=== PATIENT | male | born 1945 | race Caucasian/White ===

== ENCOUNTER 2018-01-15 15:40 | Emergency (ER) | payer MEDICARE ==
[2018-01-15 16:01] LABS: Appearance,Urine Clear (Clear); Bilirubin,Urine Negative (Negative); Blood,Urine Negative (Negative); Color,Urine Light Yellow; Glucose,Urine (UA) Trace (Negative); Ketones,Urine Negative (Negative); Leukocyte Esterase,Urine Negative (Negative); Nitrite,Urine Negative (Negative); PH, Urine 5.5 (5.0-8.0); Protein,Urine Negative (Negative); Specific Gravity,Urine 1.005 (1.001-1.035); Urobilinogen,Urine <2.0 mg/dL (<2.0)
[2018-01-15] MEDS ORDERED: SODIUM CHLORIDE 0.9% 1,000 ML IV STA (18:06)
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
[2018-01-15 18:52] LABS: Basophils % (A) 0 %; Eosinophils # (A) 0.2 k/uL (0-0.7); Eosinophils % (A) 2 %; HCT 46.3 % (39.0-53.0); HGB 15.7 gm/dL (13.0-17.5); Lymphocytes # (A) 1.6 k/uL (1.0-4.8); Lymphocytes % (A) 12 %; Mean Platelet Volume 7.3; Monocytes # (A) 0.6 k/uL (0-1.0); Monocytes % (A) 4 %; Neutrophils # (A) 11.1 k/uL (1.3-7.7); Neutrophils % (A) 81 %; Platelet Count 153 k/uL (150-450); RBC 4.92 m/uL (4.30-5.90); RDW 12.9 % (11.5-15.5); WBC 13.6 k/uL (3.8-10.6)
[2018-01-15 19:00] LABS: ALT 26 U/L (21-72); AST 24 U/L (17-59); Alkaline Phosphatase 78 U/L (38-126); Amylase 37 U/L (30-110); Anion Gap 9 mmol/L; Blood Urea Nitrogen 17 mg/dL (9-20); Calcium 9.4 mg/dL (8.4-10.2); Carbon Dioxide 21 mmol/L (22-30); Chloride 106 mmol/L (98-107); Glucose 123 mg/dL (74-99); Lipase 89 U/L (23-300); Potassium 4.6 mmol/L (3.5-5.1); Sodium 136 mmol/L (137-145); Total Bilirubin 0.6 mg/dL (0.2-1.3); Total Protein 6.5 g/dL (6.3-8.2)
[2018-01-15 19:06] LABS: Prothrombin Time 9.7 sec (9.0-12.0)
[2018-01-15 19:10] LABS: Partial Thromboplastin Time 21.1 sec (22.0-30.0)
[2018-01-15 19:22] VITALS: RESP 18
[2018-01-15] MEDS ORDERED: diphenhydrAMINE 50 MG/ML 1 ML VIAL IVP STA (19:29)
[2018-01-15] MEDS ORDERED: FAMOTIDINE 20 MG/2 ML VIAL IV STA (19:29)
--- NOTE | 2018-01-15 20:14 | CT ---
EXAMINATION TYPE: CT abdomen pelvis w con DATE OF EXAM: 01/15/2018 COMPARISON: 06/19/2015 HISTORY: Abdominal pain CT DLP: mGycm Automated exposure control for dose reduction was used. TECHNIQUE: Helical acquisition of images was performed from the lung bases through the pelvis. CONTRAST: Isovue 100 mL FINDINGS: Lung bases are clear. There is no pleural effusion. There is no pericardial effusion. Liver spleen pancreas appear normal. Bile ducts are not dilated. Gallbladder appears normal. There is no adrenal mass. There is some hyperplasia of both adrenal glands. There is normal contrast opacification of the kidneys. There is no hydronephrosis. Ureters are not di lated. There are some inflammatory changes around the mid sigmoid colon with fat stranding. There are multip le sigmoid diverticula. The appendix appears normal. Small bowel appears normal. The lumbar spine is intact. There is atherosclerotic vascular calcification. Prostate is moderately enlarged. Prostate gl and measures 7.5 cm. There is umbilical hernia that contains fat. IMPRESSION: ENLARGED PROSTATE. NORMAL APPENDIX. THERE IS EVIDENCE OF FOCAL DIVERTICULITIS IN THE MID SIGMOID COLON THAT IS NEW COMPARED TO OLD EXAM. NO DRAINABLE FLUID COLLECTION.
[2018-01-15 20:51] VITALS: BP 174/81; PULSE 90; TEMP 97.8
== END 2018-01-15 20:53 | disposition home or self-care (01) ==
LOC: EC 15:40
DX: K57.92 Diverticulitis of intestine, part unspecified, without perforation or abscess without bleeding (principal); D72.829 Elevated white blood cell count, unspecified; E11.9 Type 2 diabetes mellitus without complications; K21.9 Gastro-esophageal reflux disease without esophagitis; I10 Essential (primary) hypertension; I25.2 Old myocardial infarction; N42.9 Disorder of prostate, unspecified; F17.200 Nicotine dependence, unspecified, uncomplicated; Z87.19 Personal history of other diseases of the digestive system; Z95.5 Presence of coronary angioplasty implant and graft; Z98.52 Vasectomy status; Z95.818 Presence of other cardiac implants and grafts; Z79.82 Long term (current) use of aspirin; Z79.84 Long term (current) use of oral hypoglycemic drugs; Z79.899 Other long term (current) drug therapy; Z88.6 Allergy status to analgesic agent; Z88.2 Allergy status to sulfonamides
CPT/HCPCS: 36415; 80053; 82150; 83690; 85025; 85610; 85730; 81003; 74177; 99284; 96374; 96375; 96361 ×2; J1200; Q9967

== ENCOUNTER 2018-01-21 15:27 | Inpatient (IN) | payer MEDICARE ==
[2018-01-21 16:49] LABS: Appearance,Urine Clear (Clear); Bilirubin,Urine Negative (Negative); Blood,Urine Small (Negative); Color,Urine Yellow; Glucose,Urine (UA) Trace (Negative); Ketones,Urine Negative (Negative); Leukocyte Esterase,Urine Negative (Negative); Mucus,Urine Rare /hpf; Nitrite,Urine Negative (Negative); PH, Urine 5.5 (5.0-8.0); Protein,Urine Negative (Negative); RBC,Urine <1 /hpf (0-5); Specific Gravity,Urine 1.011 (1.001-1.035); Squamous Epithelial Cell,Urine <1 /hpf (0-4); Urobilinogen,Urine <2.0 mg/dL (<2.0)
[2018-01-21 17:17] LABS: ALT 34 U/L (21-72); AST 20 U/L (17-59); Albumin 3.6 g/dL (3.5-5.0); Alkaline Phosphatase 62 U/L (38-126); Amylase <30 U/L (30-110); Anion Gap 10 mmol/L; Blood Urea Nitrogen 15 mg/dL (9-20); Calcium 9.1 mg/dL (8.4-10.2); Carbon Dioxide 21 mmol/L (22-30); Chloride 105 mmol/L (98-107); Glucose 120 mg/dL (74-99); Lipase 31 U/L (23-300); Potassium 4.2 mmol/L (3.5-5.1); Sodium 136 mmol/L (137-145); Total Bilirubin 0.5 mg/dL (0.2-1.3); Total Protein 6.3 g/dL (6.3-8.2)
[2018-01-21 17:26] LABS: Basophils % (A) 0 %; Eosinophils # (A) 0.1 k/uL (0-0.7); Eosinophils % (A) 1 %; HCT 43.4 % (39.0-53.0); HGB 14.1 gm/dL (13.0-17.5); Lymphocytes # (A) 1.4 k/uL (1.0-4.8); Lymphocytes % (A) 10 %; MCH 30.6 pg (25.0-35.0); MCHC 32.5 g/dL (31.0-37.0); MCV 94.3 fL (80.0-100.0); Mean Platelet Volume 6.7; Monocytes # (A) 0.7 k/uL (0-1.0); Monocytes % (A) 5 %; Neutrophils # (A) 12.3 k/uL (1.3-7.7); Neutrophils % (A) 84 %; Platelet Count 189 k/uL (150-450); RBC 4.61 m/uL (4.30-5.90); RDW 12.8 % (11.5-15.5); WBC 14.8 k/uL (3.8-10.6)
--- NOTE | 2018-01-21 17:37 | XR ---
EXAMINATION TYPE: XR KUB DATE OF EXAM: 01/21/2018 COMPARISON: 04/01/2015 HISTORY: Abdominal pain TECHNIQUE: 2 views upright FINDINGS: There is no sign of intestinal obstruction or pneumoperitoneum. Fecal pattern is normal. Th ere is no sign of a mass. Lung bases are clear. There are no pathologic calcifications over the kidne ys. IMPRESSION: Nonacute abdomen. No change.
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
[2018-01-21] MEDS ORDERED: diphenhydrAMINE 50 MG/ML 1 ML VIAL IVP STA (19:20)
[2018-01-21] MEDS ORDERED: FAMOTIDINE 20 MG/2 ML VIAL IV STA (19:20)
[2018-01-21] MEDS ORDERED: methylPREDNISolone SOD SUCCI 125 MG/2 ML VIAL IV STA (19:20)
[2018-01-21] MEDS ORDERED: HYDROmorphone 1 MG/ML 1 ML SYRINGE IVP PRN (19:22)
[2018-01-21] MEDS ORDERED: NALOXONE 0.4 MG/ML 1 ML VIAL IV PRN (19:22)
[2018-01-21] MEDS ORDERED: ONDANSETRON 4 MG/2 ML VIAL IVP PRN (19:22)
[2018-01-21] MEDS ORDERED: LEVOFLOXACIN 750MG-D5W PMX 750 MG in DEXTROSE/WATER 1 150ML.BAG IVPB STA (19:24)
--- NOTE | 2018-01-21 20:43 | CT ---
EXAMINATION TYPE: CT abdomen pelvis w con DATE OF EXAM: 01/21/2018 COMPARISON: 01/15/2018 HISTORY: pain CT DLP: 1490 mGycm Automated exposure control for dose reduction was used. TECHNIQUE: Helical acquisition of images was performed from the lung bases through the pelvis. CONTRAST: Performed without Oral Contrast and with IV Contrast, patient injected with 100 mL of Isovue 300. FINDINGS: Lung bases are clear. There is no pleural effusion. Heart size is normal. Liver spleen pancreas gallbladder appear normal. Bile ducts are not dilated. There is 2 cm low-density left and right adrenal mass consistent with hyperplasia. Kidneys show satisfactory contrast opacification. There is no hydronephrosis. Ureters are not dilated . There is small left renal parapelvic cysts. Abdominal aorta is atheromatous. There is no retroperit be adenopathy. There is inflammatory change around the mid sigmoid colon with extraluminal 3 cm fluid collection on the left lateral wall of the lower sigmoid colon. The prostate is markedly enlarged and measures 7 cm. Urinary bladder distends smoothly. Appendix appe ars normal. There is no ascites. There is no sign of free air. IMPRESSION: THERE IS SIGMOID DIVERTICULOSIS. SIGMOID DIVERTICULITIS WITH 4 CM PERIDIVERTICULAR ABSCESS IN THE DIS FELIPE SIGMOID COLON. ABSCESS IS SIGNIFICANTLY INCREASED IN SIZE COMPARED TO 01/15/2018. ENLARGED PROSTATE. NORMAL APPENDIX.
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
[2018-01-21] MEDS ORDERED: SODIUM CHLORIDE 0.9% 1,000 ML IV ONE (20:50)
[2018-01-21 21:59] VITALS: BMI 37.1
[2018-01-21] MEDS: DOXAZOSIN 4 MG TAB PO SCH (23:06)
[2018-01-21] MEDS: FINASTERIDE 5 MG TAB PO SCH (23:06)
[2018-01-21] MEDS: METOPROLOL TARTRATE 25 MG TAB PO SCH (23:06)
[2018-01-21] MEDS: SODIUM CHLORIDE 0.9% 1,000 ML IV SCH (23:06)
[2018-01-21] MEDS: LISINOPRIL 5 MG TAB PO SCH (23:06)
[2018-01-21] MEDS: FLUTICASONE 50MCG/SPRAY NASAL 16GM EA NOSTRIL SCH (23:09)
[2018-01-21 23:51] LABS: Glucose,Whole Blood 216 mg/dL (75-99)
[2018-01-21] MEDS: metroNIDAZOLE-NS PMX 500 MG in SALINE 1 100ML.BAG IVPB SCH (23:56)
[2018-01-21] MEDS: INSULIN ASPART 100 UNIT/ML 1 ML 10 ML VIAL SQ SCH (23:56)
[2018-01-22 05:55] LABS: Glucose,Whole Blood 198 mg/dL (75-99)
[2018-01-22] MEDS: metroNIDAZOLE-NS PMX 500 MG in SALINE 1 100ML.BAG IVPB SCH ×4 (06:07→23:44)
[2018-01-22] MEDS: INSULIN ASPART 100 UNIT/ML 1 ML 10 ML VIAL SQ SCH ×4 (06:08→23:44)
[2018-01-22] MEDS: SODIUM CHLORIDE 0.9% 1,000 ML IV SCH ×3 (07:57→20:19)
[2018-01-22] MEDS: FLUTICASONE 50MCG/SPRAY NASAL 16GM EA NOSTRIL SCH ×2 (08:17→20:22)
[2018-01-22] MEDS: METOPROLOL TARTRATE 25 MG TAB PO SCH ×2 (08:17→20:22)
[2018-01-22] MEDS: PANTOPRAZOLE 40 MG/10 ML VIAL IV SCH (08:18)
[2018-01-22 09:43] LABS: Basophils % (A) 0 %; Eosinophils % (A) 0 %; HCT 39.4 % (39.0-53.0); HGB 12.7 gm/dL (13.0-17.5); Lymphocytes # (A) 0.7 k/uL (1.0-4.8); Lymphocytes % (A) 6 %; MCH 30.3 pg (25.0-35.0); MCHC 32.4 g/dL (31.0-37.0); MCV 93.7 fL (80.0-100.0); Mean Platelet Volume 6.9; Monocytes # (A) 0.4 k/uL (0-1.0); Monocytes % (A) 3 %; Neutrophils # (A) 11.3 k/uL (1.3-7.7); Neutrophils % (A) 90 %; Platelet Count 193 k/uL (150-450); RDW 12.5 % (11.5-15.5); WBC 12.5 k/uL (3.8-10.6)
[2018-01-22 09:55] LABS: Anion Gap 6 mmol/L; Blood Urea Nitrogen 16 mg/dL (9-20); Calcium 8.7 mg/dL (8.4-10.2); Carbon Dioxide 24 mmol/L (22-30); Chloride 107 mmol/L (98-107); Glucose 161 mg/dL (74-99); Sodium 137 mmol/L (137-145)
[2018-01-22 12:22] LABS: Glucose,Whole Blood 217 mg/dL (75-99)
[2018-01-22] MEDS: ACETAMINOPHEN TAB 500 MG TAB PO SCH ×3 (12:27→23:44)
--- NOTE | 2018-01-22 14:09 | P.PN ---
<Bianca Ramsay Orestes - Last Filed: 01/22/18 14:01> Subjective Progress Note Date: 01/22/18 72-year-old male seen this morning states has been up ambulating in the hallway. Continues to report having left lower quadrant pain. States it has improved slightly from admission Computed tomography scan obtained last evening report reviewed show sigmoid diverticulosis with sigmoid diverticulitis with a 4 cm abscess in the distal sigmoid colon abscess has significantly increased compared to prior. White count this morning 12.5. On admission 14.8 afebrile Objective - Vital Signs Vital signs: Vital Signs Temp 97.9 F 01/22/18 07:20 Pulse 65 01/22/18 07:20 Resp 18 01/22/18 07:20 BP 136/65 01/22/18 07:20 Pulse Ox 96 01/22/18 07:20 Intake & Output 01/21/18 01/22/18 01/22/18 18:59 06:59 18:59 Intake Total 1250 915 Balance 1250 915 Weight 104.326 kg 104.326 kg Intake: Intake, IV Titration 1150 Amount Levofloxacin 750Mg-D5w 150 Pmx 750 mg In Dextrose/ Water 1 150ml.bag @ 100 mls/hr IVPB ONCE [facility] Rx#: [id number] Levofloxacin 750Mg-D5w 100 Pmx 750 mg In Dextrose/ Water 1 150ml.bag @ 100 mls/hr IVPB Q24H [facility] Rx#: [id number] Sodium Chloride 0.9% 1, 800 000 ml @ 125 mls/hr IV . Q8H [facility] Rx#:[id number] metroNIDAZOLE-NS PMX 500 100 mg In Saline 1 100ml.bag @ 100 mls/hr IVPB Q6HR [facility] Rx#:[id number] Oral 100 915 Other: Voiding Method Toilet # Voids 3 - Exam Physical exam 72-year-old sitting up in bed reports no nausea vomiting reports there is a slight improvement in the left lower quadrant pain Lungs adequate air movement bilaterally Heart S1-S2 audible regular Abdomen soft nondistended with tenderness left lower quadrant active bowel sounds no nausea no vomiting reportedly had a small soft stool this morning no blood noted Extremities no edema - Labs CBC & Chem 7: 01/22/18 09:24 01/22/18 09:24 Labs: Abnormal Lab Results - Last 24 Hours (Table) 01/21/18 01/21/18 01/21/18 Range/Units 16:15 16:48 16:48 WBC 14.8 H (3.8-10.6) k/uL RBC (4.30-5.90) m/uL Hgb (13.0-17.5) gm/dL Neutrophils # 12.3 H (1.3-7.7) k/uL Lymphocytes # (1.0-4.8) k/uL Sodium 136 L (137-145) mmol/L Carbon Dioxide 21 L (22-30) mmol/L Glucose 120 H (74-99) mg/dL POC Glucose (mg/dL) (75-99) mg/dL Amylase <30 L (30-110) U/L Urine Glucose (UA) Trace H (Negative) Urine Blood Small H (Negative) Urine Mucus Rare H (None) /hpf 01/21/18 01/22/18 01/22/18 Range/Units 23:49 05:54 09:24 WBC 12.5 H (3.8-10.6) k/uL RBC 4.20 L (4.30-5.90) m/uL Hgb 12.7 L (13.0-17.5) gm/dL Neutrophils # 11.3 H (1.3-7.7) k/uL Lymphocytes # 0.7 L (1.0-4.8) k/uL Sodium (137-145) mmol/L Carbon Dioxide (22-30) mmol/L Glucose (74-99) mg/dL POC Glucose (mg/dL) 216 H 198 H (75-99) mg/dL Amylase (30-110) U/L Urine Glucose (UA) (Negative) Urine Blood (Negative) Urine Mucus (None) /hpf 01/22/18 01/22/18 Range/Units 09:24 12:19 WBC (3.8-10.6) k/uL RBC (4.30-5.90) m/uL Hgb (13.0-17.5) gm/dL Neutrophils # (1.3-7.7) k/uL Lymphocytes # (1.0-4.8) k/uL Sodium (137-145) mmol/L Carbon Dioxide (22-30) mmol/L Glucose 161 H (74-99) mg/dL POC Glucose (mg/dL) 217 H (75-99) mg/dL Amylase (30-110) U/L Urine Glucose (UA) (Negative) Urine Blood (Negative) Urine Mucus (None) /hpf Assessment and Plan Assessment: Impression Present on admission persistent left lower quadrant pain suspect due to perforated diverticulitis complicated failed outpatient management for diverticulitis History of a recent perforated diverticulitis one week prior diagnosed CAT scan abdomen and pelvis with contrast report reviewed sigmoid diverticulosis with sigmoid diverticulitis with a 4 cm abscess in the distal sigmoid colon increased from prior exam Present on admission leukocytosis likely due to diverticulitis Plan Continue IV antibiotic as ordered Levaquin and Flagyl Pain control Increase activity IV fluid as ordered Nothing by mouth except ice chips popsicles Follow up on blood cultures DVT and GI prophylaxis The above impression and plan of care have been discussed and directed by signing physician. Bianca Ramsay nurse practitioner acting as scribe for signing physician. <Bev Lara - Last Filed: 01/22/18 19:44> Objective - Vital Signs Vital signs: Vital Signs Temp 98 F 01/22/18 15:00 Pulse 61 01/22/18 15:00 Resp 18 01/22/18 15:00 BP 145/70 01/22/18 15:00 Pulse Ox 95 01/22/18 15:00 Intake & Output 01/22/18 01/22/18 01/23/18 06:59 18:59 06:59 Intake Total 1250 1155 Balance 1250 1155 Weight 104.326 kg Intake: Intake, IV Titration 1150 Amount Levofloxacin 750Mg-D5w 150 Pmx 750 mg In Dextrose/ Water 1 150ml.bag @ 100 mls/hr IVPB ONCE [facility] Rx#: [id number] Levofloxacin 750Mg-D5w 100 Pmx 750 mg In Dextrose/ Water 1 150ml.bag @ 100 mls/hr IVPB Q24H [facility] Rx#: [id number] Sodium Chloride 0.9% 1, 800 000 ml @ 125 mls/hr IV . Q8H [facility] Rx#:[id number] metroNIDAZOLE-NS PMX 500 100 mg In Saline 1 100ml.bag @ 100 mls/hr IVPB Q6HR [facility] Rx#:[id number] Oral 100 1155 Other: Voiding Method Toilet # Voids 3 3 - Labs CBC & Chem 7: 01/22/18 09:24 01/22/18 09:24 Labs: Abnormal Lab Results - Last 24 Hours (Table) 01/21/18 01/22/18 01/22/18 Range/Units 23:49 05:54 09:24 WBC 12.5 H (3.8-10.6) k/uL RBC 4.20 L (4.30-5.90) m/uL Hgb 12.7 L (13.0-17.5) gm/dL Neutrophils # 11.3 H (1.3-7.7) k/uL Lymphocytes # 0.7 L (1.0-4.8) k/uL Glucose (74-99) mg/dL POC Glucose (mg/dL) 216 H 198 H (75-99) mg/dL 01/22/18 01/22/18 01/22/18 Range/Units 09:24 12:19 16:53 WBC (3.8-10.6) k/uL RBC (4.30-5.90) m/uL Hgb (13.0-17.5) gm/dL Neutrophils # (1.3-7.7) k/uL Lymphocytes # (1.0-4.8) k/uL Glucose 161 H (74-99) mg/dL POC Glucose (mg/dL) 217 H 130 H (75-99) mg/dL Microbiology - Last 24 Hours (Table) 01/21/18 16:48 Blood Culture - Preliminary Blood No Growth after 24 hours Assessment and Plan (1) Perforation of sigmoid colon due to diverticulitis Current Visit: Yes Status: Acute Code(s): K57.20 - DVTRCLI OF LG INT W PERFORATION AND ABSCESS W/O BLEEDING SNOMED Code(s): 0567456414864673 (2) Diabetes type 2, controlled Current Visit: Yes Status: Acute Code(s): E11.9 - TYPE 2 DIABETES MELLITUS WITHOUT COMPLICATIONS SNOMED Code(s): 02145794 (3) History of myocardial infarction Current Visit: Yes Status: Acute Code(s): I25.2 - OLD MYOCARDIAL INFARCTION SNOMED Code(s): 113661010 (4) Hypertensive heart disease Current Visit: Yes Status: Acute Code(s): I11.9 - HYPERTENSIVE HEART DISEASE WITHOUT HEART FAILURE SNOMED Code(s): 80929459 (5) Prostate hypertrophy Current Visit: Yes Status: Acute Code(s): N40.0 - BENIGN PROSTATIC HYPERPLASIA WITHOUT LOWER URINRY TRACT SYMP SNOMED Code(s): 167900533 (6) Gastroesophageal reflux disease Current Visit: Yes Status: Acute Code(s): K21.9 - GASTRO-ESOPHAGEAL REFLUX DISEASE WITHOUT ESOPHAGITIS SNOMED Code(s): 768873655 (7) Failure of outpatient treatment Current Visit: Yes Status: Acute Code(s): Z78.9 - OTHER SPECIFIED HEALTH STATUS SNOMED Code(s): 470890379
[2018-01-22] MEDS ORDERED: IPRATROPIUM-ALBUTEROL 3 ML NEB INHALATION PRN (15:50)
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
[2018-01-22] MEDS: IPRATROPIUM-ALBUTEROL 3 ML NEB INHALATION SCH ×2 (16:07→21:20)
[2018-01-22 16:55] LABS: Glucose,Whole Blood 130 mg/dL (75-99)
--- NOTE | 2018-01-22 19:46 | P.PN ---
Progress Note - Text Progress Note Date: 01/22/18 Patient seen and reevaluated this evening. Abdominal pain from yesterday moderately improved. He is tolerating ice chips and popsicles. He is now passing flatus. He still awaiting a very large bowel movement. Upon further discussion of his care, patient wishes to continue care only with Gen. surgery service and infectious disease. Per patient request, management per general surgery and infectious disease. Medicine team care discontinued.
[2018-01-22] MEDS: LEVOFLOXACIN 750MG-D5W PMX 750 MG in DEXTROSE/WATER 1 150ML.BAG IVPB SCH (20:20)
[2018-01-22] MEDS: FINASTERIDE 5 MG TAB PO SCH (20:22)
[2018-01-22] MEDS: DOXAZOSIN 4 MG TAB PO SCH (20:22)
[2018-01-22] MEDS: LISINOPRIL 5 MG TAB PO SCH (20:22)
[2018-01-22 23:34] LABS: Glucose,Whole Blood 118 mg/dL (75-99)
[2018-01-23 05:34] LABS: Glucose,Whole Blood 113 mg/dL (75-99)
[2018-01-23] MEDS: INSULIN ASPART 100 UNIT/ML 1 ML 10 ML VIAL SQ SCH ×3 (05:36→18:28)
[2018-01-23] MEDS: metroNIDAZOLE-NS PMX 500 MG in SALINE 1 100ML.BAG IVPB SCH ×3 (05:36→17:50)
[2018-01-23] MEDS: ACETAMINOPHEN TAB 500 MG TAB PO SCH ×4 (05:36→23:36)
[2018-01-23] MEDS: SODIUM CHLORIDE 0.9% 1,000 ML IV SCH ×3 (05:36→22:15)
[2018-01-23 07:35] LABS: Basophils % (A) 0 %; Eosinophils % (A) 0 %; HCT 38.5 % (39.0-53.0); HGB 13.3 gm/dL (13.0-17.5); Lymphocytes # (A) 1.2 k/uL (1.0-4.8); Lymphocytes % (A) 9 %; MCH 31.9 pg (25.0-35.0); MCHC 34.5 g/dL (31.0-37.0); MCV 92.6 fL (80.0-100.0); Mean Platelet Volume 7.5; Monocytes # (A) 0.8 k/uL (0-1.0); Monocytes % (A) 6 %; Neutrophils # (A) 10.3 k/uL (1.3-7.7); Neutrophils % (A) 83 %; Platelet Count 182 k/uL (150-450); RBC 4.16 m/uL (4.30-5.90); RDW 12.6 % (11.5-15.5); WBC 12.4 k/uL (3.8-10.6)
[2018-01-23] MEDS: IPRATROPIUM-ALBUTEROL 3 ML NEB INHALATION SCH ×4 (07:57→18:44)
[2018-01-23] MEDS: FLUTICASONE 50MCG/SPRAY NASAL 16GM EA NOSTRIL SCH ×2 (09:05→22:14)
[2018-01-23] MEDS: PANTOPRAZOLE 40 MG/10 ML VIAL IV SCH (09:05)
[2018-01-23] MEDS: METOPROLOL TARTRATE 25 MG TAB PO SCH ×2 (09:05→22:14)
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
--- NOTE | 2018-01-23 12:05 | P.PN ---
<Melony Ramsayne M - Last Filed: 01/23/18 12:00> Subjective Progress Note Date: 01/23/18 72-year-old male seen this morning. Up ambulating in the cobian. Patient stated he had one small bowel movement this morning no blood noted in the stool IV antibiotic Flagyl and Levaquin as ordered with infectious disease following currently blood culture show no growth to date reports no nausea no vomiting tolerating ice chips and popsicles abdomen soft not distended states less tenderness Patient is being followed and treated for sigmoid diverticulosis with sigmoid diverticulitis with a 4 cm abscess in the distal sigmoid colon. Objective - Vital Signs Vital signs: Vital Signs Temp 97.8 F 01/23/18 07:05 Pulse 68 01/23/18 07:05 Resp 18 01/23/18 07:05 BP 129/64 01/23/18 07:05 Pulse Ox 96 01/23/18 07:05 Intake & Output 01/22/18 01/23/18 01/23/18 18:59 06:59 18:59 Intake Total 1155 2250 250 Balance 1155 2250 250 Intake: Intake, IV Titration 2250 Amount Levofloxacin 750Mg-D5w 750 Pmx 750 mg In Dextrose/ Water 1 150ml.bag @ 100 mls/hr IVPB Q24H [facility] Rx#: [id number] Sodium Chloride 0.9% 1, 1500 000 ml @ 125 mls/hr IV . [facility]8H [facility] Rx#:[id number] Oral 1155 250 Other: Voiding Method Toilet # Voids 3 3 - Exam Physical exam 72-year-old sitting up in bed reports has been up ambulating in the cobian states there is a improvement in the left lower quadrant abdominal pain states feels hunger sensation Lungs adequate air movement bilaterally no shortness of breath Heart S1-S2 audible regular denying chest pain Abdomen soft nondistended with tenderness left lower quadrant active bowel sounds no nausea no vomiting reportedly had a small bowel movement this morning Extremities no edema - Labs CBC & Chem 7: 01/23/18 07:07 01/22/18 09:24 Labs: Abnormal Lab Results - Last 24 Hours (Table) 01/22/18 01/22/18 01/22/18 Range/Units 12:19 16:53 23:33 WBC (3.8-10.6) k/uL RBC (4.30-5.90) m/uL Hct (39.0-53.0) % Neutrophils # (1.3-7.7) k/uL POC Glucose (mg/dL) 217 H 130 H 118 H (75-99) mg/dL 01/23/18 01/23/18 Range/Units 05:31 07:07 WBC 12.4 H (3.8-10.6) k/uL RBC 4.16 L (4.30-5.90) m/uL Hct 38.5 L (39.0-53.0) % Neutrophils # 10.3 H (1.3-7.7) k/uL POC Glucose (mg/dL) 113 H (75-99) mg/dL Microbiology - Last 24 Hours (Table) 01/21/18 16:48 Blood Culture - Preliminary Blood No Growth after 24 hours Assessment and Plan Assessment: Impression Present on admission persistent left lower quadrant pain suspect due to perforated diverticulitis complicated failed outpatient management for diverticulitis History of a recent perforated diverticulitis one week prior diagnosed CAT scan abdomen and pelvis with contrast report reviewed sigmoid diverticulosis with sigmoid diverticulitis with a 4 cm abscess in the distal sigmoid colon increased from prior exam Present on admission leukocytosis likely due to diverticulitis Plan Await further recommendations infectious disease Continue IV antibiotic as ordered Levaquin and Flagyl Pain control Increase activity IV fluid as ordered Nothing by mouth except ice chips popsicles Follow up on blood cultures DVT and GI prophylaxis The above impression and plan of care have been discussed and directed by signing physician. Bianca Ramsay nurse practitioner acting as scribe for signing physician. <Bev Lara N - Last Filed: 01/23/18 17:05> Objective - Vital Signs Vital signs: Vital Signs Temp 98.7 F 01/23/18 14:28 Pulse 62 01/23/18 14:28 Resp 15 01/23/18 14:28 BP 142/64 01/23/18 14:28 Pulse Ox 96 01/23/18 14:28 Intake & Output 01/22/18 01/23/18 01/23/18 18:59 06:59 18:59 Intake Total 1155 2250 490 Balance 1155 2250 490 Intake: Intake, IV Titration 2250 Amount Levofloxacin 750Mg-D5w 750 Pmx 750 mg In Dextrose/ Water 1 150ml.bag @ 100 mls/hr IVPB Q24H [facility] Rx#: [id number] Sodium Chloride 0.9% 1, 1500 000 ml @ 125 mls/hr IV . Q8H [facility] Rx#:[id number] Oral 1155 490 Other: Voiding Method Toilet # Voids 3 3 3 # Bowel Movements 5 - Labs CBC & Chem 7: 01/23/18 07:07 01/22/18 09:24 Labs: Abnormal Lab Results - Last 24 Hours (Table) 01/22/18 01/23/18 01/23/18 Range/Units 23:33 05:31 07:07 WBC 12.4 H (3.8-10.6) k/uL RBC 4.16 L (4.30-5.90) m/uL Hct 38.5 L (39.0-53.0) % Neutrophils # 10.3 H (1.3-7.7) k/uL POC Glucose (mg/dL) 118 H 113 H (75-99) mg/dL 01/23/18 Range/Units 12:39 WBC (3.8-10.6) k/uL RBC (4.30-5.90) m/uL Hct (39.0-53.0) % Neutrophils # (1.3-7.7) k/uL POC Glucose (mg/dL) 157 H (75-99) mg/dL Microbiology - Last 24 Hours (Table) 01/21/18 16:48 Blood Culture - Preliminary Blood No Growth after 24 hours Assessment and Plan (1) Perforation of sigmoid colon due to diverticulitis Current Visit: Yes Status: Acute Code(s): K57.20 - DVTRCLI OF LG INT W PERFORATION AND ABSCESS W/O BLEEDING SNOMED Code(s): 1426208407723119 (2) Diabetes type 2, controlled Current Visit: Yes Status: Acute Code(s): E11.9 - TYPE 2 DIABETES MELLITUS WITHOUT COMPLICATIONS SNOMED Code(s): 81067367 (3) History of myocardial infarction Current Visit: Yes Status: Acute Code(s): I25.2 - OLD MYOCARDIAL INFARCTION SNOMED Code(s): 689595766 (4) Hypertensive heart disease Current Visit: Yes Status: Acute Code(s): I11.9 - HYPERTENSIVE HEART DISEASE WITHOUT HEART FAILURE SNOMED Code(s): 42455944 (5) Prostate hypertrophy Current Visit: Yes Status: Acute Code(s): N40.0 - BENIGN PROSTATIC HYPERPLASIA WITHOUT LOWER URINRY TRACT SYMP SNOMED Code(s): 523226388 (6) Gastroesophageal reflux disease Current Visit: Yes Status: Acute Code(s): K21.9 - GASTRO-ESOPHAGEAL REFLUX DISEASE WITHOUT ESOPHAGITIS SNOMED Code(s): 863766240 (7) Failure of outpatient treatment Current Visit: Yes Status: Acute Code(s): Z78.9 - OTHER SPECIFIED HEALTH STATUS SNOMED Code(s): 945410944
[2018-01-23 12:41] LABS: Glucose,Whole Blood 157 mg/dL (75-99)
--- NOTE | 2018-01-23 18:00 | P.PN ---
Progress Note - Text Progress Note Date: 01/23/18 He is passing flatus and having bowel movements. Pain has improved. His main concern includes inflamed hemorrhoids. He's pending infectious disease management of his antibiotics as he had failed outpatient management of his diverticulitis. Separately, given the recurrent symptoms of diverticulitis including acute event, surgical intervention is being described attention was outpatient management. Patient is yet to see his advanced practice registered nurse. He is due for colonoscopy. We will obtain cardiology consultation in the interim. I discussed the patient he may need oral versus IV antibiotics. Hospitalization continued for the weekend. Patient is aware that Dr. Donis is covering over the weekend.
[2018-01-23 18:30] LABS: Glucose,Whole Blood 94 mg/dL (75-99)
[2018-01-23] MEDS: LISINOPRIL 5 MG TAB PO SCH (22:13)
[2018-01-23] MEDS: FINASTERIDE 5 MG TAB PO SCH (22:14)
[2018-01-23] MEDS: LEVOFLOXACIN 750MG-D5W PMX 750 MG in DEXTROSE/WATER 1 150ML.BAG IVPB SCH (22:14)
[2018-01-23] MEDS: DOXAZOSIN 4 MG TAB PO SCH (22:14)
--- NOTE | 2018-01-23 22:17 | P.CON ---
Consult Note - . Consult date: 01/23/18 Assessment/Plan:: This is a 72-year-old male patient who gives history that he has had problems with episodes of diarrhea since he was around 15 years of age. He has episodes of diarrhea and usually left lower quadrant pain but sometimes the pain is all over his abdomen. He has history of a colonoscopy [address] Doyle Blount that found 1 polyp and diverticula. He states he then was sent to the Dr. Ellington and determined that his diarrhea was related to metformin which was stopped and he was placed on Januvia which seemed to make things better. He has recently been treated for sinus infection within the last month and was initially on amoxicillin followed by a yeast medicine then followed by Augmentin Flonase and prednisone. He states that he also took probiotics while he was on Augmentin. After he finished the prednisone he thought his stomach trouble became worse. He states that instead of diarrhea he was having more problems with constipation but having pain as well. He states he usually has about 4 bowel movements per day and sometimes up to 7 and 9 per day. He sometimes has bright red blood secondary to hemorrhoids. He came into the emergency center last and had a CAT scan of abdomen and pelvis that showed diverticulitis in the mid sigmoid colon that is new, enlarged prostate, normal appendix. He was afebrile at that time with a white count 13.6. He was discharged home on Levaquin and Flagyl and followed up with his primary care physician. He was instructed by his primary care to take only half a tablet of the Flagyl 3 times daily which she has done and continue the Levaquin. He then returned to the emergency center on January 21 due to abdominal pain and constipation. He was afebrile, white count 14.8. A repeat CAT scan of the abdomen and pelvis showed sigmoid diverticulosis. Sigmoid diverticulitis with 4 cm peridiverticular abscess in the distal sigmoid colon. Abscess is significantly increased in size compared to January 15. Patient was started on Levaquin and Flagyl IV and admitted under the care of Dr. Ramos. Patient is currently on chopped diet which she is tolerating. He denies having any nausea or vomiting. He states he has had some chills and sweats. He has had a good appetite and feels that he is "starving." He denies any problems with urination either pain burning or retention. He does state he has a cyst on the scrotum that is enlarged since he was started on IV antibiotics. Please see the consult note is dictated by nurse practitioner Mrs. Jennifer Mcclure. 72-year-old male who has a very complex history of what appears to be an irritable bowel syndrome throughout his life relates that he has had great difficulties with his stool habits. He has learned to cook and eat such that his colon does not bother him significantly. This is evidenced by his significant obesity. The patient recently has had a change of his bowel habit that he actually became a bit constipated. This is extremely unusual for him. Yet she started to take some [id number] products to loosen his stools that he is not happy doing the past. He became quite uncomfortable and his even obtained a enema. The patient refused to use the enema because he was concerned and called his physician. With his increasing abdominal pain and concern she was brought to hospital. Computed tomography scan did reveal evidence of the significant sigmoid diverticulosis as well as diverticulitis with a 4 cm abscess at the distal sigmoid colon. The patient has been treated with antibiotic therapy with only minimal improvement at this time. His appetite is improved but he does not feel well. He does have a known history of a hydrocele that he believes is worsened since coming to Hospital and receiving IV fluids. The patient's history reveals evidence of an Escherichia coli that was intermediate susceptible to Unasyn and constantly for antibiotic therapy to improve coverage of the diverticular abscess will be transitioned to Zosyn pending further data. There is a potential the patient will be treated with outpatient intravenous antibiotic therapy likely in the home setting. We' ll continue ongoing supportive care. Nutrition as per surgery. It appears there are plans for surgical intervention a few months down the road when he has further improved. Unclear if there is plans for percutaneous drainage of the abscess. The patient's questions are answered to the best ability. Leukocytosis is due to the diverticular abscess and diverticulitis and is showing a slight trend to improvement and will be monitored. I agree with evaluation, assessment and plan as dictated by nurse practitioner Mrs. Jennifer Mcclure.
[2018-01-23] MEDS: PIPERACILLIN-TAZOBACTAM 3.375 GM in DEXTROSE/WATER 1 50ML.BAG IVPB SCH (23:35)
[2018-01-24] MEDS: INSULIN ASPART 100 UNIT/ML 1 ML 10 ML VIAL SQ SCH ×4 (01:00→17:35)
[2018-01-24 01:09] LABS: Glucose,Whole Blood 92 mg/dL (75-99)
[2018-01-24] MEDS: SODIUM CHLORIDE 0.9% 1,000 ML IV SCH ×2 (04:15→10:27)
[2018-01-24 05:55] LABS: Glucose,Whole Blood 97 mg/dL (75-99)
[2018-01-24] MEDS: ACETAMINOPHEN TAB 500 MG TAB PO SCH ×3 (06:09→17:37)
[2018-01-24 07:25] LABS: Basophils % (A) 0 %; Eosinophils # (A) 0.1 k/uL (0-0.7); Eosinophils % (A) 1 %; HGB 12.8 gm/dL (13.0-17.5); Lymphocytes # (A) 1.2 k/uL (1.0-4.8); Lymphocytes % (A) 23 %; MCHC 32.9 g/dL (31.0-37.0); MCV 94.2 fL (80.0-100.0); Mean Platelet Volume 6.7; Monocytes # (A) 0.3 k/uL (0-1.0); Monocytes % (A) 6 %; Neutrophils # (A) 3.7 k/uL (1.3-7.7); Neutrophils % (A) 68 %; Platelet Count 195 k/uL (150-450); RBC 4.14 m/uL (4.30-5.90); RDW 12.7 % (11.5-15.5); WBC 5.4 k/uL (3.8-10.6)
[2018-01-24 07:31] LABS: INR 1.2 (<1.2); Prothrombin Time 11.5 sec (9.0-12.0)
[2018-01-24] MEDS: IPRATROPIUM-ALBUTEROL 3 ML NEB INHALATION SCH ×4 (08:02→20:23)
[2018-01-24] MEDS: PANTOPRAZOLE 40 MG/10 ML VIAL IV SCH (08:08)
[2018-01-24] MEDS: PIPERACILLIN-TAZOBACTAM 3.375 GM in DEXTROSE/WATER 1 50ML.BAG IVPB SCH ×3 (08:08→23:31)
[2018-01-24] MEDS: FLUTICASONE 50MCG/SPRAY NASAL 16GM EA NOSTRIL SCH ×2 (08:08→21:20)
[2018-01-24] MEDS: METOPROLOL TARTRATE 25 MG TAB PO SCH ×2 (08:08→21:20)
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
[2018-01-24] MEDS ORDERED: HYDROCORTISONE 1% CREAM 30 GM TUBE TOPICAL PRN (10:26)
--- NOTE | 2018-01-24 10:28 | P.PN ---
Subjective Progress Note Date: 01/24/18 Principal diagnosis: Diverticular abscess Patient feels better today. Minimal pain. White blood cell count normal. Was having some diarrhea. Asking for more to eat. Is complaining of some hemorrhoidal pain. Objective - Vital Signs Vital signs: Vital Signs Temp 97.7 F 01/24/18 07:25 Pulse 59 L 01/24/18 07:25 Resp 18 01/24/18 07:25 BP 142/70 01/24/18 07:25 Pulse Ox 96 01/24/18 07:25 Intake & Output 01/23/18 01/24/18 01/24/18 18:59 06:59 18:59 Intake Total 490 2430 Balance 490 2430 Intake: Intake, IV Titration 930 Amount Levofloxacin 750Mg-D5w 150 Pmx 750 mg In Dextrose/ Water 1 150ml.bag @ 100 mls/hr IVPB Q24H [facility] Rx#: [id number] Piperacillin-Tazobactam 3 100 .375 gm In Dextrose/Water 1 50ml.bag @ 12.5 mls/hr IVPB Q8HR [facility] Rx#: [id number] Sodium Chloride 0.9% 1, 680 000 ml @ 125 mls/hr IV . Q8H [facility] Rx#:[id number] Oral 490 1500 Other: Voiding Method Toilet # Voids 3 2 # Bowel Movements 5 - Exam Abdomen: Soft, nondistended, mild left lower quadrant tenderness - Labs CBC & Chem 7: 01/24/18 06:55 01/22/18 09:24 Labs: Abnormal Lab Results - Last 24 Hours (Table) 01/23/18 01/24/18 01/24/18 Range/Units 12:39 06:51 06:55 RBC 4.14 L (4.30-5.90) m/uL Hgb 12.8 L (13.0-17.5) gm/dL INR 1.2 H (<1.2) POC Glucose (mg/dL) 157 H (75-99) mg/dL Microbiology - Last 24 Hours (Table) 01/21/18 16:48 Blood Culture - Preliminary Blood No Growth after 48 hours Assessment and Plan (1) Perforation of sigmoid colon due to diverticulitis Narrative/Plan: Continue IV antibiotics. Advance diet to full liquids. We'll provide hydrocortisone cream for his hemorrhoidal symptoms. Current Visit: Yes Status: Acute Code(s): K57.20 - DVTRCLI OF LG INT W PERFORATION AND ABSCESS W/O BLEEDING SNOMED Code(s): 9115133277730553
[2018-01-24 11:35] LABS: Glucose,Whole Blood 115 mg/dL (75-99)
[2018-01-24 17:18] LABS: Glucose,Whole Blood 102 mg/dL (75-99)
[2018-01-24] MEDS: DOXAZOSIN 4 MG TAB PO SCH (21:20)
[2018-01-24] MEDS: FINASTERIDE 5 MG TAB PO SCH (21:20)
[2018-01-24] MEDS: LISINOPRIL 5 MG TAB PO SCH (21:20)
[2018-01-24 23:44] LABS: Glucose,Whole Blood 112 mg/dL (75-99)
[2018-01-25] MEDS: SODIUM CHLORIDE 0.9% 1,000 ML IV SCH ×4 (02:44→20:13)
[2018-01-25] MEDS: ACETAMINOPHEN TAB 500 MG TAB PO SCH ×4 (02:46→17:10)
[2018-01-25] MEDS: INSULIN ASPART 100 UNIT/ML 1 ML 10 ML VIAL SQ SCH ×4 (02:47→18:36)
[2018-01-25 05:13] LABS: Glucose,Whole Blood 106 mg/dL (75-99)
[2018-01-25 07:19] LABS: Basophils % (A) 1 %; Eosinophils # (A) 0.1 k/uL (0-0.7); Eosinophils % (A) 2 %; HCT 38.3 % (39.0-53.0); HGB 13.1 gm/dL (13.0-17.5); Lymphocytes # (A) 1.4 k/uL (1.0-4.8); Lymphocytes % (A) 25 %; MCH 31.8 pg (25.0-35.0); MCHC 34.1 g/dL (31.0-37.0); MCV 93.1 fL (80.0-100.0); Mean Platelet Volume 8.7; Monocytes # (A) 0.4 k/uL (0-1.0); Monocytes % (A) 6 %; Neutrophils # (A) 3.6 k/uL (1.3-7.7); Neutrophils % (A) 64 %; Platelet Count 188 k/uL (150-450); RBC 4.12 m/uL (4.30-5.90); RDW 12.6 % (11.5-15.5); WBC 5.6 k/uL (3.8-10.6)
--- NOTE | 2018-01-25 07:52 | P.PN ---
<Melony Ramsayne M - Last Filed: 01/25/18 07:41> Subjective Progress Note Date: 01/25/18 73-year-old male seen this morning sitting up in bed "bothered by rectal pain from hemorrhoids" stated did have a small bowel movemen.this morning Passing gas. No nausea no vomiting. anxious to have diet advanced. States mild abdominal pain has significantly improved. White count 5.6. It's noted that the patient has been followed by Dr. Saldivar infectious disease. Also cardiology consultation noted indicated no cardiac workup at this time cardiac status stable Objective - Vital Signs Vital signs: Vital Signs Temp 98.7 F 01/24/18 20:00 Pulse 62 01/24/18 20:00 Resp 18 01/24/18 20:00 BP 161/78 01/24/18 20:00 Pulse Ox 96 01/24/18 20:00 Intake & Output 01/24/18 01/25/18 01/25/18 18:59 06:59 18:59 Intake Total 540 1725 Balance 540 1725 Intake: Intake, IV Titration 1725 Amount Piperacillin-Tazobactam 3 100 .375 gm In Dextrose/Water 1 50ml.bag @ 12.5 mls/hr IVPB Q8HR [facility] Rx#: [id number] Sodium Chloride 0.9% 1, 1625 000 ml @ 125 mls/hr IV . Q8H [facility] Rx#:[id number] Oral 540 Other: Voiding Method Toilet # Voids 3 - Exam Physical exam 72-year-old sitting up in bed reports of hemorrhoid pain Lungs adequate air movement bilaterally no shortness of breath on room air Heart S1-S2 audible regular denying chest pain no murmur Abdomen soft nondistended states abdominal pain significantly improved active bowel sounds no nausea no vomiting reportedly had a small bowel movement this morning Rectum external hemorrhoid noted skin excoriation noted Extremities no edema - Labs CBC & Chem 7: 01/25/18 05:58 01/22/18 09:24 Labs: Abnormal Lab Results - Last 24 Hours (Table) 01/24/18 01/24/18 01/24/18 Range/Units 11:34 17:17 23:22 RBC (4.30-5.90) m/uL Hct (39.0-53.0) % POC Glucose (mg/dL) 115 H 102 H 112 H (75-99) mg/dL 01/25/18 01/25/18 Range/Units 05:09 05:58 RBC 4.12 L (4.30-5.90) m/uL Hct 38.3 L (39.0-53.0) % POC Glucose (mg/dL) 106 H (75-99) mg/dL Microbiology - Last 24 Hours (Table) 01/21/18 16:48 Blood Culture - Preliminary Blood No Growth after 72 hours Assessment and Plan Assessment: Impression Present on admission persistent left lower quadrant pain suspect due to perforated diverticulitis complicated failed outpatient management for diverticulitis History of a recent perforated diverticulitis one week prior diagnosed CAT scan abdomen and pelvis with contrast report reviewed sigmoid diverticulosis with sigmoid diverticulitis with a 4 cm abscess in the distal sigmoid colon increased from prior exam Present on admission leukocytosis likely due to diverticulitis Known coronary artery disease Hypertensive heart disease Type 2 diabetes controlled Plan Await further recommendations infectious disease Continue IV antibiotic as ordered IV Zosyn Pain control Increase activity IV fluid as ordered DVT and GI prophylaxis Advance diet as tolerated Anticipate discharge in the next 24 hours Defer to infectious disease possible PICC line needed Surgery for diverticulitis tentatively planned April Progress note dictated for Dr. Donis rounding on behalf of Dr. Lara The above impression and plan of care have been discussed and directed by signing physician. Bianca Ramsay nurse practitioner acting as scribe for signing physician. <Juan Donis - Last Filed: 01/25/18 10:30> Objective - Vital Signs Vital signs: Vital Signs Temp 98.4 F 01/25/18 07:30 Pulse 60 01/25/18 07:30 Resp 18 01/25/18 07:30 BP 170/76 01/25/18 07:30 Pulse Ox 96 01/25/18 07:30 Intake & Output 01/24/18 01/25/18 01/25/18 18:59 06:59 18:59 Intake Total 540 1725 Balance 540 1725 Intake: Intake, IV Titration 1725 Amount Piperacillin-Tazobactam 3 100 .375 gm In Dextrose/Water 1 50ml.bag @ 12.5 mls/hr IVPB Q8HR [facility] Rx#: [id number] Sodium Chloride 0.9% 1, 1625 000 ml @ 125 mls/hr IV . Q8H [facility] Rx#:[id number] Oral 540 Other: Voiding Method Toilet # Voids 3 - Labs CBC & Chem 7: 01/25/18 05:58 01/22/18 09:24 Labs: Abnormal Lab Results - Last 24 Hours (Table) 01/24/18 01/24/18 01/24/18 Range/Units 11:34 17:17 23:22 RBC (4.30-5.90) m/uL Hct (39.0-53.0) % POC Glucose (mg/dL) 115 H 102 H 112 H (75-99) mg/dL 01/25/18 01/25/18 Range/Units 05:09 05:58 RBC 4.12 L (4.30-5.90) m/uL Hct 38.3 L (39.0-53.0) % POC Glucose (mg/dL) 106 H (75-99) mg/dL Microbiology - Last 24 Hours (Table) 01/21/18 16:48 Blood Culture - Preliminary Blood No Growth after 72 hours Assessment and Plan Assessment: As above. Patient still having diarrhea. Abdominal pain seems improved. He is afebrile. The patient has poor IV access and may require PICC line placement. Continue diet. (1) Perforation of sigmoid colon due to diverticulitis Current Visit: Yes Status: Acute Code(s): K57.20 - DVTRCLI OF LG INT W PERFORATION AND ABSCESS W/O BLEEDING SNOMED Code(s): 9552174042017312
[2018-01-25] MEDS: IPRATROPIUM-ALBUTEROL 3 ML NEB INHALATION SCH ×4 (08:08→20:14)
[2018-01-25] MEDS: METOPROLOL TARTRATE 25 MG TAB PO SCH ×2 (09:07→21:20)
[2018-01-25] MEDS: PIPERACILLIN-TAZOBACTAM 3.375 GM in DEXTROSE/WATER 1 50ML.BAG IVPB SCH ×3 (10:21→23:38)
[2018-01-25] MEDS: PANTOPRAZOLE 40 MG/10 ML VIAL IV SCH (11:01)
[2018-01-25] MEDS: FLUTICASONE 50MCG/SPRAY NASAL 16GM EA NOSTRIL SCH ×2 (11:01→20:11)
[2018-01-25 12:27] LABS: Glucose,Whole Blood 122 mg/dL (75-99)
[2018-01-25] MEDS: WITCH HAZEL 1 EACH MED..PAD TOPICAL SCH ×4 (17:11→23:37)
[2018-01-25 17:32] LABS: Glucose,Whole Blood 186 mg/dL (75-99)
[2018-01-25] MEDS: FINASTERIDE 5 MG TAB PO SCH (20:11)
[2018-01-25] MEDS: LISINOPRIL 5 MG TAB PO SCH (20:11)
[2018-01-25] MEDS: DOXAZOSIN 4 MG TAB PO SCH (21:19)
[2018-01-25 23:59] LABS: Glucose,Whole Blood 123 mg/dL (75-99)
[2018-01-26] MEDS: ACETAMINOPHEN TAB 500 MG TAB PO SCH ×5 (01:27→23:58)
[2018-01-26] MEDS: INSULIN ASPART 100 UNIT/ML 1 ML 10 ML VIAL SQ SCH ×5 (01:27→23:58)
[2018-01-26] MEDS: SODIUM CHLORIDE 0.9% 1,000 ML IV SCH ×3 (05:23→19:33)
[2018-01-26 05:48] LABS: Glucose,Whole Blood 109 mg/dL (75-99)
[2018-01-26] MEDS: WITCH HAZEL 1 EACH MED..PAD TOPICAL SCH ×5 (05:48→23:58)
[2018-01-26 06:59] LABS: Basophils % (A) 1 %; Eosinophils # (A) 0.2 k/uL (0-0.7); Eosinophils % (A) 3 %; HCT 41.4 % (39.0-53.0); HGB 13.4 gm/dL (13.0-17.5); Lymphocytes # (A) 1.6 k/uL (1.0-4.8); Lymphocytes % (A) 23 %; MCH 30.7 pg (25.0-35.0); MCHC 32.4 g/dL (31.0-37.0); MCV 94.6 fL (80.0-100.0); Mean Platelet Volume 6.6; Monocytes # (A) 0.3 k/uL (0-1.0); Monocytes % (A) 5 %; Neutrophils # (A) 4.6 k/uL (1.3-7.7); Neutrophils % (A) 68 %; Platelet Count 210 k/uL (150-450); RBC 4.37 m/uL (4.30-5.90); RDW 12.7 % (11.5-15.5); WBC 6.8 k/uL (3.8-10.6)
[2018-01-26] MEDS: IPRATROPIUM-ALBUTEROL 3 ML NEB INHALATION SCH ×4 (07:25→20:04)
[2018-01-26] MEDS: METOPROLOL TARTRATE 25 MG TAB PO SCH ×2 (09:31→20:51)
[2018-01-26] MEDS: PIPERACILLIN-TAZOBACTAM 3.375 GM in DEXTROSE/WATER 1 50ML.BAG IVPB SCH (09:49)
[2018-01-26] MEDS: PANTOPRAZOLE 40 MG/10 ML VIAL IV SCH (09:49)
--- NOTE | 2018-01-26 11:14 | P.PN ---
Subjective Progress Note Date: 01/26/18 He reports abdominal pain is now resolved. His been afebrile. White blood cell count has been normal last 2 days. He is eager to eat more. He is awaiting final recommendations antibiotic management per infectious disease. He has also been seen by cardiology states the patient could follow-up as outpatient. Objective - Vital Signs Vital signs: Vital Signs Temp 98.1 F 01/26/18 07:00 Pulse 52 L 01/26/18 07:00 Resp 16 01/26/18 07:00 BP 172/73 01/26/18 07:00 Pulse Ox 94 L 01/26/18 07:00 Intake & Output 01/25/18 01/26/18 01/26/18 18:59 06:59 18:59 Intake Total 825 1600 Balance 825 1600 Intake: Intake, IV Titration 50 1600 Amount Piperacillin-Tazobactam 3 50 100 .375 gm In Dextrose/Water 1 50ml.bag @ 12.5 mls/hr IVPB Q8HR [facility] Rx#: [id number] Sodium Chloride 0.9% 1, 1500 000 ml @ 125 mls/hr IV . Q8H [facility] Rx#:[id number] Oral 775 Other: Voiding Method Toilet # Voids 3 - Exam ABDOMEN: Soft, nontender, nondistended GENERAL: Well developed and in no acute distress. Pleasant. HEENT: No sclera icterus. Extraocular movements grossly intact. Moist buccal mucosa. Head is atraumatic, normocephalic. Hears conversational speech. No nasal drainage. NECK: Supple without lymphadenopathy. No JV distention. CHEST: Non-labored respirations and equal bilateral excursions. CARDIOVASCULAR: Regular rate and rhythm. Palpable 2+ radial pulses. MUSCULOSKELETAL: No clubbing, cyanosis or edema. NEUROLOGIC: No focal or lateralizing signs. PSYCH: Appropriate affect. Alert and oriented to person, place and time. SKIN: Good skin turgor. Well perfused. - Labs CBC & Chem 7: 01/26/18 06:43 01/22/18 09:24 Labs: Abnormal Lab Results - Last 24 Hours (Table) 01/25/18 01/25/18 01/25/18 Range/Units 12:24 17:30 23:36 POC Glucose (mg/dL) 122 H 186 H 123 H (75-99) mg/dL 01/26/18 Range/Units 05:46 POC Glucose (mg/dL) 109 H (75-99) mg/dL Microbiology - Last 24 Hours (Table) 01/21/18 16:48 Blood Culture - Preliminary Blood No Growth after 96 hours Assessment and Plan (1) Perforation of sigmoid colon due to diverticulitis Current Visit: Yes Status: Acute Code(s): K57.20 - DVTRCLI OF LG INT W PERFORATION AND ABSCESS W/O BLEEDING SNOMED Code(s): 6546978988972071 (2) Diabetes type 2, controlled Current Visit: Yes Status: Acute Code(s): E11.9 - TYPE 2 DIABETES MELLITUS WITHOUT COMPLICATIONS SNOMED Code(s): 98811446 (3) History of myocardial infarction Current Visit: Yes Status: Acute Code(s): I25.2 - OLD MYOCARDIAL INFARCTION SNOMED Code(s): 195622575 (4) Hypertensive heart disease Current Visit: Yes Status: Acute Code(s): I11.9 - HYPERTENSIVE HEART DISEASE WITHOUT HEART FAILURE SNOMED Code(s): 18214049 (5) Prostate hypertrophy Current Visit: Yes Status: Acute Code(s): N40.0 - BENIGN PROSTATIC HYPERPLASIA WITHOUT LOWER URINRY TRACT SYMP SNOMED Code(s): 269176543 (6) Gastroesophageal reflux disease Current Visit: Yes Status: Acute Code(s): K21.9 - GASTRO-ESOPHAGEAL REFLUX DISEASE WITHOUT ESOPHAGITIS SNOMED Code(s): 740011982 (7) Failure of outpatient treatment Current Visit: Yes Status: Acute Code(s): Z78.9 - OTHER SPECIFIED HEALTH STATUS SNOMED Code(s): 870231954 Plan: PLAN: 1. Discharge home pending antibiotic management as the patient responded well to Zosyn. 2. He is a difficult IV stick. Should he require IV antibiotics then recommend PICC line. 3. Full liquid diet described to the patient in the interim.
[2018-01-26] MEDS: FLUTICASONE 50MCG/SPRAY NASAL 16GM EA NOSTRIL SCH ×2 (11:24→20:49)
[2018-01-26 11:44] LABS: Glucose,Whole Blood 136 mg/dL (75-99)
[2018-01-26] MEDS ORDERED: LIDOCAINE 2% (PF) 20 MG/ML 2 ML AMP SQ ONE (13:48)
--- NOTE | 2018-01-26 14:32 | IR ---
EXAMINATION TYPE: IR cvc insert >=5 years DATE OF EXAM: 01/26/2018 COMPARISON: NONE CLINICAL HISTORY: Infection Needs long-term intravenous access for antibiotics. PROCEDURE: After informed consent, the skin overlying the left basilic vein was localized with ultrasound and no mandeep to be compressible and patent. An ultrasound image was obtained and submitted on the patient's c de la rosa. The overlying skin was prepped and draped and Lidocaine was used for local anesthesia. A skin bob was made with a scalpel. Access was gained to the vein under ultrasound guidance with a 21 gau ge needle and a 0.018 inch wire was advanced. Access site was dilated with Peel-Away sheath and cath eter tailored to the appropriate length and advanced such that the distal tip is at the cavoatrial ju nction. Spot image was obtained verifying placement. Catheter was fixed to the skin and a sterile d ressing was placed following hemostasis. Catheter was aspirated and flushed with saline. Patient wa s discharged in stable condition without complication. Maximal barrier technique is utilized. Ultras ound image is documented on the chart. Ultrasound used with sterile technique. Fluoro time and fluoroscopic images submitted to document procedure: 0.1 minutes fluoroscopy time, 13 intraoperative C-arm images IMPRESSION: STATUS POST ULTRASOUND AND FLUOROSCOPIC GUIDED PICC LINE PLACEMENT, READY FOR USE. THIS PROCEDURE WAS PERFORMED BY THE UNDERSIGNED.
[2018-01-26] MEDS: ERTAPENEM 1 GM in SODIUM CHLORIDE 0.9% 50 ML IVPB SCH (15:54)
[2018-01-26 16:46] LABS: Glucose,Whole Blood 136 mg/dL (75-99)
--- NOTE | 2018-01-26 18:20 | P.DS ---
Providers Date of admission: 01/21/18 19:22 Expected date of discharge: 01/28/18 Attending physician: Bev Lara Consults: 01/22/18 19:48 Consult Physician Routine Consulting Provider: Benny Saldivar Consult Reason/Comments: Failed outpatient management diverticulitis Do you want consulting provider notified?: Yes, Notify in am 01/23/18 18:00 Consult Physician Routine Consulting Provider: Alan Blank Consult Reason/Comments: Cardiac risk assessment for surgery Do you want consulting provider notified?: Yes Primary care physician: Katey Harris - Discharge Diagnosis(es) (1) Perforation of sigmoid colon due to diverticulitis Current Visit: Yes Status: Acute (2) Diabetes type 2, controlled Current Visit: Yes Status: Acute (3) History of myocardial infarction Current Visit: Yes Status: Acute (4) Hypertensive heart disease Current Visit: Yes Status: Acute (5) Prostate hypertrophy Current Visit: Yes Status: Acute (6) Gastroesophageal reflux disease Current Visit: Yes Status: Acute (7) Failure of outpatient treatment Current Visit: Yes Status: Acute (8) Hemorrhoids, external, with complication Current Visit: Yes Status: Acute (9) Gallstones Current Visit: Yes Status: Acute (10) Coronary artery disease Current Visit: Yes Status: Acute Hospital Course: The patient is a 73-year-old gentleman who had failed outpatient therapy for perforated diverticulitis. Despite 1 week of antibiotics he presented to the emergency room with worsening abdominal pain. CT of the abdomen and pelvis confirmed worsening diverticulitis with a small abscess pocket less than 5 cm in size. He initially been placed on Levaquin and Flagyl. Due to his failed outpatient management, infectious disease consultation was obtained. He was switched over to Zosyn. His white blood cell count was normal. No reports of fevers or chills. His abdominal pain resolved. He was tolerating diet. He initially was being evaluated for IV antibiotics however given the cost, alternatives including repeat computed tomography scan was performed demonstrating resolution of abscess. Upon careful discussion with infectious disease, patient was cleared to continue on levofloxacin and Flagyl as outpatient. Incidentally, patient had complained primarily of right upper quadrant abdominal pain where ultrasound of the gallbladder was consistent with multiple gallstones. HIDA scan was unremarkable. Patient understands he will follow up with radiologist for preoperative cardiac risk assessment. Patient will follow-up as outpatient to undergo colonoscopy. Future colectomy and cholecystectomy described. Pertinent Studies: CT of the abdomen and pelvis demonstrated localized perforated diverticulitis with repeat demonstrating resolution of abscess Ultrasound of gallbladder consistent with gallstones without acute cholecystitis Patient Condition at Discharge: Stable Plan - Discharge Summary Discharge Rx Participant: No New Discharge Prescriptions: New Hydrocortisone Cream [Hydrocortisone 1% Cream] 1 applic TOPICAL BID PRN #1 tube PRN Reason: Hemorrhoid HYDROcodone/APAP 5-325MG [[place] 5-325] 1 tab PO Q6HR PRN 3 Days #12 tab PRN Reason: Pain Levofloxacin [Levaquin] 500 mg PO DAILY #14 tab metroNIDAZOLE [Flagyl] 500 mg PO TID #42 tab Continue Metoprolol Tartrate [Lopressor] 25 mg PO BID Loratadine [Claritin] 10 mg PO HS Aspirin 81 mg PO SUTUTHSA Lansoprazole [Prevacid] 15 mg PO AC-BRKFST Doxazosin Mesylate [Cardura] 4 mg PO HS Lisinopril [Zestril] 5 mg PO HS sitaGLIPtin [Januvia] 100 mg PO DAILY Praluent(Unknown) 1 dose SQ Q14D Discontinued Levofloxacin [Levaquin] 750 mg PO DAILY 3 Days #7 tab metroNIDAZOLE [Flagyl] 500 mg PO Q8HR #30 tab No Action Finasteride [Proscar] 5 mg PO HS Cholecalciferol [Vitamin D3] 5,000 unit PO HS Fluticasone Nasal [place] [Flonase Nasal [place]] 2 spr EA NOSTRIL BID Discharge Medication List Aspirin 81 mg PO SUTUTHSA 01/11/15 [History] Doxazosin Mesylate [Cardura] 4 mg PO HS 01/11/15 [History] Finasteride [Proscar] 5 mg PO HS 01/11/15 [History] Lansoprazole [Prevacid] 15 mg PO AC-BRKFST 01/11/15 [History] Loratadine [Claritin] 10 mg PO HS 01/11/15 [History] Metoprolol Tartrate [Lopressor] 25 mg PO BID 01/11/15 [History] Cholecalciferol [Vitamin D3] 5,000 unit PO HS 04/02/15 [History] Lisinopril [Zestril] 5 mg PO HS 07/13/15 [History] Praluent(Unknown) 1 dose SQ Q14D 01/15/18 [History] sitaGLIPtin [Januvia] 100 mg PO DAILY 01/15/18 [History] Fluticasone Nasal [place] [Flonase Nasal [place]] 2 spr EA NOSTRIL BID 01/21/18 [ History] HYDROcodone/APAP 5-325MG [[place] 5-325] 1 tab PO Q6HR PRN 3 Days #12 tab [Rx] Hydrocortisone Cream [Hydrocortisone 1% Cream] 1 applic TOPICAL BID PRN #1 tube 01/26/18 [Rx] Levofloxacin [Levaquin] 500 mg PO DAILY #14 tab 01/28/18 [Rx] metroNIDAZOLE [Flagyl] 500 mg PO TID #42 tab 01/28/18 [Rx] Follow up Appointment(s)/Referral(s): Katey Harris MD [Primary Care Provider] - 1-2 days Bev Lara MD [STAFF PHYSICIAN] - 02/17/18 Alan Blank MD [STAFF PHYSICIAN] - 1 Week Patient Instructions/Handouts: Diverticulitis (GEN), Diverticulitis Diet (GEN) Activity/Diet/Wound Care/Special Instructions: Full liquid diet and advised. Discharge Disposition: HOME WITH HOME HEALTH SERVICES
--- NOTE | 2018-01-26 20:40 | P.PN ---
Subjective Progress Note Date: 01/26/18 This is a 72-year-old male patient who gives history that he has had problems with episodes of diarrhea since he was around 15 years of age. He has episodes of diarrhea and usually left lower quadrant pain but sometimes the pain is all over his abdomen. He has history of a colonoscopy [address] Doyle Blount that found 1 polyp and diverticula. He states he then was sent to the Dr. Ellington and determined that his diarrhea was related to metformin which was stopped and he was placed on Januvia which seemed to make things better. He has recently been treated for sinus infection within the last month and was initially on amoxicillin followed by a yeast medicine then followed by Augmentin Flonase and prednisone. He states that he also took probiotics while he was on Augmentin. After he finished the prednisone he thought his stomach trouble became worse. He states that instead of diarrhea he was having more problems with constipation but having pain as well. He states he usually has about 4 bowel movements per day and sometimes up to 7 and 9 per day. He sometimes has bright red blood secondary to hemorrhoids. He came into the emergency center last and had a CAT scan of abdomen and pelvis that showed diverticulitis in the mid sigmoid colon that is new, enlarged prostate, normal appendix. He was afebrile at that time with a white count 13.6. He was discharged home on Levaquin and Flagyl and followed up with his primary care physician. He was instructed by his primary care to take only half a tablet of the Flagyl 3 times daily which she has done and continue the Levaquin. He then returned to the emergency center on January 21 due to abdominal pain and constipation. He was afebrile, white count 14.8. A repeat CAT scan of the abdomen and pelvis showed sigmoid diverticulosis. Sigmoid diverticulitis with 4 cm peridiverticular abscess in the distal sigmoid colon. Abscess is significantly increased in size compared to January 15. Patient was started on Levaquin and Flagyl IV and admitted under the care of Dr. Lara. Patient is currently on chopped diet which he is tolerating. He denies having any nausea or vomiting. He states he has had some chills and sweats. He has had a good appetite and feels that he is "starving." He denies any problems with urination either pain burning or retention. He does state he has a cyst on the scrotum that is enlarged since he was started on IV antibiotics. 01/26/2018 patient feels considerably better. Is able to tolerate his clear liquid diet without significant nausea or emesis. His pain is well controlled. His swelling to the right scrotum is improved. Denies difficulties with antibiotic therapy. Objective - Vital Signs Vital signs: Vital Signs Temp 98.3 F 01/26/18 15:00 Pulse 52 L 01/26/18 07:00 Resp 12 01/26/18 15:00 BP 173/72 01/26/18 15:00 Pulse Ox 94 L 01/26/18 15:00 Intake & Output 01/26/18 01/26/18 01/27/18 06:59 18:59 06:59 Intake Total 1600 585 Balance 1600 585 Intake: Intake, IV Titration 1600 Amount Piperacillin-Tazobactam 3 100 .375 gm In Dextrose/Water 1 50ml.bag @ 12.5 mls/hr IVPB Q8HR DOMINGUEZ Rx#: [id number] Sodium Chloride 0.9% 1, 1500 000 ml @ 125 mls/hr IV . Q8H DOMINGUEZ Rx#:[id number] Oral 585 Other: Voiding Method Toilet # Voids 1 - Exam Gen: This is a 72-year-old male. He is found in bed and appears to be comfortable and in no acute distress. He is complaining of left-sided abdominal pain. He states he has been ambulating before my arrival HEENT: Head is atraumatic, normocephalic. Pupils equal, round. Sclerae is anicteric. Oral mucous membranes are moist. No lesions are noted. Denture in place. NECK: Supple. No JVD. No lymphadenopathy. No thyromegaly. LUNGS: Clear to auscultation. No wheezes or rhonchi. No intercostal retractions. HEART: Regular rate and rhythm. No murmur. ABDOMEN: Soft. Bowel sounds are present. No masses. Left lower quadrant tenderness. EXTREMITIES: No pedal edema. No calf tenderness. Dorsalis pedis +1 bilaterally.PICC line now in place in the left arm without difficulty NEUROLOGICAL: Patient is awake, alert and oriented x3 - Labs CBC & Chem 7: 01/26/18 06:43 01/22/18 09:24 Labs: Abnormal Lab Results - Last 24 Hours (Table) 01/25/18 01/26/18 01/26/18 Range/Units 23:36 05:46 11:43 POC Glucose (mg/dL) 123 H 109 H 136 H (75-99) mg/dL 01/26/18 Range/Units 16:44 POC Glucose (mg/dL) 136 H (75-99) mg/dL Microbiology - Last 24 Hours (Table) 01/21/18 16:48 Blood Culture - Preliminary Blood No Growth after 120 hours Laboratory Results WBC 6.8 k/uL (3.8-10.6) 01/26/18 06:43 RBC 4.37 m/uL (4.30-5.90) 01/26/18 06:43 Hgb 13.4 gm/dL (13.0-17.5) 01/26/18 06:43 Hct 41.4 % (39.0-53.0) 01/26/18 06:43 MCV 94.6 fL (80.0-100.0) 01/26/18 06:43 MCH 30.7 pg (25.0-35.0) 01/26/18 06:43 MCHC 32.4 g/dL (31.0-37.0) 01/26/18 06:43 RDW 12.7 % (11.5-15.5) 01/26/18 06:43 Plt Count 210 k/uL (150-450) 01/26/18 06:43 Neutrophils % 68 % 01/26/18 06:43 Lymphocytes % 23 % 01/26/18 06:43 Monocytes % 5 % 01/26/18 06:43 Eosinophils % 3 % 01/26/18 06:43 Basophils % 1 % 01/26/18 06:43 Neutrophils # 4.6 k/uL (1.3-7.7) 01/26/18 06:43 Lymphocytes # 1.6 k/uL (1.0-4.8) 01/26/18 06:43 Monocytes # 0.3 k/uL (0-1.0) 01/26/18 06:43 Eosinophils # 0.2 k/uL (0-0.7) 01/26/18 06:43 Basophils # 0.0 k/uL (0-0.2) 01/26/18 06:43 PT 11.5 sec (9.0-12.0) 01/24/18 06:51 INR 1.2 (<1.2) H 01/24/18 06:51 Sodium 137 mmol/L (137-145) 01/22/18 09:24 Potassium 4.0 mmol/L (3.5-5.1) 01/22/18 09:24 Chloride 107 mmol/L (98-107) 01/22/18 09:24 Carbon Dioxide 24 mmol/L (22-30) 01/22/18 09:24 Anion Gap 6 mmol/L 01/22/18 09:24 BUN 16 mg/dL (9-20) 01/22/18 09:24 Creatinine 0.88 mg/dL (0.66-1.25) 01/22/18 09:24 Est GFR (CKD-EPI)AfAm >90 (>60 ml/min/1.73 sqM) 01/22/18 09:24 Est GFR (CKD-EPI)NonAf 85 (>60 ml/min/1.73 sqM) 01/22/18 09:24 Glucose 161 mg/dL (74-99) H 01/22/18 09:24 POC Glucose (mg/dL) 136 mg/dL (75-99) H 01/26/18 16:44 POC Glu Azure Developer ID Anuradha Gilman 01/26/18 16:44 Plasma Lactic Acid Main 1.4 mmol/L (0.7-2.0) 01/21/18 16:48 Calcium 8.7 mg/dL (8.4-10.2) 01/22/18 09:24 Total Bilirubin 0.5 mg/dL (0.2-1.3) 01/21/18 16:48 AST 20 U/L (17-59) 01/21/18 16:48 ALT 34 U/L (21-72) 01/21/18 16:48 Alkaline Phosphatase 62 U/L (38-126) 01/21/18 16:48 Total Protein 6.3 g/dL (6.3-8.2) 01/21/18 16:48 Albumin 3.6 g/dL (3.5-5.0) 01/21/18 16:48 Amylase <30 U/L (30-110) L 01/21/18 16:48 Lipase 31 U/L (23-300) 01/21/18 16:48 Urine Color Yellow 01/21/18 16:15 Urine Appearance Clear (Clear) 01/21/18 16:15 Urine pH 5.5 (5.0-8.0) 01/21/18 16:15 Ur Specific [place] 1.011 (1.001-1.035) 01/21/18 16:15 Urine Protein Negative (Negative) 01/21/18 16:15 Urine Glucose (UA) Trace (Negative) H 01/21/18 16:15 Urine Ketones Negative (Negative) 01/21/18 16:15 Urine Blood Small (Negative) H 01/21/18 16:15 Urine Nitrite Negative (Negative) 01/21/18 16:15 Urine Bilirubin Negative (Negative) 01/21/18 16:15 Urine Urobilinogen <2.0 mg/dL (<2.0) 01/21/18 16:15 Ur Leukocyte Esterase Negative (Negative) 01/21/18 16:15 Urine RBC <1 /hpf (0-5) 01/21/18 16:15 Ur Squamous Epith Cells <1 /hpf (0-4) 01/21/18 16:15 Urine Mucus Rare /hpf (None) H 01/21/18 16:15 Microbiology 01/21/18 16:48 Blood Blood Culture - Preliminary No Growth after 120 hours Assessment and Plan (1) Diverticulitis Current Visit: Yes Status: Acute Code(s): K57.92 - DVTRCLI OF INTEST, PART UNSP, W/O PERF OR ABSCESS W/O BLEED SNOMED Code(s): 356328370 (2) Diverticular disease of intestine with perforation and abscess Narrative/Plan: 72-year-old male who has a very complex history of what appears to be an irritable bowel syndrome throughout his life relates that he has had great difficulties with his stool habits. He has learned to cook and eat such that his colon does not bother him significantly. This is evidenced by his significant obesity. The patient recently has had a change of his bowel habit that he actually became a bit constipated. This is extremely unusual for him. Yet she started to take some [id number] products to loosen his stools that he is not happy doing the past. He became quite uncomfortable and his even obtained a enema. The patient refused to use the enema because he was concerned and called his physician. With his increasing abdominal pain and concern she was brought to hospital. Computed tomography scan did reveal evidence of the significant sigmoid diverticulosis as well as diverticulitis with a 4 cm abscess at the distal sigmoid colon. The patient has been treated with antibiotic therapy with only minimal improvement at this time. His appetite is improved but he does not feel well. He does have a known history of a hydrocele that he believes is worsened since coming to Hospital and receiving IV fluids. The patient's history reveals evidence of an Escherichia coli that was intermediate susceptible to Unasyn and constantly for antibiotic therapy to improve coverage of the diverticular abscess will be transitioned to Zosyn pending further data. There is a potential the patient will be treated with outpatient intravenous antibiotic therapy likely in the home setting. We' ll continue ongoing supportive care. Nutrition as per surgery. It appears there are plans for surgical intervention a few months down the road when he has further improved. Unclear if there is plans for percutaneous drainage of the abscess. The patient's questions are answered to the best ability. Leukocytosis is due to the diverticular abscess and diverticulitis and is showing a slight trend to improvement and will be monitored. 01/26/2018 patient is now having further improvement. Equinus placed for his outpatient intravenous antibiotic therapy with Invanz will be given on a daily basis in the outpatient setting. The patient is anxious first discharged to home which hopefully can be happening tomorrow. leukocytosis has resolved, he has no fever. Patient's is present and she is updated current situation. Patient is pleased with his progress. Current Visit: Yes Status: Acute Code(s): K57.80 - DVTRCLI OF INTEST, PART UNSP, W PERF AND ABSCESS W/O BLEED SNOMED Code(s): 2908305402624
[2018-01-26] MEDS: FINASTERIDE 5 MG TAB PO SCH (20:51)
[2018-01-26] MEDS: DOXAZOSIN 4 MG TAB PO SCH (20:51)
[2018-01-26] MEDS: LISINOPRIL 5 MG TAB PO SCH (20:51)
[2018-01-27 00:08] LABS: Glucose,Whole Blood 116 mg/dL (75-99)
[2018-01-27] MEDS: SODIUM CHLORIDE 0.9% 1,000 ML IV SCH ×3 (03:15→20:49)
[2018-01-27 06:07] LABS: Glucose,Whole Blood 115 mg/dL (75-99)
[2018-01-27] MEDS: WITCH HAZEL 1 EACH MED..PAD TOPICAL SCH ×4 (06:13→21:14)
[2018-01-27] MEDS: INSULIN ASPART 100 UNIT/ML 1 ML 10 ML VIAL SQ SCH ×3 (06:13→18:18)
[2018-01-27] MEDS: ACETAMINOPHEN TAB 500 MG TAB PO SCH ×3 (06:14→17:41)
[2018-01-27] MEDS: PANTOPRAZOLE 40 MG/10 ML VIAL IV SCH (08:29)
[2018-01-27] MEDS: FLUTICASONE 50MCG/SPRAY NASAL 16GM EA NOSTRIL SCH ×2 (08:29→21:13)
[2018-01-27] MEDS: METOPROLOL TARTRATE 25 MG TAB PO SCH ×2 (08:29→21:14)
[2018-01-27] MEDS: ERTAPENEM 1 GM in SODIUM CHLORIDE 0.9% 50 ML IVPB SCH (08:30)
[2018-01-27] MEDS: IPRATROPIUM-ALBUTEROL 3 ML NEB INHALATION SCH ×4 (08:55→20:11)
--- NOTE | 2018-01-27 10:22 | P.PN ---
<DevendraMelonyBianca M - Last Filed: 01/27/18 10:12> Subjective Progress Note Date: 01/27/18 73year-old male seen up ambulatory on the unit. sr. media manager did speak with the patient about the discharge plan patient currently has no IV antibiotic coverage infectious disease is recommending interventional radiology obtain wound cultures. We'll discuss with infectious disease Objective - Vital Signs Vital signs: Vital Signs Temp 97.5 F L 01/27/18 07:30 Pulse 81 01/27/18 07:30 Resp 18 01/27/18 07:30 BP 112/61 01/27/18 07:30 Pulse Ox 94 L 01/27/18 07:30 Intake & Output 01/26/18 01/27/18 01/27/18 18:59 06:59 18:59 Intake Total 585 1200 400 Balance 585 1200 400 Weight 104.326 kg Intake: Oral 585 1200 400 Other: Voiding Method Toilet # Voids 1 2 # Bowel Movements 2 - Exam Exam Abdomen soft nondistended bowel tones present tolerating diet states had a small loose stools this morning no nausea no vomiting - Labs CBC & Chem 7: 01/26/18 06:43 01/22/18 09:24 Labs: Abnormal Lab Results - Last 24 Hours (Table) 01/26/18 01/26/18 01/26/18 Range/Units 11:43 16:44 23:54 POC Glucose (mg/dL) 136 H 136 H 116 H (75-99) mg/dL 01/27/18 Range/Units 06:02 POC Glucose (mg/dL) 115 H (75-99) mg/dL Microbiology - Last 24 Hours (Table) 01/21/18 16:48 Blood Culture - Preliminary Blood No Growth after 120 hours Assessment and Plan Assessment: Impression Present on admission persistent left lower quadrant pain suspect due to perforated diverticulitis complicated failed outpatient management for diverticulitis History of a recent perforated diverticulitis one week prior diagnosed CAT scan abdomen and pelvis with contrast report reviewed sigmoid diverticulosis with sigmoid diverticulitis with a 4 cm abscess in the distal sigmoid colon increased from prior exam Present on admission leukocytosis likely due to diverticulitis Known coronary artery disease Hypertensive heart disease Type 2 diabetes controlled Plan Had interventional radiology obtained cultures defer to infectious disease to follow-up on recommendations antibiotics Await further recommendations infectious disease Continue IV antibiotic as ordered IV Invanz Pain control Increase activity IV fluid as ordered DVT and GI prophylaxis Advance diet as tolerated the diet as ordered Surgery for diverticulitis tentatively planned April Discharge on hold Progress note dictated for Dr. Lara The above impression and plan of care have been discussed and directed by signing physician. Bianca Ramsay nurse practitioner acting as scribe for signing physician. <Bev Lara N - Last Filed: 01/27/18 20:47> Objective - Vital Signs Vital signs: Vital Signs Temp 97.5 F L 01/27/18 07:30 Pulse 61 01/27/18 15:00 Resp 16 01/27/18 15:00 BP 153/75 01/27/18 15:00 Pulse Ox 95 01/27/18 15:00 Intake & Output 01/27/18 01/27/18 01/28/18 06:59 18:59 06:59 Intake Total 1200 940 Balance 1200 940 Weight 104.326 kg Intake: Oral 1200 940 Other: Voiding Method Toilet # Voids 2 # Bowel Movements 2 - Labs CBC & Chem 7: 01/26/18 06:43 01/22/18 09:24 Labs: Abnormal Lab Results - Last 24 Hours (Table) 01/26/18 01/27/18 01/27/18 Range/Units 23:54 06:02 11:56 POC Glucose (mg/dL) 116 H 115 H 124 H (75-99) mg/dL 01/27/18 Range/Units 17:52 POC Glucose (mg/dL) 105 H (75-99) mg/dL Microbiology - Last 24 Hours (Table) 01/21/18 16:48 Blood Culture - Final Blood No Growth after 144 hours Assessment and Plan (1) Perforation of sigmoid colon due to diverticulitis Current Visit: Yes Status: Acute Code(s): K57.20 - DVTRCLI OF LG INT W PERFORATION AND ABSCESS W/O BLEEDING SNOMED Code(s): 0332615510959696 (2) Diabetes type 2, controlled Current Visit: Yes Status: Acute Code(s): E11.9 - TYPE 2 DIABETES MELLITUS WITHOUT COMPLICATIONS SNOMED Code(s): 99757226 (3) History of myocardial infarction Current Visit: Yes Status: Acute Code(s): I25.2 - OLD MYOCARDIAL INFARCTION SNOMED Code(s): 656717206 (4) Hypertensive heart disease Current Visit: Yes Status: Acute Code(s): I11.9 - HYPERTENSIVE HEART DISEASE WITHOUT HEART FAILURE SNOMED Code(s): 79405428 (5) Prostate hypertrophy Current Visit: Yes Status: Acute Code(s): N40.0 - BENIGN PROSTATIC HYPERPLASIA WITHOUT LOWER URINRY TRACT SYMP SNOMED Code(s): 124686101 (6) Gastroesophageal reflux disease Current Visit: Yes Status: Acute Code(s): K21.9 - GASTRO-ESOPHAGEAL REFLUX DISEASE WITHOUT ESOPHAGITIS SNOMED Code(s): 281325434 (7) Failure of outpatient treatment Current Visit: Yes Status: Acute Code(s): Z78.9 - OTHER SPECIFIED HEALTH STATUS SNOMED Code(s): 607604168 (8) Hemorrhoids, external, with complication Current Visit: Yes Status: Acute Code(s): K64.4 - RESIDUAL HEMORRHOIDAL SKIN TAGS SNOMED Code(s): 28646014
[2018-01-27 12:23] LABS: Glucose,Whole Blood 124 mg/dL (75-99)
[2018-01-27] MEDS ORDERED: diphenhydrAMINE 50 MG/ML 1 ML VIAL IVP PRN (13:34)
[2018-01-27] MEDS: FAMOTIDINE 20 MG/2 ML VIAL IV SCH (13:41)
[2018-01-27] MEDS: IOPAMIDOL-300 CONTRAST 30 ML VIAL (ORAL USE) PO PRN ×2 (14:00→15:02)
--- NOTE | 2018-01-27 16:28 | CT ---
EXAMINATION TYPE: CT abdomen pelvis w con DATE OF EXAM: 01/27/2018 COMPARISON: CT abdomen pelvis from 6 days ago HISTORY: Abdominal abscess progress study CT DLP: 2945 mGycm, Automated Exposure Control for Dose Reduction was Utilized. CONTRAST: CT scan of the abdomen and pelvis is performed with oral and with IV Contrast, patient injected with 100 ml mL of Isovue 300. FINDINGS: LUNG BASES: Coronary artery calcification and/or stent RCA distribution is redemonstrated. LIVER/GB: No significant abnormality is appreciated. PANCREAS: No significant abnormality is seen. SPLEEN: 1.5 cm splenule posterior aspect splenic hilum coronal image 80 is redemonstrated. ADRENALS: Diffuse nodular thickening to both adrenal glands is unchanged KIDNEYS: Central vascular calcification right kidney is present. There is symmetric cortical medullar y uptake and excretion without hydronephrosis bilaterally. There is simple appearing 1 cm cyst centra lly lower pole level left kidney axial image 35 series 7. BOWEL: Oral contrast reaches level of cecum. There is no suspicious small or large bowel dilatation. Evaluation distal bowel is suboptimal due to lack of enteric contrast. There is moderate to severe wa ll thickening in the mid sigmoid colon with scattered colonic diverticula. There is mild residual fat stranding. There is marked interval improvement in adjacent fluid collection with small residual air pocket noted axial image 61 measuring 1.6 x 1.1 cm. PROSTATE/SEMINAL VESICLES: Markedly enlarged prostate gland consistent with BPH is redemonstrated. LYMPH NODES: No greater than 1cm abdominal or pelvic lymph nodes are appreciated. OSSEOUS STRUCTURES: Moderate joint space loss in both hips is present. 6 lumbar-type vertebra are red emonstrated. OTHER: No significant additional abnormality is seen. IMPRESSION: Marked interval improvement in the peridiverticular fluid collection or abscess as well a s degree of surrounding inflammation.
[2018-01-27 17:53] LABS: Glucose,Whole Blood 105 mg/dL (75-99)
--- NOTE | 2018-01-27 20:48 | P.PN ---
Progress Note - Text Progress Note Date: 01/27/18 Patient seen and evaluated. Repeat CT scan confirms resolution of abscess. He report separate issue of fatty food intolerance, right upper quadrant pain and irritable bowel. Recommend US of gallbladder and HIDA scan as overlying cholecystitis or symptomatic gallstones.
[2018-01-27] MEDS: FINASTERIDE 5 MG TAB PO SCH (21:13)
[2018-01-27] MEDS: LISINOPRIL 5 MG TAB PO SCH (21:13)
[2018-01-27] MEDS: DOXAZOSIN 4 MG TAB PO SCH (21:13)
[2018-01-27 22:58] LABS: Glucose,Whole Blood 161 mg/dL (75-99)
--- NOTE | 2018-01-28 01:02 | P.PN ---
Subjective Progress Note Date: 01/27/18 This is a 72-year-old male patient who gives history that he has had problems with episodes of diarrhea since he was around 15 years of age. He has episodes of diarrhea and usually left lower quadrant pain but sometimes the pain is all over his abdomen. He has history of a colonoscopy [address] Doyle Blount that found 1 polyp and diverticula. He states he then was sent to the Dr. Ellington and determined that his diarrhea was related to metformin which was stopped and he was placed on Januvia which seemed to make things better. He has recently been treated for sinus infection within the last month and was initially on amoxicillin followed by a yeast medicine then followed by Augmentin Flonase and prednisone. He states that he also took probiotics while he was on Augmentin. After he finished the prednisone he thought his stomach trouble became worse. He states that instead of diarrhea he was having more problems with constipation but having pain as well. He states he usually has about 4 bowel movements per day and sometimes up to 7 and 9 per day. He sometimes has bright red blood secondary to hemorrhoids. He came into the emergency center last and had a CAT scan of abdomen and pelvis that showed diverticulitis in the mid sigmoid colon that is new, enlarged prostate, normal appendix. He was afebrile at that time with a white count 13.6. He was discharged home on Levaquin and Flagyl and followed up with his primary care physician. He was instructed by his primary care to take only half a tablet of the Flagyl 3 times daily which she has done and continue the Levaquin. He then returned to the emergency center on January 21 due to abdominal pain and constipation. He was afebrile, white count 14.8. A repeat CAT scan of the abdomen and pelvis showed sigmoid diverticulosis. Sigmoid diverticulitis with 4 cm peridiverticular abscess in the distal sigmoid colon. Abscess is significantly increased in size compared to January 15. Patient was started on Levaquin and Flagyl IV and admitted under the care of Dr. Lara. Patient is currently on chopped diet which he is tolerating. He denies having any nausea or vomiting. He states he has had some chills and sweats. He has had a good appetite and feels that he is "starving." He denies any problems with urination either pain burning or retention. He does state he has a cyst on the scrotum that is enlarged since he was started on IV antibiotics. 01/26/2018 patient feels considerably better. Is able to tolerate his clear liquid diet without significant nausea or emesis. His pain is well controlled. His swelling to the right scrotum is improved. Denies difficulties with antibiotic therapy. 01/27/2018 patient is feeling better. Tolerating some advanced the diet. There is grade difficulties arranging his antibiotic therapy. We have asked for interventional radiology to evaluate the abscess and determine if it may be drained percutaneously. Objective - Vital Signs Vital signs: Vital Signs Temp 97.5 F L 01/27/18 07:30 Pulse 61 01/27/18 15:00 Resp 16 01/27/18 15:00 BP 153/75 01/27/18 15:00 Pulse Ox 95 01/27/18 15:00 Intake & Output 01/27/18 01/27/18 01/28/18 06:59 18:59 06:59 Intake Total 1200 940 Balance 1200 940 Weight 104.326 kg Intake: Oral 1200 940 Other: Voiding Method Toilet # Voids 2 # Bowel Movements 2 - Exam Gen: This is a 72-year-old male. He is found in bed and appears to be comfortable and in no acute distress. He is complaining of left-sided abdominal pain. He states he has been ambulating before my arrival HEENT: Head is atraumatic, normocephalic. Pupils equal, round. Sclerae is anicteric. Oral mucous membranes are moist. No lesions are noted. Denture in place. NECK: Supple. No JVD. No lymphadenopathy. No thyromegaly. LUNGS: Clear to auscultation. No wheezes or rhonchi. No intercostal retractions. HEART: Regular rate and rhythm. No murmur. ABDOMEN: Soft. Bowel sounds are present. No masses. Left lower quadrant tenderness. EXTREMITIES: No pedal edema. No calf tenderness. Dorsalis pedis +1 bilaterally.PICC line now in place in the left arm without difficulty NEUROLOGICAL: Patient is awake, alert and oriented x3 - Labs CBC & Chem 7: 01/26/18 06:43 01/22/18 09:24 Labs: Abnormal Lab Results - Last 24 Hours (Table) 01/27/18 01/27/1801/27/18 Range/Units 06:02 11:56 17:52 POC Glucose (mg/dL) 115 H 124 H 105 H (75-99) mg/dL 01/27/18 Range/Units 22:56 POC Glucose (mg/dL) 161 H (75-99) mg/dL Microbiology - Last 24 Hours (Table) 01/21/18 16:48 Blood Culture - Final Blood No Growth after 144 hours Laboratory Results WBC 6.8 k/uL (3.8-10.6) 01/26/18 06:43 RBC 4.37 m/uL (4.30-5.90) 01/26/18 06:43 Hgb 13.4 gm/dL (13.0-17.5) 01/26/18 06:43 Hct 41.4 % (39.0-53.0) 01/26/18 06:43 MCV 94.6 fL (80.0-100.0) 01/26/18 06:43 MCH 30.7 pg (25.0-35.0) 01/26/18 06:43 MCHC 32.4 g/dL (31.0-37.0) 01/26/18 06:43 RDW 12.7 % (11.5-15.5) 01/26/18 06:43 Plt Count 210 k/uL (150-450) 01/26/18 06:43 Neutrophils % 68 % 01/26/18 06:43 Lymphocytes % 23 % 01/26/18 06:43 Monocytes % 5 % 01/26/18 06:43 Eosinophils % 3 % 01/26/18 06:43 Basophils % 1 % 01/26/18 06:43 Neutrophils # 4.6 k/uL (1.3-7.7) 01/26/18 06:43 Lymphocytes # 1.6 k/uL (1.0-4.8) 01/26/18 06:43 Monocytes # 0.3 k/uL (0-1.0) 01/26/18 06:43 Eosinophils # 0.2 k/uL (0-0.7) 01/26/18 06:43 Basophils # 0.0 k/uL (0-0.2) 01/26/18 06:43 PT 11.5 sec (9.0-12.0) 01/24/18 06:51 INR 1.2 (<1.2) H 01/24/18 06:51 Sodium 137 mmol/L (137-145) 01/22/18 09:24 Potassium 4.0 mmol/L (3.5-5.1) 01/22/18 09:24 Chloride 107 mmol/L (98-107) 01/22/18 09:24 Carbon Dioxide 24 mmol/L (22-30) 01/22/18 09:24 Anion Gap 6 mmol/L 01/22/18 09:24 BUN 16 mg/dL (9-20) 01/22/18 09:24 Creatinine 0.88 mg/dL (0.66-1.25) 01/22/18 09:24 Est GFR (CKD-EPI)AfAm >90 (>60 ml/min/1.73 sqM) 01/22/18 09:24 Est GFR (CKD-EPI)NonAf 85 (>60 ml/min/1.73 sqM) 01/22/18 09:24 Glucose 161 mg/dL (74-99) H 01/22/18 09:24 POC Glucose (mg/dL) 161 mg/dL (75-99) H 01/27/18 22:56 POC Glu Exhaust Equipment Operator BRADY Anabelle Georges 01/27/18 22:56 Plasma Lactic Acid Main 1.4 mmol/L (0.7-2.0) 01/21/18 16:48 Calcium 8.7 mg/dL (8.4-10.2) 01/22/18 09:24 Total Bilirubin 0.5 mg/dL (0.2-1.3) 01/21/18 16:48 AST 20 U/L (17-59) 01/21/18 16:48 ALT 34 U/L (21-72) 01/21/18 16:48 Alkaline Phosphatase 62 U/L (38-126) 01/21/18 16:48 Total Protein 6.3 g/dL (6.3-8.2) 01/21/18 16:48 Albumin 3.6 g/dL (3.5-5.0) 01/21/18 16:48 Amylase <30 U/L (30-110) L 01/21/18 16:48 Lipase 31 U/L (23-300) 01/21/18 16:48 Urine Color Yellow 01/21/18 16:15 Urine Appearance Clear (Clear) 01/21/18 16:15 Urine pH 5.5 (5.0-8.0) 01/21/18 16:15 Ur Specific [place] 1.011 (1.001-1.035) 01/21/18 16:15 Urine Protein Negative (Negative) 01/21/18 16:15 Urine Glucose (UA) Trace (Negative) H 01/21/18 16:15 Urine Ketones Negative (Negative) 01/21/18 16:15 Urine Blood Small (Negative) H 01/21/18 16:15 Urine Nitrite Negative (Negative) 01/21/18 16:15 Urine Bilirubin Negative (Negative) 01/21/18 16:15 Urine Urobilinogen <2.0 mg/dL (<2.0) 01/21/18 16:15 Ur Leukocyte Esterase Negative (Negative) 01/21/18 16:15 Urine RBC <1 /hpf (0-5) 01/21/18 16:15 Ur Squamous Epith Cells <1 /hpf (0-4) 01/21/18 16:15 Urine Mucus Rare /hpf (None) H 01/21/18 16:15 Microbiology 01/21/18 16:48 Blood Blood Culture - Final No Growth after 144 hours Assessment and Plan (1) Diverticulitis Current Visit: Yes Status: Acute Code(s): K57.92 - DVTRCLI OF INTEST, PART UNSP, W/O PERF OR ABSCESS W/O BLEED SNOMED Code(s): 432108780 (2) Diverticular disease of intestine with perforation and abscess Narrative/Plan: 72-year-old male who has a very complex history of what appears to be an irritable bowel syndrome throughout his life relates that he has had great difficulties with his stool habits. He has learned to cook and eat such that his colon does not bother him significantly. This is evidenced by his significant obesity. The patient recently has had a change of his bowel habit that he actually became a bit constipated. This is extremely unusual for him. Yet she started to take some [id number] products to loosen his stools that he is not happy doing the past. He became quite uncomfortable and his even obtained a enema. The patient refused to use the enema because he was concerned and called his physician. With his increasing abdominal pain and concern she was brought to hospital. Computed tomography scan did reveal evidence of the significant sigmoid diverticulosis as well as diverticulitis with a 4 cm abscess at the distal sigmoid colon. The patient has been treated with antibiotic therapy with only minimal improvement at this time. His appetite is improved but he does not feel well. He does have a known history of a hydrocele that he believes is worsened since coming to Hospital and receiving IV fluids. The patient's history reveals evidence of an Escherichia coli that was intermediate susceptible to Unasyn and constantly for antibiotic therapy to improve coverage of the diverticular abscess will be transitioned to Zosyn pending further data. There is a potential the patient will be treated with outpatient intravenous antibiotic therapy likely in the home setting. We' ll continue ongoing supportive care. Nutrition as per surgery. It appears there are plans for surgical intervention a few months down the road when he has further improved. Unclear if there is plans for percutaneous drainage of the abscess. The patient's questions are answered to the best ability. Leukocytosis is due to the diverticular abscess and diverticulitis and is showing a slight trend to improvement and will be monitored. 01/26/2018 patient is now having further improvement. Equinus placed for his outpatient intravenous antibiotic therapy with Invanz will be given on a daily basis in the outpatient setting. The patient is anxious first discharged to home which hopefully can be happening tomorrow. leukocytosis has resolved, he has no fever. Patient's is present and she is updated current situation. Patient is pleased with his progress. 01/27/2018 patient is having improvement however there is no great difficulties setting up his outpatient intravenous antibiotic therapy. We have asked for interventional radiology to assess the 4 cm diverticular abscess and determine if it may be percutaneously drained if needed. Goal will be to drain the abscess and attempt oral antimicrobial therapy. Current Visit: Yes Status: Acute Code(s): K57.80 - DVTRCLI OF INTEST, PART UNSP, W PERF AND ABSCESS W/O BLEED SNOMED Code(s): 4235745208578
[2018-01-28] MEDS: ACETAMINOPHEN TAB 500 MG TAB PO SCH ×3 (03:37→11:40)
[2018-01-28] MEDS: WITCH HAZEL 1 EACH MED..PAD TOPICAL SCH ×3 (03:37→11:41)
[2018-01-28] MEDS: SODIUM CHLORIDE 0.9% 1,000 ML IV SCH ×2 (03:37→10:14)
[2018-01-28 07:17] LABS: Glucose,Whole Blood 134 mg/dL (75-99)
[2018-01-28] MEDS ORDERED: INSULIN ASPART 100 UNIT/ML 1 ML 10 ML VIAL SQ SCH (07:30)
[2018-01-28 07:52] VITALS: BP 167/73; PULSE 61; RESP 18; TEMP 98
[2018-01-28] MEDS: ERTAPENEM 1 GM in SODIUM CHLORIDE 0.9% 50 ML IVPB SCH (08:26)
[2018-01-28] MEDS: METOPROLOL TARTRATE 25 MG TAB PO SCH (08:26)
[2018-01-28] MEDS: PANTOPRAZOLE 40 MG/10 ML VIAL IV SCH (08:26)
[2018-01-28] MEDS: FAMOTIDINE 20 MG/2 ML VIAL IV SCH (08:26)
[2018-01-28] MEDS: FLUTICASONE 50MCG/SPRAY NASAL 16GM EA NOSTRIL SCH (08:33)
[2018-01-28] MEDS: IPRATROPIUM-ALBUTEROL 3 ML NEB INHALATION SCH ×2 (08:40→12:51)
--- NOTE | 2018-01-28 09:10 | US ---
EXAMINATION TYPE: US gallbladder DATE OF EXAM: 01/28/2018 COMPARISON: NONE CLINICAL HISTORY: Right upper quadrant pain. EXAM MEASUREMENTS: Liver Length: 17.3 cm Gallbladder Wall: 0.1 cm CBD: 0.6 cm Right Kidney: 10.8 x 5.4 x 6.0 cm Pancreas: wnl Liver: wnl Gallbladder: multiple fundal stones seen Evidence for sonographic Douglas's sign: no CBD: wnl Right Kidney: wnl IMPRESSION: 1. Multiple gallstones without evidence for wall thickening or pericholecystic fluid at this time. No CBD dilatation.
--- NOTE | 2018-01-28 10:55 | NM ---
EXAMINATION TYPE: NM hepatobiliary wo EF DATE OF EXAM: 01/28/2018 COMPARISON: NONE HISTORY: Pain TECHNIQUE: After the intravenous administration of 5.03 mCi Tc 99m Mebrofenin hepatobiliary scintigra phy is performed. Immediate images post injection. FINDINGS: There is homogeneous distribution radiotracer throughout the liver. The gallbladder is visualized at 48 minutes. Small bowel activity is noted at 20 minutes. IMPRESSION: No evidence for acute cholecystitis.
[2018-01-28 16:46] LABS: Glucose,Whole Blood 129 mg/dL (75-99)
[2018-01-29] MEDS ORDERED: PANTOPRAZOLE 40 MG TABLET PO SCH (07:30)
[2018-01-29] MEDS ORDERED: FAMOTIDINE 20 MG TAB PO SCH (09:00)
== END 2018-01-28 15:33 | disposition home health service (06) | DRG 392 ==
LOC: EC 15:27 → 3SUR 19:22
PROVIDERS: ADMIT Surgery Plastic and Reconstructive Surgery; ATTEND Surgery Plastic and Reconstructive Surgery
PROC: 02HV33Z Insertion of Infusion Device into Superior Vena Cava, Percutaneous Approach (ICD-10-PCS; principal; 2018-01-26 16:40)
DX: K57.20 Diverticulitis of large intestine with perforation and abscess without bleeding (principal); E11.9 Type 2 diabetes mellitus without complications; E66.9 Obesity, unspecified; Z68.37 Body mass index [BMI] 37.0-37.9, adult; E86.0 Dehydration; F17.200 Nicotine dependence, unspecified, uncomplicated; F32.9 Major depressive disorder, single episode, unspecified; I11.9 Hypertensive heart disease without heart failure; I25.10 Atherosclerotic heart disease of native coronary artery without angina pectoris; I25.2 Old myocardial infarction; K21.9 Gastro-esophageal reflux disease without esophagitis; K58.1 Irritable bowel syndrome with constipation; K64.4 Residual hemorrhoidal skin tags; K80.20 Calculus of gallbladder without cholecystitis without obstruction; N40.0 Benign prostatic hyperplasia without lower urinary tract symptoms; Z79.82 Long term (current) use of aspirin; Z79.84 Long term (current) use of oral hypoglycemic drugs; Z80.0 Family history of malignant neoplasm of digestive organs; Z82.49 Family history of ischemic heart disease and other diseases of the circulatory system; Z80.1 Family history of malignant neoplasm of trachea, bronchus and lung; Z88.6 Allergy status to analgesic agent; Z88.2 Allergy status to sulfonamides; Z71.6 Tobacco abuse counseling; F17.210 Nicotine dependence, cigarettes, uncomplicated; Z86.010 Personal history of colon polyps; L72.9 Follicular cyst of the skin and subcutaneous tissue, unspecified; Z87.440 Personal history of urinary (tract) infections; Z95.5 Presence of coronary angioplasty implant and graft; Z79.2 Long term (current) use of antibiotics
CPT/HCPCS: 36415; 36569; 74018; 74177; 76705; 76937; 77001; 78226; 80048; 80053; 81001; 82150; 83605; 83690; 85025; 85610; 87040; 93005; 96365; 96375; 99285

== ENCOUNTER 2018-03-20 07:39 | Day surgery (SDC) | payer MEDICARE ==
[2018-03-18 11:01] VITALS: BMI 33.5
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
[~2018-03-20 07:39] MED LIST: LACTATED RINGERS 1,000 ML IV SCH; LIDOCAINE 1% 20 ML VIAL (10MG/ML) FOR IV START INTRADERMA PRN
[2018-03-20 08:14] VITALS: RESP 16; TEMP 97.6
[2018-03-20 08:17] LABS: Glucose,Whole Blood 142 mg/dL (75-99)
[2018-03-20] MEDS ORDERED: LIDOCAINE 1% INJ 10MG/ML (20 ML MDV) ONE (08:47)
[2018-03-20] MEDS ORDERED: PROPOFOL 10 MG/ML 20 ML VIAL IV ONE (08:47)
--- NOTE | 2018-03-20 09:13 | P.PCN ---
Date of Procedure: 03/20/18 Description of Procedure: PREOPERATIVE DIAGNOSIS: Previously perforated sigmoid diverticulitis POSTOPERATIVE DIAGNOSIS: Previously perforated sigmoid diverticulitis External hemorrhoids, grade 3 OPERATION: Colonoscopy to the ileocecal valve and appendiceal orifice. SURGEON: Bev Lara MD. ANESTHESIA: MAC. INDICATIONS: The patient is a 73-year-old female who presents for secondary to perforated diverticulitis 6-8 weeks ago. Benefits and risks were described and informed consent was obtained. DESCRIPTION OF PROCEDURE: The patient had undergone Gatorade, MiraLAX and Dulcolax prep. He had been brought into the operating room and laid in the left lateral decubitus position. The prostate was smooth and without any malady. After adequate intravenous sedation, the rectum was examined with 2% lidocaine jelly. External hemorrhoids were encountered. The rectal tone was within normal limits. No lesions were palpated in the rectal vault. An Olympus colonoscope was advanced until the ileocecal valve and appendiceal orifice were clearly viewed. The prep was excellent with clear visualization of the mucosal folds. The scope was removed with visualization of each mucosal fold. Scattered diverticulosis with focal sigmoid diverticulitis was identified. No colonic polyps were found. Retroflexion of the scope demonstrated grade 1 internal hemorrhoids without active bleeding or inflammation. The colon was desufflated. The patient had tolerated the procedure well. Withdrawal time was over 6 minutes. FINDINGS: Internal hemorrhoids, grade 1 External prolapsed hemorrhoids, grade 3 No arteriovenous malformations. Active sigmoid diverticulitis No adenomatous polyps. No focal colitis. RECOMMENDATIONS: Lower endoscopy in 3 years, 2020 Plan - Discharge Summary New Discharge Prescriptions: No Action Metoprolol Tartrate [Lopressor] 25 mg PO BID Loratadine [Claritin] 10 mg PO HS Finasteride [Proscar] 5 mg PO HS Aspirin 81 mg PO SUTUTHSA Lansoprazole [Prevacid] 15 mg PO AC-BRKFST Doxazosin Mesylate [Cardura] 4 mg PO HS Cholecalciferol [Vitamin D3] 5,000 unit PO HS Lisinopril [Zestril] 5 mg PO HS sitaGLIPtin [Januvia] 100 mg PO DAILY Praluent(Unknown) 1 dose SQ Q14D Fluticasone Nasal Media [Flonase Nasal Media] 2 spr EA NOSTRIL BID Discharge Medication List Aspirin 81 mg PO SUTUTHSA 01/11/15 [History] Doxazosin Mesylate [Cardura] 4 mg PO HS 01/11/15 [History] Finasteride [Proscar] 5 mg PO HS 01/11/15 [History] Lansoprazole [Prevacid] 15 mg PO AC-BRKFST 01/11/15 [History] Loratadine [Claritin] 10 mg PO HS 01/11/15 [History] Metoprolol Tartrate [Lopressor] 25 mg PO BID 01/11/15 [History] Cholecalciferol [Vitamin D3] 5,000 unit PO HS 04/02/15 [History] Lisinopril [Zestril] 5 mg PO HS 07/13/15 [History] Praluent(Unknown) 1 dose SQ Q14D 01/15/18 [History] sitaGLIPtin [Januvia] 100 mg PO DAILY 01/15/18 [History] Fluticasone Nasal Media [Flonase Nasal Media] 2 spr EA NOSTRIL BID 01/21/18 [ History]
[2018-03-20 09:26] VITALS: BP 113/71; PULSE 70
== END 2018-03-20 09:50 | disposition home or self-care (01) ==
LOC: ORWHC2ENDO 07:39
PROVIDERS: ATTEND Surgery Plastic and Reconstructive Surgery
DX: K57.32 Diverticulitis of large intestine without perforation or abscess without bleeding (principal); K57.30 Diverticulosis of large intestine without perforation or abscess without bleeding; K64.4 Residual hemorrhoidal skin tags; K64.0 First degree hemorrhoids; E11.9 Type 2 diabetes mellitus without complications; K21.9 Gastro-esophageal reflux disease without esophagitis; E78.5 Hyperlipidemia, unspecified; I10 Essential (primary) hypertension; I25.2 Old myocardial infarction; K58.9 Irritable bowel syndrome, unspecified; Z95.5 Presence of coronary angioplasty implant and graft; F17.200 Nicotine dependence, unspecified, uncomplicated; Z79.82 Long term (current) use of aspirin; Z79.51 Long term (current) use of inhaled steroids; Z79.899 Other long term (current) drug therapy; Z88.6 Allergy status to analgesic agent; Z88.1 Allergy status to other antibiotic agents; Z88.2 Allergy status to sulfonamides; Z88.8 Allergy status to other drugs, medicaments and biological substances
CPT/HCPCS: 45378; J2001; J2704

== ENCOUNTER → 2018-05-19 | Outpatient (CLI) | payer MEDICARE ==
[2018-05-19 09:36] LABS: Blood Urea Nitrogen 18 mg/dL (9-20)
--- NOTE | 2018-05-19 15:44 | CT ---
EXAMINATION TYPE: CT abdomen pelvis w con DATE OF EXAM: 05/19/2018 COMPARISON: 01/27/2018 INDICATION: Diverticulitis DLP: 1438.60 mGycm, Automated exposure control for dose reduction was used. CONTRAST: 100 ml mL of Isovue 300. Study performed without Oral Contrast TECHNIQUE: Axial images were obtained from above the diaphragm to the pubic rami in the axial plane a t 5 mm thick sections. Reconstructed images are reviewed on the computer in the coronal plane. FINDINGS: Limited CT sections are obtained the lung bases. The lung bases are clear. CT ABDOMEN: Liver: Normal Spleen: Splenule is adjacent to the medial spleen. Spleen has a normal density. Pancreas: There is some mild fatty infiltration. Adrenal glands: There is thickening of the bilateral adrenal gland measuring 1.1 cm on the left and 1 .7 cm on the right. Gallbladder: Normal Kidneys: No masses are evident. No hydronephrosis is present. No cysts are present. Delayed images were obtained through the kidneys. A few small cortical renal cyst may be present on the left kidney . Aorta: Vascular calcification is within the aorta. Inferior vena cava: Normal. CT PELVIS: There is a periumbilical hernia containing mesenteric fat measuring 1.8 cm an opening size . Loops of bowel within the abdomen and pelvis are normal. Studies performed without oral contrast limiting the evaluation. Multiple diverticuli are within the sigmoid colon. Suspicious inflammatory c hanges are not identified to suggest acute diverticulitis. Appendix: Normal as visualized. Urinary bladder: Normal. Genitourinary structures: Prostate is markedly prominent. Osseous structures: No suspicious lytic or sclerotic lesions. Sacroiliac joint degenerative changes a nd facet hypertrophy is noted. IMPRESSIONS: 1. Diverticulosis without suspicious changes for acute diverticulitis. No suspicious recurrent diver ticulitis is identified. 2. Bilateral prominence of the adrenal gland which is stable from 01/27/2018. 3. Periumbilical hernia, stable.
== END | disposition home or self-care (01) ==
LOC: RADCTMAIN 08:38
PROVIDERS: ATTEND Surgery Plastic and Reconstructive Surgery
DX: K57.30 Diverticulosis of large intestine without perforation or abscess without bleeding (principal); K42.9 Umbilical hernia without obstruction or gangrene; Z88.6 Allergy status to analgesic agent; Z88.1 Allergy status to other antibiotic agents; Z88.2 Allergy status to sulfonamides
CPT/HCPCS: 82565; 84520; 74177; 36415; Q9967

== ENCOUNTER → 2018-05-26 | Outpatient (CLI) | payer MEDICARE ==
[2018-05-26 11:25] LABS: HCT 45.5 % (39.0-53.0); HGB 14.4 gm/dL (13.0-17.5); MCH 30.3 pg (25.0-35.0); MCHC 31.7 g/dL (31.0-37.0); MCV 95.6 fL (80.0-100.0); Mean Platelet Volume 6.9; Platelet Count 182 k/uL (150-450); RBC 4.76 m/uL (4.30-5.90); RDW 13.5 % (11.5-15.5); WBC 6.3 k/uL (3.8-10.6)
[2018-05-26 11:28] LABS: Albumin 3.6 g/dL (3.5-5.0); Calcium 9.2 mg/dL (8.4-10.2); Potassium 4.5 mmol/L (3.5-5.1); Total Bilirubin 0.5 mg/dL (0.2-1.3); Total Protein 6.1 g/dL (6.3-8.2)
== END ==
LOC: LABPAT 10:27
PROVIDERS: ATTEND Surgery Plastic and Reconstructive Surgery
DX: Z01.812 Encounter for preprocedural laboratory examination (principal)
CPT/HCPCS: 36415; 80053; 85027

== ENCOUNTER → 2018-06-30 | Outpatient (CLI) | payer MEDICARE ==
[2018-06-30 13:06] LABS: HCT 45.9 % (39.0-53.0); HGB 15.3 gm/dL (13.0-17.5); MCH 31.7 pg (25.0-35.0); MCHC 33.4 g/dL (31.0-37.0); MCV 95.1 fL (80.0-100.0); Mean Platelet Volume 6.7; Platelet Count 170 k/uL (150-450); RBC 4.83 m/uL (4.30-5.90); RDW 13.5 % (11.5-15.5); WBC 6.8 k/uL (3.8-10.6)
[2018-06-30 20:05] LABS: Albumin 4.3 g/dL (3.80-4.90); Albumin/Globulin Ratio 2.26 (1.20-2.10); Anion Gap 10.6 mmol/L (4.00-12.00); Calcium 9.3 mg/dL (8.7-10.3); Carbon Dioxide 24.4 mmol/L (21.6-31.8); Globulin 1.9 g/dL (1.6-3.3); Potassium 4.7 mmol/L (3.5-5.5); Total Bilirubin 0.5 mg/dL (0.3-1.2); Total Protein 6.2 g/dL (6.2-8.2)
== END | disposition home or self-care (01) ==
LOC: LABWHC1 11:34
PROVIDERS: ATTEND Surgery Plastic and Reconstructive Surgery
DX: K57.80 Diverticulitis of intestine, part unspecified, with perforation and abscess without bleeding (principal)
CPT/HCPCS: 36415; 80053; 85027

== ENCOUNTER 2018-07-03 11:05 | Inpatient (IN) | payer MEDICARE ==
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
[~2018-07-03 11:05] MED LIST changes: +ENOXAPARIN 40 MG/0.4 ML SYRINGE SQ STA; +HYDROmorphone 0.5 MG/0.5 ML SYRINGE IVP PRN; -LACTATED RINGERS 1,000 ML IV SCH; -LIDOCAINE 1% 20 ML VIAL (10MG/ML) FOR IV START INTRADERMA PRN; +MIDAZOLAM 2 MG/2 ML VIAL IV PRN; +ceFAZolin IN SWFI 2 GM/20 ML SYRINGE IVP ONE; +metroNIDAZOLE-NS PMX 500 MG in SALINE 1 100ML.BAG IVPB STA
[2018-07-03 13:12] LABS: Glucose,Whole Blood 125 mg/dL (75-99)
[2018-07-03] MEDS: LACTATED RINGERS 1,000 ML IV SCH ×2 (13:14→13:17)
[2018-07-03] MEDS ORDERED: LIDOCAINE 1% 20 ML VIAL (10MG/ML) FOR IV START INTRADERMA ONE ×2 (13:14→13:17)
[2018-07-03] MEDS: DEXAMETHASONE SOD PHOSPHATE 10 MG/ML 1 ML VIAL IV ONE ×2 (13:34→23:58)
[2018-07-03] MEDS: ONDANSETRON 4 MG/2 ML VIAL IVP ONE ×2 (13:34→23:58)
[2018-07-03] MEDS ORDERED: MIDAZOLAM 2 MG/2 ML VIAL IVP ONE (14:25)
[2018-07-03] MEDS ORDERED: fentaNYL (PF) 50 MCG/ML 2 ML AMP IVP ONE (14:25)
[2018-07-03] MEDS ORDERED: NALOXONE 0.4 MG/ML 1 ML VIAL IV PRN (15:04)
[2018-07-03] MEDS: HEPARIN SODIUM,PORCINE 5,000 UNIT/ML 1 ML VIAL SQ ONE ×2 (15:11→23:58)
[2018-07-03] MEDS ORDERED: ALVIMOPAN 12 MG CAPSULE PO ONE (15:18)
[2018-07-03] MEDS ORDERED: INDOCYANINE GREEN 25 MG VIAL IV STA (15:20)
[2018-07-03] MEDS ORDERED: LIDOCAINE 1% INJ 10MG/ML (20 ML MDV) ONE (15:50)
[2018-07-03] MEDS ORDERED: MIDAZOLAM 2 MG/2 ML VIAL ONE (15:50)
[2018-07-03] MEDS ORDERED: NEOSTIGMINE 1 MG/ML 10 ML VIAL ONE (15:50)
[2018-07-03] MEDS ORDERED: fentaNYL (PF) 50 MCG/ML 2 ML AMP ONE (15:50)
[2018-07-03] MEDS ORDERED: SUCCINYLCHOLINE CHLORIDE 100 MG/5 ML SYR IV ONE (15:50)
[2018-07-03] MEDS ORDERED: PROPOFOL 10 MG/ML 20 ML VIAL IV ONE (15:50)
[2018-07-03] MEDS ORDERED: GLYCOPYRROLATE 0.2 MG/ML 2 ML VIAL ONE (15:50)
[2018-07-03] MEDS ORDERED: VECURONIUM 10 MG VIAL IV ONE (15:50)
[2018-07-03] MEDS ORDERED: BUPIVACAIN-EPI 0.25%-1:200,000 30 ML VIAL SQ ONE (16:31)
[2018-07-03] MEDS ORDERED: LACTATED RINGERS 1,000 ML IV ONE ×3 (17:33→22:55)
[2018-07-03 19:33] LABS: Glucose,Whole Blood 156 mg/dL (75-99)
--- NOTE | 2018-07-03 22:09 | P.OP ---
Date of Procedure: 07/03/18 Description of Procedure: Date of Procedure: 07/03/2018 SURGEON: NELLIE SOTELO MD PREOPERATIVE DIAGNOSES: 1. Sigmoid diverticulitis with previous perforation 2. Left lower quadrant abdominal pain 3. Right upper quadrant abdominal pain 4. Chronic cholecytitis with biliary dyskinesia 5. Diabetes type 2, non-insulin dependent 6. Gastroesophageal reflux disease 7. Enlarged prostate with benign prostatic hypertrophy 8. Hyperlipidemia 9. Myocardial infarction with ischemic cardiomyopathy 10. Irritable bowel syndrome 11. Past history of pyelonephritis 12. Family history of diverticulosis 13. Depressive disorder 14. Tobacco abuse 15. Hypertensive heart disease POSTOPERATIVE DIAGNOSES: 1. Sigmoid diverticulitis with previous perforation 2. Left lower quadrant abdominal pain 3. Right upper quadrant abdominal pain 4. Chronic cholecytitis with biliary dyskinesia 5. Diabetes type 2, non-insulin dependent 6. Gastroesophageal reflux disease 7. Enlarged prostate with benign prostatic hypertrophy 8. Hyperlipidemia 9. Myocardial infarction with ischemic cardiomyopathy 10. Irritable bowel syndrome 11. Past history of pyelonephritis 12. Family history of diverticulosis 13. Depressive disorder 14. Tobacco abuse 15. Hypertensive heart disease 16. Chronic constipation with retained stool, poor colon prep 17. Hepatomegaly 18. Right inguinal hernia, direct without obstruction OPERATION: 1. Robotic-assisted daVinci Xi laparoscopic cholecystectomy with FIREFLY 2. Robotic-assisted daVinci Xi laparoscopic low anterior resection with sigmoid colectomy 3. Placement of round #19 LAMONT drain at left lower quadrant. Anesthesia: GETA, local, spinal Estimated Blood Loss (ml): 50 Pathology: other (Gallbladder and sigmoid colon) Condition: stable Disposition: floor Complications: None. Operative Findings: 1. 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 Proximal and distal resection consistent with retained stool hence contaminated case 3. ILS 25 mm circular anastomosis 4. Hepatomegaly 5. Direct right inguinal hernia fat-containing, large 7. Donuts intact 8. LAMONT drain via right lateral quadrant port positioned in pelvis and at anastomosis 9. Intraoperative findings described to the patient's family including increased risk of leaks due to very poor prep. Should failure of anastomosis occur then laparotomy with colostomy creation described INDICATIONS: The patient is a 73-year-old male who presents with history of sigmoid diverticulitis including cholecystitis. He has chronic left lower quadrant and right upper quadrant abdominal pain as a result. He completed a colonoscopy. Surgical options were described including robotic assisted technique. Benefits and risks, including infection, possibility for additional surgery, including possible colostomy was discussed at length. Informed consent was obtained. DESCRIPTION: Earlier the patient had placement of epidural. The patient was transferred to the operating room and placed supine. The patient was then intubated. A Lee catheter placed. The abdomen was then prepped and draped in standard sterile fashion. After a timeout protocol was performed, the patient had been prepped and draped in standard sterile fashion. The patient was injected with indocyanine green. A 5 mm 0 degrees laparoscopic trocar entry was performed along the left upper quadrant. The abdomen insufflated to 15 mmHg pressure which was tolerated well. Diagnostic laparoscopy demonstrated no injury to bowel viscera or mesentery. The liver was large consistent with hepatomegaly. Next, 12 mm and 8 mm robotic ports were placed along the right upper abdomen. The camera 8-mm port was maintained along the epigastrium. Another 12 mm port was placed along the left upper abdominal wall after exchanging the 5 mm port. Please note that the ports were placed at least 10 to 15 cm away from the target anatomy of the gallbladder and sigmoid colon. The robot was docked along the left lateral abdomen. The patient was repositioned in reverse Trendelenburg position. Using a grasper for arm 3, a grasper for arm 4, including hook cautery for arm 1 , the robotic system was docked and primed as described. Instruments were interchanged by the campaign assistant including hook cautery, Bovie cautery and clip appliers. I had sat at the console. The gallbladder fundus was retracted over the dome of the liver. Initial attention was brought to the infundibulum which was gently retracted in the inferior lateral approach. Using a grasper, the cystic duct including the cystic artery was carefully skeletonized. FIREFLY was used to identify the cystic artery and cystic structures. Large PLASTIC clips were used throughout the entire case. Using a clip service desk technician 2 clips were placed proximally, and 1 clip was placed distally along the cystic duct and then cauterized with the cautery. Again care was taken to avoid any injury to the biliary tree as the common bile duct was clearly visualized during this portion of dissection. Next, the cystic artery was similarly clipped and cauterized. Electro-Bovie cautery was used to remove the gallbladder from the hepatic fossa. Hemostasis was checked and found to be adequate. The robot was undocked and positioned for the pelvis. The patient was then placed in Trendelenburg position, 16. The robot was re- docked. Using a grasper for arm 1, a grasper for arm 3, including vessel sealer for arm 4, the robotic system was docked and primed as described. Adhesions were confirmed of the sigmoid colon to the abdominal wall. Next, attention was brought to identify the rectum. A stay suture using 3-0 silk was placed along the rectum. The area of sigmoid diverticulitis was identified. The sigmoid mesentery was mobilized using a vessel sealer whereby the distal sigmoid colon was marked and tagged. As a low anterior resection was proposed, a circular anastomosis was prepared using 25 mm ILS. Next, a colotomy was made along the mid sigmoid colon and a 25 mm anvil was inserted however small solid stool was found in the colon. The anvil was delivered above the fullness of the proximal rectum. The proximal rectum was resected using green loads. The mesentery of the sigmoid colon was mobilized towards the descending colon using a vessel sealer and along the white line of Toldt. Next, the descending colon was divided using robotic stapler 45 mm green load. The proximal resection reached to the pelvise without tension or torsion. The rest of the sigmoid colon mesentery was mobilized using vessel sealer. A separate colotomy was prepared along the proximal colon for placement of a circular stapler. I re-scrubbed into the case for the colon anastomsis. Via the left upper quadrant 12-mm trocar incision, the circular stapler was introduced. I went back to the console. The proximal and distal colon were brought together with a circular anastomosis for over 1 minute. The donuts were intact. The proximal colotomy was oversewn with 3-0 silk and closed with 45-mm green robotic staple loads. The staple lines were hemostatic and intact. The robot was undocked. I re-scrubbed into the case. A #19 clau Mcgill drain was placed via the right upper quadrant trocar into the pelvis and anterior to the colon anastomosis. Via the 12 mm port of the left upper lateral trocar, the colon and gallbladder was removed after widening the incision. All sponges were removed from the abdominal cavity. A 2-0 nylon stitch was placed for the drain. Next all instruments were evacuated from the abdominal cavity. The 8-mm trocar sites were reapproximated using 4-0 Monocryl in an interrupted subcuticular fashion. The trocar sites were irrigated using warm normal saline and hydrogen peroxide solution of the colon extraction site. Local anesthetic was infiltrated to all wounds for postop analgesia. An Optifoam surgical dressing was placed over the colon extraction site and LAMONT drain site. A LAMONT bulb was connected. Liquid glue was applied to the rest of the skin incisions. The patient had tolerated the procedure well. Intraoperative photos were reviewed with the patient's family including findings of stool proximal and distal to the anastomosis. Intraoperative findings were described to the patient's family including increased risk of leaks due to very poor prep. Should failure of anastomosis occur then laparotomy with colostomy creation were described Console time 201 minutes
[2018-07-03] MEDS ORDERED: D5-0.45% NACL WITH KCL 20MEQ/L 1,000 ML IV SCH (22:15)
[2018-07-03] MEDS ORDERED: SODIUM CHLORIDE 0.9% 1,000 ML with POTASSIUM CHLORIDE 20 MEQ IV SCH ×2 (22:15)
[2018-07-03 22:34] LABS: Glucose,Whole Blood 135 mg/dL (75-99)
[2018-07-04 00:08] LABS: Glucose,Whole Blood 153 mg/dL (75-99)
[2018-07-04] MEDS: HEPARIN SODIUM,PORCINE 5,000 UNIT/ML 1 ML VIAL SQ SCH ×6 (00:46→23:13)
[2018-07-04] MEDS: INSULIN ASPART 100 UNIT/ML 1 ML 10 ML VIAL SQ SCH ×5 (00:46→22:43)
[2018-07-04] MEDS: ceFAZolin IN SWFI 2 GM/20 ML SYRINGE IVP SCH ×3 (00:46→22:41)
[2018-07-04] MEDS: metroNIDAZOLE-NS PMX 500 MG in SALINE 1 100ML.BAG IVPB SCH ×3 (00:47→22:42)
[2018-07-04] MEDS: 0.9% NACL WITH KCL 20 MEQ/L 1,000 ML IV SCH ×3 (01:28→22:43)
[2018-07-04 06:27] LABS: Glucose,Whole Blood 118 mg/dL (75-99)
[2018-07-04] MEDS: FAMOTIDINE 20 MG/2 ML VIAL IV SCH ×2 (08:48→23:02)
[2018-07-04] MEDS: ASPIRIN 81 MG PO SCH (08:48)
[2018-07-04] MEDS: METOPROLOL TARTRATE 25 MG TAB PO SCH ×2 (08:48→23:01)
[2018-07-04] MEDS: ALVIMOPAN 12 MG CAPSULE PO SCH ×3 (08:48→23:02)
[2018-07-04] MEDS: METOCLOPRAMIDE 5 MG/ML 2 ML VIAL IVP PRN ×2 (08:56→23:03)
[2018-07-04 08:58] LABS: Basophils % (A) 0 %; Eosinophils # (A) 0.1 k/uL (0-0.7); Eosinophils % (A) 1 %; HCT 47.4 % (39.0-53.0); HGB 15.1 gm/dL (13.0-17.5); Lymphocytes # (A) 0.9 k/uL (1.0-4.8); Lymphocytes % (A) 7 %; MCHC 31.8 g/dL (31.0-37.0); MCV 97.5 fL (80.0-100.0); Mean Platelet Volume 7.8; Monocytes # (A) 0.6 k/uL (0-1.0); Monocytes % (A) 5 %; Neutrophils # (A) 11.1 k/uL (1.3-7.7); Neutrophils % (A) 87 %; Platelet Count 181 k/uL (150-450); RBC 4.86 m/uL (4.30-5.90); RDW 13.6 % (11.5-15.5); WBC 12.8 k/uL (3.8-10.6)
[2018-07-04] MEDS: ROPIVACAINE 250 MG, HYDROMORPHONE (PF) 5 MG in SODIUM CHLORIDE 0.9% 200 ML EPIDURAL PRN (10:04)
--- NOTE | 2018-07-04 11:53 | P.PN ---
Progress Note - Text Progress Note Date: 07/04/18 Patient resting comfortably his bed. He has minimal quite pain. On exam his vital signs are stable. His abdomen soft. Incision sites are clean dry intact. White count was 12, he will was 15. Status post robotic-assisted colectomy. Patient will remain on clear liquid diet.
--- NOTE | 2018-07-04 11:54 | P.PN ---
Progress Note - Text Progress Note Date: 07/04/18 73-year-old male status post robotic-assisted laparoscopic sigmoidectomy postop day #1, epidural catheter day #2. Patient doing well VAS 0 out of 10 in severity at rest a 1-2 out of 10 in severity with movement. No motor sensory deficits. Lee catheters been removed. Epidural rates currently set at 10 ML' s an hour tolerating well, vital signs stable. Continue current treatment plan.
[2018-07-04 12:28] LABS: Glucose,Whole Blood 123 mg/dL (75-99)
[2018-07-04] MEDS ORDERED: ceFAZolin IN SWFI 2 GM/20 ML SYRINGE IVP ONE (14:18)
[2018-07-04] MEDS ORDERED: 0.9% NACL WITH KCL 20 MEQ/L 1,000 ML BAG IV ONE (14:18)
[2018-07-04] MEDS ORDERED: ONDANSETRON 4 MG/2 ML VIAL ONE (14:18)
[2018-07-04] MEDS ORDERED: metroNIDAZOLE-NS PMX 500 MG/100 ML BAG ONE (14:18)
[2018-07-04 18:47] LABS: Glucose,Whole Blood 109 mg/dL (75-99)
[2018-07-04] MEDS: LISINOPRIL 10 MG TAB PO SCH (23:01)
[2018-07-04] MEDS: DOXAZOSIN 4 MG TAB PO SCH (23:01)
[2018-07-04] MEDS: FINASTERIDE 5 MG TAB PO SCH (23:01)
[2018-07-05] MEDS: ceFAZolin IN SWFI 2 GM/20 ML SYRINGE IVP SCH ×4 (00:22→23:44)
[2018-07-05] MEDS: metroNIDAZOLE-NS PMX 500 MG in SALINE 1 100ML.BAG IVPB SCH ×4 (00:23→20:13)
[2018-07-05] MEDS: 0.9% NACL WITH KCL 20 MEQ/L 1,000 ML IV SCH ×2 (00:23→23:44)
[2018-07-05 01:46] LABS: Glucose,Whole Blood 117 mg/dL (75-99)
[2018-07-05] MEDS: INSULIN ASPART 100 UNIT/ML 1 ML 10 ML VIAL SQ SCH ×5 (06:44→23:49)
[2018-07-05] MEDS: LACTATED RINGERS 1,000 ML IV SCH (06:45)
[2018-07-05] MEDS: HEPARIN SODIUM,PORCINE 5,000 UNIT/ML 1 ML VIAL SQ SCH ×3 (07:40→23:49)
[2018-07-05] MEDS: ONDANSETRON 4 MG/2 ML VIAL IVP PRN ×2 (07:43→13:37)
[2018-07-05] MEDS: FAMOTIDINE 20 MG/2 ML VIAL IV SCH ×3 (07:44→20:13)
[2018-07-05] MEDS: METOPROLOL TARTRATE 25 MG TAB PO SCH ×2 (07:45→20:10)
[2018-07-05] MEDS: ASPIRIN 81 MG PO SCH (07:45)
[2018-07-05 08:28] LABS: Basophils % (A) 0 %; Eosinophils % (A) 0 %; HCT 44.4 % (39.0-53.0); HGB 14.1 gm/dL (13.0-17.5); Lymphocytes # (A) 0.9 k/uL (1.0-4.8); Lymphocytes % (A) 8 %; MCH 31.3 pg (25.0-35.0); MCHC 31.8 g/dL (31.0-37.0); MCV 98.6 fL (80.0-100.0); Mean Platelet Volume 7.4; Monocytes # (A) 0.6 k/uL (0-1.0); Monocytes % (A) 6 %; Neutrophils # (A) 9.8 k/uL (1.3-7.7); Neutrophils % (A) 86 %; Platelet Count 145 k/uL (150-450); RDW 13.7 % (11.5-15.5); WBC 11.4 k/uL (3.8-10.6)
[2018-07-05] MEDS: ROPIVACAINE 250 MG, HYDROMORPHONE (PF) 5 MG in SODIUM CHLORIDE 0.9% 200 ML EPIDURAL PRN (08:32)
[2018-07-05 11:54] LABS: Glucose,Whole Blood 94 mg/dL (75-99)
[2018-07-05 11:55] LABS: ALT 41 U/L (21-72); AST 45 U/L (17-59); Albumin 3.4 g/dL (3.5-5.0); Alkaline Phosphatase 54 U/L (38-126); Anion Gap 6 mmol/L; Blood Urea Nitrogen 17 mg/dL (9-20); Calcium 8.9 mg/dL (8.4-10.2); Carbon Dioxide 26 mmol/L (22-30); Chloride 107 mmol/L (98-107); Glucose 123 mg/dL (74-99); Magnesium 1.9 mg/dL (1.6-2.3); Phosphorus 3.4 mg/dL (2.5-4.5); Potassium 4.6 mmol/L (3.5-5.1); Sodium 139 mmol/L (137-145); Total Bilirubin 0.5 mg/dL (0.2-1.3); Total Protein 5.9 g/dL (6.3-8.2)
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
--- NOTE | 2018-07-05 14:29 | P.PN ---
Subjective Progress Note Date: 07/05/18 Chris Borja is a 73-year-old male with chronic and recurrent history of sigmoid diverticulitis, with previous history of perforated diverticulitis, and history of cholecystitis, was admitted to [facility] by Dr. Lara and underwent a robotic low anterior resection and robotic cholecystectomy, patient was admitted to the medical floor, consultation was requested for management while hospitalized. On 07/05/2018 patient was seen and examined on the medical floor he is alert and oriented 3 in no apparent distress there is no fever or chills no headache or dizziness no chest pain no shortness of breath no cough no nausea or vomiting no abdominal pain and no urinary symptoms Objective - Vital Signs Vital signs: Vital Signs Temp 98.7 F 07/05/18 07:44 Pulse 82 07/05/18 08:00 Resp 16 07/05/18 08:00 BP 146/70 07/05/18 07:44 Pulse Ox 93 L 07/05/18 07:44 Intake & Output 07/04/18 07/05/18 07/05/18 18:59 06:59 18:59 Intake Total 224.667 Output Total 400 Balance -175.333 Intake: Intake, IV Titration 224.667 Amount Ropivacaine 250 mg 224.667 Hydromorphone (Pf) 5 mg In Sodium Chloride 0.9% 200 ml @ Per Protocol EPIDURAL .Q0M PRN Rx#: [id number] Output: Urine 400 Other: Voiding Method Indwelling Catheter Indwelling Catheter Indwelling Catheter - Exam In general patient is alert and oriented 3 in no apparent distress HEENT head normocephalic and atraumatic Neck is supple no JVD no goiter no lymphadenopathy Chest exam is clear to auscultation no crackles no wheezing Cardiac exam reveals regular heart sounds S1 and S2 no gallops no murmurs Abdomen is soft, with mild diffuse tenderness no organomegaly with normal bowel sounds Extremity exam reveals no edema no cyanosis or clubbing Neurological examination reveals no gross deficit - Labs CBC & Chem 7: 07/05/18 07:29 07/04/18 13:00 Labs: Abnormal Lab Results - Last 24 Hours (Table) 07/04/18 07/04/18 07/04/18 Range/Units 12:16 13:00 17:27 WBC (3.8-10.6) k/uL Plt Count (150-450) k/uL Neutrophils # (1.3-7.7) k/uL Lymphocytes # (1.0-4.8) k/uL Glucose 123 H (74-99) mg/dL POC Glucose (mg/dL) 123 H 109 H (75-99) mg/dL Total Protein 5.9 L (6.3-8.2) g/dL Albumin 3.4 L (3.5-5.0) g/dL 07/05/18 07/05/18 Range/Units 01:34 07:29 WBC 11.4 H (3.8-10.6) k/uL Plt Count 145 L (150-450) k/uL Neutrophils # 9.8 H (1.3-7.7) k/uL Lymphocytes # 0.9 L (1.0-4.8) k/uL Glucose (74-99) mg/dL POC Glucose (mg/dL) 117 H (75-99) mg/dL Total Protein (6.3-8.2) g/dL Albumin (3.5-5.0) g/dL Assessment and Plan Plan: #1 diverticulitis was history of perforated diverticulitis patient was admitted to [facility] and underwent low anterior resection, he also had a robotic cholecystectomy due to history of cholecystitis #2 underlying history of hypertension well-controlled on current medications #3 underlying history of benign prostatic hypertrophy #4 underlying history of diabetes mellitus currently maintained on insulin sliding scale. #5 previous history of coronary artery disease with previous history of myocardial infarction Medication and labs were reviewed continue current care will follow in a.m.
--- NOTE | 2018-07-05 15:07 | P.PN ---
Progress Note - Text Progress Note Date: 07/05/18 The patient's complaints of left-sided abdominal pain. He denies any nausea or vomiting. He's had no significant flatus. On exam his vital signs are stable. His abdomen is soft. There is some left- sided tenderness. There is no rebound or guarding. Status post laparoscopic robotic-assisted sigmoid colectomy. Patient will be observed. If his pain persists perform a computed tomography scan the abdomen to evaluate for anastomotic leak/abscess.
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
[2018-07-05 15:45] LABS: ALT 37 U/L (21-72); AST 39 U/L (17-59); Albumin 3.1 g/dL (3.5-5.0); Alkaline Phosphatase 46 U/L (38-126); Anion Gap 2 mmol/L; Blood Urea Nitrogen 15 mg/dL (9-20); Calcium 8.6 mg/dL (8.4-10.2); Carbon Dioxide 28 mmol/L (22-30); Chloride 105 mmol/L (98-107); Glucose 116 mg/dL (74-99); Magnesium 1.8 mg/dL (1.6-2.3); Phosphorus 2.1 mg/dL (2.5-4.5); Potassium 4.8 mmol/L (3.5-5.1); Sodium 135 mmol/L (137-145); Total Bilirubin 0.6 mg/dL (0.2-1.3); Total Protein 5.3 g/dL (6.3-8.2)
[2018-07-05] MEDS ORDERED: NALBUPHINE 10 MG/ML (1 ML AMP) IV PRN (17:11)
[2018-07-05 17:49] LABS: Glucose,Whole Blood 103 mg/dL (75-99)
[2018-07-05] MEDS: FINASTERIDE 5 MG TAB PO SCH (20:10)
[2018-07-05] MEDS: ALVIMOPAN 12 MG CAPSULE PO SCH (20:10)
[2018-07-05] MEDS: DOXAZOSIN 4 MG TAB PO SCH (20:10)
[2018-07-05] MEDS: LISINOPRIL 10 MG TAB PO SCH (20:11)
--- NOTE | 2018-07-05 21:22 | P.PN ---
Progress Note - Text Progress Note Date: 07/05/18 73-year-old male status post robotic-assisted lapse Sigmoidectomy postop day #2 epidural catheter day #3. Rates a running at 10 ML's an hour. Incision looks clean dry and intact. Patient has complaints of left-sided pain. Otherwise no pain at rest. Continue epidural settings.
[2018-07-05 23:55] LABS: Glucose,Whole Blood 100 mg/dL (75-99)
[2018-07-06] MEDS: metroNIDAZOLE-NS PMX 500 MG in SALINE 1 100ML.BAG IVPB SCH ×4 (01:50→18:09)
[2018-07-06] MEDS: ROPIVACAINE 250 MG, HYDROMORPHONE (PF) 5 MG in SODIUM CHLORIDE 0.9% 200 ML EPIDURAL PRN (04:26)
[2018-07-06] MEDS: LACTATED RINGERS 1,000 ML IV SCH (05:17)
[2018-07-06] MEDS: INSULIN ASPART 100 UNIT/ML 1 ML 10 ML VIAL SQ SCH ×3 (05:53→19:00)
[2018-07-06 05:55] LABS: Glucose,Whole Blood 96 mg/dL (75-99)
[2018-07-06 07:13] LABS: Basophils % (A) 0 %; Eosinophils # (A) 0.1 k/uL (0-0.7); Eosinophils % (A) 1 %; HGB 13.9 gm/dL (13.0-17.5); Lymphocytes # (A) 0.9 k/uL (1.0-4.8); Lymphocytes % (A) 8 %; MCH 31.9 pg (25.0-35.0); MCHC 33.2 g/dL (31.0-37.0); MCV 96.2 fL (80.0-100.0); Mean Platelet Volume 7.2; Monocytes # (A) 0.4 k/uL (0-1.0); Monocytes % (A) 4 %; Neutrophils # (A) 9.1 k/uL (1.3-7.7); Neutrophils % (A) 85 %; Platelet Count 134 k/uL (150-450); RBC 4.36 m/uL (4.30-5.90); RDW 13.4 % (11.5-15.5); WBC 10.7 k/uL (3.8-10.6)
[2018-07-06 07:38] LABS: ALT 32 U/L (21-72); AST 36 U/L (17-59); Alkaline Phosphatase 53 U/L (38-126); Anion Gap 4 mmol/L; Blood Urea Nitrogen 13 mg/dL (9-20); Calcium 8.6 mg/dL (8.4-10.2); Carbon Dioxide 26 mmol/L (22-30); Chloride 105 mmol/L (98-107); Glucose 98 mg/dL (74-99); Potassium 4.4 mmol/L (3.5-5.1); Sodium 135 mmol/L (137-145); Total Bilirubin 0.7 mg/dL (0.2-1.3); Total Protein 5.4 g/dL (6.3-8.2)
--- NOTE | 2018-07-06 07:52 | P.PN ---
Progress Note - Text Progress Note Date: 07/06/18 73-year-old male status post robotic-assisted laparoscopic sigmoidectomy postop day #3. Epidural catheter came out last night accidentally. This morning, patient is complaining of abdominal pain at rest on the left more so than on the right. Patient does have some tenderness to palpation bilaterally. To his description, pain is slightly more intense than before, however it could be the effects of all the long-acting local anesthetic wearing off causing the increased intensity.
--- NOTE | 2018-07-06 08:47 | P.PN ---
Subjective Progress Note Date: 07/06/18 CHIEF COMPLAINT: Diverticulitis HISTORY OF PRESENT ILLNESS: The patient is a 73-year-old gentleman status post robotic-assisted low anterior resection, postop day 3. I was notified by anesthesiologist regarding discontinued epidural and abdominal pain. He has baseline history of diffuse abdominal pain prior to surgery. He also is status post cholecystectomy. He reports abdominal gas bloat. No reports of fevers or chills. He had refused Lovenox injections. Additionally he refuses to ambulate. No reports of nausea. He has been tolerating ice chips. LAMONT has been serosanguineous. Epidural was discontinued last night hence reports mild to moderate abdominal pain diffuse. PHYSICAL EXAM: VITAL SIGNS: Reviewed GENERAL: Well-developed in no acute distress. HEENT: No sclera icterus. Extraocular movements grossly intact. Moist buccal mucosa. Head is atraumatic, normocephalic. Hears conversational speech. No nasal drainage. NECK: Supple without lymphadenopathy. CHEST: Non-labored respirations and equal bilateral excursions. CARDIOVASCULAR: Palpable 2+ radial pulses. Regular rate and regular rhythm ABDOMEN: Soft. Distended. Diffusely tender. No peritonitis. LAMONT completely serosanguineous. Incisions clean dry and intact without cellulitis. No cellulitis along the abdomen. LAMONT drain care including strip the drain performed by me. MUSCULOSKELETAL: No clubbing, cyanosis or edema. NEUROLOGIC: No focal or lateralizing signs. Cranial nerves II through XII grossly intact. PSYCH: Appropriate affect. Alert and oriented to person, place and time. SKIN: Well perfused. Good skin turgor. LABS: Reviewed ASSESSMENT: 1. History of perforated diverticulitis 2. Chronic abdominal pain 3. Medical noncompliance to postoperative care 4. History of tobacco abuse 5. History of cholecystectomy 6. Status post sigmoid colectomy 7. Moderate to severe obstructive uropathy secondary to benign prostatic hypertrophy preexistent to surgery PLAN: 1. Continue Lee catheter for history of obstructive uropathy pre-existent to surgery 2. Will obtain a CT of the abdomen and pelvis for abdominal ileus versus anastomotic leak 3. Patient was described risks prior to surgery including with family about risks of anastomotic failure and placement of ostomy 4. I had a prolonged discussion with him regarding his medical noncompliance. Nurse reports that he refuses to walk and take his Lovenox injections. 5. He was asked to accept Lovenox injections as he is increased risk for pulmonary embolisms and DVTs. 6. Strict tobacco cessation was also advised. Will also obtain urine cotinine tests. 7. Continue antibiotics. 8. Patient overall in guarded condition with multiple comorbidities including medical noncompliance to preop and postoperative care Objective - Vital Signs Vital signs: Vital Signs Temp 98.3 F 07/06/18 07:00 Pulse 87 07/06/18 07:00 Resp 18 07/06/18 07:00 BP 151/77 07/06/18 07:00 Pulse Ox 97 07/06/18 07:00 Intake & Output 07/05/18 07/06/18 07/06/18 18:59 06:59 18:59 Intake Total 5725.731 5996 Output Total 400 500 Balance 624.667 749 Intake: Intake, IV Titration 1922.227 7273 Amount 0.9% NaCl with KCl 20 Meq 700 1050 /l 1,000 ml @ 100 mls/hr IV .Q10H [facility] Rx#: [id number] Ropivacaine 250 mg 224.667 199 Hydromorphone (Pf) 5 mg In Sodium Chloride 0.9% 200 ml @ Per Protocol EPIDURAL .Q0M PRN Rx#: [id number] metroNIDAZOLE-NS PMX 500 100 mg In Saline 1 100ml.bag @ 100 mls/hr IVPB Q6H [facility] Rx#:[id number] Output: Urine 400 500 Other: Voiding Method Indwelling Catheter Indwelling Catheter - Labs CBC & Chem 7: 07/06/18 06:23 07/06/18 06:23 Labs: Abnormal Lab Results - Last 24 Hours (Table) 07/04/18 07/05/18 07/05/18 Range/Units 13:00 07:29 15:16 WBC 11.4 H (3.8-10.6) k/uL Plt Count 145 L (150-450) k/uL Neutrophils # 9.8 H (1.3-7.7) k/uL Lymphocytes # 0.9 L (1.0-4.8) k/uL Sodium 135 L (137-145) mmol/L Glucose 123 H 116 H (74-99) mg/dL POC Glucose (mg/dL) (75-99) mg/dL Phosphorus 2.1 L (2.5-4.5) mg/dL Total Protein 5.9 L 5.3 L (6.3-8.2) g/dL Albumin 3.4 L 3.1 L (3.5-5.0) g/dL 07/05/18 07/05/18 07/06/18 Range/Units 17:38 23:41 06:23 WBC 10.7 H (3.8-10.6) k/uL Plt Count 134 L (150-450) k/uL Neutrophils # 9.1 H (1.3-7.7) k/uL Lymphocytes # 0.9 L (1.0-4.8) k/uL Sodium (137-145) mmol/L Glucose (74-99) mg/dL POC Glucose (mg/dL) 103 H 100 H (75-99) mg/dL Phosphorus (2.5-4.5) mg/dL Total Protein (6.3-8.2) g/dL Albumin (3.5-5.0) g/dL 07/06/18 Range/Units 06:23 WBC (3.8-10.6) k/uL Plt Count (150-450) k/uL Neutrophils # (1.3-7.7) k/uL Lymphocytes # (1.0-4.8) k/uL Sodium 135 L (137-145) mmol/L Glucose (74-99) mg/dL POC Glucose (mg/dL) (75-99) mg/dL Phosphorus (2.5-4.5) mg/dL Total Protein 5.4 L (6.3-8.2) g/dL Albumin 3.0 L (3.5-5.0) g/dL Assessment and Plan (1) Medically noncompliant Current Visit: Yes Status: Acute Code(s): Z91.19 - PATIENT'S NONCOMPLIANCE W OTH MEDICAL TREATMENT AND REGIMEN SNOMED Code(s): 066376492 (2) Enlarged prostate with lower urinary tract symptoms (LUTS) Current Visit: Yes Status: Acute Code(s): N40.1 - BENIGN PROSTATIC HYPERPLASIA WITH LOWER URINARY TRACT SYMP SNOMED Code(s): 175614314 (3) Coronary artery disease Current Visit: No Status: Acute Code(s): I25.10 - ATHSCL HEART DISEASE OF [place] CORONARY ARTERY W/O ANG PCTRS SNOMED Code(s): 10759605 (4) Diabetes mellitus Current Visit: No Status: Acute Code(s): E11.9 - TYPE 2 DIABETES MELLITUS WITHOUT COMPLICATIONS SNOMED Code(s): 86537610 (5) Diverticulitis Current Visit: No Status: Acute Code(s): K57.92 - DVTRCLI OF INTEST, PART UNSP, W/O PERF OR ABSCESS W/O BLEED SNOMED Code(s): 580812199 (6) Gastroesophageal reflux disease Current Visit: No Status: Acute Code(s): K21.9 - GASTRO-ESOPHAGEAL REFLUX DISEASE WITHOUT ESOPHAGITIS SNOMED Code(s): 716598822 (7) History of myocardial infarction Current Visit: No Status: Acute Code(s): I25.2 - OLD MYOCARDIAL INFARCTION SNOMED Code(s): 576303504 (8) Hypertensive heart disease Current Visit: No Status: Acute Code(s): I11.9 - HYPERTENSIVE HEART DISEASE WITHOUT HEART FAILURE SNOMED Code(s): 16555959 (9) Perforation of sigmoid colon due to diverticulitis Current Visit: No Status: Acute Code(s): K57.20 - DVTRCLI OF LG INT W PERFORATION AND ABSCESS W/O BLEEDING SNOMED Code(s): 9954406572375491 (10) Prostate hypertrophy Current Visit: No Status: Acute Code(s): N40.0 - BENIGN PROSTATIC HYPERPLASIA WITHOUT LOWER URINRY TRACT SYMP SNOMED Code(s): 641415308
[2018-07-06] MEDS ORDERED: IOPAMIDOL-300 CONTRAST 30 ML VIAL (ORAL USE) PO PRN (08:59)
[2018-07-06] MEDS: ASPIRIN 81 MG PO SCH (09:07)
[2018-07-06] MEDS: METOPROLOL TARTRATE 25 MG TAB PO SCH ×2 (09:07→20:09)
[2018-07-06] MEDS: HEPARIN SODIUM,PORCINE 5,000 UNIT/ML 1 ML VIAL SQ SCH ×2 (09:07→16:52)
[2018-07-06] MEDS: FAMOTIDINE 20 MG/2 ML VIAL IV SCH (09:07)
[2018-07-06] MEDS: ALVIMOPAN 12 MG CAPSULE PO SCH ×2 (09:07→20:09)
[2018-07-06] MEDS: ceFAZolin IN SWFI 2 GM/20 ML SYRINGE IVP SCH ×2 (09:16→16:52)
--- NOTE | 2018-07-06 10:50 | P.PN ---
Subjective Progress Note Date: 07/06/18 Chris Borja is a 73-year-old male with chronic and recurrent history of sigmoid diverticulitis, with previous history of perforated diverticulitis, and history of cholecystitis, was admitted to [facility] by Dr. Lara and underwent a robotic low anterior resection and robotic cholecystectomy, patient was admitted to the medical floor, consultation was requested for management while hospitalized. On 07/05/2018 patient was seen and examined on the medical floor he is alert and oriented 3 in no apparent distress there is no fever or chills no headache or dizziness no chest pain no shortness of breath no cough no nausea or vomiting no abdominal pain and no urinary symptoms 07/06/2018 patient complaining of abdominal pain. Still not passing gas or having bowel movement. He is complaining of some nausea. No vomiting. Apparently he has been refusing the subcu heparin injections. Patient evaluated by surgical service this morning apparently epidural accidentally came out last night. And he's had increasing abdominal pain and some abdominal distention. They've ordered a computed tomography scan of the abdomen with contrast to further evaluate ileus versus leak. She's also ordered a CTA of the chest. At this time patient not is not complaining of any chest pain or shortness of breath. Objective - Vital Signs Vital signs: Vital Signs Temp 98.3 F 07/06/18 07:00 Pulse 87 07/06/18 07:00 Resp 18 07/06/18 07:00 BP 151/77 07/06/18 07:00 Pulse Ox 97 07/06/18 07:00 Intake & Output 07/05/18 07/06/18 07/06/18 18:59 06:59 18:59 Intake Total 3905.680 4200 Output Total 400 500 Balance 624.667 749 Intake: Intake, IV Titration 0806.649 2015 Amount 0.9% NaCl with KCl 20 Meq 700 1050 /l 1,000 ml @ 100 mls/hr IV .Q10H [facility] Rx#: [id number] Ropivacaine 250 mg 224.667 199 Hydromorphone (Pf) 5 mg In Sodium Chloride 0.9% 200 ml @ Per Protocol EPIDURAL .Q0M PRN Rx#: [id number] metroNIDAZOLE-NS PMX 500 100 mg In Saline 1 100ml.bag @ 100 mls/hr IVPB Q6H [facility] Rx#:[id number] Output: Urine 400 500 Other: Voiding Method Indwelling Catheter Indwelling Catheter Indwelling Catheter - Exam Head normocephalic Neck supple Lungs clear to auscultation bilaterally no wheezing or crackles Heart regular rate and rhythm S1-S2, no rub or gallop Abdomen is distended positive bowel sounds Extremities no edema Neuro alert and orientated to 3 - Labs CBC & Chem 7: 07/06/18 06:23 07/06/18 06:23 Labs: Abnormal Lab Results - Last 24 Hours (Table) 07/04/18 07/05/18 07/05/18 Range/Units 13:00 15:16 17:38 WBC (3.8-10.6) k/uL Plt Count (150-450) k/uL Neutrophils # (1.3-7.7) k/uL Lymphocytes # (1.0-4.8) k/uL Sodium 135 L (137-145) mmol/L Glucose 123 H 116 H (74-99) mg/dL POC Glucose (mg/dL) 103 H (75-99) mg/dL Phosphorus 2.1 L (2.5-4.5) mg/dL Total Protein 5.9 L 5.3 L (6.3-8.2) g/dL Albumin 3.4 L 3.1 L (3.5-5.0) g/dL 07/05/18 07/06/18 07/06/18 Range/Units 23:41 06:23 06:23 WBC 10.7 H (3.8-10.6) k/uL Plt Count 134 L (150-450) k/uL Neutrophils # 9.1 H (1.3-7.7) k/uL Lymphocytes # 0.9 L (1.0-4.8) k/uL Sodium 135 L (137-145) mmol/L Glucose (74-99) mg/dL POC Glucose (mg/dL) 100 H (75-99) mg/dL Phosphorus (2.5-4.5) mg/dL Total Protein 5.4 L (6.3-8.2) g/dL Albumin 3.0 L (3.5-5.0) g/dL Assessment and Plan Assessment: #1 diverticulitis was history of perforated diverticulitis patient was admitted to [facility] and underwent low anterior resection, he also had a robotic cholecystectomy due to history of cholecystitis. Patient has had increasing abdominal pain and distention. Surgical service has ordered a computed tomography scan of the abdomen with contrast to rule out ileus versus leak. White count has trended down from 11.4-10.7. Epidural came out through the night #2 underlying history of hypertension well-controlled on current medications #3 underlying history of benign prostatic hypertrophy #4 underlying history of diabetes mellitus 2. Patient refusing sliding scale coverage. Blood sugars have been stable. We'll continue to monitor #5 previous history of coronary artery disease with previous history of myocardial infarction #6 dyspnea and patient have been reviewed refusing the subcu heparin injections. Surgical service has ordered a CTA of the chest DVT prophylaxis subcu heparin and GI prophylaxis Pepcid I performed an examination of the patient and discussed their management with the physician Barbed Wire Machine Operator. I have reviewed the Physician Barbed Wire Machine Operator's notes and agree with the documented findings and plan of care
[2018-07-06] MEDS ORDERED: Phosphorus Replacement Protoco 1 EACH MISC MISCELLANE PRN (11:39)
[2018-07-06 11:45] LABS: Glucose,Whole Blood 111 mg/dL (75-99)
--- NOTE | 2018-07-06 12:50 | CT ---
EXAMINATION TYPE: CT angio chest DATE OF EXAM: 07/06/2018 COMPARISON: None HISTORY: 73-year-old male Dyspnea and abdominal pain TECHNIQUE: Contiguous axial scanning of the chest performed with IV Contrast, patient injected with 1 00 ml mL of Isovue 370. Coronal/sagittal MIP reconstructions performed. CT DLP: 1620.6 mGycm Automated exposure control for dose reduction was used. FINDINGS: Heart normal size without pericardial effusion. Coronary vessel calcifications are present. Aorta normal caliber with mild atelectatic arch calcifications and conventional arch vessels branchin g anatomy. Mild bilateral gynecomastia. No thoracic lymphadenopathy by CT size criteria. Mild diffuse anasarca-type change. Mild emphysematous change in the visualized upper lungs and mild bronchial wall thickening. Trace rig ht pleural effusion with adjacent atelectasis. Strandy atelectasis in the right base. No consolidatio n. Mild respiratory motion artifacts. Satisfactory opacification of the pulmonary artery system. Right m ain pulmonary artery measures 2.8 cm. No flattening of the interventricular septum or reflux of contr ast into the hepatic veins. No evidence for pulmonary embolus. Abdomen reported separately. Bones: Endplate spondylosis mid to lower thoracic spine. Degenerative changes at the shoulders and st ernoclavicular joints. No osseous destructive process. IMPRESSION: 1. COPD WITH MILD EMPHYSEMA. POSSIBLE PULMONARY ARTERIAL HYPERTENSION. 2. NO EVIDENCE FOR PULMONARY EMBOLUS. 3. CAD. THERE IS MILD DIFFUSE ANASARCA, TRACE RIGHT EFFUSION, AND MILD INTERSTITIAL THICKENING. CORRE LATE TO EXCLUDE MILD PULMONARY VASCULAR CONGESTION/FLUID OVERLOAD STATE. 4. ABDOMEN REPORTED SEPARATELY.
[2018-07-06] MEDS ORDERED: FUROSEMIDE 10 MG/ML 2 ML VIAL IV ONE (13:03)
--- NOTE | 2018-07-06 13:11 | CT ---
EXAMINATION TYPE: CT abdomen pelvis w con DATE OF EXAM: 07/06/2018 COMPARISON: NONE HISTORY: 73-year-old male Dyspnea and Abdominal pain TECHNIQUE: Contiguous axial scanning of the abdomen and pelvis following administration of 100 ml Iso rm 370 IV contrast. Delayed images through the kidneys and coronal/sagittal reconstructions perform ed. Patient had a sip of oral contrast and subsequently refused to drink any more. CT DLP: 1620.6 mGycm Automated exposure control for dose reduction was used. FINDINGS: New bilateral flank edema and anasarca-type change. Trace right effusion. Adjacent atelectasis. Chest reported separately. Tiny hiatal hernia. Liver upper limits of normal in size at 17.6 cm. Small amount of focal fat along the anterior falcifo rm ligament. Portal venous system is patent. No biliary ductal dilatation. Low-density diffuse thickening of the adrenal glands is unchanged probably relating to adrenal hyperp lasia. Symmetric uptake and excretion of contrast from both kidneys. Tiny subcentimeter hypodensity lower po le left kidney is unchanged, likely cyst. Small posterior splenule. Pancreas shows no gross abnormali ty. A surgical drain is in place and terminates in the anterior pelvis. Small scattered foci of free air present and additional small foci of air within the subcutaneous adipose tissues anteriorly. Interval mid to distal sigmoid resection with end to side anastomosis. The sigmoid colon and just adj acent to the anastomosis shows mild circumferential thickening. There is fat stranding an strandy jeannie ma around this region. Normal appendix. Some small bowel loops in the upper abdomen are borderline to mildly dilated measuring up to 3.0 cm. While no discrete transition point is identified, there is an apparent stretched and narrowed small b owel loop as it courses anteriorly and around the blind end of the anastomosis:, Refer to coronal jaison ges 47 through 51 and axial images 57 through 66. Small to moderate-sized fatty umbilical hernia. Moderate atherosclerotic changes infrarenal abdominal aorta and iliac arteries. Bladder partially distended. Nondependent intraluminal air is present. Tripp catheter is in place. Pr ostate gland is markedly enlarged at 7.3 cm. No abnormal fluid collection in the pelvis or pelvic lym phadenopathy seen. Bones: Facet arthropathy lower lumbar spine. No osseous destructive process. Grade 1 anterolisthesis L4-L5. IMPRESSION: 1. INTERVAL RESECTION WITH END TO SIDE ANASTOMOSIS ALONG THE MID TO DISTAL SIGMOID COLON. A SURGICAL DRAIN IS IN PLACE AND THERE ARE INFLAMMATORY CHANGES CENTERED AT THE ANASTOMOSIS WITH FAT STRANDING A ND WALL THICKENING. CORRELATE TO TIME SINCE SURGERY ESPECIALLY SMALL SCATTERED FOCI OF FREE AIR ARE PRESENT. FURTHER CLINICAL CORRELATION WILL BE NEEDED. IF SURGERY IS VERY RECENT, NORMAL POSTOPER ATIVE INFLAMMATION WOULD BE SUGGESTED. 2. THE PATIENT COULD ONLY TOLERATE A SINGLE SWALLOW OF ORAL CONTRAST. A COUPLE SMALL BOWEL LOOPS IN T HE UPPER ABDOMEN ARE BORDERLINE DISTENDED AT 3.0 CM. THIS MAY RELATE TO ILEUS. 3. HOWEVER, NOTE A LOOP OF STRETCHED AND NARROWED SMALL BOWEL COURSING ADJACENT TO THE SIGMOID ANASTO MOSIS, REFER TO CORONAL IMAGES 46 THROUGH 51 FOR SOME HEALTH TECHNICIAN IMAGES. THIS LOOP COULD BE NARRO WED FROM ADJACENT INFLAMMATION. FOLLOW-UP IF CONCERN FOR IMPENDING SMALL BOWEL OBSTRUCTION. 4. MILD DIFFUSE ANASARCA-TYPE CHANGE SUGGESTS FLUID OVERLOAD STATE. 5. MARKED PROSTATOMEGALY (7.3 CM). AIR WITHIN THE BLADDER LUMEN LIKELY FROM TRIPP CATHETER PLACEMENT.
[2018-07-06] MEDS: HYDROmorphone 1 MG/ML 1 ML SYRINGE IVP PRN ×2 (13:37→20:09)
[2018-07-06] MEDS: 0.9% NACL WITH KCL 20 MEQ/L 1,000 ML IV SCH (13:37)
[2018-07-06] MEDS: PANTOPRAZOLE 40 MG/10 ML VIAL IVP SCH (14:02)
[2018-07-06 18:58] LABS: Glucose,Whole Blood 109 mg/dL (75-99)
[2018-07-06] MEDS: FINASTERIDE 5 MG TAB PO SCH (20:09)
[2018-07-06] MEDS: DOXAZOSIN 4 MG TAB PO SCH (20:09)
[2018-07-06] MEDS: LISINOPRIL 10 MG TAB PO SCH (20:09)
[2018-07-06 23:47] LABS: Glucose,Whole Blood 87 mg/dL (75-99)
[2018-07-07] MEDS: INSULIN ASPART 100 UNIT/ML 1 ML 10 ML VIAL SQ SCH ×4 (00:16→17:44)
[2018-07-07] MEDS: ceFAZolin IN SWFI 2 GM/20 ML SYRINGE IVP SCH ×3 (00:18→16:40)
[2018-07-07] MEDS: HEPARIN SODIUM,PORCINE 5,000 UNIT/ML 1 ML VIAL SQ SCH ×3 (00:18→16:40)
[2018-07-07] MEDS: 0.9% NACL WITH KCL 20 MEQ/L 1,000 ML IV SCH ×2 (03:16→21:53)
[2018-07-07] MEDS: metroNIDAZOLE-NS PMX 500 MG in SALINE 1 100ML.BAG IVPB SCH ×3 (03:17→13:25)
[2018-07-07] MEDS: ONDANSETRON 4 MG/2 ML VIAL IVP PRN (04:13)
[2018-07-07] MEDS: LACTATED RINGERS 1,000 ML IV SCH (05:47)
[2018-07-07 05:53] LABS: Glucose,Whole Blood 103 mg/dL (75-99)
[2018-07-07] MEDS: PANTOPRAZOLE 40 MG/10 ML VIAL IVP SCH (07:18)
[2018-07-07] MEDS: ALVIMOPAN 12 MG CAPSULE PO SCH ×2 (07:18→21:51)
[2018-07-07] MEDS: METOPROLOL TARTRATE 25 MG TAB PO SCH ×2 (07:18→21:50)
[2018-07-07 07:27] LABS: Basophils % (A) 0 %; Eosinophils # (A) 0.1 k/uL (0-0.7); Eosinophils % (A) 1 %; HGB 13.4 gm/dL (13.0-17.5); Lymphocytes # (A) 0.8 k/uL (1.0-4.8); Lymphocytes % (A) 9 %; MCH 30.5 pg (25.0-35.0); MCV 95.6 fL (80.0-100.0); Mean Platelet Volume 6.8; Monocytes # (A) 0.4 k/uL (0-1.0); Monocytes % (A) 5 %; Neutrophils % (A) 83 %; Platelet Count 164 k/uL (150-450); RBC 4.39 m/uL (4.30-5.90); RDW 13.4 % (11.5-15.5); WBC 8.4 k/uL (3.8-10.6)
[2018-07-07] MEDS: HYDROmorphone 1 MG/ML 1 ML SYRINGE IVP PRN ×2 (07:28→16:40)
[2018-07-07 08:01] LABS: ALT 31 U/L (21-72); AST 27 U/L (17-59); Albumin 2.9 g/dL (3.5-5.0); Alkaline Phosphatase 50 U/L (38-126); Anion Gap 7 mmol/L; Blood Urea Nitrogen 12 mg/dL (9-20); Calcium 8.4 mg/dL (8.4-10.2); Carbon Dioxide 25 mmol/L (22-30); Chloride 106 mmol/L (98-107); Glucose 101 mg/dL (74-99); Potassium 4.1 mmol/L (3.5-5.1); Sodium 138 mmol/L (137-145); Total Bilirubin 0.7 mg/dL (0.2-1.3); Total Protein 5.2 g/dL (6.3-8.2)
--- NOTE | 2018-07-07 09:10 | P.PN ---
Subjective Progress Note Date: 07/07/18 CHIEF COMPLAINT: Diverticulitis HISTORY OF PRESENT ILLNESS: The patient is a 73-year-old gentleman status post robotic-assisted low anterior resection, postop day 4. He started passing moderate flatus yesterday. He has been ambulating. He's finally agreeing with the care of receiving his insulin shots including his heparin. Reports reflu gastroesophageal x disease today. He is eager to have his Lee catheter out and start liquids. His abdominal distention has resolved. Abdominal pain has also improved. PHYSICAL EXAM: VITAL SIGNS: Reviewed GENERAL: Well-developed in no acute distress. HEENT: No sclera icterus. Extraocular movements grossly intact. Moist buccal mucosa. Head is atraumatic, normocephalic. Hears conversational speech. No nasal drainage. NECK: Supple without lymphadenopathy. CHEST: Non-labored respirations and equal bilateral excursions. CARDIOVASCULAR: Palpable 2+ radial pulses. Regular rate and regular rhythm ABDOMEN: Soft. Non-distended. LAMONT serous and stripped. Incisions clean dry and intact without cellulitis. Decreased abdominal tenderness MUSCULOSKELETAL: No clubbing, cyanosis. 1+ edema NEUROLOGIC: No focal or lateralizing signs. Cranial nerves II through XII grossly intact. PSYCH: Appropriate affect. Alert and oriented to person, place and time. SKIN: Well perfused. Good skin turgor. LABS: Reviewed STUDIES: Reviewed ASSESSMENT: 1. History of perforated diverticulitis 2. Chronic abdominal pain 3. Medical noncompliance to postoperative care 4. History of tobacco abuse 5. History of cholecystectomy 6. Status post sigmoid colectomy 7. Moderate to severe obstructive uropathy secondary to benign prostatic hypertrophy preexistent to surgery 8. Gastroesophageal reflux disease PLAN: 1. We'll discontinue Lee. 2. Also we'll start clears. 3. Discharge from hospital pending bowel movement and tolerating diet. 4. Anticipated hospitalization at least another 2-3 days. Goal for discharge /Friday Objective - Vital Signs Vital signs: Vital Signs Temp 97.9 F 07/07/18 02:20 Pulse 95 07/07/18 02:20 Resp 16 07/07/18 02:20 BP 160/72 07/07/18 02:20 Pulse Ox 96 07/06/18 14:31 Intake & Output 07/06/18 07/07/18 07/07/18 18:59 06:59 18:59 Intake Total 200 675 Output Total 2680 830 Balance -2480 -155 Intake: Intake, IV Titration 200 675 Amount 0.9% NaCl with KCl 20 Meq 675 /l 1,000 ml @ 75 mls/hr IV .[id number] DOMINGUEZ Rx#: [id number] metroNIDAZOLE-NS PMX 500 200 mg In Saline 1 100ml.bag @ 100 mls/hr IVPB Q6H DOMINGUEZ Rx#:[id number] Output: Drainage 80 30 Right Abdomen 80 30 Urine 2600 800 Other: Voiding Method Indwelling Catheter Indwelling Catheter - Labs CBC & Chem 7: 07/07/18 06:06 07/07/18 06:06 Labs: Abnormal Lab Results - Last 24 Hours (Table) 07/06/18 07/06/18 07/07/18 Range/Units 11:34 18:47 05:41 Lymphocytes # (1.0-4.8) k/uL Glucose (74-99) mg/dL POC Glucose (mg/dL) 111 H 109 H 103 H (75-99) mg/dL Total Protein (6.3-8.2) g/dL Albumin (3.5-5.0) g/dL 07/07/18 07/07/18 Range/Units 06:06 06:06 Lymphocytes # 0.8 L (1.0-4.8) k/uL Glucose 101 H (74-99) mg/dL POC Glucose (mg/dL) (75-99) mg/dL Total Protein 5.2 L (6.3-8.2) g/dL Albumin 2.9 L (3.5-5.0) g/dL - Imaging and Cardiology CT scan - abdomen: report reviewed, image reviewed CT scan - chest: report reviewed, image reviewed CT scan - pelvis: report reviewed, image reviewed (I personally discussed the imaging and results with the radiologist Dr. Steiner. No evidence of moderate free air. Findings consistent with postsurgical changes. ) Assessment and Plan (1) Medically noncompliant Current Visit: Yes Status: Acute Code(s): Z91.19 - PATIENT'S NONCOMPLIANCE W OTH MEDICAL TREATMENT AND REGIMEN SNOMED Code(s): 181206887 (2) Enlarged prostate with lower urinary tract symptoms (LUTS) Current Visit: Yes Status: Acute Code(s): N40.1 - BENIGN PROSTATIC HYPERPLASIA WITH LOWER URINARY TRACT SYMP SNOMED Code(s): 331835060 (3) Coronary artery disease Current Visit: No Status: Acute Code(s): I25.10 - ATHSCL HEART DISEASE OF [place] CORONARY ARTERY W/O ANG PCTRS SNOMED Code(s): 39486985 (4) Diabetes mellitus Current Visit: No Status: Acute Code(s): E11.9 - TYPE 2 DIABETES MELLITUS WITHOUT COMPLICATIONS SNOMED Code(s): 27578669 (5) Diverticulitis Current Visit: No Status: Acute Code(s): K57.92 - DVTRCLI OF INTEST, PART UNSP, W/O PERF OR ABSCESS W/O BLEED SNOMED Code(s): 575297856 (6) Gastroesophageal reflux disease Current Visit: No Status: Acute Code(s): K21.9 - GASTRO-ESOPHAGEAL REFLUX DISEASE WITHOUT ESOPHAGITIS SNOMED Code(s): 948482873 (7) History of myocardial infarction Current Visit: No Status: Acute Code(s): I25.2 - OLD MYOCARDIAL INFARCTION SNOMED Code(s): 627396455 (8) Hypertensive heart disease Current Visit: No Status: Acute Code(s): I11.9 - HYPERTENSIVE HEART DISEASE WITHOUT HEART FAILURE SNOMED Code(s): 84969292 (9) Perforation of sigmoid colon due to diverticulitis Current Visit: No Status: Acute Code(s): K57.20 - DVTRCLI OF LG INT W PERFORATION AND ABSCESS W/O BLEEDING SNOMED Code(s): 4272321128504297 (10) Prostate hypertrophy Current Visit: No Status: Acute Code(s): N40.0 - BENIGN PROSTATIC HYPERPLASIA WITHOUT LOWER URINRY TRACT SYMP SNOMED Code(s): 734519816
[2018-07-07 12:10] LABS: Glucose,Whole Blood 97 mg/dL (75-99)
[2018-07-07] MEDS ORDERED: LISINOPRIL 5 MG TAB PO STA (13:07)
--- NOTE | 2018-07-07 13:11 | P.PN ---
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 Lara and underwent a robotic low anterior resection and robotic cholecystectomy, patient was admitted to the medical floor, consultation was requested for management while hospitalized. On 07/05/2018 patient was seen and examined on the medical floor he is alert and oriented 3 in no apparent distress there is no fever or chills no headache or dizziness no chest pain no shortness of breath no cough no nausea or vomiting no abdominal pain and no urinary symptoms 07/06/2018 patient complaining of abdominal pain. Still not passing gas or having bowel movement. He is complaining of some nausea. No vomiting. Apparently he has been refusing the subcu heparin injections. Patient evaluated by surgical service this morning apparently epidural accidentally came out last night. And he's had increasing abdominal pain and some abdominal distention. They've ordered a computed tomography scan of the abdomen with contrast to further evaluate ileus versus leak. She's also ordered a CTA of the chest. At this time patient not is not complaining of any chest pain or shortness of breath. 07/07/2018 patient reports having bowel movement. Denies any nausea or vomiting. Surgical service advancing diet to clears. CTA of the chest was negative for PE or were concerns of some vascular congestion patient did receive a dose of IV Lasix yesterday. Patient is wheezing and mild cough today. Denies shortness of breath. DuoNeb updrafts have been ordered. Patient is now taking the subcu heparin. Blood pressures are elevated last blood pressure reading 172/85 patient denies any chest pain. Denies any nausea vomiting. Lee catheter scheduled to be removed today. Objective - Vital Signs Vital signs: Vital Signs Temp 97.8 F 07/07/18 07:19 Pulse 95 07/07/18 08:00 Resp 16 07/07/18 08:00 BP 172/85 07/07/18 11:54 Pulse Ox 97 07/07/18 07:19 Intake & Output 07/06/18 07/07/18 07/07/18 18:59 06:59 18:59 Intake Total 200 675 Output Total 2680 830 1000 Balance -2480 -155 -1000 Intake: Intake, IV Titration 200 675 Amount 0.9% NaCl with KCl 20 Meq 675 /l 1,000 ml @ 75 mls/hr IV .[id number] DOMINGUEZ Rx#: [id number] metroNIDAZOLE-NS PMX 500 200 mg In Saline 1 100ml.bag @ 100 mls/hr IVPB Q6H DOMINGUEZ Rx#:[id number] Output: Drainage 80 30 Right Abdomen 80 30 Urine 2600 800 1000 Other: Voiding Method Indwelling Catheter Indwelling Catheter - Exam Head normocephalic Neck supple Lungs expiratory wheezing noted bilaterally Heart regular rate and rhythm S1-S2, no rub or gallop Abdomen is distended positive bowel sounds Extremities no edema Neuro alert and orientated to 3 - Labs CBC & Chem 7: 07/07/18 06:06 07/07/18 06:06 Labs: Abnormal Lab Results - Last 24 Hours (Table) 07/06/18 07/07/18 07/07/18 Range/Units 18:47 05:41 06:06 Lymphocytes # 0.8 L (1.0-4.8) k/uL Glucose (74-99) mg/dL POC Glucose (mg/dL) 109 H 103 H (75-99) mg/dL Total Protein (6.3-8.2) g/dL Albumin (3.5-5.0) g/dL 07/07/18 Range/Units 06:06 Lymphocytes # (1.0-4.8) k/uL Glucose 101 H (74-99) mg/dL POC Glucose (mg/dL) (75-99) mg/dL Total Protein 5.2 L (6.3-8.2) g/dL Albumin 2.9 L (3.5-5.0) g/dL Assessment and Plan Assessment: #1 diverticulitis was history of perforated diverticulitis patient was admitted to [facility] and underwent low anterior resection, he also had a robotic cholecystectomy due to history of cholecystitis. Patient has had increasing abdominal pain and distention. Surgical service has ordered a computed tomography scan of the abdomen with contrast to rule out ileus versus leak. White count has trended down from 11.4-10.7. Epidural came out through the night #2 essential hypertension with elevated blood pressures. We'll give 1 dose of lisinopril 5 mg 1 now #3 underlying history of benign prostatic hypertrophy #4 underlying history of diabetes mellitus 2. Patient refusing sliding scale coverage. Blood sugars have been stable. We'll continue to monitor #5 previous history of coronary artery disease with previous history of myocardial infarction #6 wheezing with cough: Possible COPD exacerbation: Patient is a smoker. We'll add DuoNeb updrafts 4 times a day and monitor. DVT prophylaxis subcu heparin and GI prophylaxis Pepcid I performed an examination of the patient and discussed their management with the physician Water Conservation Specialist. I have reviewed the Physician Water Conservation Specialist's notes and agree with the documented findings and plan of care
[2018-07-07] MEDS ORDERED: FUROSEMIDE 10 MG/ML 2 ML VIAL IV ONE (13:40)
[2018-07-07] MEDS: PANTOPRAZOLE 40 MG TABLET PO SCH (16:46)
[2018-07-07] MEDS: IPRATROPIUM-ALBUTEROL 3 ML NEB INHALATION SCH ×2 (17:04→20:45)
[2018-07-07 17:17] LABS: Glucose,Whole Blood 108 mg/dL (75-99)
[2018-07-07] MEDS: FINASTERIDE 5 MG TAB PO SCH (21:50)
[2018-07-07] MEDS: LISINOPRIL 10 MG TAB PO SCH (21:51)
[2018-07-07] MEDS: DOXAZOSIN 4 MG TAB PO SCH (21:51)
[2018-07-08] MEDS: metroNIDAZOLE-NS PMX 500 MG in SALINE 1 100ML.BAG IVPB SCH ×5 (00:25→21:26)
[2018-07-08] MEDS: ceFAZolin IN SWFI 2 GM/20 ML SYRINGE IVP SCH ×4 (00:25→23:31)
[2018-07-08] MEDS: HEPARIN SODIUM,PORCINE 5,000 UNIT/ML 1 ML VIAL SQ SCH ×4 (00:25→23:31)
[2018-07-08] MEDS: INSULIN ASPART 100 UNIT/ML 1 ML 10 ML VIAL SQ SCH ×4 (00:29→18:12)
[2018-07-08 00:40] LABS: Glucose,Whole Blood 118 mg/dL (75-99)
[2018-07-08] MEDS: 0.9% NACL WITH KCL 20 MEQ/L 1,000 ML IV SCH ×2 (03:41→11:47)
[2018-07-08] MEDS: LACTATED RINGERS 1,000 ML IV SCH (04:43)
[2018-07-08 05:45] LABS: Glucose,Whole Blood 96 mg/dL (75-99)
[2018-07-08 06:45] LABS: Basophils % (A) 0 %; Eosinophils # (A) 0.2 k/uL (0-0.7); Eosinophils % (A) 3 %; HCT 38.5 % (39.0-53.0); HGB 12.5 gm/dL (13.0-17.5); Lymphocytes # (A) 0.8 k/uL (1.0-4.8); Lymphocytes % (A) 14 %; MCHC 32.3 g/dL (31.0-37.0); MCV 95.8 fL (80.0-100.0); Mean Platelet Volume 6.7; Monocytes # (A) 0.3 k/uL (0-1.0); Monocytes % (A) 6 %; Neutrophils # (A) 4.4 k/uL (1.3-7.7); Neutrophils % (A) 75 %; Platelet Count 177 k/uL (150-450); RBC 4.02 m/uL (4.30-5.90); RDW 13.5 % (11.5-15.5); WBC 5.9 k/uL (3.8-10.6)
[2018-07-08] MEDS: ALVIMOPAN 12 MG CAPSULE PO SCH ×2 (09:29→21:13)
[2018-07-08] MEDS: ASPIRIN 81 MG PO SCH (09:29)
[2018-07-08] MEDS: PANTOPRAZOLE 40 MG TABLET PO SCH ×2 (09:30→16:32)
[2018-07-08] MEDS: HYDROcodone/APAP 5-325MG 1 EACH TAB PO PRN (09:30)
[2018-07-08] MEDS: METOPROLOL TARTRATE 25 MG TAB PO SCH ×2 (09:30→21:14)
[2018-07-08 09:33] LABS: ALT 33 U/L (21-72); AST 21 U/L (17-59); Albumin 2.6 g/dL (3.5-5.0); Alkaline Phosphatase 42 U/L (38-126); Anion Gap 3 mmol/L; Blood Urea Nitrogen 14 mg/dL (9-20); Calcium 8.4 mg/dL (8.4-10.2); Carbon Dioxide 30 mmol/L (22-30); Chloride 106 mmol/L (98-107); Glucose 109 mg/dL (74-99); Potassium 3.7 mmol/L (3.5-5.1); Sodium 139 mmol/L (137-145); Total Bilirubin 0.5 mg/dL (0.2-1.3); Total Protein 4.8 g/dL (6.3-8.2)
[2018-07-08] MEDS: IPRATROPIUM-ALBUTEROL 3 ML NEB INHALATION SCH ×4 (10:01→20:36)
[2018-07-08 11:46] LABS: Glucose,Whole Blood 152 mg/dL (75-99)
[2018-07-08] MEDS: HYDROmorphone 1 MG/ML 1 ML SYRINGE IVP PRN ×2 (11:47→18:13)
--- NOTE | 2018-07-08 13:50 | P.PN ---
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 Lara and underwent a robotic low anterior resection and robotic cholecystectomy, patient was admitted to the medical floor, consultation was requested for management while hospitalized. On 07/05/2018 patient was seen and examined on the medical floor he is alert and oriented 3 in no apparent distress there is no fever or chills no headache or dizziness no chest pain no shortness of breath no cough no nausea or vomiting no abdominal pain and no urinary symptoms 07/06/2018 patient complaining of abdominal pain. Still not passing gas or having bowel movement. He is complaining of some nausea. No vomiting. Apparently he has been refusing the subcu heparin injections. Patient evaluated by surgical service this morning apparently epidural accidentally came out last night. And he's had increasing abdominal pain and some abdominal distention. They've ordered a computed tomography scan of the abdomen with contrast to further evaluate ileus versus leak. She's also ordered a CTA of the chest. At this time patient not is not complaining of any chest pain or shortness of breath. 07/07/2018 patient reports having bowel movement. Denies any nausea or vomiting. Surgical service advancing diet to clears. CTA of the chest was negative for PE or were concerns of some vascular congestion patient did receive a dose of IV Lasix yesterday. Patient is wheezing and mild cough today. Denies shortness of breath. DuoNeb updrafts have been ordered. Patient is now taking the subcu heparin. Blood pressures are elevated last blood pressure reading 172/85 patient denies any chest pain. Denies any nausea vomiting. Lee catheter scheduled to be removed today. On 07/08/2018 patient is currently sitting up in chair. Patient does report having a bowel movement. Patient is still congested with cough. Will order chest x-ray. Patient's blood pressure also remains elevated. Lisinopril has been increased. At this time patient denies chest pain or shortness of breath. Patient denies nausea vomiting or diarrhea. Patient denies any urinary burning or frequency Objective - Vital Signs Vital signs: Vital Signs Temp 98.4 F 07/08/18 07:00 Pulse 60 07/08/18 09:30 Resp 16 07/08/18 09:30 BP 171/69 07/08/18 07:00 Pulse Ox 95 07/08/18 07:00 Intake & Output 07/07/18 07/08/18 07/08/18 18:59 06:59 18:59 Intake Total 220 Output Total 1010 20 Balance -1010 200 Weight 95.708 kg Intake: Intake, IV Titration 220 Amount 0.9% NaCl with KCl 20 Meq 220 /l 1,000 ml @ 20 mls/hr IV .Q24H DOMINGUEZ Rx#: [id number] Output: Drainage 10 20 Right Abdomen 10 20 Urine 1000 Other: Voiding Method Toilet Toilet # Voids 2 # Bowel Movements 2 - Exam #1 diverticulitis was history of perforated diverticulitis patient was admitted to [facility] and underwent low anterior resection, he also had a robotic cholecystectomy due to history of cholecystitis. Patient has had increasing abdominal pain and distention. Surgical service has ordered a computed tomography scan of the abdomen with contrast to rule out ileus versus leak. White count has trended down from 11.4-10.7. Epidural came out through the night #2 essential hypertension with elevated blood pressures. We'll give 1 dose of lisinopril 5 mg 1 now. Blood pressures remain elevated. Lisinopril will be increased to 20 mg at night #3 underlying history of benign prostatic hypertrophy #4 underlying history of diabetes mellitus 2. Patient refusing sliding scale coverage. Blood sugars have been stable. We'll continue to monitor #5 previous history of coronary artery disease with previous history of myocardial infarction #6 wheezing with cough: Possible COPD exacerbation: Patient is a smoker. We'll add DuoNeb updrafts 4 times a day and monitor. Chest x-ray has been ordered DVT prophylaxis heparin. GI prophylaxis Pepcid I performed an examination of the patient and discussed their management with the Nurse Practitioner. I have reviewed the Nurse Practitioner's notes and agree with the documented findings and plan of care - Labs CBC & Chem 7: 07/08/18 06:18 07/08/18 06:18 Labs: Abnormal Lab Results - Last 24 Hours (Table) 07/07/18 07/08/18 07/08/18 Range/Units 17:05 00:29 06:18 RBC 4.02 L (4.30-5.90) m/uL Hgb 12.5 L (13.0-17.5) gm/dL Hct 38.5 L (39.0-53.0) % Lymphocytes # 0.8 L (1.0-4.8) k/uL Glucose (74-99) mg/dL POC Glucose (mg/dL) 108 H 118 H (75-99) mg/dL Total Protein (6.3-8.2) g/dL Albumin (3.5-5.0) g/dL 07/08/18 07/08/18 Range/Units 06:18 11:34 RBC (4.30-5.90) m/uL Hgb (13.0-17.5) gm/dL Hct (39.0-53.0) % Lymphocytes # (1.0-4.8) k/uL Glucose 109 H (74-99) mg/dL POC Glucose (mg/dL) 152 H (75-99) mg/dL Total Protein 4.8 L (6.3-8.2) g/dL Albumin 2.6 L (3.5-5.0) g/dL
[2018-07-08] MEDS ORDERED: HYDROmorphone 0.5 MG/0.5 ML SYRINGE IVP STA (14:09)
[2018-07-08] MEDS ORDERED: FUROSEMIDE 10 MG/ML 2 ML VIAL IV ONE (15:12)
[2018-07-08] MEDS: LISINOPRIL 20 MG TAB PO SCH (15:19)
--- NOTE | 2018-07-08 15:27 | P.PN ---
Addendum entered and electronically signed by Kym Wiley NP-C 07/08/18 15: 45: Bladder scan revealed over 500cc. Discussed with patient at the bedside. He states in the past he has experienced abdominal pain due to his urinary retention and after a martinez was inserted, his pain improved significantly. Will re-insert indwelling catheter. Will reassess abdominal pain post martinez insertion. Patient is currently on Cardura 4mg at HS. He is unable to tolerate higher dose due to dizziness per urology. Original Note: Subjective Progress Note Date: 07/08/18 CHIEF COMPLAINT: Diverticulitis HISTORY OF PRESENT ILLNESS: The patient is a 73-year-old gentleman status post robotic-assisted low anterior resection, postop day 5. Patient was evaluated at the bedside. He complains of left lower quadrant pain. He states he did not receive pain medication last night. Spoke with nursing who states he was offered pain medication on more than one occasion last night and he refused to take anything. Patient did receive Dilaudid and [place] today with minimal improvement. Patient states he had 2 bowel movements this morning and continues to pass flatus. Tolerating clear liquid diet. Martinez was discontinued yesterday. Patient reports he is voiding without difficulty. WBC 5.9. PHYSICAL EXAM: VITAL SIGNS: Reviewed GENERAL: Well-developed in no acute distress, does appear uncomfortable. HEENT: No sclera icterus. Extraocular movements grossly intact. Moist buccal mucosa. Head is atraumatic, normocephalic. Hears conversational speech. No nasal drainage. NECK: Supple without lymphadenopathy. CHEST: Non-labored respirations and equal bilateral excursions. CARDIOVASCULAR: Palpable 2+ radial pulses. Regular rate and regular rhythm ABDOMEN: Soft. Non-distended. LAMONT serous. Incisions clean dry and intact without cellulitis. Pain upon palpation of left lower quadrant. MUSCULOSKELETAL: No clubbing, cyanosis. NEUROLOGIC: No focal or lateralizing signs. Cranial nerves II through XII grossly intact. PSYCH: Appropriate affect. Alert and oriented to person, place and time. SKIN: Well perfused. Good skin turgor. LABS: Reviewed STUDIES: Reviewed ASSESSMENT: 1. History of perforated diverticulitis 2. Chronic abdominal pain with acute left lower quadrant pain 3. Medical noncompliance to postoperative care 4. History of tobacco abuse 5. History of cholecystectomy 6. Status post sigmoid colectomy 7. Moderate to severe obstructive uropathy secondary to benign prostatic hypertrophy preexistent to surgery 8. Gastroesophageal reflux disease 9. Uncontrolled hypertension 10. Medical noncompliance PLAN: 1. Bladder scan patient to rule out urinary retention 2. Pain control. Continue Dilaudid and [place]. 3. Continue clear liquids at this time. May advance if abdominal pain resolves. 4. Case discussed with medicine regarding hypertension. BP management per medicine. 5. Further recommendations to follow after patient is evaluated by Dr. Lara Nurse practitioner note has been reviewed by physician. Signing provider agrees with the documented findings, assessment, and plan of care. Objective - Vital Signs Vital signs: Vital Signs Temp 98.4 F 07/08/18 07:00 Pulse 60 07/08/18 09:30 Resp 16 07/08/18 09:30 BP 171/69 07/08/18 07:00 Pulse Ox 95 07/08/18 07:00 Intake & Output 07/07/18 07/08/18 07/08/18 18:59 06:59 18:59 Intake Total 220 100 Output Total 1010 20 420 Balance -1010 200 -320 Weight 95.708 kg Intake: Intake, IV Titration 220 100 Amount 0.9% NaCl with KCl 20 Meq 220 /l 1,000 ml @ 20 mls/hr IV .Q24H DOMINGUEZ Rx#: [id number] metroNIDAZOLE-NS PMX 500 100 mg In Saline 1 100ml.bag @ 100 mls/hr IVPB Q6H DOMINGUEZ Rx#:[id number] Output: Drainage 10 20 20 Right Abdomen 10 20 20 Urine 1000 400 Other: Voiding Method Toilet Toilet # Voids 2 # Bowel Movements 2 - Labs CBC & Chem 7: 07/08/18 06:18 07/08/18 06:18 Labs: Abnormal Lab Results - Last 24 Hours (Table) 07/07/18 07/08/18 07/08/18 Range/Units 17:05 00:29 06:18 RBC 4.02 L (4.30-5.90) m/uL Hgb 12.5 L (13.0-17.5) gm/dL Hct 38.5 L (39.0-53.0) % Lymphocytes # 0.8 L (1.0-4.8) k/uL Glucose (74-99) mg/dL POC Glucose (mg/dL) 108 H 118 H (75-99) mg/dL Total Protein (6.3-8.2) g/dL Albumin (3.5-5.0) g/dL 07/08/18 07/08/18 Range/Units 06:18 11:34 RBC (4.30-5.90) m/uL Hgb (13.0-17.5) gm/dL Hct (39.0-53.0) % Lymphocytes # (1.0-4.8) k/uL Glucose 109 H (74-99) mg/dL POC Glucose (mg/dL) 152 H (75-99) mg/dL Total Protein 4.8 L (6.3-8.2) g/dL Albumin 2.6 L (3.5-5.0) g/dL Assessment and Plan (1) Enlarged prostate with lower urinary tract symptoms (LUTS) Current Visit: Yes Status: Acute Code(s): N40.1 - BENIGN PROSTATIC HYPERPLASIA WITH LOWER URINARY TRACT SYMP SNOMED Code(s): 110166865 (2) Medically noncompliant Current Visit: Yes Status: Acute Code(s): Z91.19 - PATIENT'S NONCOMPLIANCE W OTH MEDICAL TREATMENT AND REGIMEN SNOMED Code(s): 821553477 (3) Abdominal pain Current Visit: No Status: Acute Code(s): R10.9 - UNSPECIFIED ABDOMINAL PAIN SNOMED Code(s): 69243327 (4) Coronary artery disease Current Visit: No Status: Acute Code(s): I25.10 - ATHSCL HEART DISEASE OF [place] CORONARY ARTERY W/O ANG PCTRS SNOMED Code(s): 59347210 (5) Diverticulitis Current Visit: No Status: Acute Code(s): K57.92 - DVTRCLI OF INTEST, PART UNSP, W/O PERF OR ABSCESS W/O BLEED SNOMED Code(s): 092687524 (6) Hypertensive heart disease Current Visit: No Status: Acute Code(s): I11.9 - HYPERTENSIVE HEART DISEASE WITHOUT HEART FAILURE SNOMED Code(s): 92330164 (7) Perforation of sigmoid colon due to diverticulitis Current Visit: No Status: Acute Code(s): K57.20 - DVTRCLI OF LG INT W PERFORATION AND ABSCESS W/O BLEEDING SNOMED Code(s): 6598855673101443 (8) Prostate hypertrophy Current Visit: No Status: Acute Code(s): N40.0 - BENIGN PROSTATIC HYPERPLASIA WITHOUT LOWER URINRY TRACT SYMP SNOMED Code(s): 452105793
--- NOTE | 2018-07-08 16:14 | XR ---
EXAMINATION TYPE: XR chest 2V DATE OF EXAM: 07/08/2018 COMPARISON: 07/13/2015 INDICATION: Increased cough and shortness of breath TECHNIQUE: Frontal and lateral views of the chest are obtained. FINDINGS: The heart size is normal. The pulmonary vasculature is slightly prominent. There is mild increased lung markings diffusely at the lung bases. Correlate for early volume overloa d. Suspicious peripheral consolidation is not identified.. IMPRESSION: 1. Clinical consideration for some mild early volume overload is recommended
[2018-07-08 16:53] LABS: Appearance,Urine Clear (Clear); Bilirubin,Urine Negative (Negative); Blood,Urine Small (Negative); Color,Urine Colorless; Glucose,Urine (UA) Negative (Negative); Ketones,Urine Negative (Negative); Leukocyte Esterase,Urine Negative (Negative); Mucus,Urine Rare /hpf; Nitrite,Urine Negative (Negative); PH, Urine 6.5 (5.0-8.0); Protein,Urine Negative (Negative); RBC,Urine 8 /hpf (0-5); Specific Gravity,Urine 1.005 (1.001-1.035); Urobilinogen,Urine <2.0 mg/dL (<2.0); WBC,Urine <1 /hpf (0-5)
[2018-07-08 17:31] LABS: Glucose,Whole Blood 137 mg/dL (75-99)
[2018-07-08] MEDS: ONDANSETRON 4 MG/2 ML VIAL IVP PRN (18:40)
--- NOTE | 2018-07-08 20:14 | P.PN ---
Progress Note - Text Progress Note Date: 07/08/18 Patient seen and evaluated. Patient was doing fairly well yesterday including tolerating liquids and passing moderate flatus and having moderate bowel movements. His pain was well-controlled. He has history of obstructive uropathy where urology consultation was obtained. Recommendations including postvoid residual and bladder scan were requested and ordered as of yesterday morning. His Lee catheter was discontinued sometime yesterday afternoon however not documented appropriately. No post void residual or bladder scan was performed yesterday after his Lee was discontinued. Overnight, patient reported having more rumbling in his belly. As of this morning he described having moderate to excrutiating lower abdominal shooting pain above the pubis and radiating to the bilateral flanks. By later on this afternoon, bladder scan confirmed moderate amount of urine in Lee catheter that put out almost 2 L from Lasix given by medical team yesterday. Now patient reports moderate abdominal pain along the bilateral flanks. He reports his blood sugars are elevated. White blood cell count has been normal. LAMONT has been serous. Per discussion with nursing, patient has been refusing any insulin for blood sugars. He has been noncompliant initially with receiving Lovenox injections and refuses to take insulin for elevated blood sugars. Now, patient still reports pain along the bilateral flanks left greater than right despite Lee cath being placed. Patient at high risk for rupture of his anastomosis after prolonged pressure from oversized 2 L size bladder compressing along fresh colon anastomosis. Patient is aware that rupture of his anastomosis may have ocurred and will need CT of the abdomen and pelvis. Possible laparotomy with ostomy was also described.
[2018-07-08 20:21] LABS: Glucose,Whole Blood 139 mg/dL (75-99)
[2018-07-08] MEDS ORDERED: IOPAMIDOL-300 CONTRAST 30 ML VIAL (ORAL USE) PO PRN (20:23)
[2018-07-08] MEDS ORDERED: HYDROmorphone 2 MG/ML 1 ML SYRINGE IM PRN (21:10)
[2018-07-08] MEDS: FINASTERIDE 5 MG TAB PO SCH (21:13)
[2018-07-08] MEDS: DOXAZOSIN 4 MG TAB PO SCH (21:14)
[2018-07-08 21:18] LABS: Basophils % (A) 0 %; Eosinophils # (A) 0.1 k/uL (0-0.7); Eosinophils % (A) 1 %; HCT 43.4 % (39.0-53.0); Lymphocytes # (A) 0.7 k/uL (1.0-4.8); Lymphocytes % (A) 8 %; MCHC 32.1 g/dL (31.0-37.0); MCV 96.3 fL (80.0-100.0); Mean Platelet Volume 6.5; Monocytes # (A) 0.4 k/uL (0-1.0); Monocytes % (A) 5 %; Neutrophils # (A) 7.3 k/uL (1.3-7.7); Neutrophils % (A) 85 %; Platelet Count 192 k/uL (150-450); RBC 4.51 m/uL (4.30-5.90); RDW 13.6 % (11.5-15.5); WBC 8.6 k/uL (3.8-10.6)
[2018-07-08 21:23] LABS: Anion Gap 5 mmol/L; Blood Urea Nitrogen 13 mg/dL (9-20); Calcium 8.7 mg/dL (8.4-10.2); Carbon Dioxide 30 mmol/L (22-30); Chloride 102 mmol/L (98-107); Glucose 149 mg/dL (74-99); Potassium 4.2 mmol/L (3.5-5.1); Sodium 137 mmol/L (137-145)
[2018-07-08] MEDS: KETOROLAC 30 MG/ML 1 ML VIAL IVP SCH (22:06)
[2018-07-09] MEDS: INSULIN ASPART 100 UNIT/ML 1 ML 10 ML VIAL SQ SCH ×4 (01:13→17:40)
[2018-07-09] MEDS: metroNIDAZOLE-NS PMX 500 MG in SALINE 1 100ML.BAG IVPB SCH ×4 (01:59→20:35)
[2018-07-09] MEDS: KETOROLAC 30 MG/ML 1 ML VIAL IVP SCH ×4 (03:32→23:01)
[2018-07-09 06:12] LABS: Glucose,Whole Blood 125 mg/dL (75-99)
[2018-07-09 08:04] LABS: Basophils % (A) 0 %; Eosinophils # (A) 0.1 k/uL (0-0.7); Eosinophils % (A) 1 %; HCT 42.3 % (39.0-53.0); HGB 13.6 gm/dL (13.0-17.5); Lymphocytes % (A) 11 %; MCH 30.8 pg (25.0-35.0); MCHC 32.1 g/dL (31.0-37.0); MCV 95.9 fL (80.0-100.0); Mean Platelet Volume 7.3; Monocytes # (A) 0.5 k/uL (0-1.0); Monocytes % (A) 5 %; Neutrophils # (A) 7.8 k/uL (1.3-7.7); Neutrophils % (A) 83 %; Platelet Count 178 k/uL (150-450); RBC 4.41 m/uL (4.30-5.90); RDW 13.4 % (11.5-15.5); WBC 9.5 k/uL (3.8-10.6)
[2018-07-09 08:14] LABS: ALT 26 U/L (21-72); AST 38 U/L (17-59); Albumin 3.1 g/dL (3.5-5.0); Alkaline Phosphatase 50 U/L (38-126); Anion Gap 5 mmol/L; Blood Urea Nitrogen 15 mg/dL (9-20); Calcium 8.8 mg/dL (8.4-10.2); Carbon Dioxide 30 mmol/L (22-30); Chloride 103 mmol/L (98-107); Glucose 122 mg/dL (74-99); Potassium 3.9 mmol/L (3.5-5.1); Sodium 138 mmol/L (137-145); Total Bilirubin 0.6 mg/dL (0.2-1.3); Total Protein 5.4 g/dL (6.3-8.2)
[2018-07-09] MEDS: IPRATROPIUM-ALBUTEROL 3 ML NEB INHALATION SCH ×4 (08:42→20:20)
--- NOTE | 2018-07-09 10:03 | CT ---
EXAMINATION TYPE: CT abdomen pelvis w con DATE OF EXAM: 07/09/2018 COMPARISON: 07/06/2018 HISTORY: 73-year-old male with abdominal pain TECHNIQUE: Contiguous axial scanning of the abdomen and pelvis following administration of 100 ml Iso rm 300 IV contrast. Delayed images through the kidneys and coronal/sagittal reconstructions perform ed. CT DLP: 1128.4 mGycm Automated exposure control for dose reduction was used. FINDINGS: Lung bases are clear. Surgical drain remains in place. Similar diffuse thickening of the adrenal glands and some focal fat along the anterior falciform liga ment. Portal venous system is patent. Mild diffuse anasarca type changes. Similar moderate sized fatty umbilical hernia with some trapped f luid remains. No progressive small bowel dilatation. There is improved appearance to the small bowel loop which pre viously coursed adjacent to the patient's site and distal sigmoid anastomosis However, there is extensive extraluminal gas extending up in the left side of the abdomen would seems to be limited to the retroperitoneum. This extends up to the zeus of the diaphragm, around the pancr eas, and around the left perirenal fat. A well-defined source is not identified but there are small f oci of air seen adjacent to some stable material at the end anastomosis, refer to axial image 65, 62, 61, and 57. Some persistent wall thickening at the end to side anastomosis could be continued postsurgical inflam mation. Adjacent edematous change in the pericolonic fat, axial image 60 is unchanged as is some surr ounding fat stranding. No free intraperitoneal air or significant ascites fluid seen. Tripp catheter remains in place. Intraluminal bladder air likely relates to instrumentation. There is moderate circumferential bladder wall thickening. Correlation to be made to exclude cystitis. Prostate gland remains markedly enlarged at 7.2 cm. Bones: Facet arthropathy lower lumbar spine. Grade 1 anterolisthesis L4-L5 redemonstrated. IMPRESSION: 1. END-TO-SIDE DISTAL SIGMOID ANASTOMOSIS WITH PERSISTENT INFLAMMATION AND THICKENING. 2. THERE IS EVIDENCE OF A SIGNIFICANT LEAK WITH PROMINENT EXTRAPERITONEAL GAS TRACKING UP THE LEFT SI DE OF THE ABDOMINAL RETROPERITONEAL SPACE UP TO THE ZEUS OF THE DIAPHRAGM, SURROUNDING PORTIONS OF TH E PANCREAS, AND SURROUNDING THE LEFT PERIRENAL FAT. 3. THE EXACT SITE OF LEAK IS DIFFICULT TO DETERMINE BUT THERE ARE SMALL FOCI OF EXTRALUMINAL AIR CHUCK G THE STAPLE LINE OF THE END-SIDE OF THE ANASTOMOSIS, AXIAL IMAGES 65, 62, 61, AND 57 FOR EXAMPLE. 3. IMPROVEMENT IN THE PREVIOUSLY SEEN LOOP OF SMALL BOWEL COURSING ADJACENT TO THE SIGMOID ANASTOMOSI S. NO EVIDENCE FOR SMALL BOWEL OBSTRUCTION. 4. INTRALUMINAL BLADDER AIR LIKELY DUE TO TRIPP CATHETER. THERE IS MODERATE BLADDER WALL THICKENING. CORRELATE TO EXCLUDE CYSTITIS.
--- NOTE | 2018-07-09 10:18 | P.PN ---
Progress Note - Text Progress Note Date: 07/09/18 CT scan personally reviewed. Findings consistent with leak at anastomosis. Will proceed with lapartomy with colostomy creation.
[2018-07-09] MEDS: HEPARIN SODIUM,PORCINE 5,000 UNIT/ML 1 ML VIAL SQ SCH ×2 (10:21→15:42)
[2018-07-09] MEDS: ceFAZolin IN SWFI 2 GM/20 ML SYRINGE IVP SCH ×2 (10:21→15:40)
[2018-07-09] MEDS: METOPROLOL TARTRATE 25 MG TAB PO SCH ×2 (10:23→20:27)
[2018-07-09] MEDS: PANTOPRAZOLE 40 MG TABLET PO SCH ×2 (10:33→17:44)
[2018-07-09] MEDS: ALVIMOPAN 12 MG CAPSULE PO SCH ×2 (10:33→20:27)
--- NOTE | 2018-07-09 11:05 | P.PN ---
Subjective Progress Note Date: 07/09/18 Chris Borja is a 73-year-old male with chronic and recurrent history of sigmoid diverticulitis, with previous history of perforated diverticulitis, and history of cholecystitis, was admitted to [facility] by Dr. Lara and underwent a robotic low anterior resection and robotic cholecystectomy, patient was admitted to the medical floor, consultation was requested for management while hospitalized. On 07/05/2018 patient was seen and examined on the medical floor he is alert and oriented 3 in no apparent distress there is no fever or chills no headache or dizziness no chest pain no shortness of breath no cough no nausea or vomiting no abdominal pain and no urinary symptoms 07/06/2018 patient complaining of abdominal pain. Still not passing gas or having bowel movement. He is complaining of some nausea. No vomiting. Apparently he has been refusing the subcu heparin injections. Patient evaluated by surgical service this morning apparently epidural accidentally came out last night. And he's had increasing abdominal pain and some abdominal distention. They've ordered a computed tomography scan of the abdomen with contrast to further evaluate ileus versus leak. She's also ordered a CTA of the chest. At this time patient not is not complaining of any chest pain or shortness of breath. 07/07/2018 patient reports having bowel movement. Denies any nausea or vomiting. Surgical service advancing diet to clears. CTA of the chest was negative for PE or were concerns of some vascular congestion patient did receive a dose of IV Lasix yesterday. Patient is wheezing and mild cough today. Denies shortness of breath. DuoNeb updrafts have been ordered. Patient is now taking the subcu heparin. Blood pressures are elevated last blood pressure reading 172/85 patient denies any chest pain. Denies any nausea vomiting. Lee catheter scheduled to be removed today. On 07/08/2018 patient is currently sitting up in chair. Patient does report having a bowel movement. Patient is still congested with cough. Will order chest x-ray. Patient's blood pressure also remains elevated. Lisinopril has been increased. At this time patient denies chest pain or shortness of breath. Patient denies nausea vomiting or diarrhea. Patient denies any urinary burning or frequency 07/09/2018 patient having asked episodes of urinary retention. Unfortunately bladder scanning had not been completed by nursing staff after Lee catheter was initially removed. Patient did have evidence of urinary retention Lee catheter had to be reinserted yesterday. Patient continued to have abdominal pain. Surgical service has ordered a repeat computed tomography scan abdomen and pelvis it is showing evidence of a leak and he is scheduled for surgery this afternoon. Yesterday he was having elevated blood pressures lisinopril was increased and patient did receive another dose of Lasix. Chest x-ray had shown consider possible mild early volume overload. At this time patient's lungs are clear he denies any shortness of breath. He and his cough has improved. Last blood pressure 148/82. Denies any chest pain or shortness breath. Denies any nausea or vomiting. Urine is a dark in color with possible blood. Likely due to Lee catheter trauma. Objective - Vital Signs Vital signs: Vital Signs Temp 98.1 F 07/09/18 07:40 Pulse 88 07/09/18 07:40 Resp 12 07/09/18 07:40 BP 148/82 07/09/18 07:40 Pulse Ox 95 07/09/18 07:40 Intake & Output 07/08/18 07/09/18 07/09/18 18:59 06:59 18:59 Intake Total 100 100 Output Total 440 850 Balance -340 -750 Weight 95.708 kg Intake: Intake, IV Titration 100 100 Amount metroNIDAZOLE-NS PMX 500 100 100 mg In Saline 1 100ml.bag @ 100 mls/hr IVPB Q6H [facility] Rx#:[id number] Output: Drainage 40 Right Abdomen 40 Urine 400 850 Other: Voiding Method Toilet Indwelling Catheter Indwelling Catheter Indwelling Catheter # Bowel Movements 1 - Exam Head normocephalic Neck supple Lungs clear slightly diminished at bases Heart regular rate and rhythm S1-S2, no rub or gallop Abdomen is distended positive bowel sounds Extremities +1 edema bilateral lower extremities Neuro alert and orientated to 3 - Labs CBC & Chem 7: 07/09/18 07:17 07/09/18 07:17 Labs: Abnormal Lab Results - Last 24 Hours (Table) 07/08/18 07/08/18 07/08/18 Range/Units 11:34 16:35 17:20 Neutrophils # (1.3-7.7) k/uL Lymphocytes # (1.0-4.8) k/uL Glucose (74-99) mg/dL POC Glucose (mg/dL) 152 H 137 H (75-99) mg/dL Total Protein (6.3-8.2) g/dL Albumin (3.5-5.0) g/dL Urine Blood Small H (Negative) Urine RBC 8 H (0-5) /hpf Urine Mucus Rare H (None) /hpf 07/08/18 07/08/18 07/08/18 Range/Units 20:09 20:43 20:43 Neutrophils # (1.3-7.7) k/uL Lymphocytes # 0.7 L (1.0-4.8) k/uL Glucose 149 H (74-99) mg/dL POC Glucose (mg/dL) 139 H (75-99) mg/dL Total Protein (6.3-8.2) g/dL Albumin (3.5-5.0) g/dL Urine Blood (Negative) Urine RBC (0-5) /hpf Urine Mucus (None) /hpf 07/09/18 07/09/18 07/09/18 Range/Units 06:01 07:17 07:17 Neutrophils # 7.8 H (1.3-7.7) k/uL Lymphocytes # (1.0-4.8) k/uL Glucose 122 H (74-99) mg/dL POC Glucose (mg/dL) 125 H (75-99) mg/dL Total Protein 5.4 L (6.3-8.2) g/dL Albumin 3.1 L (3.5-5.0) g/dL Urine Blood (Negative) Urine RBC (0-5) /hpf Urine Mucus (None) /hpf Assessment and Plan Assessment: #1 diverticulitis was history of perforated diverticulitis patient was admitted to [facility] and underwent low anterior resection, he also had a robotic cholecystectomy due to history of cholecystitis. Patient had repeat computed tomography scan abdomen and pelvis today with evidence of leak patient is scheduled for surgery this afternoon #2 essential hypertension with elevated blood pressures. Blood pressures are showing improvement. Lisinopril had been increased to 20 mg daily #3 underlying history of benign prostatic hypertrophy #4 underlying history of diabetes mellitus 2. Patient refusing sliding scale coverage. Blood sugars have been stable. We'll continue to monitor #5 previous history of coronary artery disease with previous history of myocardial infarction #6 wheezing with cough: Possible COPD exacerbation: Patient is a smoker. We'll add DuoNeb updrafts 4 times a day and monitor. Showing improvement. #7 urinary retention: His Lee catheter in place. Continue Proscar and Cardura #8 episodes of fluid overload patient has received IV Lasix. Continue to monitor DVT prophylaxis subcu heparin and GI prophylaxis Pepcid I performed an examination of the patient and discussed their management with the physician [employer]. I have reviewed the Physician [employer] Ceiling Hanger's notes and agree with the documented findings and plan of care
[2018-07-09 12:22] LABS: Glucose,Whole Blood 121 mg/dL (75-99)
--- NOTE | 2018-07-09 13:01 | P.PN ---
Subjective Progress Note Date: 07/09/18 CHIEF COMPLAINT: Diverticulitis HISTORY OF PRESENT ILLNESS: The patient is a 73-year-old gentleman status post robotic-assisted low anterior resection, postop day 7. Yesterday, he reports severe lower abdominal pain. He had an overlapping finding of severe urinary retention with over 1.8-2 L drained from the bladder. CT of the abdomen and pelvis performed this morning does confirm free air in the abdomen. Patient and son at bedside. Patient reports "I feel great.". Abdominal pain completely resolved. He is passing moderate flatus. He also reports normal bowel movements. Imaging studies review the patient and family. Patient is eager to eat and dissatisfied with Jell-O and colored foods secondary to baseline irritable bowel syndrome. PHYSICAL EXAM: VITAL SIGNS: Reviewed GENERAL: Well-developed in no acute distress. HEENT: No sclera icterus. Extraocular movements grossly intact. Moist buccal mucosa. Head is atraumatic, normocephalic. Hears conversational speech. No nasal drainage. NECK: Supple without lymphadenopathy. CHEST: Non-labored respirations and equal bilateral excursions. CARDIOVASCULAR: Palpable 2+ radial pulses. Regular rate and regular rhythm ABDOMEN: Soft. Nondistended. No peritonitis. LAMONT completely serous. No cellulitis along the abdominal wall. MUSCULOSKELETAL: No clubbing, cyanosis. NEUROLOGIC: No focal or lateralizing signs. Cranial nerves II through XII grossly intact. PSYCH: Appropriate affect. Alert and oriented to person, place and time. SKIN: Well perfused. Good skin turgor. LABS: Reviewed STUDIES: Reviewed ASSESSMENT: 1. History of perforated diverticulitis 2. Chronic abdominal pain 3. Medical noncompliance to postoperative care 4. History of tobacco abuse 5. History of cholecystectomy 6. Status post sigmoid colectomy 7. Moderate to severe obstructive uropathy secondary to benign prostatic hypertrophy preexistent to surgery 8. Gastroesophageal reflux disease 9. Abnormal CT of the abdomen and pelvis PLAN: 1. I described to the patient and family of surgical intervention with colostomy and laparotomy. Per patient request, "I feel really good." " I will like to hold off on surgery ." 2. Incidentally, white blood cell count is normal and blood sugars have improved. 3. Patient is aware that surgical intervention may still be eminent pending clinical course 4. His son at bedside also reports that his father is walking around without any problems and having moderate bowel movements and passing flatus. Son also wished to hold off on surgery. 5. Overall patient is in guarded condition. He has moderate improvement of his abdominal pain. Objective - Vital Signs Vital signs: Vital Signs Temp 98.1 F 07/09/18 07:40 Pulse 88 07/09/18 07:40 Resp 12 07/09/18 07:40 BP 148/82 07/09/18 07:40 Pulse Ox 95 07/09/18 07:40 Intake & Output 07/08/18 07/09/18 07/09/18 18:59 06:59 18:59 Intake Total 100 100 Output Total 440 850 Balance -340 -750 Weight 95.708 kg Intake: Intake, IV Titration 100 100 Amount metroNIDAZOLE-NS PMX 500 100 100 mg In Saline 1 100ml.bag @ 100 mls/hr IVPB Q6H [facility] Rx#:[id number] Output: Drainage 40 Right Abdomen 40 Urine 400 850 Other: Voiding Method Toilet Indwelling Catheter Indwelling Catheter Indwelling Catheter # Bowel Movements 1 - Labs CBC & Chem 7: 07/09/18 07:17 07/09/18 07:17 Labs: Abnormal Lab Results - Last 24 Hours (Table) 07/08/18 07/08/18 07/08/18 Range/Units 16:35 17:20 20:09 Neutrophils # (1.3-7.7) k/uL Lymphocytes # (1.0-4.8) k/uL Glucose (74-99) mg/dL POC Glucose (mg/dL) 137 H 139 H (75-99) mg/dL Total Protein (6.3-8.2) g/dL Albumin (3.5-5.0) g/dL Urine Blood Small H (Negative) Urine RBC 8 H (0-5) /hpf Urine Mucus Rare H (None) /hpf 07/08/18 07/08/18 07/09/18 Range/Units 20:43 20:43 06:01 Neutrophils # (1.3-7.7) k/uL Lymphocytes # 0.7 L (1.0-4.8) k/uL Glucose 149 H (74-99) mg/dL POC Glucose (mg/dL) 125 H (75-99) mg/dL Total Protein (6.3-8.2) g/dL Albumin (3.5-5.0) g/dL Urine Blood (Negative) Urine RBC (0-5) /hpf Urine Mucus (None) /hpf 07/09/18 07/09/18 07/09/18 Range/Units 07:17 07:17 12:11 Neutrophils # 7.8 H (1.3-7.7) k/uL Lymphocytes # (1.0-4.8) k/uL Glucose 122 H (74-99) mg/dL POC Glucose (mg/dL) 121 H (75-99) mg/dL Total Protein 5.4 L (6.3-8.2) g/dL Albumin 3.1 L (3.5-5.0) g/dL Urine Blood (Negative) Urine RBC (0-5) /hpf Urine Mucus (None) /hpf - Imaging and Cardiology CT scan - abdomen: pending, report reviewed CT scan - pelvis: pending, report reviewed (Imaging study personally reviewed) Assessment and Plan (1) Medically noncompliant Current Visit: Yes Status: Acute Code(s): Z91.19 - PATIENT'S NONCOMPLIANCE W OTH MEDICAL TREATMENT AND REGIMEN SNOMED Code(s): 154329215 (2) Enlarged prostate with lower urinary tract symptoms (LUTS) Current Visit: Yes Status: Acute Code(s): N40.1 - BENIGN PROSTATIC HYPERPLASIA WITH LOWER URINARY TRACT SYMP SNOMED Code(s): 057097483 (3) Coronary artery disease Current Visit: No Status: Acute Code(s): I25.10 - ATHSCL HEART DISEASE OF [place] CORONARY ARTERY W/O ANG PCTRS SNOMED Code(s): 35951299 (4) Diabetes mellitus Current Visit: No Status: Acute Code(s): E11.9 - TYPE 2 DIABETES MELLITUS WITHOUT COMPLICATIONS SNOMED Code(s): 49474194 (5) Diverticulitis Current Visit: No Status: Acute Code(s): K57.92 - DVTRCLI OF INTEST, PART UNSP, W/O PERF OR ABSCESS W/O BLEED SNOMED Code(s): 060972071 (6) Gastroesophageal reflux disease Current Visit: No Status: Acute Code(s): K21.9 - GASTRO-ESOPHAGEAL REFLUX DISEASE WITHOUT ESOPHAGITIS SNOMED Code(s): 852732207 (7) History of myocardial infarction Current Visit: No Status: Acute Code(s): I25.2 - OLD MYOCARDIAL INFARCTION SNOMED Code(s): 311922934 (8) Hypertensive heart disease Current Visit: No Status: Acute Code(s): I11.9 - HYPERTENSIVE HEART DISEASE WITHOUT HEART FAILURE SNOMED Code(s): 95576780 (9) Perforation of sigmoid colon due to diverticulitis Current Visit: No Status: Acute Code(s): K57.20 - DVTRCLI OF LG INT W PERFORATION AND ABSCESS W/O BLEEDING SNOMED Code(s): 2394595771340898 (10) Prostate hypertrophy Current Visit: No Status: Acute Code(s): N40.0 - BENIGN PROSTATIC HYPERPLASIA WITHOUT LOWER URINRY TRACT SYMP SNOMED Code(s): 359314696 (11) Abnormal abdominal CT scan Current Visit: Yes Status: Acute Code(s): R93.5 - ABN FINDINGS ON DX IMAGING OF ABD REGIONS, INC RETROPERITON SNOMED Code(s): 15774284333142073
[2018-07-09 17:30] LABS: Glucose,Whole Blood 115 mg/dL (75-99)
[2018-07-09] MEDS: DOXAZOSIN 4 MG TAB PO SCH (20:27)
[2018-07-09] MEDS: LISINOPRIL 20 MG TAB PO SCH (20:27)
[2018-07-09] MEDS: HYDROcodone/APAP 5-325MG 1 EACH TAB PO PRN (20:27)
[2018-07-09] MEDS: FINASTERIDE 5 MG TAB PO SCH (20:39)
[2018-07-10] MEDS: INSULIN ASPART 100 UNIT/ML 1 ML 10 ML VIAL SQ SCH ×4 (00:45→20:44)
[2018-07-10] MEDS: HEPARIN SODIUM,PORCINE 5,000 UNIT/ML 1 ML VIAL SQ SCH ×3 (00:48→20:58)
[2018-07-10] MEDS: ceFAZolin IN SWFI 2 GM/20 ML SYRINGE IVP SCH ×3 (00:48→14:51)
[2018-07-10] MEDS: HYDROcodone/APAP 5-325MG 1 EACH TAB PO PRN ×2 (00:49→09:43)
[2018-07-10 00:57] LABS: Glucose,Whole Blood 110 mg/dL (75-99)
[2018-07-10] MEDS: metroNIDAZOLE-NS PMX 500 MG in SALINE 1 100ML.BAG IVPB SCH ×4 (02:44→20:48)
[2018-07-10] MEDS: 0.9% NACL WITH KCL 20 MEQ/L 1,000 ML IV SCH ×7 (03:13→20:52)
[2018-07-10] MEDS: KETOROLAC 30 MG/ML 1 ML VIAL IVP SCH ×4 (05:25→21:57)
[2018-07-10 06:13] LABS: Glucose,Whole Blood 88 mg/dL (75-99)
--- NOTE | 2018-07-10 07:20 | P.PN ---
Progress Note - Text Progress Note Date: 07/09/18 Patient reports no further abdominal pain. Denies any pain along the left side. Patient has history of right inguinal hernia. Still passing flatus moderate. Still having moderate bowel movements at least 4 times. I did discuss with him that clinically he is doing well despite CT findings. He is still guarded condition pending clinical response to conservative management. Potential laparotomy still not excluded.
[2018-07-10] MEDS: IPRATROPIUM-ALBUTEROL 3 ML NEB INHALATION SCH ×4 (07:21→20:27)
[2018-07-10 09:04] LABS: Basophils % (A) 0 %; Eosinophils # (A) 0.2 k/uL (0-0.7); Eosinophils % (A) 2 %; HCT 40.5 % (39.0-53.0); HGB 12.8 gm/dL (13.0-17.5); Lymphocytes # (A) 1.1 k/uL (1.0-4.8); Lymphocytes % (A) 12 %; MCH 30.4 pg (25.0-35.0); MCHC 31.7 g/dL (31.0-37.0); MCV 95.9 fL (80.0-100.0); Mean Platelet Volume 7.6; Monocytes # (A) 0.4 k/uL (0-1.0); Monocytes % (A) 5 %; Neutrophils # (A) 7.3 k/uL (1.3-7.7); Neutrophils % (A) 80 %; Platelet Count 185 k/uL (150-450); RBC 4.23 m/uL (4.30-5.90); RDW 13.5 % (11.5-15.5); WBC 9.2 k/uL (3.8-10.6)
[2018-07-10] MEDS ORDERED: SODIUM CHLORIDE 0.9% 500 ML 500 ML IV ONE ×2 (09:14→11:53)
[2018-07-10 09:25] LABS: ALT 38 U/L (21-72); AST 55 U/L (17-59); Albumin 2.9 g/dL (3.5-5.0); Alkaline Phosphatase 39 U/L (38-126); Anion Gap 5 mmol/L; Blood Urea Nitrogen 20 mg/dL (9-20); Calcium 8.5 mg/dL (8.4-10.2); Carbon Dioxide 28 mmol/L (22-30); Chloride 105 mmol/L (98-107); Glucose 105 mg/dL (74-99); Potassium 3.9 mmol/L (3.5-5.1); Sodium 138 mmol/L (137-145); Total Bilirubin 0.6 mg/dL (0.2-1.3); Total Protein 5.3 g/dL (6.3-8.2)
[2018-07-10] MEDS: PANTOPRAZOLE 40 MG TABLET PO SCH ×2 (09:43→20:58)
[2018-07-10] MEDS: ASPIRIN 81 MG PO SCH (09:43)
[2018-07-10] MEDS: ALVIMOPAN 12 MG CAPSULE PO SCH ×2 (09:43→20:56)
[2018-07-10] MEDS: METOPROLOL TARTRATE 25 MG TAB PO SCH ×2 (09:44→20:56)
--- NOTE | 2018-07-10 10:18 | P.PN ---
Subjective Progress Note Date: 07/10/18 Hx of bph Has post op retention Up ambulating Will pull cath out for a voiding trial Objective - Vital Signs Vital signs: Vital Signs Temp 98.8 F 07/10/18 07:42 Pulse 62 07/10/18 07:42 Resp 16 07/10/18 07:42 BP 152/75 07/10/18 07:42 Pulse Ox 95 07/10/18 07:42 Intake & Output 07/09/18 07/10/18 07/10/18 18:59 06:59 18:59 Intake Total 825 600 Output Total 570 250 Balance 255 350 Weight 95.708 kg Intake: Intake, IV Titration 825 600 Amount 0.9% NaCl with KCl 20 Meq 625 600 /l 1,000 ml @ 75 mls/hr IV .[id number] [facility] Rx#: [id number] metroNIDAZOLE-NS PMX 500 200 mg In Saline 1 100ml.bag @ 100 mls/hr IVPB Q6H [facility] Rx#:[id number] Oral 0 Output: Drainage 20 25 Right Abdomen 20 25 Urine 550 225 Other: Voiding Method Indwelling Catheter Indwelling Catheter # Bowel Movements 2 - Labs CBC & Chem 7: 07/10/18 08:06 07/10/18 08:06 Labs: Abnormal Lab Results - Last 24 Hours (Table) 07/09/18 07/09/18 07/10/18 Range/Units 12:11 17:15 00:45 RBC (4.30-5.90) m/uL Hgb (13.0-17.5) gm/dL Glucose (74-99) mg/dL POC Glucose (mg/dL) 121 H 115 H 110 H (75-99) mg/dL Total Protein (6.3-8.2) g/dL Albumin (3.5-5.0) g/dL 07/10/18 07/10/18 Range/Units 08:06 08:06 RBC 4.23 L (4.30-5.90) m/uL Hgb 12.8 L (13.0-17.5) gm/dL Glucose 105 H (74-99) mg/dL POC Glucose (mg/dL) (75-99) mg/dL Total Protein 5.3 L (6.3-8.2) g/dL Albumin 2.9 L (3.5-5.0) g/dL
--- NOTE | 2018-07-10 11:23 | P.PN ---
Subjective Progress Note Date: 07/10/18 CHIEF COMPLAINT: Diverticulitis HISTORY OF PRESENT ILLNESS: The patient is a 73-year-old gentleman status post robotic-assisted low anterior resection, postop day 8. He initially was doing fairly well postoperatively and then developed acute onset abdominal pain following severe urinary retention. As a result, CT of the abdomen and pelvis was performed confirming pneumoperitoneum. Yesterday, patient reported feeling very well. He denied any abdominal pain. He was passing gas moderate including having normal bowel movements. As a result, patient declined surgery. This morning, he has not had any pain medication in 9 hours and reported that he was feeling fair. He denies any moderate abdominal distention. He tolerated his breakfast this morning. PHYSICAL EXAM: VITAL SIGNS: Reviewed GENERAL: Well-developed in no acute distress. HEENT: No sclera icterus. Extraocular movements grossly intact. Moist buccal mucosa. Head is atraumatic, normocephalic. Hears conversational speech. No nasal drainage. NECK: Supple without lymphadenopathy. CHEST: Non-labored respirations and equal bilateral excursions. CARDIOVASCULAR: Palpable 2+ radial pulses. Regular rate and regular rhythm ABDOMEN: Soft. Increased abdominal distention. No peritonitis. LAMONT completely serous. No cellulitis along the abdominal wall. MUSCULOSKELETAL: No clubbing, cyanosis. NEUROLOGIC: No focal or lateralizing signs. Cranial nerves II through XII grossly intact. PSYCH: Appropriate affect. Alert and oriented to person, place and time. SKIN: Well perfused. Good skin turgor. : Urine is dark LABS: Reviewed STUDIES: Reviewed ASSESSMENT: 1. History of perforated diverticulitis 2. Chronic abdominal pain 3. Medical noncompliance to postoperative care 4. History of tobacco abuse 5. History of cholecystectomy 6. Status post sigmoid colectomy 7. Moderate to severe obstructive uropathy secondary to benign prostatic hypertrophy preexistent to surgery 8. Gastroesophageal reflux disease 9. Abnormal CT of the abdomen and pelvis PLAN: 1. He still reports feeling well however his condition is still guarded with his abnormal computed tomography scan. 2. Surgical intervention with laparotomy and colostomy described for any clinical decline 3. He has very dark urine and recommend IV fluid hydration 4. Urology to reassess secondary to persistent obstructive uropathy Objective - Vital Signs Vital signs: Vital Signs Temp 98.8 F 07/10/18 07:42 Pulse 62 07/10/18 07:42 Resp 16 07/10/18 07:42 BP 152/75 07/10/18 07:42 Pulse Ox 95 07/10/18 07:42 Intake & Output 07/09/18 07/10/18 07/10/18 18:59 06:59 18:59 Intake Total 825 600 Output Total 570 250 Balance 255 350 Weight 95.708 kg Intake: Intake, IV Titration 825 600 Amount 0.9% NaCl with KCl 20 Meq 625 600 /l 1,000 ml @ 75 mls/hr IV .[id number] [facility] Rx#: [id number] metroNIDAZOLE-NS PMX 500 200 mg In Saline 1 100ml.bag @ 100 mls/hr IVPB Q6H [facility] Rx#:[id number] Oral 0 Output: Drainage 20 25 Right Abdomen 20 25 Urine 550 225 Other: Voiding Method Indwelling Catheter Indwelling Catheter # Bowel Movements 2 - Labs CBC & Chem 7: 07/10/18 08:06 07/10/18 08:06 Labs: Abnormal Lab Results - Last 24 Hours (Table) 07/09/18 07/09/18 07/10/18 Range/Units 12:11 17:15 00:45 RBC (4.30-5.90) m/uL Hgb (13.0-17.5) gm/dL Glucose (74-99) mg/dL POC Glucose (mg/dL) 121 H 115 H 110 H (75-99) mg/dL Total Protein (6.3-8.2) g/dL Albumin (3.5-5.0) g/dL 07/10/18 07/10/18 Range/Units 08:06 08:06 RBC 4.23 L (4.30-5.90) m/uL Hgb 12.8 L (13.0-17.5) gm/dL Glucose 105 H (74-99) mg/dL POC Glucose (mg/dL) (75-99) mg/dL Total Protein 5.3 L (6.3-8.2) g/dL Albumin 2.9 L (3.5-5.0) g/dL Assessment and Plan (1) Medically noncompliant Current Visit: Yes Status: Acute Code(s): Z91.19 - PATIENT'S NONCOMPLIANCE W OTH MEDICAL TREATMENT AND REGIMEN SNOMED Code(s): 684535149 (2) Enlarged prostate with lower urinary tract symptoms (LUTS) Current Visit: Yes Status: Acute Code(s): N40.1 - BENIGN PROSTATIC HYPERPLASIA WITH LOWER URINARY TRACT SYMP SNOMED Code(s): 987892788 (3) Coronary artery disease Current Visit: No Status: Acute Code(s): I25.10 - ATHSCL HEART DISEASE OF [place] CORONARY ARTERY W/O ANG PCTRS SNOMED Code(s): 00684543 (4) Diabetes mellitus Current Visit: No Status: Acute Code(s): E11.9 - TYPE 2 DIABETES MELLITUS WITHOUT COMPLICATIONS SNOMED Code(s): 35190577 (5) Diverticulitis Current Visit: No Status: Acute Code(s): K57.92 - DVTRCLI OF INTEST, PART UNSP, W/O PERF OR ABSCESS W/O BLEED SNOMED Code(s): 196493298 (6) Gastroesophageal reflux disease Current Visit: No Status: Acute Code(s): K21.9 - GASTRO-ESOPHAGEAL REFLUX DISEASE WITHOUT ESOPHAGITIS SNOMED Code(s): 345132590 (7) History of myocardial infarction Current Visit: No Status: Acute Code(s): I25.2 - OLD MYOCARDIAL INFARCTION SNOMED Code(s): 348425539 (8) Hypertensive heart disease Current Visit: No Status: Acute Code(s): I11.9 - HYPERTENSIVE HEART DISEASE WITHOUT HEART FAILURE SNOMED Code(s): 58117514 (9) Perforation of sigmoid colon due to diverticulitis Current Visit: No Status: Acute Code(s): K57.20 - DVTRCLI OF LG INT W PERFORATION AND ABSCESS W/O BLEEDING SNOMED Code(s): 7638561939123826 (10) Prostate hypertrophy Current Visit: No Status: Acute Code(s): N40.0 - BENIGN PROSTATIC HYPERPLASIA WITHOUT LOWER URINRY TRACT SYMP SNOMED Code(s): 075113277 (11) Abnormal abdominal CT scan Current Visit: Yes Status: Acute Code(s): R93.5 - ABN FINDINGS ON DX IMAGING OF ABD REGIONS, INC RETROPERITON SNOMED Code(s): 33107685311595086
--- NOTE | 2018-07-10 11:26 | P.PN ---
Subjective Progress Note Date: 07/10/18 was called bck by the nurse THe patient had a voiding trial yesterday and wasnt on flomax I will start the flomax IF he is still in the hospital in the next few days he will have another voiding trial IF not then he can go home with the catheter and fu with Dr Armenta as an op. He should go home on the flomax Objective - Vital Signs Vital signs: Vital Signs Temp 98.8 F 07/10/18 07:42 Pulse 62 07/10/18 07:42 Resp 16 07/10/18 07:42 BP 152/75 07/10/18 07:42 Pulse Ox 95 07/10/18 07:42 Intake & Output 07/09/18 07/10/18 07/10/18 18:59 06:59 18:59 Intake Total 825 600 Output Total 570 250 Balance 255 350 Weight 95.708 kg Intake: Intake, IV Titration 825 600 Amount 0.9% NaCl with KCl 20 Meq 625 600 /l 1,000 ml @ 75 mls/hr IV .[id number] [facility] Rx#: [id number] metroNIDAZOLE-NS PMX 500 200 mg In Saline 1 100ml.bag @ 100 mls/hr IVPB Q6H [facility] Rx#:[id number] Oral 0 Output: Drainage 20 25 Right Abdomen 20 25 Urine 550 225 Other: Voiding Method Indwelling Catheter Indwelling Catheter # Bowel Movements 2 - Labs CBC & Chem 7: 07/10/18 08:06 07/10/18 08:06 Labs: Abnormal Lab Results - Last 24 Hours (Table) 07/09/18 07/09/18 07/10/18 Range/Units 12:11 17:15 00:45 RBC (4.30-5.90) m/uL Hgb (13.0-17.5) gm/dL Glucose (74-99) mg/dL POC Glucose (mg/dL) 121 H 115 H 110 H (75-99) mg/dL Total Protein (6.3-8.2) g/dL Albumin (3.5-5.0) g/dL 07/10/18 07/10/18 Range/Units 08:06 08:06 RBC 4.23 L (4.30-5.90) m/uL Hgb 12.8 L (13.0-17.5) gm/dL Glucose 105 H (74-99) mg/dL POC Glucose (mg/dL) (75-99) mg/dL Total Protein 5.3 L (6.3-8.2) g/dL Albumin 2.9 L (3.5-5.0) g/dL
[2018-07-10] MEDS: ONDANSETRON 4 MG/2 ML VIAL IVP PRN (12:21)
[2018-07-10] MEDS: HYDROmorphone 1 MG/ML 1 ML SYRINGE IVP PRN (12:21)
[2018-07-10 12:28] LABS: Glucose,Whole Blood 106 mg/dL (75-99)
--- NOTE | 2018-07-10 12:33 | P.PN ---
Subjective Progress Note Date: 07/10/18 Chris Borja is a 73-year-old male with chronic and recurrent history of sigmoid diverticulitis, with previous history of perforated diverticulitis, and history of cholecystitis, was admitted to [facility] by Dr. Lara and underwent a robotic low anterior resection and robotic cholecystectomy, patient was admitted to the medical floor, consultation was requested for management while hospitalized. On 07/05/2018 patient was seen and examined on the medical floor he is alert and oriented 3 in no apparent distress there is no fever or chills no headache or dizziness no chest pain no shortness of breath no cough no nausea or vomiting no abdominal pain and no urinary symptoms 07/06/2018 patient complaining of abdominal pain. Still not passing gas or having bowel movement. He is complaining of some nausea. No vomiting. Apparently he has been refusing the subcu heparin injections. Patient evaluated by surgical service this morning apparently epidural accidentally came out last night. And he's had increasing abdominal pain and some abdominal distention. They've ordered a computed tomography scan of the abdomen with contrast to further evaluate ileus versus leak. She's also ordered a CTA of the chest. At this time patient not is not complaining of any chest pain or shortness of breath. 07/07/2018 patient reports having bowel movement. Denies any nausea or vomiting. Surgical service advancing diet to clears. CTA of the chest was negative for PE or were concerns of some vascular congestion patient did receive a dose of IV Lasix yesterday. Patient is wheezing and mild cough today. Denies shortness of breath. DuoNeb updrafts have been ordered. Patient is now taking the subcu heparin. Blood pressures are elevated last blood pressure reading 172/85 patient denies any chest pain. Denies any nausea vomiting. Lee catheter scheduled to be removed today. On 07/08/2018 patient is currently sitting up in chair. Patient does report having a bowel movement. Patient is still congested with cough. Will order chest x-ray. Patient's blood pressure also remains elevated. Lisinopril has been increased. At this time patient denies chest pain or shortness of breath. Patient denies nausea vomiting or diarrhea. Patient denies any urinary burning or frequency 07/09/2018 patient having asked episodes of urinary retention. Unfortunately bladder scanning had not been completed by nursing staff after Lee catheter was initially removed. Patient did have evidence of urinary retention Lee catheter had to be reinserted yesterday. Patient continued to have abdominal pain. Surgical service has ordered a repeat computed tomography scan abdomen and pelvis it is showing evidence of a leak and he is scheduled for surgery this afternoon. Yesterday he was having elevated blood pressures lisinopril was increased and patient did receive another dose of Lasix. Chest x-ray had shown consider possible mild early volume overload. At this time patient's lungs are clear he denies any shortness of breath. He and his cough has improved. Last blood pressure 148/82. Denies any chest pain or shortness breath. Denies any nausea or vomiting. Urine is a dark in color with possible blood. Likely due to Lee catheter trauma. 07/10/2018 patient is sitting on edge of bed leaning over and holding stomach, reporting lower abdominal pain. He is passing gas and having bowel movements. He does have Lee catheter still in place the urine is dark and red. He was seen by urology they have added Flomax. Patient also received fluid bolus. And he is currently on normal saline with potassium at 75 mL an hour. Patient denies any chest pain or shortness of breath. Patient feels that it may be his bladder causing his symptoms. Nursing staff is checking with bladder scan. Surgical service has been notified about the abdominal pain. They're following closely. Patient medically to surgery yesterday because he was not having any abdominal pain and was stooling. He was given a regular diet this morning. Objective - Vital Signs Vital signs: Vital Signs Temp 98.8 F 07/10/18 07:42 Pulse 62 07/10/18 07:42 Resp 16 07/10/18 08:00 BP 152/75 07/10/18 07:42 Pulse Ox 95 07/10/18 07:42 Intake & Output 07/09/18 07/10/18 07/10/18 18:59 06:59 18:59 Intake Total 825 600 Output Total 570 250 Balance 255 350 Weight 95.708 kg Intake: Intake, IV Titration 825 600 Amount 0.9% NaCl with KCl 20 Meq 625 600 /l 1,000 ml @ 75 mls/hr IV .[id number] [facility] Rx#: [id number] metroNIDAZOLE-NS PMX 500 200 mg In Saline 1 100ml.bag @ 100 mls/hr IVPB Q6H [facility] Rx#:[id number] Oral 0 Output: Drainage 20 25 Right Abdomen 20 25 Urine 550 225 Other: Voiding Method Indwelling Catheter Indwelling Catheter Indwelling Catheter # Bowel Movements 2 - Exam Head normocephalic Neck supple Lungs clear to auscultation bilaterally Heart regular rate and rhythm S1-S2, no rub or gallop Abdomen is distended lower abdominal tenderness Extremities no edema Neuro alert and orientated to 3 - Labs CBC & Chem 7: 07/10/18 08:06 07/10/18 08:06 Labs: Abnormal Lab Results - Last 24 Hours (Table) 07/09/18 07/10/18 07/10/18 Range/Units 17:15 00:45 08:06 RBC 4.23 L (4.30-5.90) m/uL Hgb 12.8 L (13.0-17.5) gm/dL Glucose (74-99) mg/dL POC Glucose (mg/dL) 115 H 110 H (75-99) mg/dL Total Protein (6.3-8.2) g/dL Albumin (3.5-5.0) g/dL 07/10/18 Range/Units 08:06 RBC (4.30-5.90) m/uL Hgb (13.0-17.5) gm/dL Glucose 105 H (74-99) mg/dL POC Glucose (mg/dL) (75-99) mg/dL Total Protein 5.3 L (6.3-8.2) g/dL Albumin 2.9 L (3.5-5.0) g/dL Assessment and Plan Assessment: #1 diverticulitis was history of perforated diverticulitis patient was admitted to [facility] and underwent low anterior resection, he also had a robotic cholecystectomy due to history of cholecystitis. Patient had repeat computed tomography scan abdomen and pelvis with evidence of leak. Surgery is following closely. And awaiting their further recommendations about any surgical intervention. Patient is now reporting abdominal pain #2 essential hypertension with elevated blood pressures. Blood pressures are showing improvement. Lisinopril had been increased to 20 mg daily #3 underlying history of benign prostatic hypertrophy #4 underlying history of diabetes mellitus 2. Patient refusing sliding scale coverage. Patient did have a blood sugar 88 this morning. Repeat blood sugar 106. We'll continue to monitor #5 previous history of coronary artery disease with previous history of myocardial infarction #6 wheezing with cough: Possible COPD exacerbation: Patient is a smoker. We'll add DuoNeb updrafts 4 times a day and monitor. Showing improvement. #7 urinary retention: Secondary to BPH and post op retention. Patient seen by urology. They have added Flomax. Continue Proscar and Cardura. Urology recommending voiding trial with the next couple a days. If not continue Flomax and follow-up outpatient for further evaluation #8 episodes of fluid overload patient has received IV Lasix. Resolved DVT prophylaxis subcu heparin and GI prophylaxis Pepcid I performed an examination of the patient and discussed their management with the physician Home Help Aide. I have reviewed the Physician Home Help Aide's notes and agree with the documented findings and plan of care
--- NOTE | 2018-07-10 13:17 | P.PN ---
Progress Note - Text Progress Note Date: 07/10/18 Patient reassessed. Now he complains of moderate abdominal pain. Patient was already advised and educated that any change in clinical status would warrant laparotomy with ostomy creation. His son is at bedside. Patient is now agreeable to proceed with surgery as previously described.
[2018-07-10] MEDS ORDERED: LACTATED RINGERS 1,000 ML IV ONE ×3 (13:50→15:37)
[2018-07-10] MEDS ORDERED: fentaNYL (PF) 50 MCG/ML 2 ML AMP IV ONE ×2 (13:50→13:56)
[2018-07-10 13:59] LABS: Glucose,Whole Blood 98 mg/dL (75-99)
[2018-07-10] MEDS ORDERED: SUCCINYLCHOLINE CHLORIDE 100 MG/5 ML SYR IV ONE (14:02)
[2018-07-10] MEDS ORDERED: KETAMINE 10 MG/ML 20 ML VIAL ONE (14:02)
[2018-07-10] MEDS ORDERED: VECURONIUM 10 MG VIAL IV ONE (14:02)
[2018-07-10] MEDS ORDERED: GLYCOPYRROLATE 0.2 MG/ML 2 ML VIAL ONE (14:02)
[2018-07-10] MEDS ORDERED: MIDAZOLAM 2 MG/2 ML VIAL ONE (14:02)
[2018-07-10] MEDS ORDERED: ePHEDrine SULFATE/0.9% NACL/PF 50 MG/5 ML SYRINGE IV ONE (14:02)
[2018-07-10] MEDS ORDERED: fentaNYL (PF) 50 MCG/ML 2 ML AMP ONE (14:02)
[2018-07-10] MEDS ORDERED: NEOSTIGMINE 1 MG/ML 10 ML VIAL ONE (14:02)
[2018-07-10] MEDS ORDERED: HYDROmorphone (PF) 1 MG/ML ONE (14:02)
[2018-07-10] MEDS ORDERED: DEXAMETHASONE SOD PHOS (MDV) 100 MG/10 ML VIAL ONE (14:02)
[2018-07-10] MEDS ORDERED: PROPOFOL 10 MG/ML 20 ML VIAL IV ONE (14:02)
[2018-07-10] MEDS ORDERED: LIDOCAINE 1% INJ 10MG/ML (20 ML MDV) ONE (14:02)
[2018-07-10] MEDS ORDERED: metroNIDAZOLE-NS PMX 500 MG/100 ML BAG ONE (14:02)
[2018-07-10] MEDS ORDERED: SODIUM CHLORIDE 0.9% 50 ML with ceFAZolin 2,000 MG IV ONE ×2 (14:26)
[2018-07-10] MEDS ORDERED: HYDROmorphone 0.5 MG/0.5 ML SYRINGE IVP PRN (18:22)
--- NOTE | 2018-07-10 18:35 | P.OP ---
Date of Procedure: 07/10/18 Description of Procedure: SURGEON: NELLIE SOTELO MD PREOPERATIVE DIAGNOSES: 1. Peritonitis with pneumoperitoneum 2. Left lower quadrant abdominal pain 3. Obstructive uropathy 4. Sigmoid diverticulitis with previous perforation 5. Diabetes type 2, non-insulin dependent 6. Gastroesophageal reflux disease 7. Enlarged prostate with benign prostatic hypertrophy 8. Hyperlipidemia 9. Myocardial infarction with ischemic cardiomyopathy 10. Irritable bowel syndrome 11. Past history of pyelonephritis 12. Family history of diverticulosis 13. Depressive disorder 14. Tobacco abuse 15. History of medical non-compliance POSTOPERATIVE DIAGNOSES: 1. Peritonitis with pneumoperitoneum 2. Left lower quadrant abdominal pain 3. Obstructive uropathy 4. Sigmoid diverticulitis with previous perforation 5. Diabetes type 2, non-insulin dependent 6. Gastroesophageal reflux disease 7. Enlarged prostate with benign prostatic hypertrophy 8. Hyperlipidemia 9. Myocardial infarction with ischemic cardiomyopathy 10. Irritable bowel syndrome 11. Past history of pyelonephritis 12. Family history of diverticulosis 13. Depressive disorder 14. Tobacco abuse 15. 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 Exploratory laparotomy with partial colectomy/sigmoid colon 2. Descending colostomy. 3. Devitalized rectal stump. 4. Mariya's procedure for perforated anastomosis 5. Peritoneal lavage over 6 liters normal saline 6. Pre-existing intraabdominal #19 Farhat drain along the right lower pelvis 7. Placement of PREVENA extended wound VAC system 8. Mobilization of splenic flexure Anesthesia: GETA Estimated Blood Loss (ml): 100 Pathology: other (Descending colon involving perforated section) Condition: stable Disposition: floor Operative Findings: 1. Perforation of proximal colotomy site 2. Moderate ascites 3. Blind passage identified per Anesthesia upon placement of nasogastric tube along nasopharynx 4. Mobilization of splenic flexure for a descending colostomy 5. Moderate edema involving proximal rectum with stay suture 2-0 Prolene placed 6. Minimal contamination and stool found consistent with early perforation as per computed tomography scan INDICATIONS: The patient is a 73-year-old male who presents with history of sigmoid diverticulitis. He underwent a robotic low anterior resection 1 week ago. He developed acute onset abdominal pain with diagnostic studies showing pneumoperitoneum. Patient initially declined surgery as he reported feeling well until his symptoms grew worse. Surgical intervention was described. All questions were answered and risks were reviewed with the patient. Informed consent was obtained. DESCRIPTION: Patient was brought to the operating room. He had a martinez catheter placed prior. He was on scheduled antibiotics. The patient was placed in supine position whereby general induction was performed. Abdomen had been prepped and draped in the standard sterile fashion. Prior to incision a time out protocol was performed. Ioban draping was also placed to minimize any contamination to the skin. Next, using #10 blade, the abdomen was entered along the midline whereby an incision was made just above the umbilicus down to the pubis. Abdominal ascites was found with peritoneal cultures obtained and ascites was suctioned. Next, abdominal retracting system retractor was placed. The descending colon and sigmoid colon was mobilized along the medial and lateral attachments with care to avoid any injury to the ureters along the usual anatomical landmarks. The anastomosis was investigated with blowout of his closed colotomy proximal to his EEA anastomosis. The sigmoid colon was mobilized along the mesentery where a window was made along the mesentery and the colon was divided such that the descending colon was prepared for maturation of a colostomy. Next, the rest of the colon was mobilized down to the rectum. Proximally mobilization of the splenic flexure was performed from both medial and lateral directions without injury to the spleen. Adequate length of the descending colostomy was created and proposed exit via his prior 12-mm trocar site along the left lateral abdominal wall. Proximal and distal to the anastomsis was divided using Covidien End[employer] SUZY black lacey. At the rectum, moderate edema confirmed. Prolene 2-0 was tagged of the distal rectal stump. . The specimen was passed off. Hemostasis was checked with electro Bovie cautery including Ligasure. The abdomen was copiously irrigated with 6 L of normal saline solution. A pre-existing round #19 drain remained in the pelvis. Next, attention was brought to the delivering and creating of the descending colostomy. A point along the abdominal wall and rectus muscle was selected for the colostomy. Albert was used to elevate the skin and a #10 blade was taken across in tangential manner to create the skin defect of approximately quarter-size. The fat of the skin was mobilized using a small rich. The rectus muscle was identified and scored with a cruciate scoring of electro- Bovie cautery. Next, using a muscle-splitting technique with a hemostat, the peritoneum was entered. The peritoneum was widened such that 2 fingerbreadths could easily pass for delivering and evaginating the descending portion of the colon through the skin. The abdominal cavity was copiously irrigated as described until completely clear. The drain was already placed along the pelvis from his index operation. The midline incision was closed using double-stranded 0 PDS. Next, the subcutaneous tissue was copiously irrigated with normal saline and hydrogen peroxide. About the umbilicus interrupted 3-0 Vicryl dermal sutures were placed as to avoid any lacey around the umbilicus. For the rest of the incision, stainless steel skin lacey were applied. The midline incision was covered using PREVENA wound VAC and attention was brought to maturation of the colostomy. The staple edge was divided and removed. Next quadrant sutures at 12 o'clock, 3 o'clock, 6 o'clock, and 9 o'clock position was made using serosa, mucosal and dermal bites using 2-0 Vicryl. Running 3-0 Vicryl was placed in between all quadrants sutures to completely mature the ostomy. Hemostasis was checked. A Coloplast was then placed. At the end of the procedure, needle, sponge, and instrument count had been verified correct by sound engineering technician. The patient's family was updated on level of care.
[2018-07-10 18:54] LABS: Iron Saturation 8.33 (15.00-50.00)
[2018-07-10] MEDS ORDERED: NALOXONE 0.4 MG/ML 1 ML VIAL IV PRN (18:55)
[2018-07-10] MEDS: ROPIVACAINE 250 MG, HYDROMORPHONE (PF) 5 MG in SODIUM CHLORIDE 0.9% 200 ML EPIDURAL PRN (19:27)
[2018-07-10] MEDS: TAMSULOSIN 0.4 MG CAP.ER.24H PO SCH (20:44)
[2018-07-10] MEDS: LISINOPRIL 20 MG TAB PO SCH (20:55)
[2018-07-10] MEDS: DOXAZOSIN 4 MG TAB PO SCH (20:55)
[2018-07-10] MEDS: FINASTERIDE 5 MG TAB PO SCH (20:55)
[2018-07-10] MEDS: ONDANSETRON 4 MG/2 ML VIAL IVP SCH (23:57)
[2018-07-11] MEDS: ceFAZolin IN SWFI 2 GM/20 ML SYRINGE IVP SCH ×3 (00:02→15:28)
[2018-07-11] MEDS: 0.9% NACL WITH KCL 20 MEQ/L 1,000 ML IV SCH ×5 (00:11→22:14)
[2018-07-11 00:55] LABS: Glucose,Whole Blood 169 mg/dL (75-99)
[2018-07-11] MEDS: INSULIN ASPART 100 UNIT/ML 1 ML 10 ML VIAL SQ SCH ×4 (01:31→17:20)
[2018-07-11] MEDS: metroNIDAZOLE-NS PMX 500 MG in SALINE 1 100ML.BAG IVPB SCH ×4 (01:38→18:14)
[2018-07-11] MEDS: KETOROLAC 30 MG/ML 1 ML VIAL IVP SCH ×2 (04:22→09:50)
[2018-07-11 05:43] LABS: Glucose,Whole Blood 135 mg/dL (75-99)
[2018-07-11] MEDS: PANTOPRAZOLE 40 MG/10 ML VIAL IV SCH (08:26)
[2018-07-11] MEDS: ONDANSETRON 4 MG/2 ML VIAL IVP SCH ×2 (08:26→15:28)
[2018-07-11] MEDS: ENOXAPARIN 30 MG/0.3 ML SYRINGE SQ SCH (08:33)
[2018-07-11] MEDS: METOPROLOL TARTRATE 25 MG TAB PO SCH ×2 (08:36→21:52)
[2018-07-11] MEDS: IPRATROPIUM-ALBUTEROL 3 ML NEB INHALATION SCH ×4 (08:55→19:04)
[2018-07-11 09:59] LABS: Basophils % (A) 0 %; Eosinophils % (A) 0 %; HCT 43.6 % (39.0-53.0); HGB 13.6 gm/dL (13.0-17.5); Lymphocytes # (A) 0.5 k/uL (1.0-4.8); Lymphocytes % (A) 5 %; MCH 30.1 pg (25.0-35.0); MCHC 31.1 g/dL (31.0-37.0); MCV 96.7 fL (80.0-100.0); Mean Platelet Volume 8.2; Monocytes # (A) 0.4 k/uL (0-1.0); Monocytes % (A) 4 %; Neutrophils # (A) 8.9 k/uL (1.3-7.7); Neutrophils % (A) 90 %; Platelet Count 184 k/uL (150-450); RBC 4.51 m/uL (4.30-5.90); RDW 13.6 % (11.5-15.5); WBC 9.9 k/uL (3.8-10.6)
[2018-07-11 10:18] LABS: ALT 30 U/L (21-72); AST 24 U/L (17-59); Albumin 2.4 g/dL (3.5-5.0); Alkaline Phosphatase 39 U/L (38-126); Anion Gap 7 mmol/L; Blood Urea Nitrogen 25 mg/dL (9-20); Carbon Dioxide 23 mmol/L (22-30); Chloride 109 mmol/L (98-107); Glucose 135 mg/dL (74-99); Magnesium 1.7 mg/dL (1.6-2.3); Phosphorus 3.8 mg/dL (2.5-4.5); Potassium 4.4 mmol/L (3.5-5.1); Sodium 139 mmol/L (137-145); Total Bilirubin 0.4 mg/dL (0.2-1.3); Total Protein 4.5 g/dL (6.3-8.2)
[2018-07-11 11:12] LABS: Glucose,Whole Blood 127 mg/dL (75-99)
--- NOTE | 2018-07-11 13:02 | P.PN ---
Subjective Progress Note Date: 07/11/18 CHIEF COMPLAINT: Diverticulitis HISTORY OF PRESENT ILLNESS: The patient is a 73-year-old gentleman status post robotic-assisted low anterior resection, postop day 8 from his index operation and POD 1, Mariya's procedure for blow out of his colonic anastomosis. Clinically doing better. His son is at bedside. He is walking around. No signs of sepsis. No fevers or chills. No dyspnea. No chest pain. He has occasionally pressure along the right lower quadrant. PHYSICAL EXAM: VITAL SIGNS: Reviewed GENERAL: Well-developed in no acute distress. HEENT: No sclera icterus. Extraocular movements grossly intact. Moist buccal mucosa. Head is atraumatic, normocephalic. Hears conversational speech. No nasal drainage. NGT bilious and functioning. NECK: Supple without lymphadenopathy. CHEST: Non-labored respirations and equal bilateral excursions. CARDIOVASCULAR: Palpable 2+ radial pulses. Regular rate and regular rhythm ABDOMEN: Soft. Non-distended. Midline incision intact with PREVENA. LAMONT is serous. MUSCULOSKELETAL: No clubbing, cyanosis. NEUROLOGIC: No focal or lateralizing signs. Cranial nerves II through XII grossly intact. Epidural present. PSYCH: Appropriate affect. Alert and oriented to person, place and time. SKIN: Well perfused. Good skin turgor. : Urine is dark LABS: Reviewed STUDIES: Reviewed ASSESSMENT: 1. History of perforated diverticulitis 2. Chronic abdominal pain 3. Medical noncompliance to postoperative care 4. History of tobacco abuse 5. History of cholecystectomy 6. Status post sigmoid colectomy 7. Moderate to severe obstructive uropathy secondary to benign prostatic hypertrophy preexistent to surgery 8. Gastroesophageal reflux disease 9. Abnormal CT of the abdomen and pelvis 10. History of tobacco abuse. 11. New descending colostomy status PLAN: 1. Plan to continue ice chips and popsicles. 2. Await ostomy function. 3. Hospitalization expected for another 6 days pending ostomy function and education and adjustment of diet. 4. Smoking cessation advised. Objective - Vital Signs Vital signs: Vital Signs Temp 98.5 F 07/11/18 07:10 Pulse 99 07/11/18 07:10 Resp 12 07/11/18 07:10 BP 140/74 07/11/18 07:10 Pulse Ox 94 L 07/11/18 07:10 Intake & Output 07/10/18 07/11/18 07/11/18 18:59 06:59 18:59 Intake Total 2750 1630.117 900 Output Total 450 375 Balance 2300 1255.117 900 Intake: IV 2750 Intake, IV Titration 1630.117 900 Amount 0.9% NaCl with KCl 20 Meq 1600 800 /l 1,000 ml @ 100 mls/hr IV .Q10H [facility] Rx#: [id number] Ropivacaine 250 mg 30.117 Hydromorphone (Pf) 5 mg In Sodium Chloride 0.9% 200 ml @ Per Protocol EPIDURAL .Q0M PRN Rx#: [id number] metroNIDAZOLE-NS PMX 500 100 mg In Saline 1 100ml.bag @ 100 mls/hr IVPB Q6H [facility] Rx#:[id number] Output: Gastric Drainage 325 Drainage 50 Right Abdomen 50 Urine 350 Estimated Blood Loss 100 Other: Voiding Method Indwelling Catheter Indwelling Catheter Indwelling Catheter # Voids 50 - Labs CBC & Chem 7: 07/11/18 08:57 07/11/18 08:57 Labs: Abnormal Lab Results - Last 24 Hours (Table) 07/10/18 07/11/18 07/11/18 Range/Units 08:06 00:44 05:31 Neutrophils # (1.3-7.7) k/uL Lymphocytes # (1.0-4.8) k/uL Chloride (98-107) mmol/L BUN (9-20) mg/dL Glucose (74-99) mg/dL POC Glucose (mg/dL) 169 H 135 H (75-99) mg/dL Calcium (8.4-10.2) mg/dL Iron 16 L (65-175) ug/dL TIBC 192 L (228-460) ug/dL Iron Saturation 8.33 L (15.00-50.00) Total Protein (6.3-8.2) g/dL Albumin (3.5-5.0) g/dL 07/11/18 07/11/18 07/11/18 Range/Units 08:57 08:57 10:56 Neutrophils # 8.9 H (1.3-7.7) k/uL Lymphocytes # 0.5 L (1.0-4.8) k/uL Chloride 109 H (98-107) mmol/L BUN 25 H (9-20) mg/dL Glucose 135 H (74-99) mg/dL POC Glucose (mg/dL) 127 H (75-99) mg/dL Calcium 8.0 L (8.4-10.2) mg/dL Iron (65-175) ug/dL TIBC (228-460) ug/dL Iron Saturation (15.00-50.00) Total Protein 4.5 L (6.3-8.2) g/dL Albumin 2.4 L (3.5-5.0) g/dL Microbiology - Last 24 Hours (Table) 07/10/18 15:03 Gram Stain - Preliminary Other - Other Wound Culture - Preliminary 07/10/18 15:03 Anaerobic Culture - Preliminary Other - Other - Imaging and Cardiology CT scan - abdomen: report reviewed, image reviewed CT scan - pelvis: report reviewed, image reviewed (prior free air noted) Assessment and Plan (1) Medically noncompliant Current Visit: Yes Status: Acute Code(s): Z91.19 - PATIENT'S NONCOMPLIANCE W OTH MEDICAL TREATMENT AND REGIMEN SNOMED Code(s): 055902597 (2) Enlarged prostate with lower urinary tract symptoms (LUTS) Current Visit: Yes Status: Acute Code(s): N40.1 - BENIGN PROSTATIC HYPERPLASIA WITH LOWER URINARY TRACT SYMP SNOMED Code(s): 850110618 (3) Coronary artery disease Current Visit: No Status: Acute Code(s): I25.10 - ATHSCL HEART DISEASE OF [place] CORONARY ARTERY W/O ANG PCTRS SNOMED Code(s): 17525206 (4) Diabetes mellitus Current Visit: No Status: Acute Code(s): E11.9 - TYPE 2 DIABETES MELLITUS WITHOUT COMPLICATIONS SNOMED Code(s): 08904384 (5) Diverticulitis Current Visit: No Status: Acute Code(s): K57.92 - DVTRCLI OF INTEST, PART UNSP, W/O PERF OR ABSCESS W/O BLEED SNOMED Code(s): 794066072 (6) Gastroesophageal reflux disease Current Visit: No Status: Acute Code(s): K21.9 - GASTRO-ESOPHAGEAL REFLUX DISEASE WITHOUT ESOPHAGITIS SNOMED Code(s): 008449174 (7) History of myocardial infarction Current Visit: No Status: Acute Code(s): I25.2 - OLD MYOCARDIAL INFARCTION SNOMED Code(s): 132753963 (8) Hypertensive heart disease Current Visit: No Status: Acute Code(s): I11.9 - HYPERTENSIVE HEART DISEASE WITHOUT HEART FAILURE SNOMED Code(s): 02924936 (9) Perforation of sigmoid colon due to diverticulitis Current Visit: No Status: Acute Code(s): K57.20 - DVTRCLI OF LG INT W PERFORATION AND ABSCESS W/O BLEEDING SNOMED Code(s): 1803128974800118 (10) Prostate hypertrophy Current Visit: No Status: Acute Code(s): N40.0 - BENIGN PROSTATIC HYPERPLASIA WITHOUT LOWER URINRY TRACT SYMP SNOMED Code(s): 917148923 (11) Abnormal abdominal CT scan Current Visit: Yes Status: Acute Code(s): R93.5 - ABN FINDINGS ON DX IMAGING OF ABD REGIONS, INC RETROPERITON SNOMED Code(s): 11920477109563106 (12) Colostomy in place Current Visit: Yes Status: Acute Code(s): Z93.3 - COLOSTOMY STATUS SNOMED Code(s): 535113084 (13) Ascites Current Visit: Yes Status: Acute Code(s): R18.8 - OTHER ASCITES SNOMED Code(s): 035772697 (14) Peritonitis (acute) generalized Current Visit: Yes Status: Acute Code(s): K65.0 - GENERALIZED (ACUTE) PERITONITIS SNOMED Code(s): 08031994
--- NOTE | 2018-07-11 14:13 | P.PN ---
Subjective Progress Note Date: 07/11/18 Chris Borja is a 73-year-old male with chronic and recurrent history of sigmoid diverticulitis, with previous history of perforated diverticulitis, and history of cholecystitis, was admitted to [facility] by Dr. Lara and underwent a robotic low anterior resection and robotic cholecystectomy, patient was admitted to the medical floor, consultation was requested for management while hospitalized. On 07/05/2018 patient was seen and examined on the medical floor he is alert and oriented 3 in no apparent distress there is no fever or chills no headache or dizziness no chest pain no shortness of breath no cough no nausea or vomiting no abdominal pain and no urinary symptoms 07/06/2018 patient complaining of abdominal pain. Still not passing gas or having bowel movement. He is complaining of some nausea. No vomiting. Apparently he has been refusing the subcu heparin injections. Patient evaluated by surgical service this morning apparently epidural accidentally came out last night. And he's had increasing abdominal pain and some abdominal distention. They've ordered a computed tomography scan of the abdomen with contrast to further evaluate ileus versus leak. She's also ordered a CTA of the chest. At this time patient not is not complaining of any chest pain or shortness of breath. 07/07/2018 patient reports having bowel movement. Denies any nausea or vomiting. Surgical service advancing diet to clears. CTA of the chest was negative for PE or were concerns of some vascular congestion patient did receive a dose of IV Lasix yesterday. Patient is wheezing and mild cough today. Denies shortness of breath. DuoNeb updrafts have been ordered. Patient is now taking the subcu heparin. Blood pressures are elevated last blood pressure reading 172/85 patient denies any chest pain. Denies any nausea vomiting. Lee catheter scheduled to be removed today. On 07/08/2018 patient is currently sitting up in chair. Patient does report having a bowel movement. Patient is still congested with cough. Will order chest x-ray. Patient's blood pressure also remains elevated. Lisinopril has been increased. At this time patient denies chest pain or shortness of breath. Patient denies nausea vomiting or diarrhea. Patient denies any urinary burning or frequency 07/09/2018 patient having asked episodes of urinary retention. Unfortunately bladder scanning had not been completed by nursing staff after Lee catheter was initially removed. Patient did have evidence of urinary retention Lee catheter had to be reinserted yesterday. Patient continued to have abdominal pain. Surgical service has ordered a repeat computed tomography scan abdomen and pelvis it is showing evidence of a leak and he is scheduled for surgery this afternoon. Yesterday he was having elevated blood pressures lisinopril was increased and patient did receive another dose of Lasix. Chest x-ray had shown consider possible mild early volume overload. At this time patient's lungs are clear he denies any shortness of breath. He and his cough has improved. Last blood pressure 148/82. Denies any chest pain or shortness breath. Denies any nausea or vomiting. Urine is a dark in color with possible blood. Likely due to Lee catheter trauma. 07/10/2018 patient is sitting on edge of bed leaning over and holding stomach, reporting lower abdominal pain. He is passing gas and having bowel movements. He does have Lee catheter still in place the urine is dark and Red. He was seen by urology they have added Flomax. Patient also received fluid bolus. And he is currently on normal saline with potassium at 75 mL an hour. Patient denies any chest pain or shortness of breath. Patient feels that it may be his bladder causing his symptoms. Nursing staff is checking with bladder scan. Surgical service has been notified about the abdominal pain. They're following closely. Patient medically to surgery yesterday because he was not having any abdominal pain and was stooling. He was given a regular diet this morning. 07/11/2018 patient is status post exploratory lap with partial colectomy, descending colostomy creation with divitalizd rectum, Padilla's procedure, abdominal lavage 6 L normal saline, application of Prevena extended, mobilization of splenic flexure. She currently has epidural and NG tube in place. Patient states improvement with abdominal pain since yesterday. Patient denies chest pain. Denies nausea vomiting or diarrhea. Patient denies any urinary burning or frequency catheter remains in place. Urine remains dark urology has been reconsulted. Objective - Vital Signs Vital signs: Vital Signs Temp 98.5 F 07/11/18 07:10 Pulse 99 07/11/18 07:10 Resp 12 07/11/18 07:10 BP 140/74 07/11/18 07:10 Pulse Ox 94 L 07/11/18 07:10 Intake & Output 07/10/18 07/11/18 07/11/18 18:59 06:59 18:59 Intake Total 2750 1630.117 900 Output Total 450 375 Balance 2300 1255.117 900 Intake: IV 2750 Intake, IV Titration 1630.117 900 Amount 0.9% NaCl with KCl 20 Meq 1600 800 /l 1,000 ml @ 100 mls/hr IV .Q10H DOMINGUEZ Rx#: [id number] Ropivacaine 250 mg 30.117 Hydromorphone (Pf) 5 mg In Sodium Chloride 0.9% 200 ml @ Per Protocol EPIDURAL .Q0M PRN Rx#: [id number] metroNIDAZOLE-NS PMX 500 100 mg In Saline 1 100ml.bag @ 100 mls/hr IVPB Q6H DOMINGUEZ Rx#:[id number] Output: Gastric Drainage 325 Drainage 50 Right Abdomen 50 Urine 350 Estimated Blood Loss 100 Other: Voiding Method Indwelling Catheter Indwelling Catheter Indwelling Catheter # Voids 50 - Exam Head normocephalic. Right nasal NG tube in place Neck supple Lungs clear to auscultation bilaterally no wheezing or crackles Heart regular rate and rhythm S1-S2, no rub or gallop Abdomen is soft nontender nondistended positive bowel sounds no hepatosplenomegaly. LAMONT tube in place Extremities no edema. Neuro alert and orientated to 3 - Labs CBC & Chem 7: 07/11/18 08:57 07/11/18 08:57 Labs: Abnormal Lab Results - Last 24 Hours (Table) 07/10/18 07/11/18 07/11/18 Range/Units 08:06 00:44 05:31 Neutrophils # (1.3-7.7) k/uL Lymphocytes # (1.0-4.8) k/uL Chloride (98-107) mmol/L BUN (9-20) mg/dL Glucose (74-99) mg/dL POC Glucose (mg/dL) 169 H 135 H (75-99) mg/dL Calcium (8.4-10.2) mg/dL Iron 16 L (65-175) ug/dL TIBC 192 L (228-460) ug/dL Iron Saturation 8.33 L (15.00-50.00) Total Protein (6.3-8.2) g/dL Albumin (3.5-5.0) g/dL 07/11/18 07/11/18 07/11/18 Range/Units 08:57 08:57 10:56 Neutrophils # 8.9 H (1.3-7.7) k/uL Lymphocytes # 0.5 L (1.0-4.8) k/uL Chloride 109 H (98-107) mmol/L BUN 25 H (9-20) mg/dL Glucose 135 H (74-99) mg/dL POC Glucose (mg/dL) 127 H (75-99) mg/dL Calcium 8.0 L (8.4-10.2) mg/dL Iron (65-175) ug/dL TIBC (228-460) ug/dL Iron Saturation (15.00-50.00) Total Protein 4.5 L (6.3-8.2) g/dL Albumin 2.4 L (3.5-5.0) g/dL Microbiology - Last 24 Hours (Table) 07/10/18 15:03 Gram Stain - Preliminary Other - Other Wound Culture - Preliminary 07/10/18 15:03 Anaerobic Culture - Preliminary Other - Other Assessment and Plan Assessment: Plan Assessment: #1 diverticulitis was history of perforated diverticulitis patient was admitted to [facility] and underwent low anterior resection, he also had a robotic cholecystectomy due to history of cholecystitis. Patient had repeat computed tomography scan abdomen and pelvis with evidence of leak. Patient underwent Exploratory laparotomy with partial colectomy, descending colostomy creation with devitalized rectum, Mariya's procedure, abdominal lavage 6 L normal saline, application of PREVENA extended, mobilization of splenic flexure with Dr. White. Infectious disease has been consulted #2 essential hypertension with elevated blood pressures. Blood pressures are showing improvement. Lisinopril had been increased to 20 mg daily #3 underlying history of benign prostatic hypertrophy #4 underlying history of diabetes mellitus 2. Patient refusing sliding scale coverage. Patient did have a blood sugar 88 this morning. Repeat blood sugar 106. We'll continue to monitor #5 previous history of coronary artery disease with previous history of myocardial infarction #6 wheezing with cough: Possible COPD exacerbation: Patient is a smoker. We'll add DuoNeb updrafts 4 times a day and monitor. Showing improvement. #7 urinary retention: Secondary to BPH and post op retention. Patient seen by urology. They have added Flomax. Continue Proscar and Cardura. Urology recommending voiding trial with the next couple a days. If not continue Flomax and follow-up outpatient for further evaluation #8 episodes of fluid overload patient has received IV Lasix. Resolved DVT prophylaxis subcu heparin and GI prophylaxis Pepcid I performed an examination of the patient and discussed their management with the physician Suction Roller. I have reviewed the Physician Suction Roller's notes and agree with the documented findings and plan of care #2 essential hypertension with elevated blood pressures. Blood pressures are showing improvement. Lisinopril had been increased to 20 mg daily #3 underlying history of benign prostatic hypertrophy #4 underlying history of diabetes mellitus 2. Patient refusing sliding scale coverage. Patient did have a blood sugar 88 this morning. Repeat blood sugar 106. We'll continue to monitor #5 previous history of coronary artery disease with previous history of myocardial infarction #6 wheezing with cough: Possible COPD exacerbation: Patient is a smoker. We'll add DuoNeb updrafts 4 times a day and monitor. Showing improvement. #7 urinary retention: Secondary to BPH and post op retention. Patient seen by urology. They have added Flomax. Continue Proscar and Cardura. Urology recommending voiding trial with the next couple a days. If not continue Flomax and follow-up outpatient for further evaluation #8 episodes of fluid overload patient has received IV Lasix. Resolved DVT prophylaxis subcu loveox and GI prophylaxis pepcid I performed an examination of the patient and discussed their management with the Nurse Practitioner. I have reviewed the Nurse Practitioner's notes and agree with the documented findings and plan of care
[2018-07-11] MEDS ORDERED: SODIUM FERRIC GLUCONAT-SUCROSE 125 MG in SODIUM CHLORIDE 0.9% 100 ML IVPB ONE (15:00)
[2018-07-11] MEDS ORDERED: SODIUM CHLORIDE 0.9% 1,000 ML IV ONE (17:01)
[2018-07-11] MEDS: TAMSULOSIN 0.4 MG CAP.ER.24H PO SCH (17:10)
[2018-07-11] MEDS: ROPIVACAINE 250 MG, HYDROMORPHONE (PF) 5 MG in SODIUM CHLORIDE 0.9% 200 ML EPIDURAL PRN (20:05)
[2018-07-11] MEDS: FINASTERIDE 5 MG TAB PO SCH (21:51)
[2018-07-11] MEDS: DOXAZOSIN 4 MG TAB PO SCH (21:51)
[2018-07-11] MEDS: LISINOPRIL 20 MG TAB PO SCH (21:51)
[2018-07-12 00:10] LABS: Glucose,Whole Blood 141 mg/dL (75-99)
[2018-07-12] MEDS: INSULIN ASPART 100 UNIT/ML 1 ML 10 ML VIAL SQ SCH ×4 (00:36→17:42)
[2018-07-12] MEDS: metroNIDAZOLE-NS PMX 500 MG in SALINE 1 100ML.BAG IVPB SCH ×4 (01:03→18:44)
[2018-07-12] MEDS: PIPERACILLIN-TAZOBACTAM 3.375 GM in SODIUM CHLORIDE 0.9% 100 ML IVPB SCH ×3 (01:03→14:56)
[2018-07-12] MEDS: ONDANSETRON 4 MG/2 ML VIAL IVP SCH ×3 (01:04→14:54)
--- NOTE | 2018-07-12 02:38 | CONS ---
CONSULTATION DATE OF SERVICE: 07/11/2018. REASON FOR CONSULTATION: Diverticulitis with peritonitis. HISTORY OF PRESENT ILLNESS: The patient is a 73-year-old, male presenting to the ER at [facility] a week ago on 07/03/2018. This patient presented to the hospital for sigmoid colon resection in this patient who does have a history of a sigmoid diverticulitis in the past. The patient was taken to the OR on 07/03/2018. The patient is status post laparoscopic cholecystectomy, laparoscopic low anterior resection with sigmoid colectomy. The patient has been admitted to the hospital for postop care, was doing well initially. However the last day or two, the patient seemed to be having problems with more abdominal pain. The patient did have a CT of the abdomen and pelvis completed on and the patient was noticed to have end-to-side distal sigmoid anastomosis with persistent inflammation and thickening and evidence of significant leak with prominent extraperitoneal gas tracking up the left side of abdominal retroperitoneal space. The patient subsequently was taken back to the OR yesterday evening for peritonitis and pneumoperitoneum. The patient is status post exploratory laparotomy with partial colectomy and descending colostomy creation with and Mariya pouch procedure. The patient did have intraabdominal cultures obtained which currently showing group D Enterococcus and cultures currently pending. The patient has been treated with Flagyl and cefazolin. Infectious Disease was consulted today for further recommendations regarding antibiotic therapy in this patient who did have a history of multiple antibiotic allergies. The patient did mention his abdominal pain has slightly improved compared to yesterday when it was almost 7 to 8/10 down to about 3 to 4 out of 10, with no radiation with associated nausea but no vomiting. Denies having any chest pain, shortness of breath or cough. REVIEW OF SYSTEMS: Constitutional: Positive for weakness. Eyes: No complaint. ENT no complaint. Respiratory no complaint. Cardiovascular no complaint. Genitourinary as per HPI. Gastroenterology as per HPI. Musculoskeletal no complaint. Genitourinary: No complaint. Psychological no complaint. Endocrine no complaint. Neurologic no complaint. PAST MEDICAL HISTORY: Hypertension, hyperlipidemia, LA, diabetes mellitus, prostate disorder, diverticulitis, irritable bowel syndrome. PAST SURGICAL HISTORY: Heart catheterization with stent, bilateral cataract surgery, trigger thumb release, colonoscopy. SOCIAL HISTORY: Patient current everyday smoker. No drinking or drug use. FAMILY HISTORY: Father with history of and congestive heart failure. Mother history of colon CA and LA. ALLERGIES: TO ASPIRIN, LEVOFLOXACIN, SULFA ANTIBIOTICS. MEDICATION: Include the patient is currently on [place], DuoNeb, aspirin, cefazolin 2 g q.8 hours, . Lovenox, iron sulfate. Proscar, Dilaudid. NovoLog, Zestril, Reglan, Flagyl, iron sulfate, Narcan and Zofran. PHYSICAL EXAMINATION: Blood pressure is 151/82 with a pulse of 82, temperature 98.2. He is 92% on room air. General description is an elderly male lying in bed in no distress. No tachypnea or accessory muscle of respiration use. HEENT: Shows slight pallor. No scleral icterus. Oral mucous membranes dry. No pharyngeal erythema or thrush. Neck: Trachea central. No thyromegaly. Lungs unlabored breathing with decreased breath sounds in the bases. No wheeze. Heart S1, S2. Regular rate and rhythm. ABDOMEN: Soft, mildly distended. No guarding and no rigidity. The patient did have abdominal wound currently covered with wound VAC. Colostomy with no output. EXTREMITIES: No edema of feet. SKIN examination: No rash or mass palpable. NEUROLOGICAL: Patient is awake, alert, oriented times three. Mood and affect normal. LABS: Hemoglobin is 13.6, white blood count 9.9 with BUN of 23, creatinine 0.84. Abdominal culture currently showing group D Enterococcus. DIAGNOSTIC IMPRESSION AND PLAN: Patient with secondary peritonitis. This patient who did have a anastomosis leak status post laparotomy with diverting colostomy. The likely organism E coli with both aerobes and anaerobes with abdominal culture now showing Enterococcus with an culture currently pending. PLAN: 1. Discontinue cefazolin. 2. Start the patient on Zosyn 3.375 g. . 3. We will follow up on clinical condition and culture to further adjust medication if needed. Thank you for this consultation. Will follow this patient along with you. MMODL / IJN: [id number] /
[2018-07-12 05:38] LABS: Glucose,Whole Blood 104 mg/dL (75-99)
[2018-07-12] MEDS: IPRATROPIUM-ALBUTEROL 3 ML NEB INHALATION SCH ×4 (07:03→19:29)
[2018-07-12] MEDS: PANTOPRAZOLE 40 MG/10 ML VIAL IV SCH (07:09)
[2018-07-12] MEDS: 0.9% NACL WITH KCL 20 MEQ/L 1,000 ML IV SCH ×2 (07:13→17:42)
[2018-07-12] MEDS: ENOXAPARIN 30 MG/0.3 ML SYRINGE SQ SCH (08:27)
[2018-07-12] MEDS: METOPROLOL TARTRATE 25 MG TAB PO SCH ×2 (08:27→20:52)
[2018-07-12] MEDS: ASPIRIN 81 MG PO SCH (08:28)
[2018-07-12 09:01] LABS: Basophils % (A) 0 %; Eosinophils # (A) 0.1 k/uL (0-0.7); Eosinophils % (A) 1 %; HCT 39.7 % (39.0-53.0); HGB 12.5 gm/dL (13.0-17.5); Lymphocytes # (A) 0.8 k/uL (1.0-4.8); Lymphocytes % (A) 8 %; MCH 30.8 pg (25.0-35.0); MCHC 31.6 g/dL (31.0-37.0); MCV 97.5 fL (80.0-100.0); Mean Platelet Volume 7.4; Monocytes # (A) 0.4 k/uL (0-1.0); Monocytes % (A) 4 %; Neutrophils # (A) 8.8 k/uL (1.3-7.7); Neutrophils % (A) 87 %; Platelet Count 209 k/uL (150-450); RBC 4.07 m/uL (4.30-5.90); RDW 13.9 % (11.5-15.5); WBC 10.2 k/uL (3.8-10.6)
--- NOTE | 2018-07-12 10:33 | P.PN ---
Subjective Progress Note Date: 07/12/18 Chris Borja is a 73-year-old male with chronic and recurrent history of sigmoid diverticulitis, with previous history of perforated diverticulitis, and history of cholecystitis, was admitted to [facility] by Dr. Lara and underwent a robotic low anterior resection and robotic cholecystectomy, patient was admitted to the medical floor, consultation was requested for management while hospitalized. On 07/05/2018 patient was seen and examined on the medical floor he is alert and oriented 3 in no apparent distress there is no fever or chills no headache or dizziness no chest pain no shortness of breath no cough no nausea or vomiting no abdominal pain and no urinary symptoms 07/06/2018 patient complaining of abdominal pain. Still not passing gas or having bowel movement. He is complaining of some nausea. No vomiting. Apparently he has been refusing the subcu heparin injections. Patient evaluated by surgical service this morning apparently epidural accidentally came out last night. And he's had increasing abdominal pain and some abdominal distention. They've ordered a computed tomography scan of the abdomen with contrast to further evaluate ileus versus leak. She's also ordered a CTA of the chest. At this time patient not is not complaining of any chest pain or shortness of breath. 07/07/2018 patient reports having bowel movement. Denies any nausea or vomiting. Surgical service advancing diet to clears. CTA of the chest was negative for PE or were concerns of some vascular congestion patient did receive a dose of IV Lasix yesterday. Patient is wheezing and mild cough today. Denies shortness of breath. DuoNeb updrafts have been ordered. Patient is now taking the subcu heparin. Blood pressures are elevated last blood pressure reading 172/85 patient denies any chest pain. Denies any nausea vomiting. Lee catheter scheduled to be removed today. On 07/08/2018 patient is currently sitting up in chair. Patient does report having a bowel movement. Patient is still congested with cough. Will order chest x-ray. Patient's blood pressure also remains elevated. Lisinopril has been increased. At this time patient denies chest pain or shortness of breath. Patient denies nausea vomiting or diarrhea. Patient denies any urinary burning or frequency 07/09/2018 patient having asked episodes of urinary retention. Unfortunately bladder scanning had not been completed by nursing staff after Lee catheter was initially removed. Patient did have evidence of urinary retention Lee catheter had to be reinserted yesterday. Patient continued to have abdominal pain. Surgical service has ordered a repeat computed tomography scan abdomen and pelvis it is showing evidence of a leak and he is scheduled for surgery this afternoon. Yesterday he was having elevated blood pressures lisinopril was increased and patient did receive another dose of Lasix. Chest x-ray had shown consider possible mild early volume overload. At this time patient's lungs are clear he denies any shortness of breath. He and his cough has improved. Last blood pressure 148/82. Denies any chest pain or shortness breath. Denies any nausea or vomiting. Urine is a dark in color with possible blood. Likely due to Lee catheter trauma. 07/10/2018 patient is sitting on edge of bed leaning over and holding stomach, reporting lower abdominal pain. He is passing gas and having bowel movements. He does have Lee catheter still in place the urine is dark and Red. He was seen by urology they have added Flomax. Patient also received fluid bolus. And he is currently on normal saline with potassium at 75 mL an hour. Patient denies any chest pain or shortness of breath. Patient feels that it may be his bladder causing his symptoms. Nursing staff is checking with bladder scan. Surgical service has been notified about the abdominal pain. They're following closely. Patient medically to surgery yesterday because he was not having any abdominal pain and was stooling. He was given a regular diet this morning. 07/11/2018 patient is status post exploratory lap with partial colectomy, descending colostomy creation with divitalizd rectum, Padilla's procedure, abdominal lavage 6 L normal saline, application of Prevena extended, mobilization of splenic flexure. She currently has epidural and NG tube in place. Patient states improvement with abdominal pain since yesterday. Patient denies chest pain. Denies nausea vomiting or diarrhea. Patient denies any urinary burning or frequency catheter remains in place. Urine remains dark urology has been reconsulted. On 07/12/2018 patient alert and oriented resting in bed. Patient is currently postop day 2. Patient has NG tube in place. Patient maintained on epidural. Lee catheter remains in place. Patient denies chest pain or shortness of breath. Patient denies nausea vomiting or diarrhea Objective - Vital Signs Vital signs: Vital Signs Temp 98 F 07/12/18 06:58 Pulse 94 07/12/18 06:58 Resp 12 07/12/18 06:58 BP 163/79 07/12/18 06:58 Pulse Ox 93 L 07/12/18 06:58 Intake & Output 07/11/18 07/12/18 07/12/18 18:59 06:59 18:59 Intake Total 900 1949.883 Output Total 860 875 90 Balance 40 1074.883 -90 Intake: Intake, IV Titration 900 1949.883 Amount 0.9% NaCl with KCl 20 Meq 800 1600 /l 1,000 ml @ 100 mls/hr IV .Q10H DOMINGUEZ Rx#: [id number] Piperacillin-Tazobactam 3 100 .375 gm In Sodium Chloride 0.9% 100 ml @ 25 mls/hr IVPB Q8HR DOMINGUEZ Rx# :[id number] Ropivacaine 250 mg 149.883 Hydromorphone (Pf) 5 mg In Sodium Chloride 0.9% 200 ml @ Per Protocol EPIDURAL .Q0M PRN Rx#: [id number] metroNIDAZOLE-NS PMX 500 100 100 mg In Saline 1 100ml.bag @ 100 mls/hr IVPB Q6H DOMINGUEZ Rx#:[id number] Output: Gastric Drainage 475 200 Drainage 60 175 90 Right Abdomen 60 175 90 Urine 325 500 Uretheral (Lee) 150 Other: Voiding Method Indwelling Catheter Indwelling Catheter Indwelling Catheter # Voids 50 - Exam Head normocephalic. Right nasal NG tube in place Neck supple Lungs clear to auscultation bilaterally no wheezing or crackles Heart regular rate and rhythm S1-S2, no rub or gallop Abdomen is soft nontender nondistended positive bowel sounds no hepatosplenomegaly. LAMONT tube in place Extremities no edema. Neuro alert and orientated to 3 - Labs CBC & Chem 7: 07/12/18 07:50 07/11/18 08:57 Labs: Abnormal Lab Results - Last 24 Hours (Table) 07/11/18 07/11/18 07/12/18 Range/Units 10:56 23:58 05:27 RBC (4.30-5.90) m/uL Hgb (13.0-17.5) gm/dL Neutrophils # (1.3-7.7) k/uL Lymphocytes # (1.0-4.8) k/uL POC Glucose (mg/dL) 127 H 141 H 104 H (75-99) mg/dL 07/12/18 Range/Units 07:50 RBC 4.07 L (4.30-5.90) m/uL Hgb 12.5 L (13.0-17.5) gm/dL Neutrophils # 8.8 H (1.3-7.7) k/uL Lymphocytes # 0.8 L (1.0-4.8) k/uL POC Glucose (mg/dL) (75-99) mg/dL Microbiology - Last 24 Hours (Table) 07/10/18 15:03 Gram Stain - Preliminary Other - Other Wound Culture - Preliminary Group D Enterococcus Assessment and Plan Assessment: Plan Assessment: #1 diverticulitis was history of perforated diverticulitis patient was admitted to [facility] and underwent low anterior resection, he also had a robotic cholecystectomy due to history of cholecystitis. Patient had repeat computed tomography scan abdomen and pelvis with evidence of leak. Patient underwent Exploratory laparotomy with partial colectomy, descending colostomy creation with devitalized rectum, Mariya's procedure, abdominal lavage 6 L normal saline, application of PREVENA extended, mobilization of splenic flexure with Dr. White. Per infectious disease patient has been switched to Zosyn for antibiotics. Cultures pending. #2 essential hypertension with elevated blood pressures. Blood pressures are showing improvement. Lisinopril had been increased to 20 mg daily #3 underlying history of benign prostatic hypertrophy #4 underlying history of diabetes mellitus 2. Patient refusing sliding scale coverage. Patient did have a blood sugar 88 this morning. Repeat blood sugar 106. We'll continue to monitor #5 previous history of coronary artery disease with previous history of myocardial infarction #6 wheezing with cough: Possible COPD exacerbation: Patient is a smoker. We'll add DuoNeb updrafts 4 times a day and monitor. Showing improvement. #7 urinary retention: Secondary to BPH and post op retention. Patient seen by urology. They have added Flomax. Continue Proscar and Cardura. Urology recommending voiding trial with the next couple a days. If not continue Flomax and follow-up outpatient for further evaluation #8 episodes of fluid overload patient has received IV Lasix. Resolved #9 iron deficiency anemia. IV iron has been ordered DVT prophylaxis subcu loveox and GI prophylaxis pepcid I performed an examination of the patient and discussed their management with the Nurse Practitioner. I have reviewed the Nurse Practitioner's notes and agree with the documented findings and plan of care
[2018-07-12 11:41] LABS: Glucose,Whole Blood 96 mg/dL (75-99)
[2018-07-12] MEDS ORDERED: BENZOCAINE/MENTHOL LOZENG 1 EACH LOZENGE MUCOUS MEM PRN (12:27)
--- NOTE | 2018-07-12 12:30 | P.PN ---
Subjective Progress Note Date: 07/12/18 CHIEF COMPLAINT: Diverticulitis HISTORY OF PRESENT ILLNESS: The patient is a 73-year-old gentleman status post robotic-assisted low anterior resection, postop day 9 from his index operation and POD 2, Mariya's procedure for blow out of his colonic anastomosis. He is ambulating in the hallway with walker. No nausea. He feels well. No shortness of breath. No flatus in ostomy. PHYSICAL EXAM: VITAL SIGNS: Reviewed GENERAL: Well-developed in no acute distress. HEENT: No sclera icterus. Extraocular movements grossly intact. Moist buccal mucosa. Head is atraumatic, normocephalic. Hears conversational speech. No nasal drainage. Has NGT NECK: Supple without lymphadenopathy. CHEST: Non-labored respirations and equal bilateral excursions. CARDIOVASCULAR: Palpable 2+ radial pulses. Regular rate and regular rhythm ABDOMEN: Soft. Non-distended. Midline incision intact with PREVENA. LAMONT is serous. MUSCULOSKELETAL: No clubbing, cyanosis. NEUROLOGIC: No focal or lateralizing signs. Cranial nerves II through XII grossly intact. Epidural present. PSYCH: Appropriate affect. Alert and oriented to person, place and time. SKIN: Well perfused. Good skin turgor. : Urine is clear yellow LABS: Reviewed STUDIES: Reviewed ASSESSMENT: 1. History of perforated diverticulitis 2. Chronic abdominal pain 3. Medical noncompliance to postoperative care 4. History of tobacco abuse 5. History of cholecystectomy 6. Status post sigmoid colectomy 7. Moderate to severe obstructive uropathy secondary to benign prostatic hypertrophy preexistent to surgery 8. Gastroesophageal reflux disease 9. Abnormal CT of the abdomen and pelvis 10. History of tobacco abuse. 11. 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 Await passage of flatus prior to discontinuing NGT due to false passage present in nasopharynx 2. Will start liquids 3. Continue IV antibiotics. Objective - Vital Signs Vital signs: Vital Signs Temp 98 F 07/12/18 06:58 Pulse 94 07/12/18 06:58 Resp 12 07/12/18 06:58 BP 163/79 07/12/18 06:58 Pulse Ox 93 L 07/12/18 06:58 Intake & Output 07/11/18 07/12/18 07/12/18 18:59 06:59 18:59 Intake Total 900 1949.883 900 Output Total 860 875 520 Balance 40 1074.883 380 Intake: Intake, IV Titration 900 1949.883 900 Amount 0.9% NaCl with KCl 20 Meq 800 1600 700 /l 1,000 ml @ 100 mls/hr IV .Q10H [facility] Rx#: [id number] Piperacillin-Tazobactam 3 100 100 .375 gm In Sodium Chloride 0.9% 100 ml @ 25 mls/hr IVPB Q8HR [facility] Rx# :[id number] Ropivacaine 250 mg 149.883 Hydromorphone (Pf) 5 mg In Sodium Chloride 0.9% 200 ml @ Per Protocol EPIDURAL .Q0M PRN Rx#: [id number] Sodium Ferric Gluconat- 100 Sucrose 125 mg In Sodium Chloride 0.9% 100 ml @ 100 mls/hr IVPB DAILY [facility] Rx#:[id number] metroNIDAZOLE-NS PMX 500 100 100 mg In Saline 1 100ml.bag @ 100 mls/hr IVPB Q6H [facility] Rx#:[id number] Output: Gastric Drainage 475 200 Drainage 60 175 120 Right Abdomen 60 175 120 Urine 325 500 400 Uretheral (Lee) 150 Other: Voiding Method Indwelling Catheter Indwelling Catheter Indwelling Catheter # Voids 50 - Labs CBC & Chem 7: 07/12/18 07:50 07/11/18 08:57 Labs: Abnormal Lab Results - Last 24 Hours (Table) 07/11/18 07/12/18 07/12/18 Range/Units 23:58 05:27 07:50 RBC 4.07 L (4.30-5.90) m/uL Hgb 12.5 L (13.0-17.5) gm/dL Neutrophils # 8.8 H (1.3-7.7) k/uL Lymphocytes # 0.8 L (1.0-4.8) k/uL POC Glucose (mg/dL) 141 H 104 H (75-99) mg/dL Microbiology - Last 24 Hours (Table) 07/10/18 15:03 Gram Stain - Preliminary Other - Other Wound Culture - Preliminary Group D Enterococcus Assessment and Plan (1) Medically noncompliant Current Visit: Yes Status: Acute Code(s): Z91.19 - PATIENT'S NONCOMPLIANCE W OTH MEDICAL TREATMENT AND REGIMEN SNOMED Code(s): 908889891 (2) Enlarged prostate with lower urinary tract symptoms (LUTS) Current Visit: Yes Status: Acute Code(s): N40.1 - BENIGN PROSTATIC HYPERPLASIA WITH LOWER URINARY TRACT SYMP SNOMED Code(s): 260551942 (3) Coronary artery disease Current Visit: No Status: Acute Code(s): I25.10 - ATHSCL HEART DISEASE OF [place] CORONARY ARTERY W/O ANG PCTRS SNOMED Code(s): 53847566 (4) Diabetes mellitus Current Visit: No Status: Acute Code(s): E11.9 - TYPE 2 DIABETES MELLITUS WITHOUT COMPLICATIONS SNOMED Code(s): 12428205 (5) Diverticulitis Current Visit: No Status: Acute Code(s): K57.92 - DVTRCLI OF INTEST, PART UNSP, W/O PERF OR ABSCESS W/O BLEED SNOMED Code(s): 137757377 (6) Gastroesophageal reflux disease Current Visit: No Status: Acute Code(s): K21.9 - GASTRO-ESOPHAGEAL REFLUX DISEASE WITHOUT ESOPHAGITIS SNOMED Code(s): 232500909 (7) History of myocardial infarction Current Visit: No Status: Acute Code(s): I25.2 - OLD MYOCARDIAL INFARCTION SNOMED Code(s): 326256860 (8) Hypertensive heart disease Current Visit: No Status: Acute Code(s): I11.9 - HYPERTENSIVE HEART DISEASE WITHOUT HEART FAILURE SNOMED Code(s): 03330146 (9) Perforation of sigmoid colon due to diverticulitis Current Visit: No Status: Acute Code(s): K57.20 - DVTRCLI OF LG INT W PERFORATION AND ABSCESS W/O BLEEDING SNOMED Code(s): 2070596406803524 (10) Prostate hypertrophy Current Visit: No Status: Acute Code(s): N40.0 - BENIGN PROSTATIC HYPERPLASIA WITHOUT LOWER URINRY TRACT SYMP SNOMED Code(s): 476429419 (11) Abnormal abdominal CT scan Current Visit: Yes Status: Acute Code(s): R93.5 - ABN FINDINGS ON DX IMAGING OF ABD REGIONS, INC RETROPERITON SNOMED Code(s): 45697264964642782 (12) Colostomy in place Current Visit: Yes Status: Acute Code(s): Z93.3 - COLOSTOMY STATUS SNOMED Code(s): 193409004 (13) Ascites Current Visit: Yes Status: Acute Code(s): R18.8 - OTHER ASCITES SNOMED Code(s): 445289001 (14) Peritonitis (acute) generalized Current Visit: Yes Status: Acute Code(s): K65.0 - GENERALIZED (ACUTE) PERITONITIS SNOMED Code(s): 43642330
[2018-07-12] MEDS: SODIUM FERRIC GLUCONAT-SUCROSE 125 MG in SODIUM CHLORIDE 0.9% 100 ML IVPB SCH (12:35)
[2018-07-12 17:21] LABS: Glucose,Whole Blood 99 mg/dL (75-99)
[2018-07-12] MEDS: TAMSULOSIN 0.4 MG CAP.ER.24H PO SCH (18:44)
[2018-07-12] MEDS: ROPIVACAINE 250 MG, HYDROMORPHONE (PF) 5 MG in SODIUM CHLORIDE 0.9% 200 ML EPIDURAL PRN (19:23)
--- NOTE | 2018-07-12 20:11 | P.PN ---
Progress Note - Text 07/11 2010 -year-old female status post exploratory lap with colostomy. Patient has an epidural catheter for postop pain control with the solution running at 9 mL an hour. has a VAS of 1 with no motor or sensory deficits. Plan to continue epidural infusion
[2018-07-12] MEDS: DOXAZOSIN 4 MG TAB PO SCH (20:52)
[2018-07-12] MEDS: LISINOPRIL 20 MG TAB PO SCH (20:52)
[2018-07-12] MEDS: FINASTERIDE 5 MG TAB PO SCH (20:53)
[2018-07-13 00:26] LABS: Glucose,Whole Blood 100 mg/dL (75-99)
[2018-07-13] MEDS: INSULIN ASPART 100 UNIT/ML 1 ML 10 ML VIAL SQ SCH ×4 (00:28→17:40)
[2018-07-13] MEDS: PIPERACILLIN-TAZOBACTAM 3.375 GM in SODIUM CHLORIDE 0.9% 100 ML IVPB SCH ×3 (00:28→15:23)
[2018-07-13] MEDS: metroNIDAZOLE-NS PMX 500 MG in SALINE 1 100ML.BAG IVPB SCH ×5 (00:28→23:14)
[2018-07-13] MEDS: ONDANSETRON 4 MG/2 ML VIAL IVP SCH ×3 (00:30→15:23)
--- NOTE | 2018-07-13 00:32 | PN ---
PROGRESS NOTE DATE OF SERVICE: 07/12/2018. REASON FOR FOLLOWUP: Secondary peritonitis. INTERVAL HISTORY: The patient is currently afebrile. He is breathing comfortably. Denies any chest pain or shortness of breath. Occasional cough. Denies any worsening abdominal pain, nausea and vomiting. No output in the colostomy bag. PHYSICAL EXAMINATION: Blood pressure 150/72 with a pulse of 78, temperature 98.4. He is 93% on room air. General description is an elderly male lying in bed in no distress. Respiratory system: Unlabored breathing. Clear to auscultation anteriorly. Heart S1, S2. Regular rate and rhythm. Abdomen soft, mildly distended. No guarding or rigidity. Extremities: Some edema of the feet. LABS: Hemoglobin 12.5, white count 10.2. The abdominal cultures with Enterococcus faecium and faecalis. DIAGNOSTIC IMPRESSION AND PLAN: Patient with abdominal sepsis. Cultures with the Enterococcus faecium and faecalis, to the vancomycin and add daptomycin continue . MMODL / IJN: [id number] /
[2018-07-13] MEDS: 0.9% NACL WITH KCL 20 MEQ/L 1,000 ML IV SCH ×3 (04:51→22:53)
[2018-07-13 05:47] LABS: Glucose,Whole Blood 78 mg/dL (75-99)
[2018-07-13 06:57] LABS: Basophils % (A) 0 %; Eosinophils # (A) 0.2 k/uL (0-0.7); Eosinophils % (A) 2 %; HCT 40.1 % (39.0-53.0); HGB 12.5 gm/dL (13.0-17.5); Hypochromasia Slight; Lymphocytes # (A) 0.9 k/uL (1.0-4.8); Lymphocytes % (A) 8 %; MCH 30.7 pg (25.0-35.0); MCHC 31.2 g/dL (31.0-37.0); MCV 98.2 fL (80.0-100.0); Mean Platelet Volume 6.7; Monocytes # (A) 0.4 k/uL (0-1.0); Monocytes % (A) 4 %; Neutrophils % (A) 85 %; Platelet Count 251 k/uL (150-450); RBC 4.09 m/uL (4.30-5.90); RDW 13.7 % (11.5-15.5); WBC 10.6 k/uL (3.8-10.6)
[2018-07-13 07:15] LABS: ALT 24 U/L (21-72); AST 28 U/L (17-59); Albumin 2.2 g/dL (3.5-5.0); Alkaline Phosphatase 48 U/L (38-126); Anion Gap 5 mmol/L; Blood Urea Nitrogen 20 mg/dL (9-20); Carbon Dioxide 26 mmol/L (22-30); Chloride 112 mmol/L (98-107); Glucose 89 mg/dL (74-99); Potassium 4.2 mmol/L (3.5-5.1); Sodium 143 mmol/L (137-145); Total Bilirubin 0.5 mg/dL (0.2-1.3); Total Protein 4.4 g/dL (6.3-8.2)
[2018-07-13] MEDS: METOPROLOL TARTRATE 25 MG TAB PO SCH ×2 (07:22→22:53)
[2018-07-13] MEDS: PANTOPRAZOLE 40 MG/10 ML VIAL IV SCH (07:22)
[2018-07-13] MEDS: ENOXAPARIN 30 MG/0.3 ML SYRINGE SQ SCH (07:23)
[2018-07-13] MEDS: SODIUM FERRIC GLUCONAT-SUCROSE 125 MG in SODIUM CHLORIDE 0.9% 100 ML IVPB SCH (09:24)
[2018-07-13] MEDS: IPRATROPIUM-ALBUTEROL 3 ML NEB INHALATION SCH ×4 (09:32→21:17)
--- NOTE | 2018-07-13 11:25 | P.PN ---
Subjective Progress Note Date: 07/13/18 Chris Borja is a 73-year-old male with chronic and recurrent history of sigmoid diverticulitis, with previous history of perforated diverticulitis, and history of cholecystitis, was admitted to [facility] by Dr. Lara and underwent a robotic low anterior resection and robotic cholecystectomy, patient was admitted to the medical floor, consultation was requested for management while hospitalized. On 07/05/2018 patient was seen and examined on the medical floor he is alert and oriented 3 in no apparent distress there is no fever or chills no headache or dizziness no chest pain no shortness of breath no cough no nausea or vomiting no abdominal pain and no urinary symptoms 07/06/2018 patient complaining of abdominal pain. Still not passing gas or having bowel movement. He is complaining of some nausea. No vomiting. Apparently he has been refusing the subcu heparin injections. Patient evaluated by surgical service this morning apparently epidural accidentally came out last night. And he's had increasing abdominal pain and some abdominal distention. They've ordered a computed tomography scan of the abdomen with contrast to further evaluate ileus versus leak. She's also ordered a CTA of the chest. At this time patient not is not complaining of any chest pain or shortness of breath. 07/07/2018 patient reports having bowel movement. Denies any nausea or vomiting. Surgical service advancing diet to clears. CTA of the chest was negative for PE or were concerns of some vascular congestion patient did receive a dose of IV Lasix yesterday. Patient is wheezing and mild cough today. Denies shortness of breath. DuoNeb updrafts have been ordered. Patient is now taking the subcu heparin. Blood pressures are elevated last blood pressure reading 172/85 patient denies any chest pain. Denies any nausea vomiting. Lee catheter scheduled to be removed today. On 07/08/2018 patient is currently sitting up in chair. Patient does report having a bowel movement. Patient is still congested with cough. Will order chest x-ray. Patient's blood pressure also remains elevated. Lisinopril has been increased. At this time patient denies chest pain or shortness of breath. Patient denies nausea vomiting or diarrhea. Patient denies any urinary burning or frequency 07/09/2018 patient having asked episodes of urinary retention. Unfortunately bladder scanning had not been completed by nursing staff after Lee catheter was initially removed. Patient did have evidence of urinary retention Lee catheter had to be reinserted yesterday. Patient continued to have abdominal pain. Surgical service has ordered a repeat computed tomography scan abdomen and pelvis it is showing evidence of a leak and he is scheduled for surgery this afternoon. Yesterday he was having elevated blood pressures lisinopril was increased and patient did receive another dose of Lasix. Chest x-ray had shown consider possible mild early volume overload. At this time patient's lungs are clear he denies any shortness of breath. He and his cough has improved. Last blood pressure 148/82. Denies any chest pain or shortness breath. Denies any nausea or vomiting. Urine is a dark in color with possible blood. Likely due to Lee catheter trauma. 07/10/2018 patient is sitting on edge of bed leaning over and holding stomach, reporting lower abdominal pain. He is passing gas and having bowel movements. He does have Lee catheter still in place the urine is dark and red. He was seen by urology they have added Flomax. Patient also received fluid bolus. And he is currently on normal saline with potassium at 75 mL an hour. Patient denies any chest pain or shortness of breath. Patient feels that it may be his bladder causing his symptoms. Nursing staff is checking with bladder scan. Surgical service has been notified about the abdominal pain. They're following closely. Patient medically to surgery yesterday because he was not having any abdominal pain and was stooling. He was given a regular diet this morning. 07/13/2018 patient is scheduled for epidural to be removed later today. Reports that his pain is controlled. Denies any nausea or vomiting. Denies any chest pain or shortness of breath. Does admit to mild cough. Cells Lee catheter in place. Urine is clearing. Patient does report ambulating in the hallway but feeling short of breath afterwards and tired Objective - Vital Signs Vital signs: Vital Signs Temp 98.8 F 07/13/18 07:48 Pulse 83 07/13/18 07:48 Resp 16 07/13/18 07:48 BP 164/78 07/13/18 09:35 Pulse Ox 93 L 07/13/18 07:48 Intake & Output 07/12/18 07/13/18 07/13/18 18:59 06:59 18:59 Intake Total 900 209.7 100 Output Total 1420 855 10 Balance -520 -645.3 90 Intake: Intake, IV Titration 900 209.7 100 Amount 0.9% NaCl with KCl 20 Meq 700 /l 1,000 ml @ 100 mls/hr IV .Q10H [facility] Rx#: [id number] Piperacillin-Tazobactam 3 100 .375 gm In Sodium Chloride 0.9% 100 ml @ 25 mls/hr IVPB Q8HR [facility] Rx# :[id number] Ropivacaine 250 mg 209.7 Hydromorphone (Pf) 5 mg In Sodium Chloride 0.9% 200 ml @ Per Protocol EPIDURAL .Q0M PRN Rx#: [id number] Sodium Ferric Gluconat- 100 Sucrose 125 mg In Sodium Chloride 0.9% 100 ml @ 100 mls/hr IVPB DAILY [facility] Rx#:[id number] metroNIDAZOLE-NS PMX 500 100 mg In Saline 1 100ml.bag @ 100 mls/hr IVPB Q6H [facility] Rx#:[id number] Output: Gastric Drainage 500 Drainage 170 55 10 Right Abdomen 170 55 10 Urine 750 800 Other: Voiding Method Indwelling Catheter Indwelling Catheter Indwelling Catheter - Exam Head normocephalic Neck supple Lungs coarse breath sounds that improved with cough Heart regular rate and rhythm S1-S2, no rub or gallop Abdomen is distended lower abdominal tenderness Extremities trace edema bilateral lower extremities Neuro alert and orientated to 3 - Labs CBC & Chem 7: 07/13/18 06:13 07/13/18 06:13 Labs: Abnormal Lab Results - Last 24 Hours (Table) 07/13/18 07/13/18 07/13/18 Range/Units 00:14 06:13 06:13 RBC 4.09 L (4.30-5.90) m/uL Hgb 12.5 L (13.0-17.5) gm/dL Neutrophils # 9.0 H (1.3-7.7) k/uL Lymphocytes # 0.9 L (1.0-4.8) k/uL Chloride 112 H (98-107) mmol/L POC Glucose (mg/dL) 100 H (75-99) mg/dL Calcium 8.0 L (8.4-10.2) mg/dL Total Protein 4.4 L (6.3-8.2) g/dL Albumin 2.2 L (3.5-5.0) g/dL Microbiology - Last 24 Hours (Table) 07/10/18 15:03 Gram Stain - Final Other - Other Wound Culture - Final Enterococcus faecium Enterococcus faecalis 07/10/18 15:03 Anaerobic Culture - Preliminary Other - Other Assessment and Plan Assessment: #1 diverticulitis was history of perforated diverticulitis patient was admitted to [facility] and underwent low anterior resection, he also had a robotic cholecystectomy due to history of cholecystitis. Patient had repeat computed tomography scan abdomen and pelvis with evidence of leak. Patient underwent Exploratory laparotomy with partial colectomy, descending colostomy creation with devitalized rectum, Mariya's procedure, abdominal lavage 6 L normal saline, application of PREVENA extended, mobilization of splenic flexure with Dr. White. Per infectious disease patient has been switched to Zosyn and daptomycin for antibiotics. Cultures pending. #2 essential hypertension with elevated blood pressures. Blood pressures are showing improvement. Lisinopril had been increased to 20 mg daily #3 underlying history of benign prostatic hypertrophy #4 underlying history of diabetes mellitus 2. Patient refusing sliding scale coverage. Patient did have a blood sugar 88 this morning. Repeat blood sugar 106. We'll continue to monitor #5 previous history of coronary artery disease with previous history of myocardial infarction #6 wheezing with cough: Possible COPD exacerbation: Patient is a smoker. We'll add DuoNeb updrafts 4 times a day and monitor. Showing improvement. #7 urinary retention: Secondary to BPH and post op retention. Patient seen by urology. They have added Flomax. Continue Proscar and Cardura. Urology recommending voiding trial with the next couple a days. If not continue Flomax and follow-up outpatient for further evaluation #8 episodes of fluid overload patient has received IV Lasix. Resolved #9 iron deficiency anemia. IV iron has been ordered DVT prophylaxis subcu loveox and GI prophylaxis pepcid I performed an examination of the patient and discussed their management with the physician [employer]. I have reviewed the Physician [employer]'s notes and agree with the documented findings and plan of care
--- NOTE | 2018-07-13 11:38 | P.PN ---
<Kym Wiley Dudley - Last Filed: 07/13/18 11:28> Subjective Progress Note Date: 07/13/18 CHIEF COMPLAINT: Diverticulitis HISTORY OF PRESENT ILLNESS: The patient is a 73-year-old gentleman status post robotic-assisted low anterior resection, postop day 10 from his index operation and POD 3, Mariya's procedure for blow out of his colonic anastomosis. Patient states his pain is tolerable this morning. Complaining of epidural itching and requesting to have it removed today. Also requesting NG to be removed. Ostomy changed this morning. No stool. Patient reports gas in ostomy bag. Tolerating clear liquid diet. PHYSICAL EXAM: VITAL SIGNS: Reviewed GENERAL: Well-developed in no acute distress. HEENT: NG tube to LIS. No sclera icterus. Extraocular movements grossly intact. Moist buccal mucosa. Head is atraumatic, normocephalic. Hears conversational speech. No nasal drainage. NECK: Supple without lymphadenopathy. CHEST: Non-labored respirations and equal bilateral excursions. CARDIOVASCULAR: Palpable 2+ radial pulses. Regular rate and regular rhythm ABDOMEN: Soft. Non-distended. Midline incision intact with PREVENA. LAMONT drain intact with serous drainage. MUSCULOSKELETAL: No clubbing, cyanosis. NEUROLOGIC: No focal or lateralizing signs. Cranial nerves II through XII grossly intact. Epidural present. PSYCH: Appropriate affect. Alert and oriented to person, place and time. SKIN: Well perfused. Good skin turgor. ASSESSMENT: 1. History of perforated diverticulitis 2. Chronic abdominal pain 3. Medical noncompliance to postoperative care 4. History of tobacco abuse 5. History of cholecystectomy 6. Status post sigmoid colectomy 7. Moderate to severe obstructive uropathy secondary to benign prostatic hypertrophy preexistent to surgery 8. Gastroesophageal reflux disease 9. Abnormal CT of the abdomen and pelvis 10. History of tobacco abuse. 11. 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 Await return of bowel function prior to discontinuing NGT due to false passage present in nasopharynx 2. Patient received Lovenox this morning. Epidural may be discontinued 12 hours after last dose of Lovenox given. 3. Continue clear liquid diet 4. Continue urinary catheter 5. Increase activity. Patient encouraged to ambulate in hallway 6. Toradol 15mg Q6 scheduled after epidural is discontinued Nurse practitioner note has been reviewed by physician. Signing provider agrees with the documented findings, assessment, and plan of care. Objective - Vital Signs Vital signs: Vital Signs Temp 98.8 F 07/13/18 07:48 Pulse 83 07/13/18 07:48 Resp 16 07/13/18 07:48 BP 164/78 07/13/18 09:35 Pulse Ox 93 L 07/13/18 07:48 Intake & Output 07/12/18 07/13/18 07/13/18 18:59 06:59 18:59 Intake Total 900 209.7 100 Output Total 1420 855 330 Balance -520 -645.3 -230 Intake: Intake, IV Titration 900 209.7 100 Amount 0.9% NaCl with KCl 20 Meq 700 /l 1,000 ml @ 100 mls/hr IV .Q10H [facility] Rx#: [id number] Piperacillin-Tazobactam 3 100 .375 gm In Sodium Chloride 0.9% 100 ml @ 25 mls/hr IVPB Q8HR [facility] Rx# :[id number] Ropivacaine 250 mg 209.7 Hydromorphone (Pf) 5 mg In Sodium Chloride 0.9% 200 ml @ Per Protocol EPIDURAL .Q0M PRN Rx#: [id number] Sodium Ferric Gluconat- 100 Sucrose 125 mg In Sodium Chloride 0.9% 100 ml @ 100 mls/hr IVPB DAILY [facility] Rx#:[id number] metroNIDAZOLE-NS PMX 500 100 mg In Saline 1 100ml.bag @ 100 mls/hr IVPB Q6H [facility] Rx#:[id number] Output: Gastric Drainage 500 Drainage 170 55 30 Right Abdomen 170 55 30 Urine 750 800 300 Uretheral (Lee) 300 Other: Voiding Method Indwelling Catheter Indwelling Catheter Indwelling Catheter - Labs CBC & Chem 7: 07/13/18 06:13 07/13/18 06:13 Labs: Abnormal Lab Results - Last 24 Hours (Table) 07/13/18 07/13/18 07/13/18 Range/Units 00:14 06:13 06:13 RBC 4.09 L (4.30-5.90) m/uL Hgb 12.5 L (13.0-17.5) gm/dL Neutrophils # 9.0 H (1.3-7.7) k/uL Lymphocytes # 0.9 L (1.0-4.8) k/uL Chloride 112 H (98-107) mmol/L POC Glucose (mg/dL) 100 H (75-99) mg/dL Calcium 8.0 L (8.4-10.2) mg/dL Total Protein 4.4 L (6.3-8.2) g/dL Albumin 2.2 L (3.5-5.0) g/dL Microbiology - Last 24 Hours (Table) 07/10/18 15:03 Gram Stain - Final Other - Other Wound Culture - Final Enterococcus faecium Enterococcus faecalis 07/10/18 15:03 Anaerobic Culture - Preliminary Other - Other Assessment and Plan (1) Enlarged prostate with lower urinary tract symptoms (LUTS) Current Visit: Yes Status: Acute Code(s): N40.1 - BENIGN PROSTATIC HYPERPLASIA WITH LOWER URINARY TRACT SYMP SNOMED Code(s): 829159258 (2) Medically noncompliant Current Visit: Yes Status: Acute Code(s): Z91.19 - PATIENT'S NONCOMPLIANCE W OTH MEDICAL TREATMENT AND REGIMEN SNOMED Code(s): 791368467 (3) Abdominal pain Current Visit: No Status: Acute Code(s): R10.9 - UNSPECIFIED ABDOMINAL PAIN SNOMED Code(s): 34533850 (4) Coronary artery disease Current Visit: No Status: Acute Code(s): I25.10 - ATHSCL HEART DISEASE OF [place] CORONARY ARTERY W/O ANG PCTRS SNOMED Code(s): 62728372 (5) Diverticulitis Current Visit: No Status: Acute Code(s): K57.92 - DVTRCLI OF INTEST, PART UNSP, W/O PERF OR ABSCESS W/O BLEED SNOMED Code(s): 657289288 (6) Hypertensive heart disease Current Visit: No Status: Acute Code(s): I11.9 - HYPERTENSIVE HEART DISEASE WITHOUT HEART FAILURE SNOMED Code(s): 37248079 (7) Perforation of sigmoid colon due to diverticulitis Current Visit: No Status: Acute Code(s): K57.20 - DVTRCLI OF LG INT W PERFORATION AND ABSCESS W/O BLEEDING SNOMED Code(s): 7033689954151728 (8) Prostate hypertrophy Current Visit: No Status: Acute Code(s): N40.0 - BENIGN PROSTATIC HYPERPLASIA WITHOUT LOWER URINRY TRACT SYMP SNOMED Code(s): 473842567 <Bev Lara N - Last Filed: 07/13/18 16:27> Objective - Vital Signs Vital signs: Vital Signs Temp 98.1 F 07/13/18 14:57 Pulse 75 07/13/18 14:57 Resp 16 07/13/18 14:57 BP 182/69 07/13/18 14:57 Pulse Ox 93 L 07/13/18 14:57 Intake & Output 07/12/18 07/13/18 07/13/18 18:59 06:59 18:59 Intake Total 900 209.7 100 Output Total 1420 855 530 Balance -520 -645.3 -430 Weight 95.708 kg Intake: Intake, IV Titration 900 209.7 100 Amount 0.9% NaCl with KCl 20 Meq 700 /l 1,000 ml @ 100 mls/hr IV .Q10H [facility] Rx#: [id number] Piperacillin-Tazobactam 3 100 .375 gm In Sodium Chloride 0.9% 100 ml @ 25 mls/hr IVPB Q8HR [facility] Rx# :[id number] Ropivacaine 250 mg 209.7 Hydromorphone (Pf) 5 mg In Sodium Chloride 0.9% 200 ml @ Per Protocol EPIDURAL .Q0M [facility]N Rx#: [id number] Sodium Ferric Gluconat- 100 Sucrose 125 mg In Sodium Chloride 0.9% 100 ml @ 100 mls/hr IVPB DAILY [facility] Rx#:[id number] metroNIDAZOLE-NS PMX 500 100 mg In Saline 1 100ml.bag @ 100 mls/hr IVPB Q6H [facility] Rx#:[id number] Output: Gastric Drainage 500 Drainage 170 55 30 Right Abdomen 170 55 30 Urine 750 800 500 Uretheral (Lee) 300 Other: Voiding Method Indwelling Catheter Indwelling Catheter Indwelling Catheter - Labs CBC & Chem 7: 07/13/18 06:13 07/13/18 06:13 Labs: Abnormal Lab Results - Last 24 Hours (Table) 07/13/18 07/13/18 07/13/18 Range/Units 00:14 06:13 06:13 RBC 4.09 L (4.30-5.90) m/uL Hgb 12.5 L (13.0-17.5) gm/dL Neutrophils # 9.0 H (1.3-7.7) k/uL Lymphocytes # 0.9 L (1.0-4.8) k/uL Chloride 112 H (98-107) mmol/L POC Glucose (mg/dL) 100 H (75-99) mg/dL Calcium 8.0 L (8.4-10.2) mg/dL Total Protein 4.4 L (6.3-8.2) g/dL Albumin 2.2 L (3.5-5.0) g/dL Microbiology - Last 24 Hours (Table) 07/10/18 15:03 Gram Stain - Final Other - Other Wound Culture - Final Enterococcus faecium Enterococcus faecalis 07/10/18 15:03 Anaerobic Culture - Preliminary Other - Other Assessment and Plan (1) Medically noncompliant Current Visit: Yes Status: Acute Code(s): Z91.19 - PATIENT'S NONCOMPLIANCE W OTH MEDICAL TREATMENT AND REGIMEN SNOMED Code(s): 545693567 (2) Enlarged prostate with lower urinary tract symptoms (LUTS) Current Visit: Yes Status: Acute Code(s): N40.1 - BENIGN PROSTATIC HYPERPLASIA WITH LOWER URINARY TRACT SYMP SNOMED Code(s): 329508240 (3) Coronary artery disease Current Visit: No Status: Acute Code(s): I25.10 - ATHSCL HEART DISEASE OF [place] CORONARY ARTERY W/O ANG PCTRS SNOMED Code(s): 06512400 (4) Diabetes mellitus Current Visit: No Status: Acute Code(s): E11.9 - TYPE 2 DIABETES MELLITUS WITHOUT COMPLICATIONS SNOMED Code(s): 42915156 (5) Diverticulitis Current Visit: No Status: Acute Code(s): K57.92 - DVTRCLI OF INTEST, PART UNSP, W/O PERF OR ABSCESS W/O BLEED SNOMED Code(s): 376302854 (6) Gastroesophageal reflux disease Current Visit: No Status: Acute Code(s): K21.9 - GASTRO-ESOPHAGEAL REFLUX DISEASE WITHOUT ESOPHAGITIS SNOMED Code(s): 162739251 (7) History of myocardial infarction Current Visit: No Status: Acute Code(s): I25.2 - OLD MYOCARDIAL INFARCTION SNOMED Code(s): 151291345 (8) Hypertensive heart disease Current Visit: No Status: Acute Code(s): I11.9 - HYPERTENSIVE HEART DISEASE WITHOUT HEART FAILURE SNOMED Code(s): 95028572 (9) Perforation of sigmoid colon due to diverticulitis Current Visit: No Status: Acute Code(s): K57.20 - DVTRCLI OF LG INT W PERFORATION AND ABSCESS W/O BLEEDING SNOMED Code(s): 0751234744051783 (10) Prostate hypertrophy Current Visit: No Status: Acute Code(s): N40.0 - BENIGN PROSTATIC HYPERPLASIA WITHOUT LOWER URINRY TRACT SYMP SNOMED Code(s): 417979911 (11) Abnormal abdominal CT scan Current Visit: Yes Status: Acute Code(s): R93.5 - ABN FINDINGS ON DX IMAGING OF ABD REGIONS, INC RETROPERITON SNOMED Code(s): 76945630602035067 (12) Colostomy in place Current Visit: Yes Status: Acute Code(s): Z93.3 - COLOSTOMY STATUS SNOMED Code(s): 499647103 (13) Ascites Current Visit: Yes Status: Acute Code(s): R18.8 - OTHER ASCITES SNOMED Code(s): 823658224 (14) Peritonitis (acute) generalized Current Visit: Yes Status: Acute Code(s): K65.0 - GENERALIZED (ACUTE) PERITONITIS SNOMED Code(s): 88655636 Plan: Minimal flatus in ostomy. Epidural to come out today. NGT to be discontinued once stool and flatus in bag. Lee to be discontinued once epidural is removed. Patient's at bedside.
[2018-07-13 12:31] LABS: Glucose,Whole Blood 88 mg/dL (75-99)
--- NOTE | 2018-07-13 13:50 | P.PN ---
Progress Note - Text 07/12 2146 73 yr old male s/p exp lap. epidural solution running at 9cc /hr. pt has a vas of 1, with no motor or sensory deficits. plan to continue epidural infusion.
[2018-07-13 13:52] VITALS: BMI 34.0
[2018-07-13 17:41] LABS: Glucose,Whole Blood 81 mg/dL (75-99)
[2018-07-13] MEDS: TAMSULOSIN 0.4 MG CAP.ER.24H PO SCH (17:45)
[2018-07-13] MEDS: KETOROLAC 30 MG/ML 1 ML VIAL IVP SCH ×2 (19:00→22:54)
[2018-07-13] MEDS: FINASTERIDE 5 MG TAB PO SCH (22:52)
[2018-07-13] MEDS: LISINOPRIL 20 MG TAB PO SCH (22:53)
[2018-07-13] MEDS: DOXAZOSIN 4 MG TAB PO SCH (22:53)
[2018-07-14] MEDS: PIPERACILLIN-TAZOBACTAM 3.375 GM in SODIUM CHLORIDE 0.9% 100 ML IVPB SCH ×3 (00:01→16:06)
[2018-07-14] MEDS: ONDANSETRON 4 MG/2 ML VIAL IVP SCH ×3 (00:01→16:06)
[2018-07-14] MEDS: metroNIDAZOLE-NS PMX 500 MG in SALINE 1 100ML.BAG IVPB SCH ×4 (00:19→18:10)
[2018-07-14 00:38] LABS: Glucose,Whole Blood 86 mg/dL (75-99)
[2018-07-14] MEDS: INSULIN ASPART 100 UNIT/ML 1 ML 10 ML VIAL SQ SCH ×4 (00:41→17:41)
[2018-07-14] MEDS: KETOROLAC 30 MG/ML 1 ML VIAL IVP SCH ×3 (06:01→17:22)
[2018-07-14] MEDS: 0.9% NACL WITH KCL 20 MEQ/L 1,000 ML IV SCH ×3 (06:03→21:13)
[2018-07-14 06:15] LABS: Glucose,Whole Blood 79 mg/dL (75-99)
--- NOTE | 2018-07-14 07:22 | PN ---
PROGRESS NOTE DATE OF SERVICE: 07/13/2018 REASON FOR FOLLOWUP: Secondary peritonitis. INTERVAL HISTORY: The patient is currently afebrile. He has been breathing comfortably. Denies significant chest pain or any cough. Abdominal pain is currently controlled. Has been wearing of the NG and for it waiting for it to come out no output in the colostomy bag. PHYSICAL EXAMINATION: On examination, blood pressure is 138/80 with a pulse of 78, temperature 98.2. He is 96% on room air. General description is an elderly male lying in bed in no distress. RESPIRATORY SYSTEM: Unlabored breathing, clear to auscultation anteriorly. HEART: S1, S2. Regular rate and rhythm. ABDOMEN: Soft, no tenderness. LABS: Hemoglobin 12.5, white count 10.6 with a BUN of 20, creatinine 0.87. DIAGNOSTIC IMPRESSION AND PLAN: Patient with secondary peritonitis from anastomosis diverting colostomy. Abdomen culture revealed Enterococcus faecium and faecalis vancomycin. Patient is currently covered with Zosyn and daptomycin. Continue for now while waiting for his condition to stabilize. Continue with supportive care. MMODL / IJN: [id number] /
[2018-07-14 08:06] LABS: Basophils % (A) 0 %; Eosinophils # (A) 0.2 k/uL (0-0.7); Eosinophils % (A) 2 %; HCT 40.6 % (39.0-53.0); HGB 12.4 gm/dL (13.0-17.5); Hypochromasia Slight; Lymphocytes # (A) 0.6 k/uL (1.0-4.8); Lymphocytes % (A) 7 %; MCH 29.9 pg (25.0-35.0); MCHC 30.5 g/dL (31.0-37.0); MCV 98.1 fL (80.0-100.0); Mean Platelet Volume 7.5; Monocytes # (A) 0.5 k/uL (0-1.0); Monocytes % (A) 6 %; Neutrophils % (A) 85 %; Platelet Count 253 k/uL (150-450); RBC 4.14 m/uL (4.30-5.90); RDW 13.8 % (11.5-15.5); WBC 9.5 k/uL (3.8-10.6)
[2018-07-14 08:18] LABS: ALT 26 U/L (21-72); AST 28 U/L (17-59); Albumin 2.2 g/dL (3.5-5.0); Alkaline Phosphatase 36 U/L (38-126); Anion Gap 6 mmol/L; Blood Urea Nitrogen 19 mg/dL (9-20); Calcium 7.9 mg/dL (8.4-10.2); Carbon Dioxide 24 mmol/L (22-30); Chloride 112 mmol/L (98-107); Glucose 86 mg/dL (74-99); Potassium 4.3 mmol/L (3.5-5.1); Sodium 142 mmol/L (137-145); Total Bilirubin 0.5 mg/dL (0.2-1.3); Total Protein 4.2 g/dL (6.3-8.2)
[2018-07-14] MEDS: PANTOPRAZOLE 40 MG/10 ML VIAL IV SCH (08:34)
[2018-07-14] MEDS: ENOXAPARIN 30 MG/0.3 ML SYRINGE SQ SCH ×2 (08:34→18:43)
[2018-07-14] MEDS: ASPIRIN 81 MG PO SCH (08:35)
[2018-07-14] MEDS: METOPROLOL TARTRATE 25 MG TAB PO SCH ×2 (08:35→21:13)
[2018-07-14] MEDS: IPRATROPIUM-ALBUTEROL 3 ML NEB INHALATION SCH ×4 (10:53→19:27)
[2018-07-14 11:02] LABS: Glucose,Whole Blood 80 mg/dL (75-99)
--- NOTE | 2018-07-14 11:44 | P.PN ---
Subjective Progress Note Date: 07/14/18 Chris Borja is a 73-year-old male with chronic and recurrent history of sigmoid diverticulitis, with previous history of perforated diverticulitis, and history of cholecystitis, was admitted to [facility] by Dr. Lara and underwent a robotic low anterior resection and robotic cholecystectomy, patient was admitted to the medical floor, consultation was requested for management while hospitalized. On 07/05/2018 patient was seen and examined on the medical floor he is alert and oriented 3 in no apparent distress there is no fever or chills no headache or dizziness no chest pain no shortness of breath no cough no nausea or vomiting no abdominal pain and no urinary symptoms 07/06/2018 patient complaining of abdominal pain. Still not passing gas or having bowel movement. He is complaining of some nausea. No vomiting. Apparently he has been refusing the subcu heparin injections. Patient evaluated by surgical service this morning apparently epidural accidentally came out last night. And he's had increasing abdominal pain and some abdominal distention. They've ordered a computed tomography scan of the abdomen with contrast to further evaluate ileus versus leak. She's also ordered a CTA of the chest. At this time patient not is not complaining of any chest pain or shortness of breath. 07/07/2018 patient reports having bowel movement. Denies any nausea or vomiting. Surgical service advancing diet to clears. CTA of the chest was negative for PE or were concerns of some vascular congestion patient did receive a dose of IV Lasix yesterday. Patient is wheezing and mild cough today. Denies shortness of breath. DuoNeb updrafts have been ordered. Patient is now taking the subcu heparin. Blood pressures are elevated last blood pressure reading 172/85 patient denies any chest pain. Denies any nausea vomiting. Lee catheter scheduled to be removed today. On 07/08/2018 patient is currently sitting up in chair. Patient does report having a bowel movement. Patient is still congested with cough. Will order chest x-ray. Patient's blood pressure also remains elevated. Lisinopril has been increased. At this time patient denies chest pain or shortness of breath. Patient denies nausea vomiting or diarrhea. Patient denies any urinary burning or frequency 07/09/2018 patient having asked episodes of urinary retention. Unfortunately bladder scanning had not been completed by nursing staff after Lee catheter was initially removed. Patient did have evidence of urinary retention Lee catheter had to be reinserted yesterday. Patient continued to have abdominal pain. Surgical service has ordered a repeat computed tomography scan abdomen and pelvis it is showing evidence of a leak and he is scheduled for surgery this afternoon. Yesterday he was having elevated blood pressures lisinopril was increased and patient did receive another dose of Lasix. Chest x-ray had shown consider possible mild early volume overload. At this time patient's lungs are clear he denies any shortness of breath. He and his cough has improved. Last blood pressure 148/82. Denies any chest pain or shortness breath. Denies any nausea or vomiting. Urine is a dark in color with possible blood. Likely due to Lee catheter trauma. 07/10/2018 patient is sitting on edge of bed leaning over and holding stomach, reporting lower abdominal pain. He is passing gas and having bowel movements. He does have Lee catheter still in place the urine is dark and red. He was seen by urology they have added Flomax. Patient also received fluid bolus. And he is currently on normal saline with potassium at 75 mL an hour. Patient denies any chest pain or shortness of breath. Patient feels that it may be his bladder causing his symptoms. Nursing staff is checking with bladder scan. Surgical service has been notified about the abdominal pain. They're following closely. Patient medically to surgery yesterday because he was not having any abdominal pain and was stooling. He was given a regular diet this morning. 07/13/2018 patient is scheduled for epidural to be removed later today. Reports that his pain is controlled. Denies any nausea or vomiting. Denies any chest pain or shortness of breath. Does admit to mild cough. Cells Lee catheter in place. Urine is clearing. Patient does report ambulating in the hallway but feeling short of breath afterwards and tired 07/14/2018 patient was confused during the night pulled out NG tube. He tried to call 911 to ask for help. He was reorientated by nursing staff and was able to go back to sleep. He is currently on antibiotics Zosyn and after myosin for his peritonitis. He is having his diet advanced per surgical team. Blood pressures are elevated 190/84. We'll add hydralazine 25 mg daily. Nursing staff also reported that patient is sounding more congested chest x-ray will be ordered. Patient denies any chest pain or shortness of breath. Denies any nausea or vomiting. Having gas through his colostomy no stool yet. Lee catheter in place urine is red. Blood sugar has been on the lower side in the 80s. This should improve with the advancement of diet Objective - Vital Signs Vital signs: Vital Signs Temp 98.0 F 07/14/18 07:29 Pulse 59 L 07/14/18 10:46 Resp 12 07/14/18 08:15 BP 190/84 07/14/18 10:46 Pulse Ox 95 07/14/18 07:29 Intake & Output 07/13/18 07/14/18 07/14/18 18:59 06:59 18:59 Intake Total 100 1600 240 Output Total 580 1470 80 Balance -480 130 160 Weight 95.708 kg Intake: Intake, IV Titration 100 1200 Amount 0.9% NaCl with KCl 20 Meq 900 /l 1,000 ml @ 100 mls/hr IV .Q10H [facility] Rx#: [id number] DAPTOmycin 600 mg In 100 Sodium Chloride 0.9% 50 ml @ 100 mls/hr IVPB HS [facility] Rx#:[id number] Piperacillin-Tazobactam 3 100 .375 gm In Sodium Chloride 0.9% 100 ml @ 25 mls/hr IVPB Q8HR [facility] Rx# :[id number] metroNIDAZOLE-NS PMX 500 100 100 mg In Saline 1 100ml.bag @ 100 mls/hr IVPB Q6H [facility] Rx#:[id number] Oral 400 240 Output: Gastric Drainage 420 Drainage 80 70 80 Right Abdomen 80 70 80 Urine 500 980 Uretheral (Lee) 300 Other: Voiding Method Indwelling Catheter Indwelling Catheter Indwelling Catheter # Voids 1 - Exam Head normocephalic Neck supple Lungs coarse breath sounds that improved with cough Heart regular rate and rhythm S1-S2, no rub or gallop Abdomen is distended lower abdominal tenderness. Colostomy and drainage tubes present Extremities edema bilateral lower extremities Neuro alert and orientated to 3 - Labs CBC & Chem 7: 07/14/18 06:56 07/14/18 06:56 Labs: Abnormal Lab Results - Last 24 Hours (Table) 07/14/18 07/14/18 Range/Units 06:56 06:56 RBC 4.14 L (4.30-5.90) m/uL Hgb 12.4 L (13.0-17.5) gm/dL MCHC 30.5 L (31.0-37.0) g/dL Neutrophils # 8.0 H (1.3-7.7) k/uL Lymphocytes # 0.6 L (1.0-4.8) k/uL Chloride 112 H (98-107) mmol/L Calcium 7.9 L (8.4-10.2) mg/dL Alkaline Phosphatase 36 L (38-126) U/L Total Protein 4.2 L (6.3-8.2) g/dL Albumin 2.2 L (3.5-5.0) g/dL Assessment and Plan Assessment: #1 diverticulitis was history of perforated diverticulitis patient was admitted to [facility] and underwent low anterior resection, he also had a robotic cholecystectomy due to history of cholecystitis. Patient had repeat computed tomography scan abdomen and pelvis with evidence of leak. Patient underwent Exploratory laparotomy with partial colectomy, descending colostomy creation with devitalized rectum, Mariya's procedure, abdominal lavage 6 L normal saline, application of PREVENA extended, mobilization of splenic flexure with Dr. White. Per infectious disease patient has been switched to Zosyn and daptomycin for antibiotics. Cultures pending. #2 essential hypertension with elevated blood pressures. Patient having elevated blood pressures lisinopril was increased during this admission to 20 mg daily. At this time we'll be adding hydralazine 25 mg daily continue to monitor #3 underlying history of benign prostatic hypertrophy #4 underlying history of diabetes mellitus 2. Patient refusing sliding scale coverage. Patient is having lower blood sugars. Diet will be advanced. hopefully this will help, continue to monitor blood sugars. #5 previous history of coronary artery disease with previous history of myocardial infarction #6 wheezing with cough: Possible COPD exacerbation: Patient is a smoker. We'll add DuoNeb updrafts 4 times a day and monitor. Showing improvement. #7 urinary retention: Secondary to BPH and post op retention. Patient seen by urology. They have added Flomax. Continue Proscar and Cardura. Urology recommending voiding trial with the next couple a days. If not continue Flomax and follow-up outpatient for further evaluation #8 episodes of fluid overload patient has received IV Lasix. Resolved #9 iron deficiency anemia. Patient given IV iron DVT prophylaxis subcu loveox and GI prophylaxis pepcid I performed an examination of the patient and discussed their management with the physician Call Worker. I have reviewed the Physician Call Worker's notes and agree with the documented findings and plan of care
[2018-07-14] MEDS: SODIUM FERRIC GLUCONAT-SUCROSE 125 MG in SODIUM CHLORIDE 0.9% 100 ML IVPB SCH (12:03)
[2018-07-14] MEDS: hydrALAZINE HCL 25 MG TAB PO SCH (12:03)
--- NOTE | 2018-07-14 13:27 | XR ---
EXAMINATION TYPE: XR chest 2V DATE OF EXAM: 07/14/2018 COMPARISON: 07/08/2018 HISTORY: Shortness of breath TECHNIQUE: Frontal and lateral views of the chest are obtained. FINDINGS: Scattered senescent parenchymal changes noted. Hyperinflation compatible with COPD. Patchy infiltrate right medial lung base. Correlate for pneumonia. Heart size is stable. Mediastinal structures are stable and grossly unremarkable. No evidence for hilar prominence. Degenerative changes dorsal spine. IMPRESSION: 1. Patchy infiltrate right medial lung base. Correlate for pneumonia.
[2018-07-14] MEDS ORDERED: FUROSEMIDE 10 MG/ML 2 ML VIAL IV ONE (13:43)
[2018-07-14] MEDS ORDERED: HYDROmorphone 0.5 MG/0.5 ML SYRINGE IVP PRN (14:50)
--- NOTE | 2018-07-14 15:41 | P.PN ---
<Kym Wiley Dudley - Last Filed: 07/14/18 15:35> Subjective Progress Note Date: 07/14/18 CHIEF COMPLAINT: Diverticulitis HISTORY OF PRESENT ILLNESS: The patient is a 73-year-old gentleman status post robotic-assisted low anterior resection, postop day 11 from his initial operation and POD 4, Mariya's procedure for blow out of his colonic anastomosis. Patient states his pain is tolerable this morning. Patient became confused overnight and pulled out NG tube. Confusion has resolved this morning. He is tolerating clear liquid diet. Ostomy with minimal gas. No stool output. Pain is tolerable at this time. Patient appears congested this morning. Encouraged pulmonary toileting including incentive spirometry. Patient encouraged to ambulate in the hallway. CXR has been ordered by medicine. PHYSICAL EXAM: VITAL SIGNS: Reviewed GENERAL: Well-developed in no acute distress. HEENT: No sclera icterus. Extraocular movements grossly intact. Moist buccal mucosa. Head is atraumatic, normocephalic. Hears conversational speech. No nasal drainage. NECK: Supple without lymphadenopathy. CHEST: Non-labored respirations and equal bilateral excursions. CARDIOVASCULAR: Palpable 2+ radial pulses. Regular rate and regular rhythm ABDOMEN: Soft. Non-distended. Midline incision intact with PREVENA. LAMONT drain intact with serous drainage. MUSCULOSKELETAL: No clubbing, cyanosis. NEUROLOGIC: No focal or lateralizing signs. Cranial nerves II through XII grossly intact. Epidural present. PSYCH: Appropriate affect. Alert and oriented to person, place and time. SKIN: Well perfused. Good skin turgor. ASSESSMENT: 1. History of perforated diverticulitis 2. Chronic abdominal pain 3. Medical noncompliance to postoperative care 4. History of tobacco abuse 5. History of cholecystectomy 6. Status post sigmoid colectomy 7. Moderate to severe obstructive uropathy secondary to benign prostatic hypertrophy preexistent to surgery 8. Gastroesophageal reflux disease 9. Abnormal CT of the abdomen and pelvis 10. History of tobacco abuse. 11. 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 Continue clear liquid diet 2. Advance diet when ostomy is functioning and stool is present 3. Encouraged pulmonary toileting including incentive spirometry. 4. Patient encouraged to ambulate in the hallway. 5. Pain control 6. Discontinue martinez tomorrow morning. PVR bladder scan to be performed Nurse practitioner note has been reviewed by physician. Signing provider agrees with the documented findings, assessment, and plan of care. Objective - Vital Signs Vital signs: Vital Signs Temp 98.0 F 07/14/18 07:29 Pulse 59 L 07/14/18 10:46 Resp 12 07/14/18 08:15 BP 190/84 07/14/18 10:46 Pulse Ox 95 07/14/18 07:29 Intake & Output 07/13/18 07/14/18 07/14/18 18:59 06:59 18:59 Intake Total 100 1600 597 Output Total 580 1470 520 Balance -480 130 77 Weight 95.708 kg Intake: Intake, IV Titration 100 1200 Amount 0.9% NaCl with KCl 20 Meq 900 /l 1,000 ml @ 75 mls/hr IV .[id number] [facility]INGUEZ Rx#: [id number] DAPTOmycin 600 mg In 100 Sodium Chloride 0.9% 50 ml @ 100 mls/hr IVPB HS [facility]INGUEZ Rx#:[id number] Piperacillin-Tazobactam 3 100 .375 gm In Sodium Chloride 0.9% 100 ml @ 25 mls/hr IVPB Q8HR [facility]ING[facility]Z Rx# :[id number] metroNIDAZOLE-NS PMX 500 100 100 mg In Saline 1 100ml.bag @ 100 mls/hr IVPB Q6H [facility]ING[facility] Rx#:[id number] Oral 400 597 Output: Gastric Drainage 420 Drainage 80 70 170 Right Abdomen 80 70 170 Urine 500 980 350 Uretheral (Martinez) 300 Other: Voiding Method Indwelling Catheter Indwelling Catheter Indwelling Catheter # Voids 1 - Labs CBC & Chem 7: 07/14/18 06:56 07/14/18 06:56 Labs: Abnormal Lab Results - Last 24 Hours (Table) 07/14/18 07/14/18 Range/Units 06:56 06:56 RBC 4.14 L (4.30-5.90) m/uL Hgb 12.4 L (13.0-17.5) gm/dL MCHC 30.5 L (31.0-37.0) g/dL Neutrophils # 8.0 H (1.3-7.7) k/uL Lymphocytes # 0.6 L (1.0-4.8) k/uL Chloride 112 H (98-107) mmol/L Calcium 7.9 L (8.4-10.2) mg/dL Alkaline Phosphatase 36 L (38-126) U/L Total Protein 4.2 L (6.3-8.2) g/dL Albumin 2.2 L (3.5-5.0) g/dL Assessment and Plan (1) Enlarged prostate with lower urinary tract symptoms (LUTS) Current Visit: Yes Status: Acute Code(s): N40.1 - BENIGN PROSTATIC HYPERPLASIA WITH LOWER URINARY TRACT SYMP SNOMED Code(s): 242462701 (2) Medically noncompliant Current Visit: Yes Status: Acute Code(s): Z91.19 - PATIENT'S NONCOMPLIANCE W OTH MEDICAL TREATMENT AND REGIMEN SNOMED Code(s): 440649299 (3) Abdominal pain Current Visit: No Status: Acute Code(s): R10.9 - UNSPECIFIED ABDOMINAL PAIN SNOMED Code(s): 78634234 (4) Coronary artery disease Current Visit: No Status: Acute Code(s): I25.10 - ATHSCL HEART DISEASE OF [place] CORONARY ARTERY W/O ANG PCTRS SNOMED Code(s): 95756153 (5) Diverticulitis Current Visit: No Status: Acute Code(s): K57.92 - DVTRCLI OF INTEST, PART UNSP, W/O PERF OR ABSCESS W/O BLEED SNOMED Code(s): 893353519 (6) Hypertensive heart disease Current Visit: No Status: Acute Code(s): I11.9 - HYPERTENSIVE HEART DISEASE WITHOUT HEART FAILURE SNOMED Code(s): 08529651 (7) Perforation of sigmoid colon due to diverticulitis Current Visit: No Status: Acute Code(s): K57.20 - DVTRCLI OF LG INT W PERFORATION AND ABSCESS W/O BLEEDING SNOMED Code(s): 8609773359261384 (8) Prostate hypertrophy Current Visit: No Status: Acute Code(s): N40.0 - BENIGN PROSTATIC HYPERPLASIA WITHOUT LOWER URINRY TRACT SYMP SNOMED Code(s): 754692384 <Bev Lara N - Last Filed: 07/14/18 20:00> Objective - Vital Signs Vital signs: Vital Signs Temp 97.6 F 07/14/18 15:00 Pulse 51 L 07/14/18 15:00 Resp 16 07/14/18 16:00 BP 184/66 02/05/19 15:00 Pulse Ox 96 07/14/18 15:00 Intake & Output 07/14/18 07/14/18 07/15/18 06:59 18:59 06:59 Intake Total 1600 1077 Output Total 1470 1520 Balance 130 -443 Intake: Intake, IV Titration 1200 Amount 0.9% NaCl with KCl 20 Meq 900 /l 1,000 ml @ 75 mls/hr IV .[id number] [facility]ING[facility]Z Rx#: [id number] DAPTOmycin 600 mg In 100 Sodium Chloride 0.9% 50 ml @ 100 mls/hr IVPB HS [facility] Rx#:[id number] Piperacillin-Tazobactam 3 100 .375 gm In Sodium Chloride 0.9% 100 ml @ 25 mls/hr IVPB Q8HR [facility] Rx# :[id number] metroNIDAZOLE-NS PMX 500 100 mg In Saline 1 100ml.bag @ 100 mls/hr IVPB Q6H [facility] Rx#:[id number] Oral 400 1077 Output: Gastric Drainage 420 Drainage 70 170 Right Abdomen 70 170 Urine 980 1350 Other: Voiding Method Indwelling Catheter Indwelling Catheter # Voids 1 - Labs CBC & Chem 7: 07/14/18 06:56 07/14/18 06:56 Labs: Abnormal Lab Results - Last 24 Hours (Table) 07/14/18 07/14/18 Range/Units 06:56 06:56 RBC 4.14 L (4.30-5.90) m/uL Hgb 12.4 L (13.0-17.5) gm/dL MCHC 30.5 L (31.0-37.0) g/dL Neutrophils # 8.0 H (1.3-7.7) k/uL Lymphocytes # 0.6 L (1.0-4.8) k/uL Chloride 112 H (98-107) mmol/L Calcium 7.9 L (8.4-10.2) mg/dL Alkaline Phosphatase 36 L (38-126) U/L Total Protein 4.2 L (6.3-8.2) g/dL Albumin 2.2 L (3.5-5.0) g/dL Microbiology - Last 24 Hours (Table) 07/10/18 15:03 Anaerobic Culture - Final Other - Other Assessment and Plan (1) Medically noncompliant Current Visit: Yes Status: Acute Code(s): Z91.19 - PATIENT'S NONCOMPLIANCE W OTH MEDICAL TREATMENT AND REGIMEN SNOMED Code(s): 051391611 (2) Enlarged prostate with lower urinary tract symptoms (LUTS) Current Visit: Yes Status: Acute Code(s): N40.1 - BENIGN PROSTATIC HYPERPLASIA WITH LOWER URINARY TRACT SYMP SNOMED Code(s): 445237176 (3) Coronary artery disease Current Visit: No Status: Acute Code(s): I25.10 - ATHSCL HEART DISEASE OF [place] CORONARY ARTERY W/O ANG PCTRS SNOMED Code(s): 15231825 (4) Diabetes mellitus Current Visit: No Status: Acute Code(s): E11.9 - TYPE 2 DIABETES MELLITUS WITHOUT COMPLICATIONS SNOMED Code(s): 45022406 (5) Diverticulitis Current Visit: No Status: Acute Code(s): K57.92 - DVTRCLI OF INTEST, PART UNSP, W/O PERF OR ABSCESS W/O BLEED SNOMED Code(s): 564501180 (6) Gastroesophageal reflux disease Current Visit: No Status: Acute Code(s): K21.9 - GASTRO-ESOPHAGEAL REFLUX DISEASE WITHOUT ESOPHAGITIS SNOMED Code(s): 343854986 (7) History of myocardial infarction Current Visit: No Status: Acute Code(s): I25.2 - OLD MYOCARDIAL INFARCTION SNOMED Code(s): 216207708 (8) Hypertensive heart disease Current Visit: No Status: Acute Code(s): I11.9 - HYPERTENSIVE HEART DISEASE WITHOUT HEART FAILURE SNOMED Code(s): 73469172 (9) Perforation of sigmoid colon due to diverticulitis Current Visit: No Status: Acute Code(s): K57.20 - DVTRCLI OF LG INT W PERFORATION AND ABSCESS W/O BLEEDING SNOMED Code(s): 1804672847691232 (10) Prostate hypertrophy Current Visit: No Status: Acute Code(s): N40.0 - BENIGN PROSTATIC HYPERPLASIA WITHOUT LOWER URINRY TRACT SYMP SNOMED Code(s): 703563283 (11) Abnormal abdominal CT scan Current Visit: Yes Status: Acute Code(s): R93.5 - ABN FINDINGS ON DX IMAGING OF ABD REGIONS, INC RETROPERITON SNOMED Code(s): 62885700571952659 (12) Colostomy in place Current Visit: Yes Status: Acute Code(s): Z93.3 - COLOSTOMY STATUS SNOMED Code(s): 337651518 (13) Ascites Current Visit: Yes Status: Acute Code(s): R18.8 - OTHER ASCITES SNOMED Code(s): 538708245 (14) Peritonitis (acute) generalized Current Visit: Yes Status: Acute Code(s): K65.0 - GENERALIZED (ACUTE) PERITONITIS SNOMED Code(s): 05725433
[2018-07-14] MEDS: TAMSULOSIN 0.4 MG CAP.ER.24H PO SCH (17:22)
[2018-07-14 17:51] LABS: Glucose,Whole Blood 83 mg/dL (75-99)
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
[2018-07-14] MEDS ORDERED: methylPREDNISolone SOD SUCCI 40 MG/ML 1 ML VIAL IV SCH (18:30)
--- NOTE | 2018-07-14 20:04 | P.PN ---
Progress Note - Text Progress Note Date: 07/14/18 Patient tolerated regular diet. "I ate everything on my plate...that was the BEST meal ever!" He reports moderate flatus from his ostomy. He is seen by pulmonary. He has history of non-compliance to medical care including incentive spirometry and updrafts. Microbiology came back with multiple drug resistance E. coli. Evaluation for PICC line described Lee catheter to be removed first thing in the morning for post-void residual. Recommend PT/OT for rehab needs and antibiotic management. PREVENA to be discontinued prior to discharge. LAMONT maintained for removal in office. Anticipated discharge in 48 hrs for goal of to rehab/home.
[2018-07-14] MEDS: ALPRAZolam 0.5 MG TAB PO SCH (21:12)
[2018-07-14] MEDS: LISINOPRIL 20 MG TAB PO SCH (21:12)
[2018-07-14] MEDS: FINASTERIDE 5 MG TAB PO SCH (21:12)
[2018-07-14] MEDS: DOXAZOSIN 4 MG TAB PO SCH (21:12)
[2018-07-14] MEDS: HYDROcodone/APAP 5-325MG 1 EACH TAB PO PRN (22:17)
[2018-07-15] MEDS: PIPERACILLIN-TAZOBACTAM 3.375 GM in SODIUM CHLORIDE 0.9% 100 ML IVPB SCH ×4 (00:15→23:31)
[2018-07-15] MEDS: ONDANSETRON 4 MG/2 ML VIAL IVP SCH ×3 (00:16→15:55)
[2018-07-15] MEDS: KETOROLAC 30 MG/ML 1 ML VIAL IVP SCH ×5 (00:16→23:31)
[2018-07-15] MEDS: INSULIN ASPART 100 UNIT/ML 1 ML 10 ML VIAL SQ SCH ×5 (00:17→23:50)
[2018-07-15] MEDS: metroNIDAZOLE-NS PMX 500 MG in SALINE 1 100ML.BAG IVPB SCH ×5 (00:17→23:39)
[2018-07-15 00:18] LABS: Glucose,Whole Blood 133 mg/dL (75-99)
--- NOTE | 2018-07-15 00:43 | PN ---
PROGRESS NOTE DATE OF SERVICE: 07/14/2018. REASON FOR FOLLOW UP: Secondary peritonitis. INTERVAL HISTORY: The patient is currently afebrile. His NG was discontinued. He has been started on diet, with the patient has been tolerating. Denies any chest pain, no shortness of breath or cough or any abdominal pain. No output in the colostomy bag. PHYSICAL EXAMINATION: Blood pressure 173/79 with a pulse of 57, temperature 98.1, he is 97% on room air. GENERAL DESCRIPTION: An elderly male lying in bed in no distress. RESPIRATORY SYSTEM: Unlabored breathing. Clear to auscultation anteriorly. HEART: S1, S2. Regular rate and rhythm. No tenderness. LABS: Hemoglobin 12.4, white count 9.5, BUN of 19, creatinine 0.72. DIAGNOSTIC IMPRESSION AND PLAN: Patient with secondary peritonitis from anastomosis leak and abnormal culture positive for Enterococcus and faecalis with sensitivity to vancomycin. Patient currently on daptomycin and Zosyn. We are planning for daptomycin and Rocephin plus oral Flagyl combination for at least 10 days on discharge, for which PICC line be placed tomorrow. Continue supportive care. MMODL / IJN: [id number] /
[2018-07-15] MEDS: methylPREDNISolone SOD SUCCI 40 MG/ML 1 ML VIAL IV SCH ×2 (05:27→12:59)
[2018-07-15 05:44] LABS: Glucose,Whole Blood 156 mg/dL (75-99)
[2018-07-15 07:42] LABS: INR 1.2 (<1.2)
[2018-07-15 07:52] LABS: ALT 25 U/L (21-72); AST 20 U/L (17-59); Albumin 2.1 g/dL (3.5-5.0); Alkaline Phosphatase 40 U/L (38-126); Anion Gap 4 mmol/L; Basophils % (A) 0 %; Blood Urea Nitrogen 23 mg/dL (9-20); Calcium 7.8 mg/dL (8.4-10.2); Carbon Dioxide 24 mmol/L (22-30); Chloride 112 mmol/L (98-107); Eosinophils # (A) 0.1 k/uL (0-0.7); Eosinophils % (A) 1 %; Glucose 131 mg/dL (74-99); HCT 38.1 % (39.0-53.0); HGB 12.1 gm/dL (13.0-17.5); Lymphocytes # (A) 0.7 k/uL (1.0-4.8); Lymphocytes % (A) 8 %; MCH 30.7 pg (25.0-35.0); MCHC 31.7 g/dL (31.0-37.0); MCV 96.8 fL (80.0-100.0); Mean Platelet Volume 7.2; Monocytes # (A) 0.3 k/uL (0-1.0); Monocytes % (A) 3 %; Neutrophils # (A) 7.9 k/uL (1.3-7.7); Neutrophils % (A) 88 %; Platelet Count 241 k/uL (150-450); Potassium 4.2 mmol/L (3.5-5.1); RBC 3.93 m/uL (4.30-5.90); RDW 13.7 % (11.5-15.5); Sodium 140 mmol/L (137-145); Total Bilirubin 0.3 mg/dL (0.2-1.3); Total Protein 4.1 g/dL (6.3-8.2)
[2018-07-15] MEDS: hydrALAZINE HCL 25 MG TAB PO SCH ×3 (09:11→21:48)
[2018-07-15] MEDS: IPRATROPIUM-ALBUTEROL 3 ML NEB INHALATION SCH ×4 (09:12→20:29)
[2018-07-15] MEDS: METOPROLOL TARTRATE 25 MG TAB PO SCH (09:12)
[2018-07-15] MEDS: PANTOPRAZOLE 40 MG/10 ML VIAL IV SCH (09:12)
[2018-07-15] MEDS: 0.9% NACL WITH KCL 20 MEQ/L 1,000 ML IV SCH (09:17)
[2018-07-15] MEDS: HYDROcodone/APAP 5-325MG 1 EACH TAB PO PRN ×2 (11:50→21:48)
[2018-07-15 12:14] LABS: Glucose,Whole Blood 195 mg/dL (75-99)
--- NOTE | 2018-07-15 12:47 | P.PN ---
Subjective Progress Note Date: 07/15/18 Chris Borja is a 73-year-old male with chronic and recurrent history of sigmoid diverticulitis, with previous history of perforated diverticulitis, and history of cholecystitis, was admitted to [facility] by Dr. Lara and underwent a robotic low anterior resection and robotic cholecystectomy, patient was admitted to the medical floor, consultation was requested for management while hospitalized. On 07/05/2018 patient was seen and examined on the medical floor he is alert and oriented 3 in no apparent distress there is no fever or chills no headache or dizziness no chest pain no shortness of breath no cough no nausea or vomiting no abdominal pain and no urinary symptoms 07/06/2018 patient complaining of abdominal pain. Still not passing gas or having bowel movement. He is complaining of some nausea. No vomiting. Apparently he has been refusing the subcu heparin injections. Patient evaluated by surgical service this morning apparently epidural accidentally came out last night. And he's had increasing abdominal pain and some abdominal distention. They've ordered a computed tomography scan of the abdomen with contrast to further evaluate ileus versus leak. She's also ordered a CTA of the chest. At this time patient not is not complaining of any chest pain or shortness of breath. 07/07/2018 patient reports having bowel movement. Denies any nausea or vomiting. Surgical service advancing diet to clears. CTA of the chest was negative for PE or were concerns of some vascular congestion patient did receive a dose of IV Lasix yesterday. Patient is wheezing and mild cough today. Denies shortness of breath. DuoNeb updrafts have been ordered. Patient is now taking the subcu heparin. Blood pressures are elevated last blood pressure reading 172/85 patient denies any chest pain. Denies any nausea vomiting. Lee catheter scheduled to be removed today. On 07/08/2018 patient is currently sitting up in chair. Patient does report having a bowel movement. Patient is still congested with cough. Will order chest x-ray. Patient's blood pressure also remains elevated. Lisinopril has been increased. At this time patient denies chest pain or shortness of breath. Patient denies nausea vomiting or diarrhea. Patient denies any urinary burning or frequency 07/09/2018 patient having asked episodes of urinary retention. Unfortunately bladder scanning had not been completed by nursing staff after Lee catheter was initially removed. Patient did have evidence of urinary retention Lee catheter had to be reinserted yesterday. Patient continued to have abdominal pain. Surgical service has ordered a repeat computed tomography scan abdomen and pelvis it is showing evidence of a leak and he is scheduled for surgery this afternoon. Yesterday he was having elevated blood pressures lisinopril was increased and patient did receive another dose of Lasix. Chest x-ray had shown consider possible mild early volume overload. At this time patient's lungs are clear he denies any shortness of breath. He and his cough has improved. Last blood pressure 148/82. Denies any chest pain or shortness breath. Denies any nausea or vomiting. Urine is a dark in color with possible blood. Likely due to Lee catheter trauma. 07/10/2018 patient is sitting on edge of bed leaning over and holding stomach, reporting lower abdominal pain. He is passing gas and having bowel movements. He does have Lee catheter still in place the urine is dark and red. He was seen by urology they have added Flomax. Patient also received fluid bolus. And he is currently on normal saline with potassium at 75 mL an hour. Patient denies any chest pain or shortness of breath. Patient feels that it may be his bladder causing his symptoms. Nursing staff is checking with bladder scan. Surgical service has been notified about the abdominal pain. They're following closely. Patient medically to surgery yesterday because he was not having any abdominal pain and was stooling. He was given a regular diet this morning. 07/13/2018 patient is scheduled for epidural to be removed later today. Reports that his pain is controlled. Denies any nausea or vomiting. Denies any chest pain or shortness of breath. Does admit to mild cough. Cells Lee catheter in place. Urine is clearing. Patient does report ambulating in the hallway but feeling short of breath afterwards and tired 07/14/2018 patient was confused during the night pulled out NG tube. He tried to call 911 to ask for help. He was reorientated by nursing staff and was able to go back to sleep. He is currently on antibiotics Zosyn and after myosin for his peritonitis. He is having his diet advanced per surgical team. Blood pressures are elevated 190/84. We'll add hydralazine 25 mg daily. Nursing staff also reported that patient is sounding more congested chest x-ray will be ordered. Patient denies any chest pain or shortness of breath. Denies any nausea or vomiting. Having gas through his colostomy no stool yet. Lee catheter in place urine is red. Blood sugar has been on the lower side in the 80s. This should improve with the advancement of diet On 07/15/2018 patient is alert and oriented. Blood sugars have improved. Patient to get PICC line today. Social consult for ECF planning. This time patient denies chest pain or shortness of breath. Patient denies any nausea or vomiting. Pulmonary services are following. Blood pressure meds adjusted Objective - Vital Signs Vital signs: Vital Signs Temp 97.6 F 07/15/18 07:31 Pulse 64 07/15/18 09:28 Resp 12 07/15/18 09:28 BP 182/69 07/15/18 07:31 Pulse Ox 96 07/15/18 09:13 Intake & Output 07/14/18 07/15/18 07/15/18 18:59 06:59 18:59 Intake Total 1077 2878 Output Total 1520 1010 304 Balance -443 1868 -304 Intake: Intake, IV Titration 1258 Amount 0.9% NaCl with KCl 20 Meq 1000 /l 1,000 ml @ 75 mls/hr IV .[id number] DOMINGUEZ Rx#: [id number] DAPTOmycin 600 mg In 58 Sodium Chloride 0.9% 50 ml @ 100 mls/hr IVPB HS DOMINGUEZ Rx#:[id number] Piperacillin-Tazobactam 3 100 .375 gm In Sodium Chloride 0.9% 100 ml @ 25 mls/hr IVPB Q8HR DOMINGUEZ Rx# :[id number] metroNIDAZOLE-NS PMX 500 100 mg In Saline 1 100ml.bag @ 100 mls/hr IVPB Q6H DOMINGUEZ Rx#:[id number] Oral 1077 1620 Output: Drainage 170 150 90 Right Abdomen 170 150 90 Urine 1350 810 Uretheral (Lee) 600 Post Void Residual 214 Stool 50 Other: Voiding Method Indwelling Catheter Indwelling Catheter # Voids 1 - Exam Head normocephalic Neck supple Lungs coarse breath sounds that improved with cough Heart regular rate and rhythm S1-S2, no rub or gallop Abdomen is distended lower abdominal tenderness. Colostomy and drainage tubes present Extremities edema bilateral lower extremities Neuro alert and orientated to 3 - Labs CBC & Chem 7: 07/15/18 06:42 07/15/18 06:42 Labs: Abnormal Lab Results - Last 24 Hours (Table) 07/15/18 07/15/18 07/15/18 Range/Units 00:06 05:28 06:42 RBC 3.93 L (4.30-5.90) m/uL Hgb 12.1 L (13.0-17.5) gm/dL Hct 38.1 L (39.0-53.0) % Neutrophils # 7.9 H (1.3-7.7) k/uL Lymphocytes # 0.7 L (1.0-4.8) k/uL INR (<1.2) Chloride (98-107) mmol/L BUN (9-20) mg/dL Glucose (74-99) mg/dL POC Glucose (mg/dL) 133 H 156 H (75-99) mg/dL Calcium (8.4-10.2) mg/dL Total Protein (6.3-8.2) g/dL Albumin (3.5-5.0) g/dL 07/15/18 07/15/18 07/15/18 Range/Units 06:42 06:42 12:03 RBC (4.30-5.90) m/uL Hgb (13.0-17.5) gm/dL Hct (39.0-53.0) % Neutrophils # (1.3-7.7) k/uL Lymphocytes # (1.0-4.8) k/uL INR 1.2 H (<1.2) Chloride 112 H (98-107) mmol/L BUN 23 H (9-20) mg/dL Glucose 131 H (74-99) mg/dL POC Glucose (mg/dL) 195 H (75-99) mg/dL Calcium 7.8 L (8.4-10.2) mg/dL Total Protein 4.1 L (6.3-8.2) g/dL Albumin 2.1 L (3.5-5.0) g/dL Microbiology - Last 24 Hours (Table) 07/10/18 15:03 Anaerobic Culture - Final Other - Other Assessment and Plan Assessment: Assessment: #1 diverticulitis was history of perforated diverticulitis patient was admitted to [facility] and underwent low anterior resection, he also had a robotic cholecystectomy due to history of cholecystitis. Patient had repeat computed tomography scan abdomen and pelvis with evidence of leak. Patient underwent Exploratory laparotomy with partial colectomy, descending colostomy creation with devitalized rectum, Mariya's procedure, abdominal lavage 6 L normal saline, application of PREVENA extended, mobilization of splenic flexure with Dr. White. Per infectious disease patient has been switched to Zosyn and daptomycin for antibiotics. Cultures pending. #2 essential hypertension with elevated blood pressures. Patient having elevated blood pressures lisinopril was increased during this admission to 20 mg daily. At this time we'll be adding hydralazine 25 mg daily continue to monitor. Hydralazine has been increased to 3 times a day #3 underlying history of benign prostatic hypertrophy #4 underlying history of diabetes mellitus 2. Patient refusing sliding scale coverage. Patient is having lower blood sugars. Diet will be advanced. hopefully this will help, continue to monitor blood sugars. Sugars appear #5 previous history of coronary artery disease with previous history of myocardial infarction #6 wheezing with cough: Possible COPD exacerbation: Patient is a smoker. We'll add DuoNeb updrafts 4 times a day and monitor. Showing improvement. #7 urinary retention: Secondary to BPH and post op retention. Patient seen by urology. They have added Flomax. Continue Proscar and Cardura. Urology recommending voiding trial with the next couple a days. If not continue Flomax and follow-up outpatient for further evaluation #8 episodes of fluid overload patient has received IV Lasix. Resolved #9 iron deficiency anemia. Patient given IV iron #10 bradycardia. Heart rate reported to be in the 40s this a.m. Lopressor has been decreased. Patient placed on cardiac telemetry. Will check labs #11 possible pneumonia in right lung base. Dr. Jeffers following for pulmonary. Patient started on Zosyn #12 secondary peritonitis from Anastomosis leak. Infectious disease following. Culture positive for enterococcus and faecalis sensitivity to vancomycin. Patient currently on daptomycin and Zosyn per infectious disease planning on daptomycin and Rocephin plus oral Flagyl commendation for least 10 days on discharge. PICC line has been ordered DVT prophylaxis subcu loveox and GI prophylaxis pepcid Social work consulted. Discharge planning to [facility] I performed an examination of the patient and discussed their management with the Nurse Practitioner. I have reviewed the Nurse Practitioner's notes and agree with the documented findings and plan of care
--- NOTE | 2018-07-15 12:57 | P.PN ---
Progress Note - Text 07/13 1599 73-year-old male status post exploratory lap. Patient has an epidural catheter with the solution running at 9 mL an hour, he had a dose of Lovenox in the morning at 7:00, I ordered the epidural DC'd after 12 hours and the nurse was informed. VAS of 1 with no motor or sensory deficit
[2018-07-15] MEDS ORDERED: LIDOCAINE 1% INJ 10MG/ML (20 ML MDV) ONE (14:30)
--- NOTE | 2018-07-15 15:39 | IR ---
EXAMINATION TYPE: IR cvc insert >=5 years DATE OF EXAM: 07/15/2018 COMPARISON: NONE CLINICAL HISTORY: Infection, postop, Needs long-term intravenous access for antibiotics therapy. PROCEDURE: After informed consent, the skin overlying the left basilic vein was localized with ultrasound and no mandeep to be compressible and patent. An ultrasound image was obtained and submitted on the patient's c de la rosa. The overlying skin was prepped and draped and Lidocaine was used for local anesthesia. A skin bob was made with a scalpel. Access was gained to the vein under ultrasound guidance with a 21 gau ge needle and a 0.018 inch wire was advanced. Access site was dilated with Peel-Away sheath and cath eter tailored to the appropriate length and advanced such that the distal tip is at the cavoatrial ju nction. Spot image was obtained verifying placement. Catheter was fixed to the skin and a sterile d ressing was placed following hemostasis. Catheter was aspirated and flushed with saline. Patient wa s discharged in stable condition without complication. Maximal barrier technique is utilized. Ultras ound image is documented on the chart. Ultrasound used with sterile technique. Fluoro time and fluoroscopic images submitted to document procedure: 20 intraoperative C-arm images, 0.1 minutes fluoroscopy time IMPRESSION: STATUS POST ULTRASOUND AND FLUOROSCOPIC GUIDED PICC LINE PLACEMENT, READY FOR USE. THIS PROCEDURE WAS PERFORMED BY THE UNDERSIGNED.
[2018-07-15] MEDS ORDERED: FUROSEMIDE 10 MG/ML 2 ML VIAL IV ONE ×2 (17:19→18:41)
[2018-07-15 17:50] LABS: Glucose,Whole Blood 187 mg/dL (75-99)
[2018-07-15] MEDS: TAMSULOSIN 0.4 MG CAP.ER.24H PO SCH (18:22)
--- NOTE | 2018-07-15 18:26 | P.PN ---
Subjective Progress Note Date: 07/15/18 CHIEF COMPLAINT: Diverticulitis HISTORY OF PRESENT ILLNESS: The patient is a 73-year-old gentleman status post robotic-assisted low anterior resection 07/03/18, postop day 12 from his index operation and POD 5, 07/10/2018 Mariya's procedure for blow out of his colonic anastomosis. He was seen earlier this afternoon and again this evening. At bedside, PREVENA discontinued along midline. Straight cath for postvoid residual demonstrates less than 40 mL in his bladder. He is voiding adequately. Patient seen by pulmonary which demonstrates no pneumonia as chest x-ray. Patient is changing his ostomy and demonstrating aptitude for ostomy care. No reports of fevers or chills. He is tolerating diet. Ostomy with moderate stool. Epidural has been discontinued. PICC line placed for daptomycin and Zosyn. He is pending transfer to rehab. Weight rechecked since admission with over 30 pound weight gain from fluids. He reports intolerance to steroids. PHYSICAL EXAM: VITAL SIGNS: Reviewed GENERAL: Well-developed in no acute distress. HEENT: No sclera icterus. Extraocular movements grossly intact. Moist buccal mucosa. Head is atraumatic, normocephalic. Hears conversational speech. No nasal drainage. Has NGT NECK: Supple without lymphadenopathy. CHEST: Non-labored respirations and equal bilateral excursions. CARDIOVASCULAR: Palpable 2+ radial pulses. Regular rate and regular rhythm ABDOMEN: Soft. Non-distended. LAMONT is serous. No cellulitis or infection along midline incision that is well intact with lacey. No skin breakdown. Ostomy pink patent and functioning. Semisolid stool in ostomy bag. MUSCULOSKELETAL: No clubbing, cyanosis. 2+ bilateral extremity edema. NEUROLOGIC: No focal or lateralizing signs. Cranial nerves II through XII grossly intact. PSYCH: Appropriate affect. Alert and oriented to person, place and time. SKIN: Well perfused. Good skin turgor. : Urine is clear yellow. Edema along scrotum. LABS: Reviewed STUDIES: Reviewed ASSESSMENT: 1. History of perforated diverticulitis 2. Chronic abdominal pain 3. Medical noncompliance to postoperative care 4. History of tobacco abuse 5. History of cholecystectomy 6. Status post sigmoid colectomy 7. Moderate to severe obstructive uropathy secondary to benign prostatic hypertrophy preexistent to surgery 8. Gastroesophageal reflux disease 9. Abnormal CT of the abdomen and pelvis 10. History of tobacco abuse. 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 Steroid intolerance PLAN: 1. Patient is being prepared for discharge tomorrow. 2. Continue PICC line for antibiotics 3. Increase oral intake of fluids advised. 4. He has moderate lower extremity edema. Diuretic on hold. 5. He has intolerance to steroids and will discontinue. 6. Continue deep cough and breathing including incentive spirometer 7. All dressings changed at bedside along the abdomen with Optifoam to be discontinued to 07-20-18 8. LAMONT tube was continued in the office. 9. Medical reconciliation for potential discharge reviewed 10. He passed his postvoid residual and is responding well to Flomax. 11. Switch to oral pain meds. Objective - Vital Signs Vital signs: Vital Signs Temp 97.6 F 07/15/18 07:31 Pulse 72 07/15/18 13:31 Resp 12 07/15/18 09:28 BP 182/69 07/15/18 07:31 Pulse Ox 96 07/15/18 09:13 Intake & Output 07/14/18 07/15/18 07/15/18 18:59 06:59 18:59 Intake Total 1077 2878 1365 Output Total 1520 1010 504 Balance -443 1868 861 Intake: Intake, IV Titration 1258 725 Amount 0.9% NaCl with KCl 20 Meq 1000 525 /l 1,000 ml @ 75 mls/hr IV .[id number] DOMINGUEZ Rx#: [id number] DAPTOmycin 600 mg In 58 Sodium Chloride 0.9% 50 ml @ 100 mls/hr IVPB HS DOMINGUEZ Rx#:[id number] Piperacillin-Tazobactam 3 100 100 .375 gm In Sodium Chloride 0.9% 100 ml @ 25 mls/hr IVPB Q8HR DOMINGUEZ Rx# :[id number] metroNIDAZOLE-NS PMX 500 100 100 mg In Saline 1 100ml.bag @ 100 mls/hr IVPB Q6H DOMINGUEZ Rx#:[id number] Oral 1077 1620 640 Output: Drainage 170 150 90 Right Abdomen 170 150 90 Urine 1350 810 200 Uretheral (Lee) 600 100 Post Void Residual 214 Stool 50 Other: Voiding Method Indwelling Catheter Indwelling Catheter Toilet Urinal # Voids 1 20 - Labs CBC & Chem 7: 07/15/18 06:42 07/15/18 06:42 Labs: Abnormal Lab Results - Last 24 Hours (Table) 07/15/18 07/15/18 07/15/18 Range/Units 00:06 05:28 06:42 RBC 3.93 L (4.30-5.90) m/uL Hgb 12.1 L (13.0-17.5) gm/dL Hct 38.1 L (39.0-53.0) % Neutrophils # 7.9 H (1.3-7.7) k/uL Lymphocytes # 0.7 L (1.0-4.8) k/uL INR (<1.2) Chloride (98-107) mmol/L BUN (9-20) mg/dL Glucose (74-99) mg/dL POC Glucose (mg/dL) 133 H 156 H (75-99) mg/dL Calcium (8.4-10.2) mg/dL Total Protein (6.3-8.2) g/dL Albumin (3.5-5.0) g/dL 07/15/18 07/15/18 07/15/18 Range/Units 06:42 06:42 12:03 RBC (4.30-5.90) m/uL Hgb (13.0-17.5) gm/dL Hct (39.0-53.0) % Neutrophils # (1.3-7.7) k/uL Lymphocytes # (1.0-4.8) k/uL INR 1.2 H (<1.2) Chloride 112 H (98-107) mmol/L BUN 23 H (9-20) mg/dL Glucose 131 H (74-99) mg/dL POC Glucose (mg/dL) 195 H (75-99) mg/dL Calcium 7.8 L (8.4-10.2) mg/dL Total Protein 4.1 L (6.3-8.2) g/dL Albumin 2.1 L (3.5-5.0) g/dL 07/15/18 Range/Units 17:30 RBC (4.30-5.90) m/uL Hgb (13.0-17.5) gm/dL Hct (39.0-53.0) % Neutrophils # (1.3-7.7) k/uL Lymphocytes # (1.0-4.8) k/uL INR (<1.2) Chloride (98-107) mmol/L BUN (9-20) mg/dL Glucose (74-99) mg/dL POC Glucose (mg/dL) 187 H (75-99) mg/dL Calcium (8.4-10.2) mg/dL Total Protein (6.3-8.2) g/dL Albumin (3.5-5.0) g/dL Microbiology - Last 24 Hours (Table) 07/10/18 15:03 Anaerobic Culture - Final Other - Other Assessment and Plan (1) Medically noncompliant Current Visit: Yes Status: Acute Code(s): Z91.19 - PATIENT'S NONCOMPLIANCE W OTH MEDICAL TREATMENT AND REGIMEN SNOMED Code(s): 672567606 (2) Enlarged prostate with lower urinary tract symptoms (LUTS) Current Visit: Yes Status: Acute Code(s): N40.1 - BENIGN PROSTATIC HYPERPLASIA WITH LOWER URINARY TRACT SYMP SNOMED Code(s): 560671294 (3) Coronary artery disease Current Visit: No Status: Acute Code(s): I25.10 - ATHSCL HEART DISEASE OF [place] CORONARY ARTERY W/O ANG PCTRS SNOMED Code(s): 00291749 (4) Diabetes mellitus Current Visit: No Status: Acute Code(s): E11.9 - TYPE 2 DIABETES MELLITUS WITHOUT COMPLICATIONS SNOMED Code(s): 45095751 (5) Diverticulitis Current Visit: No Status: Acute Code(s): K57.92 - DVTRCLI OF INTEST, PART UNSP, W/O PERF OR ABSCESS W/O BLEED SNOMED Code(s): 620111523 (6) Gastroesophageal reflux disease Current Visit: No Status: Acute Code(s): K21.9 - GASTRO-ESOPHAGEAL REFLUX DISEASE WITHOUT ESOPHAGITIS SNOMED Code(s): 111145204 (7) History of myocardial infarction Current Visit: No Status: Acute Code(s): I25.2 - OLD MYOCARDIAL INFARCTION SNOMED Code(s): 304337057 (8) Hypertensive heart disease Current Visit: No Status: Acute Code(s): I11.9 - HYPERTENSIVE HEART DISEASE WITHOUT HEART FAILURE SNOMED Code(s): 96685319 (9) Perforation of sigmoid colon due to diverticulitis Current Visit: No Status: Acute Code(s): K57.20 - DVTRCLI OF LG INT W PERFORATION AND ABSCESS W/O BLEEDING SNOMED Code(s): 9441249913934076 (10) Prostate hypertrophy Current Visit: No Status: Acute Code(s): N40.0 - BENIGN PROSTATIC HYPERPLASIA WITHOUT LOWER URINRY TRACT SYMP SNOMED Code(s): 784919001 (11) Abnormal abdominal CT scan Current Visit: Yes Status: Acute Code(s): R93.5 - ABN FINDINGS ON DX IMAGING OF ABD REGIONS, INC RETROPERITON SNOMED Code(s): 49999394929659169 (12) Colostomy in place Current Visit: Yes Status: Acute Code(s): Z93.3 - COLOSTOMY STATUS SNOMED Code(s): 075785405 (13) Ascites Current Visit: Yes Status: Acute Code(s): R18.8 - OTHER ASCITES SNOMED Code(s): 912932033 (14) Peritonitis (acute) generalized Current Visit: Yes Status: Acute Code(s): K65.0 - GENERALIZED (ACUTE) PERITONITIS SNOMED Code(s): 72208988
--- NOTE | 2018-07-15 18:54 | P.DS ---
Providers Date of admission: 07/03/18 12:23 Expected date of discharge: 07/16/18 Attending physician: Bev Lara Consults: 07/03/18 22:17 Consult Physician Routine Consulting Provider: Nabeel Nieto Consult Reason/Comments: medical management Do you want consulting provider notified?: Yes, Notify in am Consult Physician Routine Consulting Provider: Rafy Stewart Consult Reason/Comments: Obstructive uropathy severe BPH Do you want consulting provider notified?: Yes, Notify in am 07/10/18 23:18 Consult Physician Routine Consulting Provider: Keith Oliveira Consult Reason/Comments: Diverticulitis with peritonitis Do you want consulting provider notified?: Yes, Notify in am 07/14/18 14:54 Consult Physician Routine Consulting Provider: Mulu Concepcion Consult Reason/Comments: critical care Do you want consulting provider notified?: Yes Primary care physician: Katey Harris - Discharge Diagnosis(es) (1) Medically noncompliant Current Visit: Yes Status: Acute (2) Enlarged prostate with lower urinary tract symptoms (LUTS) Current Visit: Yes Status: Acute (3) Coronary artery disease Current Visit: No Status: Acute (4) Diabetes mellitus Current Visit: No Status: Acute (5) Diverticulitis Current Visit: No Status: Acute (6) Gastroesophageal reflux disease Current Visit: No Status: Acute (7) History of myocardial infarction Current Visit: No Status: Acute (8) Hypertensive heart disease Current Visit: No Status: Acute (9) Perforation of sigmoid colon due to diverticulitis Current Visit: No Status: Acute (10) Prostate hypertrophy Current Visit: No Status: Acute (11) Abnormal abdominal CT scan Current Visit: Yes Status: Acute (12) Colostomy in place Current Visit: Yes Status: Acute (13) Ascites Current Visit: Yes Status: Acute (14) Peritonitis (acute) generalized Current Visit: Yes Status: Acute Hospital Course: HISTORY OF PRESENT ILLNESS: The patient is a 73-year-old gentleman who has history of complicated diverticulitis with past perforation who had robotic- assisted low anterior resection and cholecystectomy for cholecystitis 07/03/18. He has history of pre-existing obstructive uropathy and early medical noncompliance during his hospital care. One week following his colonic resection, he developed acute onset abdominal pain including severe urinary retention compressing his new anastomosis. CT of the abdomen and pelvis demonstrated pneumoperitoneum and perforation. He went back to the operating room 07/10/2018 for Mariya's procedure for blow out of his colonic anastomosis. He had PREVENA along midline and had recovered well. Secondary to his pre- existing obstructive uropathy, urology consultation was obtained. His Lee catheter was discontinued 07/15/2018 with straight cath for postvoid residual of less than 40 mL in his bladder. He was voiding adequately. Patient seen by pulmonary team for abnormal chest x-ray. Microbiology cultures demonstrated multiple enterococcus resistance and was started on daptomycin including Zosyn and kept on Flagyl. Infectious disease consultation was obtained for multiple antibiotic resistance including medicine consultation for his multiple medical comorbidities. Ostomy teaching was started. Patient is changing his ostomy and demonstrating aptitude for ostomy care. He had no sepsis during his hospitalization. No reports of fevers or chills. He is tolerating diet. Ostomy was with moderate stool. Epidural has been discontinued. PICC line was placed for daptomycin and Zosyn. He is pending transfer to rehab. Weight rechecked since admission with over 30 pound weight gain from fluids. He reports intolerance to steroids and his steroids was discontinued. Patient was found fit for discharge once medically stable. PHYSICAL EXAM: VITAL SIGNS: Reviewed GENERAL: Well-developed in no acute distress. HEENT: No sclera icterus. Extraocular movements grossly intact. Moist buccal mucosa. Head is atraumatic, normocephalic. Hears conversational speech. No nasal drainage. Has NGT NECK: Supple without lymphadenopathy. CHEST: Non-labored respirations and equal bilateral excursions. CARDIOVASCULAR: Palpable 2+ radial pulses. Regular rate and regular rhythm ABDOMEN: Soft. Non-distended. LAMONT is serous. No cellulitis or infection along midline incision that is well intact with lacey with PREVENA discontinued and OPTIFOAM placed. No skin breakdown. Ostomy pink patent and functioning. Semisolid stool in ostomy bag. MUSCULOSKELETAL: No clubbing, cyanosis. 2+ bilateral extremity edema. NEUROLOGIC: No focal or lateralizing signs. Cranial nerves II through XII grossly intact. PSYCH: Appropriate affect. Alert and oriented to person, place and time. SKIN: Well perfused. Good skin turgor. : Urine is clear yellow. Edema along scrotum. LABS: Reviewed STUDIES: Reviewed ASSESSMENT: 1. History of perforated diverticulitis 2. Chronic abdominal pain 3. Medical noncompliance to postoperative care 4. History of tobacco abuse 5. History of cholecystectomy 6. Status post sigmoid colectomy 7. Moderate to severe obstructive uropathy secondary to benign prostatic hypertrophy preexistent to surgery 8. Gastroesophageal reflux disease 9. Abnormal CT of the abdomen and pelvis 10. History of tobacco abuse. 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 Steroid intolerance PLAN: 1. Patient is being prepared for discharge tomorrow. 2. Continue PICC line for antibiotics 3. Increase oral intake of fluids advised. 4. He has moderate lower extremity edema and was on diuresis 5. He has intolerance to steroids and will discontinue. 6. Continue deep cough and breathing including incentive spirometer 7. All dressings changed at bedside along the abdomen with Optifoam to be discontinued to 07-20-18 8. LAMONT tube continued upon discharge 9. Medical reconciliation for potential discharge reviewed 10. He passed his postvoid residual and is responding well to Flomax. 11. Switch to oral pain meds. Pertinent Studies: CT abdomen and pelvis demonstrated pneumoperitoneum. Chest x-ray demonstrating COPD Procedures: PROCEDURE 07/15/18: PICC line placement OPERATION 07/10/18: 1. Exploratory laparotomy with partial colectomy/sigmoid colon 2. Descending colostomy. 3. Devitalized rectal stump. 4. Mariya's procedure for perforated anastomosis 5. Peritoneal lavage over 6 liters normal saline 6. Pre-existing intraabdominal #19 Farhat drain along the right lower pelvis 7. Placement of PREVENA extended wound VAC system 8. Mobilization of splenic flexure Anesthesia: GETA Estimated Blood Loss (ml): 100 Pathology: other (Descending colon involving perforated section) Condition: stable Disposition: floor OPERATION 07/03/18: 1. Robotic-assisted daVinci Xi laparoscopic cholecystectomy with FIREFLY 2. Robotic-assisted daVinci Xi laparoscopic low anterior resection with sigmoid colectomy 3. Placement of round #19 LAMONT drain at left lower quadrant. Anesthesia: GETA, local, spinal Estimated Blood Loss (ml): 50 Pathology: other (Gallbladder and sigmoid colon) Condition: stable Disposition: floor Complications: None. Plan - Discharge Summary Discharge Rx Participant: No New Discharge Prescriptions: New Docusate [Colace] 100 mg PO BID #30 capsule HYDROcodone/APAP 5-325MG [[place] 5-325] 1 each PO Q4HR PRN #18 tab PRN Reason: Moderate Pain cefTRIAXone [Rocephin] 2,000 mg IVP Q24HR #10 vial DAPTOmycin [Daptomycin] 600 mg IV DAILY #10 vial ALPRAZolam [Xanax] 0.5 mg PO HS PRN #10 tab PRN Reason: Anxiety hydrALAZINE HCL [Apresoline] 25 mg PO TID #90 tab Lisinopril [Zestril] 20 mg PO HS #30 tab Metoprolol Tartrate [Lopressor] 12.5 mg PO BID #60 tab Tamsulosin [Flomax] 0.4 mg PO PC-SUPPER #30 cap.er.24h Ibuprofen [Motrin] 600 mg PO Q8HR PRN #30 tab PRN Reason: Pain Continue Finasteride [Proscar] 5 mg PO HS Aspirin 81 mg PO SUTUTHSA Lansoprazole [Prevacid] 15 mg PO AC-[facility] Doxazosin Mesylate [Cardura] 4 mg PO HS sitaGLIPtin [Januvia] 50 mg PO DAILY PRN PRN Reason: HYPERGLYCEMIA Praluent(Unknown) 1 dose SQ Q14D Cetirizine HCl 10 mg PO DAILY Discontinued Metoprolol Tartrate [Lopressor] 25 mg PO BID Cholecalciferol [Vitamin D3] 5,000 unit PO HS Lisinopril [Zestril] 5 mg PO HS Discharge Medication List Aspirin 81 mg PO SUTUTHSA 01/11/15 [History] Doxazosin Mesylate [Cardura] 4 mg PO HS 01/11/15 [History] Finasteride [Proscar] 5 mg PO HS 01/11/15 [History] Lansoprazole [Prevacid] 15 mg PO AC-BRKFST 01/11/15 [History] Praluent(Unknown) 1 dose SQ Q14D 01/15/18 [History] sitaGLIPtin [Januvia] 50 mg PO DAILY PRN 01/15/18 [History] Cetirizine HCl 10 mg PO DAILY 05/22/18 [History] Docusate [Colace] 100 mg PO BID #30 capsule 07/08/18 [Rx] HYDROcodone/APAP 5-325MG [[place] 5-325] 1 each PO Q4HR PRN #18 tab 07/08/18 [Rx] ALPRAZolam [Xanax] 0.5 mg PO HS PRN #10 tab 07/15/18 [Rx] DAPTOmycin [Daptomycin] 600 mg IV DAILY #10 vial 07/15/18 [Rx] Ibuprofen [Motrin] 600 mg PO Q8HR PRN #30 tab 07/15/18 [Rx] Lisinopril [Zestril] 20 mg PO HS #30 tab 07/15/18 [Rx] Metoprolol Tartrate [Lopressor] 12.5 mg PO BID #60 tab 07/15/18 [Rx] Tamsulosin [Flomax] 0.4 mg PO PC-SUPPER #30 cap.er.24h 07/15/18 [Rx] cefTRIAXone [Rocephin] 2,000 mg IVP Q24HR #10 vial 07/15/18 [Rx] hydrALAZINE HCL [Apresoline] 25 mg PO TID #90 tab 07/15/18 [Rx] Follow up Appointment(s)/Referral(s): Bev Lara MD [STAFF PHYSICIAN] - 07/28/18 Patient Instructions/Handouts: Diverticulitis (GEN), Colostomy Care (GEN), Giovanni-Mcgill Drain Care (ED) Activity/Diet/Wound Care/Special Instructions: Please remove dressing over the incision and LAMONT on 07/20/2018. May shower. No bathtub soaks. No lifting over 4 pounds in 4 weeks. Soft diet No smoking! Colostomy Care Recommendations for Home: Last Pouching system change: 07.13.2018 [facility]ostomy [id number] Convatec pouch with filter #[id number] (three from the hospital) No sting skin prep pads (12 from the hospital) Ostomy powder (one from the hospital) Mr Borja is to empty the pouch sittign on the toilet or facing the toilet when the bag is 1/2 to 1/3 full Mr Borja is to change the pouching system every 3-[address] liquid deodrant in the bottom of the bag every bag Mr Borja will be receiving additional sample supplies for his ostomy care from [facility] once home Discharge Disposition: TRANSFER TO SNF/ECF
--- NOTE | 2018-07-15 19:50 | P.PN ---
Subjective Progress Note Date: 07/15/18 This is a very pleasant 73-year-old gentleman who follows with Dr. Harris as his primary care physician. He has a history of diabetes mellitus, gastroesophageal reflux disease, hyperlipidemia, hypertension, coronary artery disease with previous stent placement, prostate disorder. He also has chronic and ongoing tobacco dependence of 60 years. He has not been on home oxygen. He has not been on any inhalers in the outpatient setting. He presented here electively for a history of perforated diverticulitis. In 07/03/2018 he had undergone robotic-assisted given she laparoscopic cholecystectomy with fire fly , laparoscopic low anterior resection with sigmoid colectomy and placement of the LAMONT drain in the left lower quadrant. Pathology was negative for malignancy. CT angiogram performed on November 092018 revealed evidence of COPD with mild emphysema and possible pulmonary arterial hypertension. There was no evidence for pulmonary embolus. There was noted CAD, mild diffuse anasarca, trace right pleural effusion and mild interstitial thickening suggestive of mild pulmonary vascular congestion. Wound culture was positive for enterococcus faecium. He is currently on Zosyn, daptomycin, metronidazole. A follow-up chest x-ray revealed patchy infiltrate in the right medial lung base. We're consulted today for the same. Patient is seen on the regular medical floor. Currently sitting up in a chair at the bedside. He is awake and alert in no acute distress. He denies any worsening shortness of breath. He does have a loose nonproductive cough. No fever, chills or night sweats. White count 9.5. Hemoglobin 12.4. Creatinine 0.72. He is currently maintaining O2 saturations in the mid 90s on room air. He's been afebrile. Somewhat hypertensive. He has not been working often with the incentive spirometer. He has not been very active. On 07/15/2018, I'm seeing this patient for a follow-up. The patient is doing well. No specific complaints. No respiratory difficulties. Congested cough. No significant sputum production. I reviewed the chest x-ray. There is some atelectatic changes in the right lung. No evidence of any pneumonia clinically or radiographically. The patient having any respiratory distress. He was offered incentive spirometer. He remains on broad-spectrum antibiotics for now. Objective - Vital Signs Vital signs: Vital Signs Temp 96.4 F L 07/15/18 18:40 Pulse 76 02/06/19 18:40 Resp 18 07/15/18 18:40 BP 173/79 07/15/18 18:40 Pulse Ox 96 07/15/18 18:40 Intake & Output 07/15/18 07/15/18 07/16/18 06:59 18:59 06:59 Intake Total 2878 1365 Output Total 1010 704 Balance 1868 661 Intake: Intake, IV Titration 1258 725 Amount 0.9% NaCl with KCl 20 Meq 1000 525 /l 1,000 ml @ 75 mls/hr IV .[id number] DOMINGUEZ Rx#: [id number] DAPTOmycin 600 mg In 58 Sodium Chloride 0.9% 50 ml @ 100 mls/hr IVPB HS DOMINGUEZ Rx#:[id number] Piperacillin-Tazobactam 3 100 100 .375 gm In Sodium Chloride 0.9% 100 ml @ 25 mls/hr IVPB Q8HR DOMINGUEZ Rx# :[id number] metroNIDAZOLE-NS PMX 500 100 100 mg In Saline 1 100ml.bag @ 100 mls/hr IVPB Q6H DOMINGUEZ Rx#:[id number] Oral 1620 640 Output: Drainage 150 90 Right Abdomen 150 90 Urine 810 200 Uretheral (Lee) 600 100 Post Void Residual 214 Stool 50 200 Other: Voiding Method Indwelling Catheter Toilet Urinal # Voids 1 20 - Exam GENERAL EXAM: Obese. Alert, fairly comfortable in no apparent distress. On room air. HEAD: Normocephalic. EYES: Normal reaction of pupils, equal size. NOSE: Clear with pink turbinates. THROAT: No erythema or exudates. NECK: No masses, no JVD. CHEST: No chest wall deformity. LUNGS: Equal air entry with scattered rhonchi, end expiratory wheeze more so on the right lung. Diminished. CVS: S1 and S2 normal with no audible murmur, regular rhythm. ABDOMEN: Surgical incision clean dry well approximated. Intact with Prevena. LAMONT drain remains in place with serous drainage. SPINE: No scoliosis or deformity SKIN: No rashes CENTRAL NERVOUS SYSTEM: No focal deficits, tone is normal in all 4 extremities. EXTREMITIES: There is no peripheral edema. No clubbing, no cyanosis. Peripheral pulses are intact. - Labs CBC & Chem 7: 07/15/18 06:42 02/06/19 06:42 Labs: Abnormal Lab Results - Last 24 Hours (Table) 07/15/18 07/15/18 07/15/18 Range/Units 00:06 05:28 06:42 RBC 3.93 L (4.30-5.90) m/uL Hgb 12.1 L (13.0-17.5) gm/dL Hct 38.1 L (39.0-53.0) % Neutrophils # 7.9 H (1.3-7.7) k/uL Lymphocytes # 0.7 L (1.0-4.8) k/uL INR (<1.2) Chloride (98-107) mmol/L BUN (9-20) mg/dL Glucose (74-99) mg/dL POC Glucose (mg/dL) 133 H 156 H (75-99) mg/dL Calcium (8.4-10.2) mg/dL Total Protein (6.3-8.2) g/dL Albumin (3.5-5.0) g/dL 07/15/18 07/15/18 07/15/18 Range/Units 06:42 06:42 12:03 RBC (4.30-5.90) m/uL Hgb (13.0-17.5) gm/dL Hct (39.0-53.0) % Neutrophils # (1.3-7.7) k/uL Lymphocytes # (1.0-4.8) k/uL INR 1.2 H (<1.2) Chloride 112 H (98-107) mmol/L BUN 23 H (9-20) mg/dL Glucose 131 H (74-99) mg/dL POC Glucose (mg/dL) 195 H (75-99) mg/dL Calcium 7.8 L (8.4-10.2) mg/dL Total Protein 4.1 L (6.3-8.2) g/dL Albumin 2.1 L (3.5-5.0) g/dL 07/15/18 Range/Units 17:30 RBC (4.30-5.90) m/uL Hgb (13.0-17.5) gm/dL Hct (39.0-53.0) % Neutrophils # (1.3-7.7) k/uL Lymphocytes # (1.0-4.8) k/uL INR (<1.2) Chloride (98-107) mmol/L BUN (9-20) mg/dL Glucose (74-99) mg/dL POC Glucose (mg/dL) 187 H (75-99) mg/dL Calcium (8.4-10.2) mg/dL Total Protein (6.3-8.2) g/dL Albumin (3.5-5.0) g/dL Microbiology - Last 24 Hours (Table) 07/10/18 15:03 Anaerobic Culture - Final Other - Other Assessment and Plan Plan: Impression: #1 Perforated diverticulitis status post robotic-assisted low anterior resection , postoperative day #12 from his initial operation and postoperative day #4 Padilla's procedure for blowout of his colonic anastomosis. #2 right midlung atelectasis. Pneumonia is highly doubtful. The patient has a chronic congested cough related to COPD. He'll be offered incentive spirometer. Home I status is stable and the patient is currently on room air. No signs of respiratory distress. #3 Chronic and ongoing tobacco dependence with a 60+ pack per day smoking history on no outpatient treatment. #4 Hypertension. #5 Benign prosthetic hypertrophy. #6 Diabetes mellitus, type II. Noncompliant. #7 Iron deficiency anemia. #8 Hyperlipidemia. #9 History of coronary artery disease with multiple stent placements and ischemic cardiomyopathy. #10 History of depression. KALYAN Continue current antibiotic coverage. Incentive spirometer. Pulmonary toileting. No signs of respiratory compromise. Chest x-ray was reviewed. No need for any further workup. Continue Lovenox for DVT prophylaxis. Surgery to monitor the surgical progress post perforated diverticulitis. The patient is postop day #12. Awake and alert. He was adequately stable. We'll sign off the case and the rest of the management to medicine and surgical team knowing that there is no signs of any pulmonary compromise at this point in time. His COPD stable. Continue DuoNeb nebulized treatments around the clock 4 times a day.
[2018-07-15] MEDS: DOXAZOSIN 4 MG TAB PO SCH (21:47)
[2018-07-15] MEDS: LISINOPRIL 20 MG TAB PO SCH (21:47)
[2018-07-15] MEDS: FINASTERIDE 5 MG TAB PO SCH (21:47)
[2018-07-15] MEDS: METOPROLOL TARTRATE 12.5 MG TAB PO SCH (21:48)
[2018-07-15] MEDS: ALPRAZolam 0.5 MG TAB PO SCH (21:48)
--- NOTE | 2018-07-15 23:47 | PN ---
PROGRESS NOTE DATE OF SERVICE: 07/15/2018. REASON FOR FOLLOWUP: Abdominal abscess. INTERVAL HISTORY: The patient is currently afebrile, has been breathing comfortably. The patient denies having any chest pain, shortness of breath or cough. Denies any abdominal pain. PHYSICAL EXAMINATION: Blood pressure 136/60 with a pulse of 67, temperature 98.1. He is 95% on room air. General description is an elderly male up in the bed in no distress. Respiratory system: Unlabored breathing. Clear to auscultation anteriorly. Heart S1, S2. Regular rate and rhythm. Abdomen soft, mildly distended. LABS: Hemoglobin 12.9, white count 9.0, BUN of 23, creatinine 0.73. DIAGNOSTIC IMPRESSION AND PLAN: Patient with abdominal sepsis from a secondary peritonitis in this patient who did have the patient will continue course of daptomycin and Flagyl and Rocephin and close outpatient followup. All questions and concerns were answered. MMODL / IJN: [id number] /
[2018-07-15 23:58] LABS: Glucose,Whole Blood 172 mg/dL (75-99)
[2018-07-16 01:48] VITALS: RESP 16
[2018-07-16] MEDS: KETOROLAC 30 MG/ML 1 ML VIAL IVP SCH ×2 (05:07→12:22)
[2018-07-16] MEDS: INSULIN ASPART 100 UNIT/ML 1 ML 10 ML VIAL SQ SCH ×2 (05:24→12:48)
[2018-07-16 05:30] LABS: Glucose,Whole Blood 129 mg/dL (75-99)
[2018-07-16] MEDS: HYDROcodone/APAP 5-325MG 1 EACH TAB PO PRN ×2 (05:36→11:26)
[2018-07-16] MEDS: metroNIDAZOLE-NS PMX 500 MG in SALINE 1 100ML.BAG IVPB SCH ×2 (05:38→14:02)
[2018-07-16] MEDS ORDERED: PANTOPRAZOLE 40 MG TABLET PO SCH (07:30)
[2018-07-16] MEDS: IPRATROPIUM-ALBUTEROL 3 ML NEB INHALATION SCH ×2 (09:20→12:30)
--- NOTE | 2018-07-16 09:43 | P.PN ---
Subjective Progress Note Date: 07/16/18 CHIEF COMPLAINT: Diverticulitis HISTORY OF PRESENT ILLNESS: The patient is a 73-year-old gentleman status post robotic-assisted low anterior resection 07/03/18, postop day 13 from his index operation and POD 6, 07/10/2018 Mariya's procedure for blow out of his colonic anastomosis. "I feel great.". "I had a great night sleep.". He was seen by pulmonary who also confirms no evidence of pneumonia. He is changing his ostomy bag. He is on daptomycin which is making it difficult for placement for rehab given the cost of medication. Enterococcus also sensitive to Linezolid. No reports of fevers or chills. He is eager to go home. He is ambulating independently. He is voiding spontaneously. PHYSICAL EXAM: VITAL SIGNS: Reviewed GENERAL: Well-developed in no acute distress. HEENT: No sclera icterus. Extraocular movements grossly intact. Moist buccal mucosa. Head is atraumatic, normocephalic. Hears conversational speech. No nasal drainage. NECK: Supple without lymphadenopathy. CHEST: Non-labored respirations and equal bilateral excursions. CARDIOVASCULAR: Palpable 2+ radial pulses. Regular rate and regular rhythm ABDOMEN: Soft. Non-distended. LAMONT is serous. Ostomy functioning pink patent with stool and flatus. MUSCULOSKELETAL: No clubbing, cyanosis. 1+ bilateral extremity edema. NEUROLOGIC: No focal or lateralizing signs. Cranial nerves II through XII grossly intact. PSYCH: Appropriate affect. Alert and oriented to person, place and time. SKIN: Well perfused. Good skin turgor. LABS: Reviewed ASSESSMENT: 1. History of perforated diverticulitis 2. Chronic abdominal pain 3. Medical noncompliance to postoperative care 4. History of tobacco abuse 5. History of cholecystectomy 6. Status post sigmoid colectomy 7. Moderate to severe obstructive uropathy secondary to benign prostatic hypertrophy preexistent to surgery 8. Gastroesophageal reflux disease 9. Abnormal CT of the abdomen and pelvis 10. History of tobacco abuse. 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 Steroid intolerance PLAN: 1. Patient is cleared for discharge from a surgical standpoint. 2. May need switch from daptomycin as he is unable to be placed at a rehab given cost of antibiotic. Alternatives include Linezolid. 3. LAMONT drain serous and also may be discontinued. 4. Overall history remarkably well. Discontinue telemetry. May be discharged to rehab versus home Objective - Vital Signs Vital signs: Vital Signs Temp 98.0 F 07/16/18 08:26 Pulse 68 07/16/18 09:30 Resp 16 07/16/18 08:26 BP 169/66 07/16/18 08:26 Pulse Ox 94 L 07/16/18 08:26 Intake & Output 07/15/18 07/16/18 07/16/18 18:59 06:59 18:59 Intake Total 1365 1900 Output Total 704 70 Balance 661 1830 Weight 95.708 kg Intake: Intake, IV Titration 725 280 Amount 0.9% NaCl with KCl 20 Meq 525 30 /l 1,000 ml @ 75 mls/hr IV .[id number] DOMINGUEZ Rx#: [id number] DAPTOmycin 600 mg In 50 Sodium Chloride 0.9% 50 ml @ 100 mls/hr IVPB HS DOMINGUEZ Rx#:[id number] Piperacillin-Tazobactam 3 100 100 .375 gm In Sodium Chloride 0.9% 100 ml @ 25 mls/hr IVPB Q8HR DOMINGUEZ Rx# :[id number] metroNIDAZOLE-NS PMX 500 100 100 mg In Saline 1 100ml.bag @ 100 mls/hr IVPB Q6H DOMINGUEZ Rx#:[id number] Oral 640 1620 Output: Drainage 90 70 Right Abdomen 90 70 Urine 200 Uretheral (Lee) 100 Post Void Residual 214 Stool 200 Other: Voiding Method Toilet Toilet Urinal Urinal # Voids 20 4 - Labs CBC & Chem 7: 07/15/18 06:42 07/15/18 06:42 Labs: Abnormal Lab Results - Last 24 Hours (Table) 07/15/18 07/15/18 07/15/18 Range/Units 12:03 17:30 23:46 POC Glucose (mg/dL) 195 H 187 H 172 H (75-99) mg/dL 07/16/18 Range/Units 05:18 POC Glucose (mg/dL) 129 H (75-99) mg/dL Assessment and Plan (1) Medically noncompliant Current Visit: Yes Status: Acute Code(s): Z91.19 - PATIENT'S NONCOMPLIANCE W OTH MEDICAL TREATMENT AND REGIMEN SNOMED Code(s): 881193780 (2) Enlarged prostate with lower urinary tract symptoms (LUTS) Current Visit: Yes Status: Acute Code(s): N40.1 - BENIGN PROSTATIC HYPERPLASIA WITH LOWER URINARY TRACT SYMP SNOMED Code(s): 911512184 (3) Coronary artery disease Current Visit: No Status: Acute Code(s): I25.10 - ATHSCL HEART DISEASE OF [place] CORONARY ARTERY W/O ANG PCTRS SNOMED Code(s): 88772955 (4) Diabetes mellitus Current Visit: No Status: Acute Code(s): E11.9 - TYPE 2 DIABETES MELLITUS WITHOUT COMPLICATIONS SNOMED Code(s): 39169204 (5) Diverticulitis Current Visit: No Status: Acute Code(s): K57.92 - DVTRCLI OF INTEST, PART UNSP, W/O PERF OR ABSCESS W/O BLEED SNOMED Code(s): 295360221 (6) Gastroesophageal reflux disease Current Visit: No Status: Acute Code(s): K21.9 - GASTRO-ESOPHAGEAL REFLUX DISEASE WITHOUT ESOPHAGITIS SNOMED Code(s): 025682599 (7) History of myocardial infarction Current Visit: No Status: Acute Code(s): I25.2 - OLD MYOCARDIAL INFARCTION SNOMED Code(s): 791519426 (8) Hypertensive heart disease Current Visit: No Status: Acute Code(s): I11.9 - HYPERTENSIVE HEART DISEASE WITHOUT HEART FAILURE SNOMED Code(s): 12755198 (9) Perforation of sigmoid colon due to diverticulitis Current Visit: No Status: Acute Code(s): K57.20 - DVTRCLI OF LG INT W PERFORATION AND ABSCESS W/O BLEEDING SNOMED Code(s): 5025416420383783 (10) Prostate hypertrophy Current Visit: No Status: Acute Code(s): N40.0 - BENIGN PROSTATIC HYPERPLASIA WITHOUT LOWER URINRY TRACT SYMP SNOMED Code(s): 861214379 (11) Abnormal abdominal CT scan Current Visit: Yes Status: Acute Code(s): R93.5 - ABN FINDINGS ON DX IMAGING OF ABD REGIONS, INC RETROPERITON SNOMED Code(s): 11443748968358439 (12) Colostomy in place Current Visit: Yes Status: Acute Code(s): Z93.3 - COLOSTOMY STATUS SNOMED Code(s): 902714996 (13) Ascites Current Visit: Yes Status: Acute Code(s): R18.8 - OTHER ASCITES SNOMED Code(s): 364751707 (14) Peritonitis (acute) generalized Current Visit: Yes Status: Acute Code(s): K65.0 - GENERALIZED (ACUTE) PERITONITIS SNOMED Code(s): 40496332
[2018-07-16] MEDS: PIPERACILLIN-TAZOBACTAM 3.375 GM in SODIUM CHLORIDE 0.9% 100 ML IVPB SCH (09:55)
[2018-07-16] MEDS: ENOXAPARIN 30 MG/0.3 ML SYRINGE SQ SCH ×2 (09:55→10:01)
[2018-07-16] MEDS: hydrALAZINE HCL 25 MG TAB PO SCH (09:56)
[2018-07-16] MEDS: METOPROLOL TARTRATE 12.5 MG TAB PO SCH (09:56)
[2018-07-16] MEDS: ASPIRIN 81 MG PO SCH (09:56)
[2018-07-16 10:39] LABS: Basophils % (A) 0 %; Eosinophils # (A) 0.2 k/uL (0-0.7); Eosinophils % (A) 2 %; HCT 41.5 % (39.0-53.0); HGB 12.7 gm/dL (13.0-17.5); Lymphocytes # (A) 0.9 k/uL (1.0-4.8); Lymphocytes % (A) 10 %; MCH 29.9 pg (25.0-35.0); MCHC 30.6 g/dL (31.0-37.0); MCV 97.7 fL (80.0-100.0); Mean Platelet Volume 7.9; Monocytes # (A) 0.4 k/uL (0-1.0); Monocytes % (A) 4 %; Neutrophils # (A) 7.7 k/uL (1.3-7.7); Neutrophils % (A) 83 %; Platelet Count 253 k/uL (150-450); RBC 4.24 m/uL (4.30-5.90); RDW 13.9 % (11.5-15.5); WBC 9.3 k/uL (3.8-10.6)
[2018-07-16 11:09] LABS: ALT 25 U/L (21-72); AST 24 U/L (17-59); Albumin 2.3 g/dL (3.5-5.0); Alkaline Phosphatase 41 U/L (38-126); Anion Gap 4 mmol/L; Blood Urea Nitrogen 27 mg/dL (9-20); Calcium 8.1 mg/dL (8.4-10.2); Carbon Dioxide 26 mmol/L (22-30); Chloride 111 mmol/L (98-107); Glucose 163 mg/dL (74-99); Magnesium 1.7 mg/dL (1.6-2.3); Potassium 3.8 mmol/L (3.5-5.1); Sodium 141 mmol/L (137-145); Total Bilirubin 0.5 mg/dL (0.2-1.3); Total Protein 4.5 g/dL (6.3-8.2)
[2018-07-16] MEDS ORDERED: VANCOMYCIN IV PER PHARMACY 1 EACH MISC MISCELLANE PRN (11:14)
[2018-07-16] MEDS ORDERED: VANCOMYCIN 1,500 MG in SODIUM CHLORIDE 0.9% 250 ML IVPB SCH (12:00)
[2018-07-16] MEDS ORDERED: AMPICILLIN-SULBACTAM 3 GM in SODIUM CHLORIDE 0.9% 100 ML IVPB SCH (12:00)
[2018-07-16 12:13] LABS: Glucose,Whole Blood 179 mg/dL (75-99)
[2018-07-16] MEDS ORDERED: FUROSEMIDE 10 MG/ML 2 ML VIAL IV ONE (13:33)
--- NOTE | 2018-07-16 13:46 | P.PN ---
Subjective Progress Note Date: 07/16/18 Chris Borja is a 73-year-old male with chronic and recurrent history of sigmoid diverticulitis, with previous history of perforated diverticulitis, and history of cholecystitis, was admitted to [facility] by Dr. Lara and underwent a robotic low anterior resection and robotic cholecystectomy, patient was admitted to the medical floor, consultation was requested for management while hospitalized. On 07/05/2018 patient was seen and examined on the medical floor he is alert and oriented 3 in no apparent distress there is no fever or chills no headache or dizziness no chest pain no shortness of breath no cough no nausea or vomiting no abdominal pain and no urinary symptoms 07/06/2018 patient complaining of abdominal pain. Still not passing gas or having bowel movement. He is complaining of some nausea. No vomiting. Apparently he has been refusing the subcu heparin injections. Patient evaluated by surgical service this morning apparently epidural accidentally came out last night. And he's had increasing abdominal pain and some abdominal distention. They've ordered a computed tomography scan of the abdomen with contrast to further evaluate ileus versus leak. She's also ordered a CTA of the chest. At this time patient not is not complaining of any chest pain or shortness of breath. 07/07/2018 patient reports having bowel movement. Denies any nausea or vomiting. Surgical service advancing diet to clears. CTA of the chest was negative for PE or were concerns of some vascular congestion patient did receive a dose of IV Lasix yesterday. Patient is wheezing and mild cough today. Denies shortness of breath. DuoNeb updrafts have been ordered. Patient is now taking the subcu heparin. Blood pressures are elevated last blood pressure reading 172/85 patient denies any chest pain. Denies any nausea vomiting. Lee catheter scheduled to be removed today. On 07/08/2018 patient is currently sitting up in chair. Patient does report having a bowel movement. Patient is still congested with cough. Will order chest x-ray. Patient's blood pressure also remains elevated. Lisinopril has been increased. At this time patient denies chest pain or shortness of breath. Patient denies nausea vomiting or diarrhea. Patient denies any urinary burning or frequency 07/09/2018 patient having asked episodes of urinary retention. Unfortunately bladder scanning had not been completed by nursing staff after Lee catheter was initially removed. Patient did have evidence of urinary retention Lee catheter had to be reinserted yesterday. Patient continued to have abdominal pain. Surgical service has ordered a repeat computed tomography scan abdomen and pelvis it is showing evidence of a leak and he is scheduled for surgery this afternoon. Yesterday he was having elevated blood pressures lisinopril was increased and patient did receive another dose of Lasix. Chest x-ray had shown consider possible mild early volume overload. At this time patient's lungs are clear he denies any shortness of breath. He and his cough has improved. Last blood pressure 148/82. Denies any chest pain or shortness breath. Denies any nausea or vomiting. Urine is a dark in color with possible blood. Likely due to Lee catheter trauma. 07/10/2018 patient is sitting on edge of bed leaning over and holding stomach, reporting lower abdominal pain. He is passing gas and having bowel movements. He does have Lee catheter still in place the urine is dark and red. He was seen by urology they have added Flomax. Patient also received fluid bolus. And he is currently on normal saline with potassium at 75 mL an hour. Patient denies any chest pain or shortness of breath. Patient feels that it may be his bladder causing his symptoms. Nursing staff is checking with bladder scan. Surgical service has been notified about the abdominal pain. They're following closely. Patient medically to surgery yesterday because he was not having any abdominal pain and was stooling. He was given a regular diet this morning. 07/13/2018 patient is scheduled for epidural to be removed later today. Reports that his pain is controlled. Denies any nausea or vomiting. Denies any chest pain or shortness of breath. Does admit to mild cough. Cells Lee catheter in place. Urine is clearing. Patient does report ambulating in the hallway but feeling short of breath afterwards and tired 07/14/2018 patient was confused during the night pulled out NG tube. He tried to call 911 to ask for help. He was reorientated by nursing staff and was able to go back to sleep. He is currently on antibiotics Zosyn and after myosin for his peritonitis. He is having his diet advanced per surgical team. Blood pressures are elevated 190/84. We'll add hydralazine 25 mg daily. Nursing staff also reported that patient is sounding more congested chest x-ray will be ordered. Patient denies any chest pain or shortness of breath. Denies any nausea or vomiting. Having gas through his colostomy no stool yet. Lee catheter in place urine is red. Blood sugar has been on the lower side in the 80s. This should improve with the advancement of diet On 07/15/2018 patient is alert and oriented. Blood sugars have improved. Patient to get PICC line today. Social consult for ECF planning. This time patient denies chest pain or shortness of breath. Patient denies any nausea or vomiting. Pulmonary services are following. Blood pressure meds adjusted 07/16/2018 patient is still having lower extremity edema. Albumin is also low at 2.3. Will give a dose of IV albumin followed by IV Lasix before he is discharged. Patient denies any chest pain or shortness breath. Denies any nausea or vomiting. Reports having stool through his colostomy. Denies any burning with urination. Objective - Vital Signs Vital signs: Vital Signs Temp 98.0 F 07/16/18 08:26 Pulse 68 07/16/18 09:30 Resp 16 07/16/18 08:26 BP 169/66 07/16/18 08:26 Pulse Ox 94 L 07/16/18 08:26 Intake & Output 07/15/18 07/16/18 07/16/18 18:59 06:59 18:59 Intake Total 1365 1900 Output Total 704 70 800 Balance 661 1830 -800 Weight 95.708 kg Intake: Intake, IV Titration 725 280 Amount 0.9% NaCl with KCl 20 Meq 525 30 /l 1,000 ml @ 75 mls/hr IV .[id number] DOMINGUEZ Rx#: [id number] DAPTOmycin 600 mg In 50 Sodium Chloride 0.9% 50 ml @ 100 mls/hr IVPB HS DOMINGUEZ Rx#:[id number] Piperacillin-Tazobactam 3 100 100 .375 gm In Sodium Chloride 0.9% 100 ml @ 25 mls/hr IVPB Q8HR DOMINGUEZ Rx# :[id number] metroNIDAZOLE-NS PMX 500 100 100 mg In Saline 1 100ml.bag @ 100 mls/hr IVPB Q6H DOMINGUEZ Rx#:[id number] Oral 640 1620 Output: Drainage 90 70 Right Abdomen 90 70 Urine 200 Uretheral (Lee) 100 Post Void Residual 214 Stool 200 800 Other: Voiding Method Toilet Toilet Toilet Urinal Urinal Urinal # Voids 20 4 # Bowel Movements 1 - Exam Head normocephalic Neck supple Lungs coarse breath sounds that improved with cough Heart regular rate and rhythm S1-S2, no rub or gallop Abdomen is distended lower abdominal tenderness. Colostomy and drainage tubes present Extremities edema bilateral lower extremities Neuro alert and orientated to 3 - Labs CBC & Chem 7: 07/16/18 09:10 07/16/18 09:10 Labs: Abnormal Lab Results - Last 24 Hours (Table) 07/15/18 07/15/18 07/16/18 Range/Units 17:30 23:46 05:18 RBC (4.30-5.90) m/uL Hgb (13.0-17.5) gm/dL MCHC (31.0-37.0) g/dL Lymphocytes # (1.0-4.8) k/uL Chloride (98-107) mmol/L BUN (9-20) mg/dL Glucose (74-99) mg/dL POC Glucose (mg/dL) 187 H 172 H 129 H (75-99) mg/dL Calcium (8.4-10.2) mg/dL Total Protein (6.3-8.2) g/dL Albumin (3.5-5.0) g/dL 07/16/18 07/16/18 07/16/18 Range/Units 09:10 09:10 11:58 RBC 4.24 L (4.30-5.90) m/uL Hgb 12.7 L (13.0-17.5) gm/dL MCHC 30.6 L (31.0-37.0) g/dL Lymphocytes # 0.9 L (1.0-4.8) k/uL Chloride 111 H (98-107) mmol/L BUN 27 H (9-20) mg/dL Glucose 163 H (74-99) mg/dL POC Glucose (mg/dL) 179 H (75-99) mg/dL Calcium 8.1 L (8.4-10.2) mg/dL Total Protein 4.5 L (6.3-8.2) g/dL Albumin 2.3 L (3.5-5.0) g/dL Assessment and Plan Assessment: #1 diverticulitis was history of perforated diverticulitis patient was admitted to [facility] and underwent low anterior resection, he also had a robotic cholecystectomy due to history of cholecystitis. Patient had repeat computed tomography scan abdomen and pelvis with evidence of leak. Patient underwent Exploratory laparotomy with partial colectomy, descending colostomy creation with devitalized rectum, Mariya's procedure, abdominal lavage 6 L normal saline, application of PREVENA extended, mobilization of splenic flexure with Dr. White. Infectious diseases recommending IV vancomycin and IV Unasyn for 10 more days via PICC line #2 essential hypertension with elevated blood pressures. Patient having elevated blood pressures lisinopril was increased during this admission to 20 mg daily. At this time we'll be adding hydralazine 25 mg daily continue to monitor #3 underlying history of benign prostatic hypertrophy #4 underlying history of diabetes mellitus 2. Patient refusing sliding scale coverage. Patient is having lower blood sugars. Diet will be advanced. hopefully this will help, continue to monitor blood sugars. #5 previous history of coronary artery disease with previous history of myocardial infarction #6 wheezing with cough: Possible COPD exacerbation: Patient is a smoker. We'll add DuoNeb updrafts 4 times a day and monitor. Showing improvement. #7 urinary retention: Secondary to BPH and post op retention. Patient seen by urology. They have added Flomax. Continue Proscar and Cardura. Urology recommending voiding trial with the next couple a days. If not continue Flomax and follow-up outpatient for further evaluation #8 episodes of fluid overload patient has received IV Lasix. Resolved #9 iron deficiency anemia. Patient given IV iron #10 severe protein calorie malnutrition with lower extremity edema. Will give a dose of IV albumin and IV Lasix. #11 bradycardia resolved with decreasing the beta jared. Patient currently on metoprolol 12.5 twice a day DVT prophylaxis subcu loveox and GI prophylaxis pepcid Patient is medically stable to be discharged to [facility]. Dr. Nieto to follow at [facility] or [facility] I performed an examination of the patient and discussed their management with the physician Face Painter. I have reviewed the Physician Face Painter's notes and agree with the documented findings and plan of care
[2018-07-16] MEDS ORDERED: ALBUMIN HUMAN 25% 50 ML in EMPTY BAG 1 BAG IVPB ONE (14:00)
[2018-07-16 14:35] VITALS: BP 157/67; PULSE 60; TEMP 97.7
[2018-07-16] MEDS ORDERED: PRALUENT 75 MG/ML SQ SCH (17:00)
--- NOTE | 2018-07-16 19:54 | PN ---
PROGRESS NOTE DATE OF SERVICE: 07/16/2018. REASON FOR FOLLOWUP: Abdominal abscess. INTERVAL HISTORY: The patient was seen on rounds early this afternoon. The patient has been afebrile. The patient has been breathing comfortably. No chest pain. Occasional cough. No nausea, vomiting. Abdominal pain has been improving. PHYSICAL EXAMINATION: Blood pressure is 157/57 with a pulse of 60, temperature 97.7. He is 95% on room air. General description is an elderly male up in the chair in no distress. Respiratory system: Unlabored breathing, clear to auscultation anteriorly. Heart S1, S2. Regular rate and rhythm. ABDOMEN: Soft. Mild distention. No guarding or rigidity. LABS: Hemoglobin 12.7, white count 9.3, BUN of 27, creatinine 0.77. DIAGNOSTIC IMPRESSION AND PLAN: Patient with abdominal secondary peritonitis anastomosis leak. Abdominal culture positive for Enterococcus faecium and faecalis. The patient was on daptomycin. However, the long-term refused to take the patient on daptomycin hence we have to switch antibiotic to vancomycin pharmacy to dose and Unasyn for 10 days with close outpatient followup. Continue supportive care. MMODL / IJN: [id number] /
== END 2018-07-16 17:15 | DRG 329 ==
LOC: 2ORMAIN 12:23 → 4SSUR 23:25
PROVIDERS: ADMIT Surgery Plastic and Reconstructive Surgery; ATTEND Surgery Plastic and Reconstructive Surgery
PROC: 8E0W4CZ Robotic Assisted Procedure of Trunk Region, Percutaneous Endoscopic Approach (ICD-10-PCS; 2018-07-03)
PROC: 0DBN4ZZ Excision of Sigmoid Colon, Percutaneous Endoscopic Approach (ICD-10-PCS; principal; 2018-07-03 14:15)
PROC: 0FT44ZZ Resection of Gallbladder, Percutaneous Endoscopic Approach (ICD-10-PCS; 2018-07-03 14:15)
PROC: 0D1M0Z4 Bypass Descending Colon to Cutaneous, Open Approach (ICD-10-PCS; 2018-07-10)
PROC: 0DBN0ZZ Excision of Sigmoid Colon, Open Approach (ICD-10-PCS; 2018-07-10)
PROC: 0DBP0ZZ Excision of Rectum, Open Approach (ICD-10-PCS; 2018-07-10)
PROC: 0D9670Z Drainage of Stomach with Drainage Device, Via Natural or Artificial Opening (ICD-10-PCS; 2018-07-10)
PROC: 3E1M38Z Irrigation of Peritoneal Cavity using Irrigating Substance, Percutaneous Approach (ICD-10-PCS; 2018-07-10)
PROC: 02HV33Z Insertion of Infusion Device into Superior Vena Cava, Percutaneous Approach (ICD-10-PCS; 2018-07-15)
DX: K57.32 Diverticulitis of large intestine without perforation or abscess without bleeding (principal); E43 Unspecified severe protein-calorie malnutrition; K65.1 Peritoneal abscess; N13.8 Other obstructive and reflux uropathy; J98.11 Atelectasis; R18.8 Other ascites; K91.89 Other postprocedural complications and disorders of digestive system; E87.70 Fluid overload, unspecified; K81.1 Chronic cholecystitis; E66.01 Morbid (severe) obesity due to excess calories; J43.9 Emphysema, unspecified; E11.9 Type 2 diabetes mellitus without complications; I25.5 Ischemic cardiomyopathy; R16.0 Hepatomegaly, not elsewhere classified; I11.9 Hypertensive heart disease without heart failure; R00.1 Bradycardia, unspecified; K66.0 Peritoneal adhesions (postprocedural) (postinfection); K58.1 Irritable bowel syndrome with constipation; Z91.14 Patient's other noncompliance with medication regimen; B96.20 Unspecified Escherichia coli [E. coli] as the cause of diseases classified elsewhere; I25.10 Atherosclerotic heart disease of native coronary artery without angina pectoris; D50.9 Iron deficiency anemia, unspecified; K82.8 Other specified diseases of gallbladder; G89.29 Other chronic pain; N40.1 Benign prostatic hyperplasia with lower urinary tract symptoms; R33.8 Other retention of urine; B95.2 Enterococcus as the cause of diseases classified elsewhere; K21.9 Gastro-esophageal reflux disease without esophagitis; E78.5 Hyperlipidemia, unspecified; K40.90 Unilateral inguinal hernia, without obstruction or gangrene, not specified as recurrent; F32.9 Major depressive disorder, single episode, unspecified; I25.2 Old myocardial infarction; Q30.8 Other congenital malformations of nose; F17.210 Nicotine dependence, cigarettes, uncomplicated; Z16.24 Resistance to multiple antibiotics; Z68.34 Body mass index [BMI] 34.0-34.9, adult; Z71.6 Tobacco abuse counseling; Z79.84 Long term (current) use of oral hypoglycemic drugs; Z79.82 Long term (current) use of aspirin; Z79.899 Other long term (current) drug therapy; Z87.440 Personal history of urinary (tract) infections; Z95.5 Presence of coronary angioplasty implant and graft; Z98.52 Vasectomy status; Z87.81 Personal history of (healed) traumatic fracture; Z98.42 Cataract extraction status, left eye; Z98.41 Cataract extraction status, right eye; Z88.1 Allergy status to other antibiotic agents; Z88.2 Allergy status to sulfonamides; Z88.8 Allergy status to other drugs, medicaments and biological substances; Z82.49 Family history of ischemic heart disease and other diseases of the circulatory system; Z80.0 Family history of malignant neoplasm of digestive organs; Z80.8 Family history of malignant neoplasm of other organs or systems
CPT/HCPCS: 36573; 71046; 71275; 74177; 80048; 80053; 81001; 83540; 83550; 83735; 84100; 85025; 85610; 86850; 86900; 86901; 87070; 87075; 87077; 87186; 87205; 88304; 88307; 94640; 94760

== ENCOUNTER → 2018-11-13 | Outpatient (CLI) | payer MEDICARE ==
[2018-11-13 10:37] LABS: HCT 43.2 % (39.0-53.0); HGB 14.3 gm/dL (13.0-17.5); MCH 30.4 pg (25.0-35.0); MCHC 33.1 g/dL (31.0-37.0); Mean Platelet Volume 7.2; Platelet Count 164 k/uL (150-450); RDW 14.9 % (11.5-15.5)
[2018-11-13 16:11] LABS: Albumin 4.2 g/dL (3.80-4.90); Anion Gap 10.9 mmol/L (4.00-12.00); Calcium 9.6 mg/dL (8.7-10.3); Carbon Dioxide 24.1 mmol/L (21.6-31.8); Globulin 2.1 g/dL (1.6-3.3); Potassium 4.6 mmol/L (3.5-5.5); Total Bilirubin 0.4 mg/dL (0.2-1.2); Total Protein 6.3 g/dL (6.2-8.2)
== END ==
LOC: LABWHC1 09:36
PROVIDERS: ATTEND Surgery Plastic and Reconstructive Surgery
DX: K57.30 Diverticulosis of large intestine without perforation or abscess without bleeding (principal); K57.92 Diverticulitis of intestine, part unspecified, without perforation or abscess without bleeding
CPT/HCPCS: 36415; 80053; 85027

== ENCOUNTER 2018-11-18 08:13 | Inpatient (IN) | payer MEDICARE ==
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
[~2018-11-18 08:13] MED LIST changes: -ENOXAPARIN 40 MG/0.4 ML SYRINGE SQ STA; -HYDROmorphone 0.5 MG/0.5 ML SYRINGE IVP PRN; +LIDOCAINE 1% 20 ML VIAL (10MG/ML) FOR IV START INTRADERMA PRN; -MIDAZOLAM 2 MG/2 ML VIAL IV PRN; -ceFAZolin IN SWFI 2 GM/20 ML SYRINGE IVP ONE; -metroNIDAZOLE-NS PMX 500 MG in SALINE 1 100ML.BAG IVPB STA
[2018-11-18] MEDS: LACTATED RINGERS 1,000 ML IV SCH (08:51)
[2018-11-18] MEDS ORDERED: LIDOCAINE 1% INJ 10MG/ML (20 ML MDV) ONE (09:06)
[2018-11-18] MEDS ORDERED: PROPOFOL 10 MG/ML 20 ML VIAL IV ONE (09:06)
[2018-11-18] MEDS ORDERED: Antibiotics per Pharmacy 1 EACH MISC MISCELLANE PRN (09:28)
--- NOTE | 2018-11-18 09:36 | P.PCN ---
Date of Procedure: 11/18/18 Description of Procedure: PREOPERATIVE DIAGNOSIS: History of perforated diverticulitis Descending colostomy status POSTOPERATIVE DIAGNOSIS: History of perforated diverticulitis Descending colostomy status OPERATION: Colonoscopy through descending colostomy to appendiceal orifice. Colonoscopy through rectum to sigmoid colon/flexible sigmoidoscopy SURGEON: Bev Lara MD. ANESTHESIA: MAC. INDICATIONS: The patient is a 73-year-old male who presents for colonoscopy following perforated diverticulitis and descending colostomy creation. Benefits and risks were described and informed consent was obtained. DESCRIPTION OF PROCEDURE: The patient had undergone Suprep. He had been brought into the operating room and laid supine. The stoma appliance was removed. An Olympus colonoscope was advanced through the descending colostomy to the appendiceal orifice. The prep was excellent with clear visualization of the mucosal folds. The scope was removed with visualization of each mucosal fold. Few scattered diverticulosis was encountered. No colonic polyps were found. No evidence of focal colitis was found. The colon was desufflated. The patient was transitioned in the left lateral decubitus position where along the anus, no palpable tumors were identified. A colonoscope was advanced to 25 cm from the anal verge to the end of the devitalized rectum where few diverticulosis was found. No active diverticulitis was identified. His stoma appliance was applied. The patient had tolerated the procedure well. Withdrawal time was over 6 minutes. FINDINGS: [place] preparation quality scale 1 (1-5) No arteriovenous malformations. No adenomatous polyps. No focal colitis. Few sigmoid diverticulosis without diverticulitis. RECOMMENDATIONS: Lower endoscopy in 5 years, 2023 Plan - Discharge Summary Discharge Rx Participant: No New Discharge Prescriptions: No Action Finasteride [Proscar] 5 mg PO HS Aspirin 81 mg PO SUTUTHSA Lansoprazole [Prevacid] 15 mg PO AC-BRKFST Doxazosin Mesylate [Cardura] 4 mg PO HS sitaGLIPtin [Januvia] 50 mg PO DAILY PRN PRN Reason: HYPERGLYCEMIA Praluent(Unknown) 1 dose SQ Q14D Cetirizine HCl 10 mg PO DAILY Docusate [Colace] 100 mg PO BID #30 capsule Tamsulosin [Flomax] 0.4 mg PO PC-SUPPER #30 cap.er.24h Lisinopril [Zestril] 10 mg PO HS Metoprolol Tartrate [Lopressor] 25 mg PO BID Fluticasone Nasal [place] [Flonase Nasal [place]] 1 spray EA NOSTRIL DAILY Discharge Medication List Aspirin 81 mg PO SUTUTHSA 01/11/15 [History] Doxazosin Mesylate [Cardura] 4 mg PO HS 01/11/15 [History] Finasteride [Proscar] 5 mg PO HS 01/11/15 [History] Lansoprazole [Prevacid] 15 mg PO AC-BRKFST 01/11/15 [History] Praluent(Unknown) 1 dose SQ Q14D 01/15/18 [History] sitaGLIPtin [Januvia] 50 mg PO DAILY PRN 01/15/18 [History] Cetirizine HCl 10 mg PO DAILY 05/22/18 [History] Docusate [Colace] 100 mg PO BID #30 capsule 07/08/18 [Rx] Tamsulosin [Flomax] 0.4 mg PO PC-SUPPER #30 cap.er.24h 07/15/18 [Rx] Lisinopril [Zestril] 10 mg PO HS 11/12/18 [History] Metoprolol Tartrate [Lopressor] 25 mg PO BID 11/12/18 [History] Fluticasone Nasal [place] [Flonase Nasal [place]] 1 spray EA NOSTRIL DAILY 11/17/18 [History] Patient Instructions/Handouts: *[facility] - (Anesthesia) Endoscopy Discharge Instructions, Colonoscopy (DC)
[2018-11-18 10:20] LABS: Basophils % (A) 0 %; Eosinophils # (A) 0.2 k/uL (0-0.7); Eosinophils % (A) 2 %; HGB 13.8 gm/dL (13.0-17.5); Lymphocytes # (A) 1.2 k/uL (1.0-4.8); Lymphocytes % (A) 17 %; MCH 30.7 pg (25.0-35.0); MCHC 32.9 g/dL (31.0-37.0); MCV 93.2 fL (80.0-100.0); Mean Platelet Volume 7.3; Monocytes # (A) 0.3 k/uL (0-1.0); Monocytes % (A) 4 %; Neutrophils # (A) 5.2 k/uL (1.3-7.7); Neutrophils % (A) 75 %; Platelet Count 157 k/uL (150-450); RBC 4.51 m/uL (4.30-5.90); RDW 13.8 % (11.5-15.5)
[2018-11-18 10:34] LABS: Albumin 4.1 g/dL (3.5-5.0); Calcium 9.4 mg/dL (8.4-10.2); Potassium 4.5 mmol/L (3.5-5.1); Total Bilirubin 0.6 mg/dL (0.2-1.3); Total Protein 6.9 g/dL (6.3-8.2)
[2018-11-18] MEDS: metroNIDAZOLE 500 MG TAB PO SCH ×3 (14:00→23:09)
[2018-11-18] MEDS: NEOMYCIN 500 MG TAB PO SCH ×3 (16:00→23:10)
[2018-11-18] MEDS: SODIUM CHLORIDE 0.9% 1,000 ML IV SCH ×2 (16:11→20:47)
[2018-11-18 16:47] LABS: Glucose,Whole Blood 101 mg/dL (75-99)
[2018-11-18] MEDS ORDERED: POLYETHYLENE GLYCOL LYTES SOLN 4,000 ML SOLN.RECON PO ONE (17:00)
[2018-11-18 17:57] VITALS: BMI 35.8
[2018-11-18] MEDS: FINASTERIDE 5 MG TAB PO SCH (20:44)
[2018-11-18] MEDS: TAMSULOSIN 0.4 MG CAP.ER.24H PO SCH (20:44)
[2018-11-18] MEDS: DOCUSATE 100 MG CAP PO SCH (20:45)
[2018-11-18] MEDS: LISINOPRIL 10 MG TAB PO SCH (20:45)
[2018-11-18] MEDS: FAMOTIDINE 20 MG/2 ML VIAL IV SCH (20:45)
[2018-11-18] MEDS: METOPROLOL TARTRATE 25 MG TAB PO SCH (20:45)
[2018-11-18] MEDS: DOXAZOSIN 4 MG TAB PO SCH (20:45)
[2018-11-18] MEDS ORDERED: TEMAZEPAM 15 MG CAP PO ONE (21:00)
[2018-11-19] MEDS: LACTATED RINGERS 1,000 ML IV SCH (03:00)
[2018-11-19] MEDS ORDERED: ceFAZolin IN SWFI 2 GM/20 ML SYRINGE IVP ONE (05:00)
[2018-11-19] MEDS ORDERED: metroNIDAZOLE-NS PMX 500 MG in SALINE 1 100ML.BAG IVPB ONE (05:00)
[2018-11-19] MEDS ORDERED: HEPARIN SODIUM,PORCINE 5,000 UNIT/ML 1 ML VIAL SQ ONE ×2 (06:00→08:05)
[2018-11-19] MEDS ORDERED: ALVIMOPAN 12 MG CAPSULE PO ONE ×2 (06:00→08:05)
[2018-11-19] MEDS ORDERED: ACETAMINOPHEN TAB 500 MG TAB PO ONE ×2 (06:00→08:05)
[2018-11-19] MEDS: PANTOPRAZOLE 40 MG TABLET PO SCH (08:01)
[2018-11-19] MEDS: FAMOTIDINE 20 MG/2 ML VIAL IV SCH ×2 (08:01→22:49)
[2018-11-19] MEDS: LORATADINE 10 MG TAB PO SCH (08:01)
[2018-11-19] MEDS: FLUTICASONE 50MCG/SPRAY NASAL 16GM EA NOSTRIL SCH (08:01)
[2018-11-19] MEDS: DOCUSATE 100 MG CAP PO SCH (08:01)
[2018-11-19] MEDS: METOPROLOL TARTRATE 25 MG TAB PO SCH ×2 (08:02→22:26)
[2018-11-19] MEDS: SODIUM CHLORIDE 0.9% 1,000 ML IV SCH (08:03)
[2018-11-19 09:33] LABS: Glucose,Whole Blood 126 mg/dL (75-99)
[2018-11-19] MEDS ORDERED: IV FLUID CONTINUATION 1,000 ML IV ONE (09:47)
[2018-11-19] MEDS: ONDANSETRON 4 MG/2 ML VIAL IVP PRN (09:53)
[2018-11-19] MEDS ORDERED: DEXAMETHASONE SOD PHOSPHATE 10 MG/ML 1 ML VIAL IV ONE (09:53)
[2018-11-19] MEDS ORDERED: fentaNYL (PF) 50 MCG/ML 2 ML AMP IV ONE ×2 (10:37→10:40)
[2018-11-19] MEDS ORDERED: MIDAZOLAM (PF) 2 MG/2 ML VIAL IV ONE (10:38)
[2018-11-19] MEDS ORDERED: NALOXONE 0.4 MG/ML 1 ML VIAL IV PRN (11:33)
[2018-11-19] MEDS ORDERED: diphenhydrAMINE 50 MG/ML 1 ML VIAL IVP PRN (11:33)
[2018-11-19] MEDS ORDERED: NALBUPHINE 10 MG/ML (1 ML AMP) IV PRN (11:33)
[2018-11-19] MEDS ORDERED: SUCCINYLCHOLINE CHLORIDE 100 MG/5 ML SYR IV ONE (11:56)
[2018-11-19] MEDS ORDERED: ROCURONIUM BROMIDE 10 MG/ML 10 ML VIAL IV ONE (11:56)
[2018-11-19] MEDS ORDERED: LIDOCAINE 1% INJ 10MG/ML (20 ML MDV) ONE (11:56)
[2018-11-19] MEDS ORDERED: ONDANSETRON 4 MG/2 ML VIAL ONE (11:56)
[2018-11-19] MEDS ORDERED: NEOSTIGMINE 1 MG/ML 10 ML VIAL ONE (11:56)
[2018-11-19] MEDS ORDERED: ePHEDrine SULFATE/0.9% NACL/PF 50 MG/5 ML SYRINGE IV ONE (11:56)
[2018-11-19] MEDS ORDERED: fentaNYL (PF) 50 MCG/ML 2 ML AMP ONE (11:56)
[2018-11-19] MEDS ORDERED: PROPOFOL 10 MG/ML 20 ML VIAL IV ONE (11:56)
[2018-11-19] MEDS ORDERED: GLYCOPYRROLATE 0.2 MG/ML 2 ML VIAL ONE (11:56)
[2018-11-19] MEDS ORDERED: MIDAZOLAM 2 MG/2 ML VIAL ONE (11:56)
[2018-11-19 12:05] LABS: Glucose,Whole Blood 140 mg/dL (75-99)
[2018-11-19 12:05] LABS: Glucose,Whole Blood 137 mg/dL (75-99)
[2018-11-19 13:38] LABS: Glucose,Whole Blood 140 mg/dL (75-99)
[2018-11-19] MEDS ORDERED: SODIUM CHLORIDE 0.9% 1,000 ML IV ONE (13:51)
[2018-11-19 15:35] LABS: Glucose,Whole Blood 158 mg/dL (75-99)
[2018-11-19] MEDS: SODIUM CHLORIDE 0.9% 1,000 ML IV ONE ×4 (16:39→17:22)
[2018-11-19] MEDS: ROPIVACAINE 250 MG, HYDROMORPHONE (PF) 5 MG in SODIUM CHLORIDE 0.9% 200 ML EPIDURAL PRN ×2 (16:42→17:31)
--- NOTE | 2018-11-19 16:49 | P.HPADDEND ---
H&P Addendum H&P Addendum Date: 11/19/18 Benefits and risks of surgery including reversal of ostomy via open technique described. All questions addressed.
[2018-11-19] MEDS ORDERED: HYDROmorphone 1 MG/ML 1 ML SYRINGE IVP PRN (16:52)
--- NOTE | 2018-11-19 16:52 | P.OP ---
Date of Procedure: 11/19/18 Description of Procedure: SURGEON: NELLIE SOTELO MD Preoperative Diagnosis: 1. History of complicated diverticulitis 2. Descending colostomy status 3. Diabetes type 2, [id number] 4. Tobacco use 5. Benign prostatic hypertrophy with pre-existing obstructive uropathy 6. Hypertensive heart disease 7. Ischemic cardiomyopathy 8. Gastroesophageal reflux disease 9. Myocardial infarction 10. Irritable bowel syndrome 11. Hyperlipidemia 12. Coronary artery disease Postoperative Diagnosis: 1. History of complicated diverticulitis 2. Descending colostomy status 3. Diabetes type 2, [id number] 4. Tobacco use 5. Benign prostatic hypertrophy with pre-existing obstructive uropathy 6. Hypertensive heart disease 7. Ischemic cardiomyopathy 8. Gastroesophageal reflux disease 9. Myocardial infarction 10. Irritable bowel syndrome 11. Hyperlipidemia 12. Coronary artery disease 13. Severe peritoneal adhesions with internal hernias Procedure(s) Performed: 1. Extensive lysis of adhesions over 1 hour 2. Descending colostomy reversal 3. Lower anterior resection 4. Intraoperative flexible sigmoidoscopy 5. Application of PREVENA wound vac Anesthesia: GETA, epidural Estimated Blood Loss (ml): 50 Pathology: other (Sigmoid colon with anastomosis) Condition: stable Disposition: floor Indications for Procedure: 1. Multiple internal hernias involving adhesive band disease with high risk for small bowel obstruction all lysed. 2. Remnant diverticulitis of sigmoid junction resected with low anterior resec tion 3. EEA anastomosis with 28 mm circular staple 4. Anastomosis without tension or torsion. 5. Intraoperative flexible sigmoidoscopy with photographic caption of the anastomosis intact and viable. 6. Negative leak test intra-Op 7. Donuts thick on both sides and intact. 8. Application of PREVENA wound vac, universal along the midline and colostomy reversal site INDICATIONS: The patient is a 73-year-old male who presented with a history of complicated diverticulitis with diverting descending colostomy over 5 months ago. He presents for colostomy reversal. Tobacco cessation education was performed pre-operatively for optimal recovery. He underwent an enhanced colon recovery program. Benefits and risks of surgical intervention were described in detail. Informed consent was obtained. DESCRIPTION: The patient was brought to the operating room. After general induction, a Lee catheter was placed. The abdomen was prepped and draped in standard sterile fashion. Ioban draping was also placed. A 4 x 4 was used to cover the colostomy site. Prior to incision, a timeout protocol was confirmed with surgical team regarding patient's name including procedures to be performed. Preoperative medications were confirmed. Attention was brought to the abdomen whereby a well healed lower midline incision was encountered. Next, a #10 blade was used to enter along the epigastrium and extended down to the pubis. Carefully the abdomen was entered using electro- Bovie cautery. The greater omentum was adhered to the abdominal wall. Adhesions were addressed with a combination of blunt dissection with minimal electro-Bovie cautery. A universal retractor system was placed for complete exposure. Interloop adhesions were similarly addressed using Metzenbaum scissors. All adhesions were addressed from the ligament of Treitz to the ileocecal valve. Extensive lysis adhesions were performed for over 1 hour. The small bowel was found adherent to the deep pelvis and remnant sigmoid colon which was also divided. No enterotomies occurred. Next, the rectal stump was palpated. Multiple internal hernias involving adhesive band disease with high risk for small bowel obstruction were all lysed. Remnant diverticulitis of sigmoid junction was resected with low anterior resection. Attention was brought to the colostomy site where #10 blade was used to incise around the colostomy into the subcutaneous tissue. A Bovie cautery was used to circumferentially dissect the ostomy to the fascia. [place] retractors were used to provide exposure. From within the abdomen, the colostomy was carefully dissected free from the abdominal wall. Via the descending colostomy, a 28-mm Covidien anvil was inserted proximally into the descending colon after attaching 3-0 silk to the tip. The colostomy was closed using Covidien stapler 60-mm purple load. The 3-0 silk suture was delivered through the middle of the staple line to prepare for mating with the EEA stapler. Attention was brought to the pelvis where the diverticular perforation was palpated at the right lateral segment of rectosigmoid junction. Circumferentially, the rectal stump was dissected free using blunt dissection including Enseal vessel sealer. Prior to dividing the rectal stump, intra- operative sigmoidoscopy was performed confirm complete resection of the perforation. Once confirmed, the rectum was divided below the perforation using Contour curved stapler. Via the rectum, the 28 mm circular EEA stapler was inserted at the staple line and mated with the 28-mm anvil. The anvil and stapler were mated for 1 minute. The donuts were inspected and intact. A leak test was performed and negative for leaks after placing normal saline within the pelvis. The sigmoidoscope was entered to the staple line with photographic imaging of the EEA staple line obtained. A clean table closure set was used. Hemostasis was checked. The colostomy site was oversewn via the peritoneum and abdominal wall using double-stranded 0 PDS. Along the skin site of the colostomy, the wound was irrigated using dilute hydrogen peroxide. 0-Vicryl was used for closure of the fascia from the subcutaneous portion. The abdomen was inspected for hemostasis and closed using 2 sutures of double- stranded 0 PDS from inferiorly and superiorly. The skin was cleansed and the Ioban draping was removed. A customizable Prevena wound VAC system was placed over the skin colostomy site and at the midline as it was closed transversely. The apparatus was set to suction. At the end of the procedure, needle, sponge, and instrument count had been verified correct by the rn medical surgical. The patient was sent to the postanesthesia care unit in stable condition. Intraoperative findings were described to the patient's family.
[2018-11-19 16:53] LABS: Glucose,Whole Blood 149 mg/dL (75-99)
[2018-11-19] MEDS: ceFAZolin IN SWFI 2 GM/20 ML SYRINGE IVP SCH (17:16)
[2018-11-19] MEDS: metroNIDAZOLE-NS PMX 500 MG in SALINE 1 100ML.BAG IVPB SCH (17:16)
[2018-11-19 18:23] LABS: Glucose,Whole Blood 145 mg/dL (75-99)
[2018-11-19] MEDS: INSULIN ASPART (NovoLOG) 100 UNIT/ML VIAL SQ SCH ×2 (18:29→22:59)
[2018-11-19] MEDS: TAMSULOSIN 0.4 MG CAP.ER.24H PO SCH (18:30)
[2018-11-19 19:15] LABS: Basophils % (A) 0 %; Eosinophils # (A) 0.1 k/uL (0-0.7); Eosinophils % (A) 1 %; HCT 41.2 % (39.0-53.0); HGB 13.6 gm/dL (13.0-17.5); Lymphocytes # (A) 0.5 k/uL (1.0-4.8); Lymphocytes % (A) 7 %; MCH 30.8 pg (25.0-35.0); MCHC 32.9 g/dL (31.0-37.0); MCV 93.4 fL (80.0-100.0); Mean Platelet Volume 7.6; Monocytes # (A) 0.3 k/uL (0-1.0); Monocytes % (A) 3 %; Neutrophils # (A) 7.2 k/uL (1.3-7.7); Neutrophils % (A) 89 %; Platelet Count 131 k/uL (150-450); RBC 4.41 m/uL (4.30-5.90); RDW 14.5 % (11.5-15.5); WBC 8.1 k/uL (3.8-10.6)
[2018-11-19 19:19] LABS: ALT 29 U/L (21-72); AST 24 U/L (17-59); African American GFR (CKD) >90 (>60 ml/min/1.73 sqM); Albumin 3.2 g/dL (3.5-5.0); Alkaline Phosphatase 56 U/L (38-126); Anion Gap 8 mmol/L; Blood Urea Nitrogen 18 mg/dL (9-20); Calcium 7.8 mg/dL (8.4-10.2); Carbon Dioxide 20 mmol/L (22-30); Chloride 111 mmol/L (98-107); Glucose 147 mg/dL (74-99); Potassium 4.3 mmol/L (3.5-5.1); Sodium 139 mmol/L (137-145); Total Bilirubin 0.4 mg/dL (0.2-1.3); Total Protein 5.7 g/dL (6.3-8.2)
[2018-11-19 20:09] LABS: Glucose,Whole Blood 134 mg/dL (75-99)
[2018-11-19] MEDS: FINASTERIDE 5 MG TAB PO SCH (22:26)
[2018-11-19] MEDS: DOXAZOSIN 4 MG TAB PO SCH (22:26)
[2018-11-19] MEDS: LISINOPRIL 10 MG TAB PO SCH (22:26)
[2018-11-19] MEDS: HEPARIN SODIUM,PORCINE 5,000 UNIT/ML 1 ML VIAL SQ SCH (22:48)
[2018-11-20] MEDS: ceFAZolin IN SWFI 2 GM/20 ML SYRINGE IVP SCH ×4 (02:48→23:40)
[2018-11-20] MEDS: metroNIDAZOLE-NS PMX 500 MG in SALINE 1 100ML.BAG IVPB SCH ×4 (03:22→23:40)
[2018-11-20] MEDS: SODIUM CHLORIDE 0.9% 1,000 ML IV SCH ×2 (03:27→17:27)
--- NOTE | 2018-11-20 06:27 | P.PN ---
Progress Note - Text Progress Note Date: 11/20/18 73-year-old male postop day 1 from a colostomy reversal. Epidural catheter day #2. Solution consisting of 0.1% ropivacaine and 20 g per mL of Dilaudid. Current rate is 10 ML's an hour. Patient is tolerating well VAS is a 1-2 out of 10 in severity with movement. No pruritus, no nausea vomiting, no motor deficit, no sensory deficits. Lee catheter is in place. Can be removed at surgeon's discretion. Plan is to continue with current epidural settings.
[2018-11-20 07:03] LABS: Glucose,Whole Blood 135 mg/dL (75-99)
[2018-11-20] MEDS: ONDANSETRON 4 MG/2 ML VIAL IVP PRN (08:08)
[2018-11-20 08:48] LABS: Basophils % (A) 0 %; Eosinophils % (A) 0 %; HCT 41.1 % (39.0-53.0); Hypochromasia Slight; Lymphocytes # (A) 0.8 k/uL (1.0-4.8); Lymphocytes % (A) 8 %; MCH 29.8 pg (25.0-35.0); MCHC 31.6 g/dL (31.0-37.0); MCV 94.2 fL (80.0-100.0); Mean Platelet Volume 7.4; Monocytes # (A) 0.4 k/uL (0-1.0); Monocytes % (A) 4 %; Neutrophils # (A) 8.7 k/uL (1.3-7.7); Neutrophils % (A) 87 %; Platelet Count 134 k/uL (150-450); RBC 4.36 m/uL (4.30-5.90); RDW 14.6 % (11.5-15.5)
[2018-11-20 08:48] LABS: Glucose,Whole Blood 151 mg/dL (75-99)
[2018-11-20 08:54] LABS: Calcium 7.6 mg/dL (8.4-10.2); Potassium 4.8 mmol/L (3.5-5.1)
[2018-11-20] MEDS ORDERED: SODIUM CHLORIDE 0.9% 2,000 ML IV ONE (09:48)
--- NOTE | 2018-11-20 09:48 | P.PN ---
Subjective Progress Note Date: 11/20/18 He reports being light headed and dizzy. "I haven't had sleep in 2 days!" He has an epidural and history of severe obstructive uropathy. He is on clear liquid diet and is a picky eater. Plan for PT/OT. Continue martinez upon discharge for history of severe obstructive uropathy. Fluid bolus for dehydration and very dark urine. Hospitalization through the weekend described. Objective - Vital Signs Vital signs: Vital Signs Temp 98.6 F 11/20/18 07:00 Pulse 98 11/20/18 07:00 Resp 16 11/20/18 07:00 BP 107/66 11/20/18 07:00 Pulse Ox 95 11/20/18 07:00 Intake & Output 11/19/18 11/20/18 11/20/18 18:59 06:59 18:59 Intake Total 4060 Output Total 300 Balance 3760 Intake: IV 4060 Output: Urine 250 Estimated Blood Loss 50 Other: Voiding Method Indwelling Catheter - Labs CBC & Chem 7: 11/20/18 08:09 11/20/18 08:09 Labs: Abnormal Lab Results - Last 24 Hours (Table) 11/18/18 11/18/18 11/19/18 Range/Units 08:49 09:48 13:18 Plt Count (150-450) k/uL Neutrophils # (1.3-7.7) k/uL Lymphocytes # (1.0-4.8) k/uL Chloride (98-107) mmol/L Carbon Dioxide (22-30) mmol/L BUN (9-20) mg/dL Glucose (74-99) mg/dL POC Glucose (mg/dL) 140 H 137 H 140 H (75-99) mg/dL Calcium (8.4-10.2) mg/dL Total Protein (6.3-8.2) g/dL Albumin (3.5-5.0) g/dL 11/19/18 11/19/18 11/19/18 Range/Units 15:17 16:50 18:21 Plt Count (150-450) k/uL Neutrophils # (1.3-7.7) k/uL Lymphocytes # (1.0-4.8) k/uL Chloride (98-107) mmol/L Carbon Dioxide (22-30) mmol/L BUN (9-20) mg/dL Glucose (74-99) mg/dL POC Glucose (mg/dL) 158 H 149 H 145 H (75-99) mg/dL Calcium (8.4-10.2) mg/dL Total Protein (6.3-8.2) g/dL Albumin (3.5-5.0) g/dL 11/19/18 11/19/18 11/19/18 Range/Units 18:47 18:47 20:07 Plt Count 131 L (150-450) k/uL Neutrophils # (1.3-7.7) k/uL Lymphocytes # 0.5 L (1.0-4.8) k/uL Chloride 111 H (98-107) mmol/L Carbon Dioxide 20 L (22-30) mmol/L BUN (9-20) mg/dL Glucose 147 H (74-99) mg/dL POC Glucose (mg/dL) 134 H (75-99) mg/dL Calcium 7.8 L (8.4-10.2) mg/dL Total Protein 5.7 L (6.3-8.2) g/dL Albumin 3.2 L (3.5-5.0) g/dL 11/20/18 11/20/18 11/20/18 Range/Units 07:00 08:09 08:09 Plt Count 134 L (150-450) k/uL Neutrophils # 8.7 H (1.3-7.7) k/uL Lymphocytes # 0.8 L (1.0-4.8) k/uL Chloride 113 H (98-107) mmol/L Carbon Dioxide 21 L (22-30) mmol/L BUN 21 H (9-20) mg/dL Glucose 143 H (74-99) mg/dL POC Glucose (mg/dL) 135 H (75-99) mg/dL Calcium 7.6 L (8.4-10.2) mg/dL Total Protein (6.3-8.2) g/dL Albumin (3.5-5.0) g/dL 11/20/18 Range/Units 08:27 Plt Count (150-450) k/uL Neutrophils # (1.3-7.7) k/uL Lymphocytes # (1.0-4.8) k/uL Chloride (98-107) mmol/L Carbon Dioxide (22-30) mmol/L BUN (9-20) mg/dL Glucose (74-99) mg/dL POC Glucose (mg/dL) 151 H (75-99) mg/dL Calcium (8.4-10.2) mg/dL Total Protein (6.3-8.2) g/dL Albumin (3.5-5.0) g/dL
[2018-11-20 11:33] LABS: Glucose,Whole Blood 154 mg/dL (75-99)
[2018-11-20] MEDS: INSULIN ASPART (NovoLOG) 100 UNIT/ML VIAL SQ SCH ×4 (11:49→20:37)
[2018-11-20] MEDS: METOPROLOL TARTRATE 25 MG TAB PO SCH ×2 (12:04→20:44)
[2018-11-20] MEDS: HEPARIN SODIUM,PORCINE 5,000 UNIT/ML 1 ML VIAL SQ SCH ×3 (12:04→21:11)
[2018-11-20] MEDS: ALVIMOPAN 12 MG CAPSULE PO SCH ×2 (12:04→20:45)
[2018-11-20] MEDS: PANTOPRAZOLE 40 MG TABLET PO SCH (12:04)
[2018-11-20] MEDS: FAMOTIDINE 20 MG/2 ML VIAL IV SCH ×2 (12:04→20:45)
[2018-11-20] MEDS: LORATADINE 10 MG TAB PO SCH (12:04)
[2018-11-20] MEDS: FLUTICASONE 50MCG/SPRAY NASAL 16GM EA NOSTRIL SCH (12:05)
[2018-11-20] MEDS: ROPIVACAINE 250 MG, HYDROMORPHONE (PF) 5 MG in SODIUM CHLORIDE 0.9% 200 ML EPIDURAL PRN (13:00)
[2018-11-20 17:39] LABS: Glucose,Whole Blood 109 mg/dL (75-99)
[2018-11-20 19:31] LABS: Glucose,Whole Blood 109 mg/dL (75-99)
[2018-11-20] MEDS: LISINOPRIL 10 MG TAB PO SCH (20:44)
[2018-11-20] MEDS: FINASTERIDE 5 MG TAB PO SCH (20:44)
[2018-11-20] MEDS: TAMSULOSIN 0.4 MG CAP.ER.24H PO SCH (20:44)
[2018-11-20] MEDS: DOXAZOSIN 4 MG TAB PO SCH (20:45)
--- NOTE | 2018-11-20 21:15 | P.PN ---
Progress Note - Text Progress Note Date: 11/20/18 Patient is tolerating liquids. He reports appropriate discomfort along the left upper quadrant from his previous ostomy site. Mild discomfort along the right upper quadrant. He has moderate urine output. I discussed with nursing patient's pre-existing obstructive uropathy. Lee catheter to continue upon discharge as well.
[2018-11-21 07:18] LABS: Glucose,Whole Blood 92 mg/dL (75-99)
[2018-11-21] MEDS: ROPIVACAINE 250 MG, HYDROMORPHONE (PF) 5 MG in SODIUM CHLORIDE 0.9% 200 ML EPIDURAL PRN (07:59)
[2018-11-21 08:09] LABS: Basophils % (A) 0 %; Eosinophils # (A) 0.1 k/uL (0-0.7); Eosinophils % (A) 1 %; HCT 38.9 % (39.0-53.0); HGB 12.2 gm/dL (13.0-17.5); Hypochromasia Moderate; Lymphocytes # (A) 0.8 k/uL (1.0-4.8); Lymphocytes % (A) 9 %; MCH 30.3 pg (25.0-35.0); MCHC 31.3 g/dL (31.0-37.0); MCV 96.8 fL (80.0-100.0); Mean Platelet Volume 7.8; Monocytes # (A) 0.6 k/uL (0-1.0); Monocytes % (A) 6 %; Neutrophils # (A) 7.7 k/uL (1.3-7.7); Neutrophils % (A) 83 %; Platelet Count 116 k/uL (150-450); RBC 4.02 m/uL (4.30-5.90); RDW 15.2 % (11.5-15.5); WBC 9.3 k/uL (3.8-10.6)
[2018-11-21] MEDS: INSULIN ASPART (NovoLOG) 100 UNIT/ML VIAL SQ SCH ×4 (08:14→22:06)
[2018-11-21 08:25] LABS: African American GFR (CKD) >90 (>60 ml/min/1.73 sqM); Anion Gap 6 mmol/L; Blood Urea Nitrogen 19 mg/dL (9-20); Calcium 7.3 mg/dL (8.4-10.2); Carbon Dioxide 20 mmol/L (22-30); Chloride 113 mmol/L (98-107); Glucose 89 mg/dL (74-99); Magnesium 1.9 mg/dL (1.6-2.3); Potassium 4.4 mmol/L (3.5-5.1); Sodium 139 mmol/L (137-145)
[2018-11-21] MEDS: ceFAZolin IN SWFI 2 GM/20 ML SYRINGE IVP SCH ×3 (09:24→22:37)
[2018-11-21] MEDS: LORATADINE 10 MG TAB PO SCH (09:24)
[2018-11-21] MEDS: ALVIMOPAN 12 MG CAPSULE PO SCH ×2 (09:24→22:02)
[2018-11-21] MEDS: PANTOPRAZOLE 40 MG TABLET PO SCH (09:24)
[2018-11-21] MEDS: FAMOTIDINE 20 MG/2 ML VIAL IV SCH ×2 (09:24→22:02)
[2018-11-21] MEDS: METOPROLOL TARTRATE 25 MG TAB PO SCH ×2 (09:24→22:05)
[2018-11-21] MEDS: HEPARIN SODIUM,PORCINE 5,000 UNIT/ML 1 ML VIAL SQ SCH ×2 (09:25→22:02)
[2018-11-21] MEDS: FLUTICASONE 50MCG/SPRAY NASAL 16GM EA NOSTRIL SCH (09:25)
[2018-11-21] MEDS: metroNIDAZOLE-NS PMX 500 MG in SALINE 1 100ML.BAG IVPB SCH ×3 (11:34→22:37)
--- NOTE | 2018-11-21 12:05 | P.PN ---
Subjective Progress Note Date: 11/21/18 Patient reports pre-existing vertigo prior to admission. He reports nausea today. He has difficulty sitting up. "I feel dizzy and get nauseous." He has severe sleep deprivation. ABDOMEN: Soft, has bowel sounds. Prevena wound vac intact ASSESSMENT 1. Complicated diverticulitis PLAN: 1. Start simethicone for gas bloat 2. Discontinue epidural with history of vertigo for tomorrow morning 3. Recommend undisturbed sleep for severe sleep deprivation 4. Continue antibiotics 5. Continue martinez catheter post-epidural removal for history of pre-existing severe obstructive uropathy. 6. Home healthcare assessment 7. Anticipated disposition home in 2 to 3 days Objective - Vital Signs Vital signs: Vital Signs Temp 97.9 F 11/21/18 08:12 Pulse 91 11/21/18 08:12 Resp 20 11/21/18 08:12 BP 146/67 11/21/18 08:12 Pulse Ox 92 L 11/21/18 08:12 Intake & Output 11/20/18 11/21/18 11/21/18 18:59 06:59 18:59 Intake Total 225 609.833 Output Total 1100 550 Balance -1100 -325 609.833 Intake: Intake, IV Titration 225 189.833 Amount Ropivacaine 250 mg 189.833 Hydromorphone (Pf) 5 mg In Sodium Chloride 0.9% 200 ml @ Per Protocol EPIDURAL .Q0M PRN Rx#: [id number] Sodium Chloride 0.9% 1, 225 000 ml @ 75 mls/hr IV . [id number] DOMINGUEZ Rx#:[id number] Oral 420 Output: Urine 1100 550 Other: Voiding Method Indwelling Catheter Indwelling Catheter Indwelling Catheter - Labs CBC & Chem 7: 11/21/18 07:13 11/21/18 07:13 Labs: Abnormal Lab Results - Last 24 Hours (Table) 11/20/18 11/20/18 11/21/18 Range/Units 17:37 19:29 07:13 RBC 4.02 L (4.30-5.90) m/uL Hgb 12.2 L (13.0-17.5) gm/dL Hct 38.9 L (39.0-53.0) % Plt Count 116 L (150-450) k/uL Lymphocytes # 0.8 L (1.0-4.8) k/uL Chloride (98-107) mmol/L Carbon Dioxide (22-30) mmol/L POC Glucose (mg/dL) 109 H 109 H (75-99) mg/dL Calcium (8.4-10.2) mg/dL 11/21/18 Range/Units 07:13 RBC (4.30-5.90) m/uL Hgb (13.0-17.5) gm/dL Hct (39.0-53.0) % Plt Count (150-450) k/uL Lymphocytes # (1.0-4.8) k/uL Chloride 113 H (98-107) mmol/L Carbon Dioxide 20 L (22-30) mmol/L POC Glucose (mg/dL) (75-99) mg/dL Calcium 7.3 L (8.4-10.2) mg/dL
[2018-11-21 12:28] LABS: Glucose,Whole Blood 103 mg/dL (75-99)
[2018-11-21] MEDS ORDERED: HYDROmorphone 1 MG/ML 1 ML SYRINGE IVP PRN (12:46)
[2018-11-21] MEDS ORDERED: HYDROcodone/APAP 7.5-325MG 1 EACH TAB PO PRN (12:46)
[2018-11-21] MEDS: SODIUM CHLORIDE 0.9% 1,000 ML IV SCH ×2 (13:42→19:12)
--- NOTE | 2018-11-21 14:07 | P.PN ---
Progress Note - Text 11/21 2631 73-year-old male, status post reversal by Dr. Lara. Patient has an epidural catheter for postop pain control with the solution running at 8 mL an hour, with a VAS of 2. Patient had complains of heaviness in both legs, I asked the nurse or decrease the rate to 5 mL an hour. Continue epidural infusion
[2018-11-21] MEDS: ONDANSETRON 4 MG/2 ML VIAL IVP PRN (16:44)
[2018-11-21 16:48] LABS: Glucose,Whole Blood 101 mg/dL (75-99)
[2018-11-21 20:27] LABS: Glucose,Whole Blood 91 mg/dL (75-99)
[2018-11-21] MEDS: TAMSULOSIN 0.4 MG CAP.ER.24H PO SCH (22:02)
[2018-11-21] MEDS: DOXAZOSIN 4 MG TAB PO SCH (22:02)
[2018-11-21] MEDS: FINASTERIDE 5 MG TAB PO SCH (22:02)
[2018-11-21] MEDS: LISINOPRIL 10 MG TAB PO SCH (22:05)
[2018-11-22] MEDS: ONDANSETRON 4 MG/2 ML VIAL IVP PRN (03:22)
[2018-11-22 07:00] LABS: Glucose,Whole Blood 101 mg/dL (75-99)
[2018-11-22 07:43] LABS: African American GFR (CKD) >90 (>60 ml/min/1.73 sqM); Anion Gap 8 mmol/L; Blood Urea Nitrogen 18 mg/dL (9-20); Calcium 7.7 mg/dL (8.4-10.2); Carbon Dioxide 22 mmol/L (22-30); Chloride 111 mmol/L (98-107); Glucose 97 mg/dL (74-99); Sodium 141 mmol/L (137-145)
[2018-11-22] MEDS: INSULIN ASPART (NovoLOG) 100 UNIT/ML VIAL SQ SCH ×4 (07:47→20:42)
[2018-11-22] MEDS: SODIUM CHLORIDE 0.9% 1,000 ML IV SCH ×2 (08:08→16:06)
[2018-11-22 08:12] LABS: Basophils % (A) 0 %; Eosinophils # (A) 0.1 k/uL (0-0.7); Eosinophils % (A) 1 %; HCT 38.8 % (39.0-53.0); HGB 12.2 gm/dL (13.0-17.5); Hypochromasia Slight; Lymphocytes # (A) 0.9 k/uL (1.0-4.8); Lymphocytes % (A) 10 %; MCHC 31.6 g/dL (31.0-37.0); Mean Platelet Volume 7.5; Monocytes # (A) 0.4 k/uL (0-1.0); Monocytes % (A) 5 %; Neutrophils # (A) 7.4 k/uL (1.3-7.7); Neutrophils % (A) 83 %; Platelet Count 127 k/uL (150-450); RBC 4.08 m/uL (4.30-5.90); WBC 8.9 k/uL (3.8-10.6)
[2018-11-22] MEDS: ALVIMOPAN 12 MG CAPSULE PO SCH ×2 (08:53→20:41)
[2018-11-22] MEDS: ceFAZolin IN SWFI 2 GM/20 ML SYRINGE IVP SCH ×3 (08:53→23:33)
[2018-11-22] MEDS: metroNIDAZOLE-NS PMX 500 MG in SALINE 1 100ML.BAG IVPB SCH ×3 (08:54→23:34)
[2018-11-22] MEDS: FAMOTIDINE 20 MG/2 ML VIAL IV SCH ×2 (08:54→20:42)
[2018-11-22] MEDS: METOPROLOL TARTRATE 25 MG TAB PO SCH ×2 (08:54→20:41)
[2018-11-22] MEDS: LORATADINE 10 MG TAB PO SCH (08:54)
[2018-11-22] MEDS: PANTOPRAZOLE 40 MG TABLET PO SCH (08:54)
[2018-11-22] MEDS: HEPARIN SODIUM,PORCINE 5,000 UNIT/ML 1 ML VIAL SQ SCH ×3 (08:54→23:36)
--- NOTE | 2018-11-22 10:30 | P.PN ---
Subjective Progress Note Date: 11/22/18 Principal diagnosis: Colostomy reversal Patient doing well today. Pain is improved. White blood cell count 8.9, hemoglobin 12.2. Passing gas. He would like more to eat. Objective - Vital Signs Vital signs: Vital Signs Temp 97.9 F 11/22/18 08:10 Pulse 78 11/22/18 08:10 Resp 20 11/22/18 08:10 BP 145/66 11/22/18 08:10 Pulse Ox 96 11/22/18 08:10 Intake & Output 11/21/18 11/22/18 11/22/18 18:59 06:59 18:59 Intake Total 846.367 180 Output Total 415 200 Balance 431.367 -200 180 Intake: Intake, IV Titration 246.367 Amount Ropivacaine 250 mg 246.367 Hydromorphone (Pf) 5 mg In Sodium Chloride 0.9% 200 ml @ Per Protocol EPIDURAL .Q0M PRN Rx#: [id number] Oral 600 180 Output: Urine 415 200 Other: Voiding Method Indwelling Catheter Indwelling Catheter Indwelling Catheter - Exam Abdomen: Soft, mild distention, minimal tenderness, dressing clean and dry - Labs CBC & Chem 7: 11/22/18 06:52 11/22/18 06:52 Labs: Abnormal Lab Results - Last 24 Hours (Table) 11/21/18 11/21/18 11/22/18 Range/Units 12:17 16:46 06:52 RBC 4.08 L (4.30-5.90) m/uL Hgb 12.2 L (13.0-17.5) gm/dL Hct 38.8 L (39.0-53.0) % Plt Count 127 L (150-450) k/uL Lymphocytes # 0.9 L (1.0-4.8) k/uL Chloride (98-107) mmol/L POC Glucose (mg/dL) 103 H 101 H (75-99) mg/dL Calcium (8.4-10.2) mg/dL 11/22/18 11/22/18 Range/Units 06:52 06:56 RBC (4.30-5.90) m/uL Hgb (13.0-17.5) gm/dL Hct (39.0-53.0) % Plt Count (150-450) k/uL Lymphocytes # (1.0-4.8) k/uL Chloride 111 H (98-107) mmol/L POC Glucose (mg/dL) 101 H (75-99) mg/dL Calcium 7.7 L (8.4-10.2) mg/dL Assessment and Plan (1) Diverticulitis Narrative/Plan: We'll remove the patient's epidural today. Increase diet. Increase activity. Keep Lee catheter. Current Visit: No Status: Acute Code(s): K57.92 - DVTRCLI OF INTEST, PART UNSP, W/O PERF OR ABSCESS W/O BLEED SNOMED Code(s): 033647747
[2018-11-22] MEDS: FLUTICASONE 50MCG/SPRAY NASAL 16GM EA NOSTRIL SCH (11:30)
[2018-11-22 12:10] LABS: Glucose,Whole Blood 106 mg/dL (75-99)
[2018-11-22] MEDS: KETOROLAC 30 MG/ML 1 ML VIAL IVP SCH ×3 (12:10→23:33)
--- NOTE | 2018-11-22 13:08 | P.PN ---
Progress Note - Text 11/22 1025am 73-year-old male status post colostomy reversal by Dr. Dr. Lara. Patient has an epidural catheter for postop pain control with the solution running at 5 mL an hour, heaviness in his legs is gone. Epidural DC'd nurse informed
[2018-11-22 17:08] LABS: Glucose,Whole Blood 86 mg/dL (75-99)
[2018-11-22 20:29] LABS: Glucose,Whole Blood 109 mg/dL (75-99)
[2018-11-22] MEDS: TAMSULOSIN 0.4 MG CAP.ER.24H PO SCH (20:41)
[2018-11-22] MEDS: FINASTERIDE 5 MG TAB PO SCH (20:41)
[2018-11-22] MEDS: LISINOPRIL 10 MG TAB PO SCH (20:41)
[2018-11-22] MEDS: DOXAZOSIN 4 MG TAB PO SCH (20:42)
[2018-11-23 07:04] LABS: Glucose,Whole Blood 87 mg/dL (75-99)
[2018-11-23] MEDS: INSULIN ASPART (NovoLOG) 100 UNIT/ML VIAL SQ SCH ×2 (07:13→12:27)
[2018-11-23] MEDS: KETOROLAC 30 MG/ML 1 ML VIAL IVP SCH ×2 (07:16→12:27)
--- NOTE | 2018-11-23 07:55 | P.PN ---
Subjective Progress Note Date: 11/23/18 He reports having generalized weakness as he has been in bed for over 2 to 3 days with minimal ambulation secondary to dizziness from his epidural. He is passing flatus and having bowel movements. He is afebrile. "I slept better the last 2 nights." He had hypertension. Plan: 1. Physical therapy assessment for rehab 2. Diet advanced to full liquid 3. Continue martinez catheter for history of obstructive uropathy, will likely continue for 1 week prior to removal per recommendation from urology 4. Anticipated discharge [facility] pending rehab assessment Objective - Vital Signs Vital signs: Vital Signs Temp 97.9 F 11/23/18 07:00 Pulse 67 11/23/18 07:00 Resp 18 11/23/18 07:00 BP 188/75 11/23/18 07:00 Pulse Ox 95 11/23/18 07:00 Intake & Output 11/22/18 11/23/18 11/23/18 18:59 06:59 18:59 Intake Total 1360 Output Total 440 Balance 920 Intake: IV 1000 Sodium Chloride 0.9% 1, 1000 000 ml @ 75 mls/hr IV . [id number] DOMINGUEZ Rx#:[id number] Oral 360 Output: Urine 440 Uretheral (Martinez) 440 Other: Voiding Method Indwelling Catheter Indwelling Catheter # Voids 0 # Bowel Movements 1 - Labs CBC & Chem 7: 11/22/18 06:52 11/22/18 06:52 Labs: Abnormal Lab Results - Last 24 Hours (Table) 11/22/18 11/22/18 11/22/18 Range/Units 06:52 12:08 20:26 RBC 4.08 L (4.30-5.90) m/uL Hgb 12.2 L (13.0-17.5) gm/dL Hct 38.8 L (39.0-53.0) % Plt Count 127 L (150-450) k/uL Lymphocytes # 0.9 L (1.0-4.8) k/uL POC Glucose (mg/dL) 106 H 109 H (75-99) mg/dL
[2018-11-23] MEDS: PANTOPRAZOLE 40 MG TABLET PO SCH (08:08)
[2018-11-23] MEDS: ceFAZolin IN SWFI 2 GM/20 ML SYRINGE IVP SCH ×2 (08:09→15:45)
[2018-11-23] MEDS: SODIUM CHLORIDE 0.9% 1,000 ML IV SCH (08:11)
[2018-11-23] MEDS: metroNIDAZOLE-NS PMX 500 MG in SALINE 1 100ML.BAG IVPB SCH ×2 (08:12→15:45)
--- NOTE | 2018-11-23 08:40 | XR ---
EXAMINATION TYPE: XR chest 2V DATE OF EXAM: 11/23/2018 COMPARISON: Chest x-ray July 14, 2018 HISTORY: COPD. TECHNIQUE: Frontal and lateral views of the chest are obtained. FINDINGS: There is background chronic emphysematous change redemonstrated. Cardiac silhouette size i s mildly enlarged with new small to tiny bilateral pleural effusions and increasing central vascular congestion. No suspicious focal airspace opacity or pneumothorax. The osseous structures are intact . IMPRESSION: Suspect CHF exacerbation on background chronic emphysematous change with cardiomegaly de monstrating mild central vascular congestion and small to tiny bilateral pleural effusions slightly m ore prominent from prior study.
[2018-11-23] MEDS: LORATADINE 10 MG TAB PO SCH (09:20)
[2018-11-23] MEDS: HEPARIN SODIUM,PORCINE 5,000 UNIT/ML 1 ML VIAL SQ SCH (09:20)
[2018-11-23] MEDS: METOPROLOL TARTRATE 25 MG TAB PO SCH (09:20)
[2018-11-23] MEDS: FAMOTIDINE 20 MG/2 ML VIAL IV SCH (09:20)
[2018-11-23] MEDS: ALVIMOPAN 12 MG CAPSULE PO SCH (09:20)
[2018-11-23] MEDS: FLUTICASONE 50MCG/SPRAY NASAL 16GM EA NOSTRIL SCH (09:21)
[2018-11-23 11:21] LABS: Glucose,Whole Blood 115 mg/dL (75-99)
[2018-11-23] MEDS ORDERED: FUROSEMIDE 10 MG/ML 2 ML VIAL IV ONE ×2 (11:34→15:46)
--- NOTE | 2018-11-23 12:08 | P.DS ---
Providers Date of admission: 11/19/18 08:13 Expected date of discharge: 11/23/18 Attending physician: Bev Lara Primary care physician: Katey Harris - Discharge Diagnosis(es) (1) Coronary artery disease Current Visit: No Status: Acute (2) Diabetes type 2, controlled Current Visit: No Status: Acute (3) Diverticular disease of intestine with perforation and abscess Current Visit: No Status: Acute (4) Enlarged prostate with lower urinary tract symptoms (LUTS) Current Visit: No Status: Acute (5) Gastroesophageal reflux disease Current Visit: No Status: Acute (6) Hemorrhoids, external, with complication Current Visit: No Status: Acute (7) Hypertensive heart disease Current Visit: No Status: Acute (8) Prostate hypertrophy Current Visit: No Status: Acute (9) Unstable angina pectoris Current Visit: No Status: Acute Hospital Course: The patient is a 73-year-old gentleman who presented for colostomy reversal. He underwent colonoscopy for evaluation for underlying polyps. He then had a co lostomy reversal partial colectomy, 11/19/2018. He has known history of severe prostatic hypertrophy with obstructive symptoms. He also has history of hypertensive heart disease. Prior to discharge, he was passing flatus and tolerating diet. He had a bowel movement. Hypertension and congestive heart failure was treated with IV Lasix. Home health care including evaluation for rehab was performed. Patient was stable for discharge. Pertinent Studies: Chest x-ray 11/23/2018 demonstrates COPD with mild congestive heart failure Procedures: Colostomy reversal with flexible sigmoidoscopy 11/19/2018 Patient Condition at Discharge: Fair Plan - Discharge Summary Discharge Rx Participant: No New Discharge Prescriptions: No Action Finasteride [Proscar] 5 mg PO HS Aspirin 81 mg PO SUTUTHSA Lansoprazole [Prevacid] 15 mg PO AC-BRKFST Doxazosin Mesylate [Cardura] 4 mg PO HS Praluent(Unknown) 1 dose SQ Q14D Cetirizine HCl 10 mg PO DAILY Docusate [Colace] 100 mg PO BID #30 capsule Tamsulosin [Flomax] 0.4 mg PO PC-SUPPER #30 cap.er.24h Lisinopril [Zestril] 10 mg PO HS Fluticasone Nasal [place] [Flonase Nasal [place]] 1 spray EA NOSTRIL DAILY Metoprolol Tartrate [Lopressor] 25 mg PO BID sitaGLIPtin [Januvia] 50 mg PO DAILY PRN PRN Reason: HYPERGLYCEMIA Discharge Medication List Aspirin 81 mg PO SUTUTHSA 01/11/15 [History] Doxazosin Mesylate [Cardura] 4 mg PO HS 01/11/15 [History] Finasteride [Proscar] 5 mg PO HS 01/11/15 [History] Lansoprazole [Prevacid] 15 mg PO AC-BRKFST 01/11/15 [History] Praluent(Unknown) 1 dose SQ Q14D 01/15/18 [History] Cetirizine HCl 10 mg PO DAILY 05/22/18 [History] Docusate [Colace] 100 mg PO BID #30 capsule 07/08/18 [Rx] Tamsulosin [Flomax] 0.4 mg PO PC-SUPPER #30 cap.er.24h 07/15/18 [Rx] Lisinopril [Zestril] 10 mg PO HS 11/12/18 [History] Fluticasone Nasal [place] [Flonase Nasal [place]] 1 spray EA NOSTRIL DAILY 11/17/18 [History] Metoprolol Tartrate [Lopressor] 25 mg PO BID 11/19/18 [History] sitaGLIPtin [Januvia] 50 mg PO DAILY PRN 11/19/18 [History] Follow up Appointment(s)/Referral(s): [facility], [NON-STAFF] - As Needed [facility], [NON-STAFF] - As Needed Bev Lara MD [STAFF PHYSICIAN] - 12/01/18 Patient Instructions/Handouts: *Surgery [facility] - (Anesthesia) Endoscopy Discharge Instructions, Diverticulosis (DC), Diverticulosis Diet (GEN), Colonoscopy (DC), Colectomy Diet (DC), Lee Catheter Placement and Care (DC), Urinary Leg Bag (GEN) Activity/Diet/Wound Care/Special Instructions: NO lifting over 4 pounds in 4 weeks, December 19. October shower. No bathtub soaks, December 06. Drink protein shakes, 3 servings daily for strength. Notify for temp over 101.0, increased pain, drainage from incisions. Lee catheter to be removed by surgeon in office Discharge Disposition: HOME WITH HOME HEALTH SERVICES
[2018-11-23 15:24] VITALS: BP 187/70; PULSE 59; RESP 15; TEMP 97.5
--- NOTE | 2018-11-23 16:12 | P.PN ---
Progress Note - Text Progress Note Date: 11/23/18 Dressings changed to Optifoam from Prevena. No infection or cellulitis. Lee to be removed in office for history of severe urinary retention.
== END 2018-11-23 16:47 | DRG 330 ==
LOC: ORWHC2ENDO 08:13 → 4SSUR 09:25 → ORWHC2ENDO 11-19 08:05 → 4SSUR 11-19 08:13
PROVIDERS: ADMIT Surgery Plastic and Reconstructive Surgery; ATTEND Surgery Plastic and Reconstructive Surgery
PROC: 0DJD8ZZ Inspection of Lower Intestinal Tract, Via Natural or Artificial Opening Endoscopic (ICD-10-PCS; principal; 2018-11-18 08:45)
PROC: 0DNU0ZZ Release Omentum, Open Approach (ICD-10-PCS; 2018-11-19)
PROC: 0DSN0ZZ Reposition Sigmoid Colon, Open Approach (ICD-10-PCS; 2018-11-19)
PROC: 0DN80ZZ Release Small Intestine, Open Approach (ICD-10-PCS; 2018-11-19)
PROC: 0DSM0ZZ Reposition Descending Colon, Open Approach (ICD-10-PCS; 2018-11-19)
PROC: 0DJD8ZZ Inspection of Lower Intestinal Tract, Via Natural or Artificial Opening Endoscopic (ICD-10-PCS; 2018-11-19)
PROC: 0DNE0ZZ Release Large Intestine, Open Approach (ICD-10-PCS; 2018-11-19)
PROC: 0DBN0ZZ Excision of Sigmoid Colon, Open Approach (ICD-10-PCS; 2018-11-19)
PROC: 0WQF0ZZ Repair Abdominal Wall, Open Approach (ICD-10-PCS; 2018-11-19)
DX: Z43.3 Encounter for attention to colostomy (principal); N13.8 Other obstructive and reflux uropathy; K57.20 Diverticulitis of large intestine with perforation and abscess without bleeding; E11.9 Type 2 diabetes mellitus without complications; E78.5 Hyperlipidemia, unspecified; E86.0 Dehydration; F17.200 Nicotine dependence, unspecified, uncomplicated; I11.0 Hypertensive heart disease with heart failure; K57.30 Diverticulosis of large intestine without perforation or abscess without bleeding; I25.2 Old myocardial infarction; I50.9 Heart failure, unspecified; K21.9 Gastro-esophageal reflux disease without esophagitis; K64.4 Residual hemorrhoidal skin tags; K66.0 Peritoneal adhesions (postprocedural) (postinfection); N40.1 Benign prostatic hyperplasia with lower urinary tract symptoms; I25.10 Atherosclerotic heart disease of native coronary artery without angina pectoris; Z72.820 Sleep deprivation; Z79.84 Long term (current) use of oral hypoglycemic drugs; Z79.899 Other long term (current) drug therapy; Z80.0 Family history of malignant neoplasm of digestive organs; Z82.49 Family history of ischemic heart disease and other diseases of the circulatory system; Z88.9 Allergy status to unspecified drugs, medicaments and biological substances; Z88.6 Allergy status to analgesic agent; Z88.1 Allergy status to other antibiotic agents; Z88.2 Allergy status to sulfonamides; Z88.8 Allergy status to other drugs, medicaments and biological substances; I25.5 Ischemic cardiomyopathy; K58.9 Irritable bowel syndrome, unspecified; Z71.6 Tobacco abuse counseling
CPT/HCPCS: 44388; 71046; 80048; 80053; 83735; 84100; 85025; 86850; 86900; 86901; 88304

== ENCOUNTER → 2018-12-04 | Outpatient (CLI) | payer MEDICARE ==
--- NOTE | 2018-12-04 16:32 | US ---
EXAMINATION TYPE: US venous doppler duplex LE BI DATE OF EXAM: 12/04/2018 1:52 PM COMPARISON: NONE CLINICAL HISTORY: 73-year-old male R22.42,R22.41 SWELLING ROME LEGS. SIDE PERFORMED: Bilateral TECHNIQUE: The lower extremity deep venous system is examined utilizing real time linear array sonog ashly with graded compression, doppler sonography and color-flow sonography. FINDINGS: VESSELS IMAGED: External Iliac Vein (EIV) Common Femoral Vein Deep Femoral Vein Greater Saphenous Vein * Femoral Vein Popliteal Vein Small Saphenous Vein * Proximal Calf Veins (* superficial vessels) Right Leg: Negative for DVT Left Leg: Negative for DVT Small to moderate-sized but elongated Wiley's cyst on the right. IMPRESSION: 1. No evidence for DVT within the bilateral lower extremities imaged from the groin to the upper calv es. 2. Elongated 5.2 x 2.2 x 1.2 cm Wiley's cyst on the right.
== END | disposition home or self-care (01) ==
LOC: RADUSWWP 13:30
PROVIDERS: ATTEND Surgery Plastic and Reconstructive Surgery
DX: M71.21 Synovial cyst of popliteal space [Baker], right knee (principal); R22.42 Localized swelling, mass and lump, left lower limb
CPT/HCPCS: 93970

== ENCOUNTER 2019-01-14 10:22 | Day surgery (SDC) | payer MEDICARE, OTHER ==
[2019-01-08 10:37] VITALS: BMI 35.5
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
[~2019-01-14 10:22] MED LIST changes: +DEXAMETHASONE SOD PHOSPHATE 10 MG/ML 1 ML VIAL IV ONE; +LACTATED RINGERS 1,000 ML IV SCH; +MIDAZOLAM 2 MG/2 ML VIAL IV PRN; +ONDANSETRON 4 MG/2 ML VIAL IVP ONE; +Pre Op ABX Message 1 EACH MISC MISCELLANE ONE; +SCOPOLAMINE 1.5MG/72HR PATCH TRANSDERM ONE
[2019-01-14 11:04] LABS: Glucose,Whole Blood 143 mg/dL (75-99)
[2019-01-14] MEDS ORDERED: LIDOCAINE 1% 20 ML VIAL (10MG/ML) FOR IV START INTRADERMA ONE (11:08)
[2019-01-14] MEDS ORDERED: ONDANSETRON 4 MG/2 ML VIAL IVP ONE (11:09)
[2019-01-14] MEDS ORDERED: LACTATED RINGERS 1,000 ML IV ONE (11:10)
[2019-01-14] MEDS ORDERED: DEXAMETHASONE SOD PHOSPHATE 10 MG/ML 1 ML VIAL IV ONE (11:10)
[2019-01-14] MEDS ORDERED: PROPOFOL 10 MG/ML 20 ML VIAL IV ONE (11:40)
[2019-01-14] MEDS ORDERED: LIDOCAINE 1% INJ 10MG/ML (20 ML MDV) ONE (11:40)
[2019-01-14] MEDS ORDERED: GLYCOPYRROLATE 0.2 MG/ML 2 ML VIAL ONE (11:40)
[2019-01-14] MEDS ORDERED: MIDAZOLAM 2 MG/2 ML VIAL ONE (11:40)
[2019-01-14] MEDS ORDERED: fentaNYL (PF) 50 MCG/ML 2 ML AMP ONE (11:40)
[2019-01-14] MEDS ORDERED: ePHEDrine SULFATE/0.9% NACL/PF 50 MG/5 ML SYRINGE IV ONE (11:40)
[2019-01-14] MEDS ORDERED: NEOSTIGMINE 1 MG/ML 10 ML VIAL ONE (11:40)
[2019-01-14] MEDS ORDERED: HYDROmorphone (PF) 1 MG/ML ONE (11:40)
[2019-01-14] MEDS ORDERED: ROCURONIUM BROMIDE 10 MG/ML 10 ML VIAL IV ONE (11:40)
[2019-01-14] MEDS ORDERED: BUPIVACAIN-EPI 0.25%-1:200,000 30 ML VIAL SQ ONE (12:16)
[2019-01-14 13:17] VITALS: RESP 16; TEMP 96.7
[2019-01-14] MEDS: HYDROmorphone 0.5 MG/0.5 ML SYRINGE IVP PRN ×4 (13:39→14:04)
[2019-01-14 14:18] VITALS: PULSE 74
[2019-01-14] MEDS ORDERED: HYDROcodone/APAP 5-325MG 1 EACH TAB PO ONE (14:25)
[2019-01-14 14:38] VITALS: BP 152/80
--- NOTE | 2019-01-15 06:42 | P.PCN ---
Date of Procedure: 01/14/19 Description of Procedure: SURGEON: BEV LARA MD SUPERVISOR HIDE HOUSE: None. PREOPERATIVE DIAGNOSES: 1. Deep subcutaneous right upper back tumor, 5 cm 2. History of complicated diverticulitis 3. Diabetes type 2, [id number] 4. Tobacco use 5. Benign prostatic hypertrophy with obstructive uropathy 6. Hypertensive heart disease 7. Ischemic cardiomyopathy 8. Gastroesophageal reflux disease 9. Myocardial infarction 10. Irritable bowel syndrome 11. Hyperlipidemia 12. Coronary artery disease POSTOPERATIVE DIAGNOSES: 1. Deep subcutaneous right upper back tumor, 5 cm 2. History of complicated diverticulitis 3. Diabetes type 2, [id number] 4. Tobacco use 5. Benign prostatic hypertrophy with obstructive uropathy 6. Hypertensive heart disease 7. Ischemic cardiomyopathy 8. Gastroesophageal reflux disease 9. Myocardial infarction 10. Irritable bowel syndrome 11. Hyperlipidemia 12. Coronary artery disease PROCEDURES PERFORMED: 1. Excision of deep subcutaneous right upper back mass, 12 x 8 cm 2. Intermediate closure right upper back incision, 12-cm 3. Application of PREVENA 13-cm wound vac Anesthesia: GETA local Estimated Blood Loss (ml): 30 Pathology: other (back mass), right upper back including aerobic and anaerobic cultures Condition: stable Disposition: same day COMPLICATIONS: None. INDICATIONS: The patient is a 73-year-old male who presents with symptomatic right upper back tumor. Benefits and risks of surgical intervention were described including cosmetic deformity, bleeding, infection. Informed consent was obtained. DESCRIPTION OR PROCEDURE: In the preoperative area, the area of concern was marked with indelible marker. Patient was brought into the operating room. After general induction, he was positioned in left lateral decubitus position. The back was prepped and draped in a standard sterile fashion with ChloraPrep. Timeout protocol was confirmed with the surgical team regarding the patient's name, procedure to be performed including preoperative medications. DVT prophylaxis was confirmed. A field block was placed of the right upper back. An transverse elliptical incision 12 x 8 cm using #10 blade was made along the marking into the dermis and deep subcutaneous tissue to the fascia. Electro-Bovie cautery wa s used to enter deep subcutaneous tissue where a large ruptured cyst was removed in piecemeal over 5 cm in size with complete excision of 12 cm x 8 cm. Cultures were obtained. 0 Vicryl for the deep subcutaneous tissue followed by lacey. The incision was covered with PREVENA 13-cm wound vac. Local anesthetic was placed. At the end of the procedure, needle, sponge, and instrument count was verified correct by surgical aides teacher. The patient tolerated the procedure well. Operative Findings: 1. Excision of deep subcutaneous ruptured cyst over 12 x 8 cm. Plan - Discharge Summary Discharge Rx Participant: No New Discharge Prescriptions: New HYDROcodone/APAP 5-325MG [[place] 5-325] 1 tab PO Q6HR PRN 3 Days #10 tab PRN Reason: Pain Ibuprofen [Motrin] 600 mg PO Q8HR PRN #30 tab PRN Reason: Pain No Action Finasteride [Proscar] 5 mg PO HS Aspirin 81 mg PO SUTUTHSA Lansoprazole [Prevacid] 15 mg PO AC-BRKFST Doxazosin Mesylate [Cardura] 4 mg PO HS Cetirizine HCl 10 mg PO DAILY Tamsulosin [Flomax] 0.4 mg PO PC-SUPPER #30 cap.er.24h Lisinopril [Zestril] 10 mg PO HS Fluticasone Nasal [place] [Flonase Nasal [place]] 1 spray EA NOSTRIL DAILY Metoprolol Tartrate [Lopressor] 25 mg PO BID sitaGLIPtin [Januvia] 50 mg PO DAILY PRN PRN Reason: HYPERGLYCEMIA HYDROcodone/APAP 7.5-325MG [[place] 7.5-325] 1 tab PO Q4H PRN 3 Days #18 tab PRN Reason: Pain Discharge Medication List Aspirin 81 mg PO SUTUTHSA 01/11/15 [History] Doxazosin Mesylate [Cardura] 4 mg PO HS 01/11/15 [History] Finasteride [Proscar] 5 mg PO HS 01/11/15 [History] Lansoprazole [Prevacid] 15 mg PO AC-BRKFST 01/11/15 [History] Cetirizine HCl 10 mg PO DAILY 05/22/18 [History] Tamsulosin [Flomax] 0.4 mg PO PC-SUPPER #30 cap.er.24h 07/15/18 [Rx] Lisinopril [Zestril] 10 mg PO HS 11/12/18 [History] Fluticasone Nasal [place] [Flonase Nasal [place]] 1 spray EA NOSTRIL DAILY 11/17/18 [History] Metoprolol Tartrate [Lopressor] 25 mg PO BID 11/19/18 [History] sitaGLIPtin [Januvia] 50 mg PO DAILY PRN 11/19/18 [History] HYDROcodone/APAP 7.5-325MG [[place] 7.5-325] 1 tab PO Q4H PRN 3 Days #18 tab 11/23/18 [Rx] HYDROcodone/APAP 5-325MG [[place] 5-325] 1 tab PO Q6HR PRN 3 Days #10 tab 01/14/19 [Rx] Ibuprofen [Motrin] 600 mg PO Q8HR PRN #30 tab 01/14/19 [Rx] Follow up Appointment(s)/Referral(s): Bev Lara MD [STAFF PHYSICIAN] - 01/19/19 4:30 pm Patient Instructions/Handouts: *Surgery [facility] - (Anesthesia) Discharge Instructions Outpatient Surgery, Negative Pressure Wound Therapy (DC) Activity/Diet/Wound Care/Special Instructions: DO NOT REMOVE DRESSING OR GET IT WET!!!!! BRING SPONGE DRESSING WITH YOU Discharge Disposition: HOME SELF-CARE
== END 2019-01-14 15:07 | disposition home or self-care (01) ==
LOC: OR 10:22
PROVIDERS: ATTEND Surgery Plastic and Reconstructive Surgery
DX: L72.0 Epidermal cyst (principal); E11.9 Type 2 diabetes mellitus without complications; I11.9 Hypertensive heart disease without heart failure; E78.5 Hyperlipidemia, unspecified; K21.9 Gastro-esophageal reflux disease without esophagitis; K58.9 Irritable bowel syndrome, unspecified; N40.1 Benign prostatic hyperplasia with lower urinary tract symptoms; N13.8 Other obstructive and reflux uropathy; I25.10 Atherosclerotic heart disease of native coronary artery without angina pectoris; I25.2 Old myocardial infarction; Z80.8 Family history of malignant neoplasm of other organs or systems; Z95.5 Presence of coronary angioplasty implant and graft; Z87.891 Personal history of nicotine dependence; Z79.84 Long term (current) use of oral hypoglycemic drugs; Z79.899 Other long term (current) drug therapy; Z79.82 Long term (current) use of aspirin; Z88.6 Allergy status to analgesic agent; Z88.8 Allergy status to other drugs, medicaments and biological substances; Z88.1 Allergy status to other antibiotic agents; Z88.2 Allergy status to sulfonamides; Z90.49 Acquired absence of other specified parts of digestive tract; Z87.81 Personal history of (healed) traumatic fracture; Z98.52 Vasectomy status; Z80.0 Family history of malignant neoplasm of digestive organs; Z82.49 Family history of ischemic heart disease and other diseases of the circulatory system; I25.5 Ischemic cardiomyopathy
CPT/HCPCS: 21931; 88307; 87070; 87205; 87075; J2250; J1100; J2710; J0690; J2405; J2001; J3010; J1170 ×2; J2704; 88304

== ENCOUNTER 2019-01-15 16:58 | Emergency (ER) | payer MEDICARE, OTHER ==
[2019-01-15 18:10] LABS: Appearance,Urine Clear (Clear); Bilirubin,Urine Negative (Negative); Blood,Urine Negative (Negative); Color,Urine Light Yellow; Glucose,Urine (UA) 1+ (Negative); Ketones,Urine Negative (Negative); Leukocyte Esterase,Urine Negative (Negative); Nitrite,Urine Negative (Negative); Protein,Urine Negative (Negative); Specific Gravity,Urine 1.014 (1.001-1.035); Urobilinogen,Urine <2.0 mg/dL (<2.0)
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
[2019-01-15 19:09] VITALS: BP 146/73; PULSE 61; RESP 18; TEMP 97.8
== END 2019-01-15 19:24 | disposition home or self-care (01) ==
LOC: EC 16:58
DX: R33.9 Retention of urine, unspecified (principal); R30.0 Dysuria; E11.9 Type 2 diabetes mellitus without complications; K21.9 Gastro-esophageal reflux disease without esophagitis; I10 Essential (primary) hypertension; I25.2 Old myocardial infarction; N42.9 Disorder of prostate, unspecified; Z87.891 Personal history of nicotine dependence; Z88.1 Allergy status to other antibiotic agents; Z88.2 Allergy status to sulfonamides; Z88.6 Allergy status to analgesic agent; Z88.8 Allergy status to other drugs, medicaments and biological substances; Z79.51 Long term (current) use of inhaled steroids; Z79.82 Long term (current) use of aspirin; Z79.84 Long term (current) use of oral hypoglycemic drugs; Z79.899 Other long term (current) drug therapy; Z95.5 Presence of coronary angioplasty implant and graft; Z98.52 Vasectomy status
CPT/HCPCS: 51702; 51798; 81003; 99284

== ENCOUNTER → 2019-03-05 | Outpatient (CLI) | payer MEDICARE, OTHER ==
[2019-03-05 12:03] LABS: African American GFR (CKD) >90 (>60 ml/min/1.73 sqM); Blood Urea Nitrogen 21 mg/dL (9-20)
--- NOTE | 2019-03-05 13:10 | CT ---
EXAMINATION TYPE: CT abdomen pelvis w con DATE OF EXAM: 03/05/2019 COMPARISON: Prior CT 07/09/2018 HISTORY: Diverticulitis CT DLP: 1602.5 mGycm Automated exposure control for dose reduction was used. TECHNIQUE: Helical acquisition of images from the lung bases through the pelvis have been completed. CONTRAST: Performed without Oral Contrast and with IV Contrast, patient injected with 100 mL of Isovue 300. FINDINGS: Abdominal wall hernia has developed in the interval on the left lower quadrant which contai ns portion of colon, there is some local increased attenuation within the subcutaneous fat compatible with inflammatory change or scar. At the level of the umbilicus there is loss of subcutaneous fat, s ome local skin thickening is present as well as inflammatory change. LUNG BASES: No significant abnormality is appreciated. AORTA: No significant abnormality is appreciated. LIVER/GB: No significant interval change is appreciated. All bladder is absent. PANCREAS: No significant abnormality is seen. SPLEEN: No significant abnormality is seen. Small splenule again noted posteriorly adjacent to the sp sujit ADRENALS: No significant change is seen, mild bilateral adrenal prominence. KIDNEYS: No significant interval change is seen. Vascular calcifications are present bilaterally. No evident ureteral calcification or hydronephrosis. REPRODUCTIVE ORGANS: Prostate is enlarged and shows associated calcification. BOWEL: Postop changes are noted in the sigmoid colon. Resolution of the and decide appearance on pre vious exam likely reflects resolution of small local abscess. FREE AIR: No Free Air visible. ASCITES: None visible. PELVIC ADENOPATHY: None visualized. RETROPERITONEAL ADENOPATHY: No Retroperitoneal Adenopathy visible. URINARY BLADDER: Urinary bladder wall thickening is likely due to chronic outlet obstruction. Lee catheter is been removed. OSSEOUS STRUCTURES: No significant abnormality is seen. IMPRESSION: INTERVAL IMPROVEMENT IN PATIENT'S PNEUMOPERITONEUM, REMOVAL OF PATIENT'S DRAINS, THERE ARE POSTOP SHAHAB NGES. ABDOMINAL WALL HERNIA MAY BE POSTOPERATIVE.
== END | disposition home or self-care (01) ==
LOC: RADCTMAIN 11:00
PROVIDERS: ATTEND Surgery Plastic and Reconstructive Surgery
DX: K43.9 Ventral hernia without obstruction or gangrene (principal); Z98.890 Other specified postprocedural states; Z88.1 Allergy status to other antibiotic agents; Z88.2 Allergy status to sulfonamides; Z88.6 Allergy status to analgesic agent
CPT/HCPCS: 82565; 84520; 74177; 36415; Q9967

== ENCOUNTER 2019-11-07 21:07 | Observation (INO) | payer MEDICARE, OTHER ==
[2019-11-07] MEDS ORDERED: ONDANSETRON 4 MG/2 ML VIAL IVP STA (21:40)
[2019-11-07] MEDS ORDERED: SODIUM CHLORIDE 0.9% 1,000 ML IV STA (21:40)
[2019-11-07] MEDS ORDERED: PANTOPRAZOLE 40 MG/10 ML VIAL IVP STA (21:43)
[2019-11-07] MEDS ORDERED: MORPHINE SULFATE 2 MG/ML SYRINGE IVP ONE (21:43)
--- NOTE | 2019-11-07 22:01 | XR ---
EXAMINATION TYPE: XR chest 2V DATE OF EXAM: 11/07/2019 COMPARISON: 11/23/2018 HISTORY: COPD. Chest pain TECHNIQUE: FINDINGS: There is no heart failure nor confluent pneumonic infiltrate. Costophrenic angles are clear . Bony thorax is intact. Pulmonary vascularity is normal. IMPRESSION: No active cardiopulmonary disease. Normal heart. There is clearing of the bilateral small pleural effusions compared to old exam. There is clearing of right lower lobe mild infiltrate.
[2019-11-07 22:11] LABS: Basophils % (A) 0 %; Eosinophils # (A) 0.2 k/uL (0-0.7); Eosinophils % (A) 4 %; HCT 41.2 % (39.0-53.0); HGB 13.9 gm/dL (13.0-17.5); Lymphocytes # (A) 1.7 k/uL (1.0-4.8); Lymphocytes % (A) 29 %; MCH 31.6 pg (25.0-35.0); MCHC 33.6 g/dL (31.0-37.0); MCV 93.9 fL (80.0-100.0); Mean Platelet Volume 7.8; Monocytes # (A) 0.3 k/uL (0-1.0); Monocytes % (A) 5 %; Neutrophils # (A) 3.5 k/uL (1.3-7.7); Neutrophils % (A) 59 %; Platelet Count 164 k/uL (150-450); RBC 4.39 m/uL (4.30-5.90); RDW 13.7 % (11.5-15.5); WBC 5.9 k/uL (3.8-10.6)
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
[2019-11-07 22:37] LABS: Prothrombin Time 10.2 sec (9.0-12.0)
[2019-11-07 23:09] LABS: Albumin 4.1 g/dL (3.5-5.0); Calcium 9.4 mg/dL (8.4-10.2); Potassium 4.8 mmol/L (3.5-5.1); Total Bilirubin 0.4 mg/dL (0.2-1.3); Total Protein 7.3 g/dL (6.3-8.2)
[2019-11-07] MEDS ORDERED: NITROGLYCERIN SL TABS 0.4 MG TAB SUBLINGUAL PRN (23:29)
[2019-11-08] MEDS ORDERED: DOXAZOSIN 4 MG TAB PO SCH ×2 (02:30→21:00)
[2019-11-08 04:21] LABS: Cholesterol 160 mg/dL (<200); HDL Cholesterol 44 mg/dL (40-60); LDL Cholesterol,Calculated 87 mg/dL (0-99); Triglycerides 143 mg/dL (<150)
[2019-11-08] MEDS ORDERED: glipiZIDE 5 MG TAB PO SCH (07:30)
[2019-11-08 07:56] VITALS: RESP 14
[2019-11-08] MEDS ORDERED: CARVEDILOL 3.125 MG TAB PO SCH (08:45)
[2019-11-08] MEDS ORDERED: LISINOPRIL 5 MG TAB PO SCH (09:00)
[2019-11-08] MEDS ORDERED: ASPIRIN 81 MG PO SCH (09:00)
[2019-11-08] MEDS ORDERED: LISINOPRIL 10 MG TAB PO SCH (09:00)
[2019-11-08] MEDS ORDERED: DOCUSATE 100 MG CAP PO SCH (09:00)
[2019-11-08] MEDS ORDERED: LINAGLIPTIN 5 MG TABLET PO PRN (09:00)
[2019-11-08] MEDS ORDERED: METOPROLOL TARTRATE 25 MG TAB PO SCH (09:00)
[2019-11-08] MEDS ORDERED: FLUTICASONE 50MCG/SPRAY NASAL 16GM EA NOSTRIL SCH ×3 (09:00→21:00)
[2019-11-08] MEDS ORDERED: ASPIRIN 325 MG TAB PO SCH (09:00)
[2019-11-08] MEDS ORDERED: CHOLECALCIFEROL 1,000 UNIT TAB PO SCH (09:00)
[2019-11-08] MEDS ORDERED: PANTOPRAZOLE 40 MG TABLET PO SCH (10:00)
--- NOTE | 2019-11-08 10:20 | US ---
EXAMINATION TYPE: US abdomen complete DATE OF EXAM: 11/08/2019 COMPARISON: CT 03/05/2019, US 01/28/2018 CLINICAL HISTORY: pain. Difficult and limited exam due to patient body habitus and overlying bowel ga s EXAM MEASUREMENTS: Liver Length: 17.8 cm Gallbladder Wall: Surgically absent CBD: 0.3 cm Spleen: 14.0 cm Right Kidney: 11.6 x 5.1 x 5.0 cm Left Kidney: 11.4 x 5.6 x 4.4 cm Pancreas: Tail obscured by overlying bowel gas, visualized portions appear wnl Liver: Measuring upper limits of normal, attenuating, heterogeneous Gallbladder: Surgically absent Evidence for sonographic Douglas's sign: No CBD: wnl as visualized Spleen: Enlarged Right Kidney: No hydronephrosis or masses seen Left Kidney: No hydronephrosis. Possible parapelvic cyst visualized measuring 0.8 cm Upper IVC: wnl as visualized Abd Aorta: Limited evaluation due to bowel gas, visualized portions show no AAA The visualized liver is heterogeneous. Evaluation for focal masses suboptimal due to the heterogeneit y. The intrahepatic portion of the IVC and proximal abdominal aorta are within normal limits. Gallbla dder noted surgically absent. Common bile duct is unremarkable. The visualized portions of the panc reas are heterogeneous. The spleen is enlarged. Kidneys are symmetric and free of hydronephrosis. L ast few images technologist marked a 8mm simple appearing thin-walled cyst mid to lower pole of the l eft kidney centrally. IMPRESSION: Suboptimal study. Source of acute pain not identified.
[2019-11-08] MEDS ORDERED: DOBUTamine DRIP for NUC MED 500 MG in DEXTROSE/WATER 1 250ML.BAG IV ONE (11:27)
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
[2019-11-08 13:20] VITALS: BP 148/81; PULSE 90; TEMP 98
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
[2019-11-08 13:47] LABS: Amylase 31 U/L (30-110)
--- NOTE | 2019-11-08 15:15 | P.STRESS ---
- Stress Test Note Stress Test Results/Findings: Exam Performed: dobutamine stress echo with con Exam Date: 11/08/19 Reason for Exam: Chest pain Height: 5 ft 6 in Weight: 118.39 kg Protocol: Dobutamine Stage: 30 Duration of Exercise: 8:19 Resting Heart Rate: 78 Resting Blood Pressure: 145/80 Maximum Achieved Heart Rate: 145 Maximum Achieved Blood Pressure: 207/58 85% PMHR: 123 100% PMHR: 145 METS: na Technologist Comment: Stress Test Results/Findings: Baseline heart rate 78 beats a minute, Baseline blood pressure 145/80 mmHg Patient received dobutamine infusion per protocol to 30 mics Baseline 12-lead ECG shows sinus rhythm with normal ST segments There is no ECG evidence of ischemia Baseline 2-D echo images showed normal LV size and systolic function without segmental wall motion abnormalities With dobutamine infusion there was a stepwise increment in overall LV contractility with increased myocardial wall thickening without any wall motion abnormalities At recovery regional and global LV systolic function with normal No significant arrhythmias Impression no ECG or echocardiographic evidence for ischemia
--- NOTE | 2019-11-08 15:43 | P.DS ---
Providers Date of admission: 11/07/19 23:26 Expected date of discharge: 11/08/19 Attending physician: Nabeel Nieto Consults: 11/07/19 23:29 Consult Physician Urgent Consulting Provider: Zackery Wang Consult Reason/Comments: chest pain Do you want consulting provider notified?: Yes Primary care physician: Katey Harris [facility] Course: Diagnosis on discharge: 1. Episode of chest pain lasting several hours, in a 74-year-old male with multiple cardiac risk factors including hypertension, hyperlipidemia, diabetes, and history of coronary artery disease, patient was evaluated by cardiology stress test was ordered, stress test was negative, patient was cleared by cardiology to be discharged home. 2. Underlying history of hypertension, blood pressure is elevated on presentation, per cardiology stopped metoprolol, patient was started on Coreg 3.125 mg by mouth twice daily, dose of lisinopril was increased from 5 mg daily to 10 mg daily 3. Underlying history of hyperlipidemia 4. Underlying history of diabetes mellitus 5. Underlying history of gastroesophageal reflux disease, likely causing patient's symptoms, Prevacid 15 mg daily was stopped and patient was given a prescription for protonix 40 mg by mouth twice daily Hospital course: Chris Borja, is a 74-year-old male who presented to [facility] emergency room with a chief complaint of chest pain patient describes a pressure sensation in the middle of his chest behind the sternum that lasted several hours, pain was relieved in the emergency room, last night and then patient had another episode of chest pain this morning, he was evaluated in the emergency room EKG and cardiac enzymes were normal he was admitted to 24-hour observation unit cardiology consultation was requested. Patient has a known history of coronary artery disease, he had history of angioplasty to the RCA in 2000 and to the LAD in 2008, he also has known history of hypertension, hyperlipidemia, diabetes Mellitus and gastroesophageal reflux disease. He had multiple abdominal surgeries last year including cholecystectomy, partial colectomy was colostomy placement then reversal of colostomy. Besides chest pain patient denies any other symptoms there is no fever or chills no headache or dizziness no shortness of breath no cough no nausea or vomiting no abdominal pain no diarrhea no blood in the stools no burning with urination no frequency or urgency and no hematuria. Patient does not smoke he quit smoking last year, he drinks alcohol occasionally he denies any kind of illicit drug use. On 11/08/2019 patient was seen and examined on the observation unit, he is alert and oriented 3 in no apparent distress, there is no fever or chills no headache or dizziness no chest pain no shortness of breath no cough no nausea or vomiting no abdominal pain no diarrhea no blood in the stools no burning was urination no frequency or urgency and no hematuria, stress test was done and was negative patient was cleared by cardiology to be discharged home, blood pressure medications were adjusted as above, Protonix was added to regimen instead of Pr evacid 15 mg daily. Follow-up with Dr. Harris within 1 week. Patient Condition at Discharge: Good Plan - Discharge Summary Discharge Rx Participant: No New Discharge Prescriptions: New Carvedilol [Coreg] 3.125 mg PO BID-W/MEALS tab Pantoprazole [Protonix] 40 mg PO AC-BID tablet. Lisinopril [Zestril] 10 mg PO DAILY tab Continue Finasteride [Proscar] 5 mg PO HS Aspirin 81 mg PO SUTUTHSA Cetirizine HCl 10 mg PO HS Fluticasone Nasal [place] [Flonase Nasal [place]] 1 spray EA NOSTRIL HS sitaGLIPtin [Januvia] 100 mg PO DAILY Docusate Sodium [Dok] 100 mg PO BID Cholecalciferol [Vitamin D3 (25 Mcg = 1000 Iu)] 5,000 unit PO DAILY Nitroglycerin Sl Tabs [Nitrostat] 0.4 mg SUBLINGUAL Q5M PRN PRN Reason: Chest Pain glipiZIDE XL [Glucotrol XL] 5 mg PO DAILY Doxazosin Mesylate 8 mg PO HS Discontinued Lansoprazole [Prevacid] 15 mg PO AC-BRKFST Metoprolol Tartrate [Lopressor] 25 mg PO BID Lisinopril [Zestril] 5 mg PO DAILY Discharge Medication List Aspirin 81 mg PO SUTUTHSA 01/11/15 [History] Finasteride [Proscar] 5 mg PO HS 01/11/15 [History] Cetirizine HCl 10 mg PO HS 05/22/18 [History] Fluticasone Nasal [place] [Flonase Nasal [place]] 1 spray EA NOSTRIL HS 11/17/18 [History] sitaGLIPtin [Januvia] 100 mg PO DAILY 11/19/18 [History] Carvedilol [Coreg] 3.125 mg PO BID-W/MEALS tab 11/08/19 [Rx] Cholecalciferol [Vitamin D3 (25 Mcg = 1000 Iu)] 5,000 unit PO DAILY 11/08/19 [History] Docusate Sodium [Dok] 100 mg PO BID 11/08/19 [History] Doxazosin Mesylate 8 mg PO HS 11/08/19 [History] Lisinopril [Zestril] 10 mg PO DAILY tab 11/08/19 [Rx] Nitroglycerin Sl Tabs [Nitrostat] 0.4 mg SUBLINGUAL Q5M PRN 11/08/19 [History] Pantoprazole [Protonix] 40 mg PO AC-BID tablet. 11/08/19 [Rx] glipiZIDE XL [Glucotrol XL] 5 mg PO DAILY 11/08/19 [History] Follow up Appointment(s)/Referral(s): Katey Harris MD [Primary Care Provider] - 1-2 days Zackery Wang MD [STAFF PHYSICIAN] - 11/23/19 4:00 pm Alan Blank MD [STAFF PHYSICIAN] - 2 Weeks
--- NOTE | 2019-11-08 16:00 | ECHOF ---
Referral Reason:chest pain MEASUREMENTS -------- HEIGHT: 167.6 cm WEIGHT: 118.4 kg BP: 117/74 IVSd: 1.9 cm (0.6 - 1.1) LVIDd: 4.3 cm (3.9 - 5.3) LVPWd: 2.0 cm (0.6 - 1.1) IVSs: 2.2 cm LVIDs: 2.9 cm LVPWs: 2.1 cm Ao Diam: 3.0 cm (2.0 - 3.7) LA Diam: 3.7 cm (2.7 - 3.8) AV Cusp: 1.8 cm (1.5 - 2.6) EPSS: 1.3 cm MV E Nilson: 0.94 m/s MV DecT: 195 ms MV A Nilson: 1.11 m/s MV E/A Ratio: 0.85 RAP: 5.00 mmHg RVSP: 15.39 mmHg %FS: 40.91 % EDV(Teich): 82.84 ml EF(Teich): 72.03 % ESV(Teich): 23.17 ml IVSd: 1.17 cm (0.6 - 1.1) IVSs: 1.68 cm LVIDd: 4.30 cm (3.9 - 5.3) LVIDs: 2.54 cm LVPWd: 1.25 cm (0.6 - 1.1) LVPWs: 1.95 cm MV EF SLOPE: 31.40 mm/s (70 - 150) MV EXCURSION: 11.32 mm (> 18.000) SV(Teich): 59.67 ml FINDINGS -------- Sinus rhythm. This was a technically difficult study with suboptimal views. The left ventricular size is normal. There is severe concentric left ventricular hypertrophy. Ove rall left ventricular systolic function is normal with, an EF between 55 - 60 %. The RV was not well visualized. The left atrial size is normal. The right atrial size is normal. The aortic valve was not well visualized. The mitral valve was not well visualized. There is trace mitral regurgitation. The tricuspid valve was not well visualized. Trace tricuspid regurgitation present. Right ventric ular systolic pressure is normal at < 35 mmHg. The pulmonic valve was not well visualized. The aortic root size is normal. IVC Not well visulized. There is no pericardial effusion. CONCLUSIONS -------- 1. Sinus rhythm. 2. This was a technically difficult study with suboptimal views. 3. The left ventricular size is normal. 4. There is severe concentric left ventricular hypertrophy. 5. Overall left ventricular systolic function is normal with, an EF between 55 - 60 %. 6. The RV was not well visualized. 7. The left atrial size is normal. 8. The right atrial size is normal. 9. The aortic valve was not well visualized. 10. The mitral valve was not well visualized. 11. There is trace mitral regurgitation. 12. The tricuspid valve was not well visualized. 13. Trace tricuspid regurgitation present. 14. Right ventricular systolic pressure is normal at < 35 mmHg. 15. The pulmonic valve was not well visualized. 16. The aortic root size is normal. 17. IVC Not well visulized. 18. There is no pericardial effusion. APPELLATE LAW CLERK: Allison Cortez RDCS
[2019-11-08 20:18] LABS: Glucose,Whole Blood 134 mg/dL (75-99)
[2019-11-08 20:18] LABS: Glucose,Whole Blood 139 mg/dL (75-99)
[2019-11-08] MEDS ORDERED: LORATADINE 10 MG TAB PO SCH (21:00)
[2019-11-08] MEDS ORDERED: FINASTERIDE 5 MG TAB PO SCH (21:00)
== END 2019-11-08 16:29 | disposition home or self-care (01) ==
LOC: EC 21:07 → 1SOBS 23:26
PROVIDERS: ADMIT Internal Medicine; ATTEND Internal Medicine
DX: R07.89 Other chest pain (principal); I10 Essential (primary) hypertension; E78.5 Hyperlipidemia, unspecified; E11.9 Type 2 diabetes mellitus without complications; I25.10 Atherosclerotic heart disease of native coronary artery without angina pectoris; K21.9 Gastro-esophageal reflux disease without esophagitis; F41.9 Anxiety disorder, unspecified; R10.9 Unspecified abdominal pain; G89.29 Other chronic pain; I25.2 Old myocardial infarction; N42.9 Disorder of prostate, unspecified; R35.0 Frequency of micturition; M79.89 Other specified soft tissue disorders; E66.9 Obesity, unspecified; Z68.41 Body mass index [BMI] 40.0-44.9, adult; Z11.59 Encounter for screening for other viral diseases; Z95.5 Presence of coronary angioplasty implant and graft; Z79.82 Long term (current) use of aspirin; Z79.899 Other long term (current) drug therapy; Z79.84 Long term (current) use of oral hypoglycemic drugs; Z88.6 Allergy status to analgesic agent; Z88.8 Allergy status to other drugs, medicaments and biological substances; Z91.041 Radiographic dye allergy status; Z88.1 Allergy status to other antibiotic agents; Z88.2 Allergy status to sulfonamides; Z87.19 Personal history of other diseases of the digestive system; Z87.820 Personal history of traumatic brain injury; Z87.828 Personal history of other (healed) physical injury and trauma; Z90.49 Acquired absence of other specified parts of digestive tract; Z98.890 Other specified postprocedural states; Z98.52 Vasectomy status; Z86.69 Personal history of other diseases of the nervous system and sense organs; Z87.39 Personal history of other diseases of the musculoskeletal system and connective tissue; Z87.891 Personal history of nicotine dependence; Z82.49 Family history of ischemic heart disease and other diseases of the circulatory system; Z80.8 Family history of malignant neoplasm of other organs or systems; Z80.0 Family history of malignant neoplasm of digestive organs
CPT/HCPCS: 93005 ×2; 96361; 96374; 99285; 36415; 83880; 80061; 80053; 82150; 83690; 83735; 84484 ×2; 85025; 85610; 85730; 71046; 76700; G0378 ×2; C8929; C8930; U0003; J1250; C9113; Q9950; 93306; 93351

== ENCOUNTER → 2019-12-13 | Outpatient (CLI) | payer MEDICARE, OTHER ==
--- NOTE | 2019-12-13 14:48 | CT ---
EXAMINATION TYPE: CT abdomen pelvis wo con DATE OF EXAM: 12/13/2019 COMPARISON: Prior CT 03/05/2019 HISTORY: Multiple surgeries. Diverticulitis. Known Left sided hernia. CT DLP: 02679 mGycm Automated exposure control for dose reduction was used. TECHNIQUE: Helical acquisition of images from the lung bases through the pelvis, patient received no oral or intravenous contrast. FINDINGS: There is an abdominal wall hernia along the anterior lower left abdomen is noted on prior e xam but no longer contains bowel loops, inflammatory change no longer seen, small umbilical hernia al so present. Coronary artery calcifications are present. LUNG BASES: No significant abnormality is appreciated. AORTA: No significant abnormality is appreciated. LIVER/GB: No significant abnormality is appreciated. PANCREAS: No significant abnormality is seen. SPLEEN: Probable splenule is present posteriorly as on prior. ADRENALS: Mild prominence, low-attenuation present within the adrenal glands is stable. KIDNEYS: No significant interval change is seen. REPRODUCTIVE ORGANS: Prostate is enlarged and shows associated calcification. URINARY BLADDER: No significant abnormality is seen. BOWEL: Postop changes are present in the sigmoid colon. FREE AIR: No Free Air is visible. ASCITES: None visible. PELVIC ADENOPATHY: None visualized. RETROPERITONEAL ADENOPATHY: No Retroperitoneal Adenopathy visible. OSSEOUS STRUCTURES: No significant abnormality is seen. IMPRESSION: IMPROVEMENT IN PATIENT'S INFLAMMATORY CHANGES. ABDOMINAL WALL HERNIAS. ADDITIONAL FINDINGS ABOVE.
== END | disposition home or self-care (01) ==
LOC: RADCTMAIN 13:30
PROVIDERS: ATTEND Surgery Plastic and Reconstructive Surgery
DX: K43.9 Ventral hernia without obstruction or gangrene (principal); R19.8 Other specified symptoms and signs involving the digestive system and abdomen
CPT/HCPCS: 74176

== ENCOUNTER → 2020-07-21 | Outpatient (CLI) | payer MEDICARE, OTHER ==
--- NOTE | 2020-07-21 17:21 | CT ---
EXAMINATION TYPE: CT abdomen pelvis w con DATE OF EXAM: 07/21/2020 COMPARISON: 12/13/2019 INDICATION: Diverticulitis DLP: 1884 mGycm, Automated exposure control for dose reduction was used. CONTRAST: 80 mL of Isovue 300. Study performed without Oral Contrast TECHNIQUE: Axial images were obtained from above the diaphragm to the pubic rami in the axial plane a t 5 mm thick sections. Reconstructed images are reviewed on the computer in the coronal plane. FINDINGS: Limited CT sections are obtained the lung bases. The lung bases are clear. Coronary artery calcific ation is present. CT ABDOMEN: There is a mesenteric fat containing lateral left abdominal wall hernia may with an openi ng of 4.5 cm. Series 3 image 41. Anterior abdominal wall hernia extends into the pannus. Liver: Normal Spleen: Normal. Splenule is medial and posterior to the spleen. Pancreas: There is some mild fatty infiltration of the liver. Adrenal glands: There is prominence of bilateral adrenal glands measuring 1.9 cm on the right and 1.4 cm transverse on the left. Gallbladder: Normal Kidneys: No masses are evident. No hydronephrosis is present. No cysts are present. Delayed images were obtained through the kidneys, which remain unremarkable. Aorta: Vascular calcification is within the aorta. Inferior vena cava: Normal. CT PELVIS: Loops of bowel within the abdomen and pelvis are normal. There is evidence of resection with 3 anas tomosis to the sigmoid colon. Significant diverticulosis is not identified. No acute diverticulitis i s evident. There are loops of bowel which are incompletely distended or lack oral contrast limiting their evaluation. Appendix: Normal as visualized. Urinary bladder: Normal. Genitourinary structures: There is marked prominence of the prostate. Osseous structures: No suspicious lytic or sclerotic lesions. IMPRESSIONS: 1. No suspicious changes of acute diverticulitis or significant diverticulosis.
== END | disposition home or self-care (01) ==
LOC: RADCTMAIN 10:38
PROVIDERS: ATTEND Surgery Plastic and Reconstructive Surgery
DX: K57.92 Diverticulitis of intestine, part unspecified, without perforation or abscess without bleeding (principal)
CPT/HCPCS: 74177; Q9967

== ENCOUNTER 2020-08-01 06:29 | Day surgery (SDC) | payer MEDICARE, OTHER ==
[2020-07-26 13:52] VITALS: BMI 37.9
[2020-08-01] MEDS ORDERED: ALPRAZolam 0.25 MG TAB PO PRN (06:31)
[2020-08-01] MEDS ORDERED: SODIUM CHLORIDE 0.9% 1,000 ML in EMPTY BAG 1 BAG IV ONE (06:31)
[2020-08-01] MEDS ORDERED: ASPIRIN 81 MG ONE (06:59)
[2020-08-01 07:04] LABS: Glucose,Whole Blood 136 mg/dL (75-99)
[2020-08-01 07:14] VITALS: RESP 18; TEMP 98.4
[2020-08-01] MEDS ORDERED: MIDAZOLAM 2 MG/2 ML VIAL IV ONE (07:36)
[2020-08-01] MEDS ORDERED: LIDOCAINE 1% INJ 10MG/ML (20 ML MDV) SQ ONE (07:38)
[2020-08-01] MEDS ORDERED: IOPAMIDOL-250 100ML BTL INTRAARTER ONE (07:49)
[2020-08-01] MEDS ORDERED: SODIUM CHLORIDE 0.9% 1,000 ML IV SCH (08:15)
--- NOTE | 2020-08-01 09:44 | IR ---
Fluoroscopy HISTORY: Pain in right leg 1.2 minutes fluoroscopy time supplied to the referring clinician. 113 intraoperative C-arm images do cument the procedure. See dictated report from cardiology.
--- NOTE | 2020-08-01 10:59 | AN ---
ANGIOGRAPHY REPORT DATE OF SERVICE: August 01, 2020 PERFORMING PHYSICIAN: Zackery Wang MD. PROCEDURE PERFORMED: 1. An abdominal aortogram. 2. Bilateral lower extremities runoff. 3. Ultrasound-guided access of the right common femoral artery. INDICATION: This is a 75-year-old gentleman with coronary artery disease as well as peripheral arterial disease who was experiencing bilateral lower extremities intermittent claudication, worse on the right side. He was brought today to undergo an aortogram with runoff. APPROACH: Right common femoral artery. COMPLICATION: None. LEVEL OF SEDATION: Moderate with sedation length of 12 minutes. PROCEDURE DESCRIPTION: After obtaining an informed consent, the patient was brought to the cardiac warehouse general laborer. The right common femoral artery was cannulated using micropuncture technique under ultrasound guidance, the micropuncture wire passed easily then I placed a 5-Marshallese sheath at the right radial artery. I did an abdominal aortogram and bilateral lower extremities runoff using 5-Marshallese pigtail catheter which was initially placed at the level of the renal arteries then it was pulled back into above the bifurcation of the aorta to right and left common iliac arteries. The procedure was completed without any complication. SELECTIVE PERIPHERAL ANGIOGRAM: 1. The aorta appeared to be calcified with mild disease only. 2. Common Iliac Arteries: The right and left common iliac arteries appeared to be calcified with mild disease only. 3. Internal Iliac Arteries: Both the right and left internal iliac arteries are patent. 4. External Iliac Arteries: The right and left external iliac arteries are angiographically normal. 5. Common Femoral Arteries: The right and left common femoral arteries are angiographically normal. 6. Profunda: Both profunda are patent. 7. SFA: The right SFA is occluded in the midportion and reconstitutes by the Jonathan canal. The left SFA is calcified with ulcerated lesion appeared to be in the range of 70% in the midportion. 8. Popliteal: The right popliteal is occluded. The left popliteal appeared to be angiographically normal. 9. Below the knee: There are 2-vessel runoff below the knee bilaterally. CONCLUSION: 1. Mild aortoiliac disease. 2. Severe femoropopliteal disease with occluded right SFA and severe disease involving the left SFA with ulcerated lesion. 3. Two-vessel runoff below the knee bilaterally. POSTPROCEDURE MANAGEMENT: A CHEMICAL ENGINEERING TECHNICIAN of the right SFA as well as left SFA to be performed at two different sessions. MMODL / IJN: [id number] /
[2020-08-01 12:41] VITALS: BP 164/65
[2020-08-01 12:49] VITALS: PULSE 72
== END 2020-08-01 13:20 | disposition home or self-care (01) ==
LOC: CATHCVL 06:29
PROVIDERS: ATTEND Internal Medicine Interventional Cardiology
DX: I70.213 Atherosclerosis of native arteries of extremities with intermittent claudication, bilateral legs (principal); I70.0 Atherosclerosis of aorta; I25.10 Atherosclerotic heart disease of native coronary artery without angina pectoris; E78.5 Hyperlipidemia, unspecified; I10 Essential (primary) hypertension; Z79.84 Long term (current) use of oral hypoglycemic drugs; Z79.82 Long term (current) use of aspirin; Z79.899 Other long term (current) drug therapy; Z88.1 Allergy status to other antibiotic agents; Z88.2 Allergy status to sulfonamides; Z88.8 Allergy status to other drugs, medicaments and biological substances
CPT/HCPCS: 36200; 75625; 75716; 76937; C1769 ×4; C1894; J2250; J2001; Q9966

== ENCOUNTER 2020-08-30 07:26 | Day surgery (SDC) | payer MEDICARE, OTHER ==
[2020-08-28 10:12] VITALS: BMI 42.7
[~2020-08-30 07:26] MED LIST changes: +ALPRAZolam 0.25 MG TAB PO PRN; -DEXAMETHASONE SOD PHOSPHATE 10 MG/ML 1 ML VIAL IV ONE; -LACTATED RINGERS 1,000 ML IV SCH; -LIDOCAINE 1% 20 ML VIAL (10MG/ML) FOR IV START INTRADERMA PRN; -MIDAZOLAM 2 MG/2 ML VIAL IV PRN; -ONDANSETRON 4 MG/2 ML VIAL IVP ONE; -Pre Op ABX Message 1 EACH MISC MISCELLANE ONE; -SCOPOLAMINE 1.5MG/72HR PATCH TRANSDERM ONE; +SODIUM CHLORIDE 0.9% 1,000 ML in EMPTY BAG 1 BAG IV ONE
[2020-08-30] MEDS ORDERED: ASPIRIN 325 MG TAB ONE (07:39)
[2020-08-30 07:47] LABS: Glucose,Whole Blood 124 mg/dL (75-99)
[2020-08-30 08:18] LABS: Basophils % (A) 1 %; Eosinophils # (A) 0.2 k/uL (0-0.7); Eosinophils % (A) 3 %; HCT 39.8 % (39.0-53.0); HGB 13.7 gm/dL (13.0-17.5); Lymphocytes # (A) 1.2 k/uL (1.0-4.8); Lymphocytes % (A) 17 %; MCH 31.9 pg (25.0-35.0); MCHC 34.5 g/dL (31.0-37.0); MCV 92.5 fL (80.0-100.0); Mean Platelet Volume 7.7; Monocytes # (A) 0.4 k/uL (0-1.0); Monocytes % (A) 6 %; Neutrophils # (A) 5.3 k/uL (1.3-7.7); Neutrophils % (A) 73 %; Platelet Count 154 k/uL (150-450); RBC 4.31 m/uL (4.30-5.90); RDW 13.4 % (11.5-15.5); WBC 7.2 k/uL (3.8-10.6)
[2020-08-30] MEDS ORDERED: HYDROmorphone 0.5 MG/0.5 ML SYRINGE IVP ONE (08:53)
[2020-08-30] MEDS ORDERED: MIDAZOLAM 2 MG/2 ML VIAL IV ONE (08:53)
[2020-08-30] MEDS ORDERED: LIDOCAINE 1% INJ 10MG/ML (20 ML MDV) SQ ONE (09:00)
[2020-08-30] MEDS: HEPARIN SODIUM 1,000 UN/ML (10ML VL) IV ONE ×2 (09:06→10:12)
[2020-08-30] MEDS: MIDAZOLAM 2 MG/2 ML VIAL IV ONE ×2 (09:20→10:31)
[2020-08-30] MEDS ORDERED: HYDROmorphone 1 MG/ML 1 ML SYRINGE IVP ONE (09:48)
[2020-08-30 09:58] LABS: Calcium 9.3 mg/dL (8.4-10.2); Potassium 4.9 mmol/L (3.5-5.1)
[2020-08-30] MEDS: fentaNYL (PF) 50 MCG/ML 2 ML AMP IV ONE ×3 (10:31→11:03)
[2020-08-30] MEDS ORDERED: HEPARIN SODIUM 1,000 UN/ML (10ML VL) IV ONE (10:46)
[2020-08-30] MEDS ORDERED: CLOPIDOGREL 75 MG TAB PO ONE (10:58)
[2020-08-30] MEDS ORDERED: IOPAMIDOL-250 100ML BTL INTRAARTER ONE (11:04)
[2020-08-30] MEDS ORDERED: NITROGLYCERIN SL TABS 0.4 MG TAB SUBLINGUAL PRN (11:23)
[2020-08-30] MEDS ORDERED: SODIUM CHLORIDE 0.9% 1,000 ML in EMPTY BAG 1 BAG IV SCH (11:30)
--- NOTE | 2020-08-30 11:33 | IR ---
EXAMINATION TYPE: IR stent intravas non coronary DATE OF EXAM: 08/30/2020 COMPARISON: NONE HISTORY: Fluoroscopy time. Fluoroscopy was provided to the referring clinician.
--- NOTE | 2020-08-30 12:49 | LTR ---
August 30, 2020 Re: Chris Borja Dear Dr. Harris: Mr. Chris Borja underwent successful percutaneous intervention on the right femoral artery with reduction of stenosis from 100% to 0%. The procedure was performed without any complication. I want to thank you for allowing me to participate in his care. Sincerely, MD ALBERT Mccracken / GISEL: [id number] /
--- NOTE | 2020-08-30 12:55 | AN ---
ANGIOGRAPHY REPORT DATE OF SERVICE: August 30, 2020. PERFORMING PHYSICIAN: Zackery Wang MD. PROCEDURE PERFORMED: 1. Atherectomy of the right popliteal and right SFA using the TurboHawk device with extraction of significant amount of plaque. 2. Successful stenting of the right popliteal using 6.0 x 140 mm Zilver PTX drug- coated stent. 3. Successful stenting of the right SFA using 7.0 x 140 mm Zilver PTX drug-coated stent with an excellent angiographic result. 4. Successful balloon angioplasty of the right popliteal and right SFA. 5. Intravascular ultrasound (IVUS) of the right popliteal and right SFA. 6. Right lower extremity angiogram. 7. Selective left common femoral artery angiogram. 8. Ultrasound-guided access of the left common femoral artery. APPROACH: Left common femoral artery. COMPLICATION: None. LEVEL OF SEDATION: Moderate with sedation length of 2 hours and 35 minutes. PROCEDURE DESCRIPTION: After obtaining an informed consent, the patient was brought to the cardiac liaison inspection laboratory assistant. The left common femoral artery was cannulated using micropuncture technique, the micropuncture wire passed easily then I placed a 6-Japanese sheath, 70 cm sheath at the left common femoral artery. I did select the right SFA using 0.035 stiff Glidewire with the backup support of 5- Japanese RIM catheter. After that, I did advance the long sheath over the stiff Glidewire and the RIM catheter all the way to the right common femoral artery. Anticoagulation was initiated using heparin with continuous ACT monitoring throughout the procedure. 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 Crossing the chronic total occlusion was performed using 0.018 bhatt tip Glidewire and 0.018 Astato wire. After that, I did intravascular ultrasound to prove that I was in the true lumen and also to find out the diameter of the popliteal and SFA. The diameter of the popliteal was 5 mm and SFA was 6 mm. After that, I did atherectomy using the TurboHawk device with extraction of significant amount of plaque. After that, I did balloon angioplasty using 5 mm balloon which showed what seems to be possible dissection confirmed by IVUS again. Because of that I decided to cover the right popliteal and distal and mid right SFA with stents. I placed in the right popliteal 6.0 x 140, and right SFA 7.0 x 140 mm, both Zilver drug-coated stents. Both stents were dilated using 6 mm balloon. After that for the proximal right SFA, I ballooned it using 6.0 x 80 mm drug-coated balloon. The following angiogram showed excellent angiographic results and the procedure was completed without any complication. After that I did exchange my long sheath into short sheath using 0.035 stiff Glidewire. After that I did selective left common femoral artery angiogram before the procedure was completed. POSTPROCEDURE MANAGEMENT: 1. Dual anti-platelet therapy. 2. Risk factor modifications. 3. Follow up with the patient. MMODL / IJN: [id number] /
[2020-08-30 16:36] LABS: Glucose,Whole Blood 131 mg/dL (75-99)
[2020-08-30] MEDS: PANTOPRAZOLE 40 MG TABLET PO SCH (17:34)
[2020-08-30 20:06] LABS: Glucose,Whole Blood 180 mg/dL (75-99)
[2020-08-30] MEDS ORDERED: ATORVASTATIN 80 MG TAB PO SCH (21:00)
[2020-08-30] MEDS ORDERED: lisinopriL 10 MG TAB PO SCH (21:00)
[2020-08-30] MEDS ORDERED: FLUTICASONE 50MCG/SPRAY NASAL 16GM EA NOSTRIL SCH (21:00)
[2020-08-30] MEDS ORDERED: FINASTERIDE 5 MG TAB PO SCH (21:00)
[2020-08-30] MEDS ORDERED: LORATADINE 10 MG TAB PO SCH (21:00)
[2020-08-30] MEDS: DOXAZOSIN 4 MG TAB PO SCH (21:26)
[2020-08-30] MEDS: GLIMEPIRIDE 1 MG TAB PO SCH (21:26)
[2020-08-30] MEDS: DOCUSATE 100 MG CAP PO SCH (21:26)
[2020-08-30] MEDS: METOPROLOL TARTRATE 25 MG TAB PO SCH (22:27)
[2020-08-30 23:29] VITALS: RESP 18
[2020-08-31 05:58] LABS: Glucose,Whole Blood 129 mg/dL (75-99)
[2020-08-31] MEDS: PANTOPRAZOLE 40 MG TABLET PO SCH (06:32)
[2020-08-31] MEDS ORDERED: ESCITALOPRAM 5 MG TAB PO SCH (09:00)
[2020-08-31] MEDS ORDERED: CHOLECALCIFEROL 25 MCG (1000 IU) TABLET PO SCH (09:00)
[2020-08-31] MEDS ORDERED: ASPIRIN 81 MG PO SCH (09:00)
[2020-08-31] MEDS ORDERED: LINAGLIPTIN 5 MG TABLET PO SCH (09:00)
[2020-08-31] MEDS ORDERED: CLOPIDOGREL 75 MG TAB PO SCH (09:00)
--- NOTE | 2020-08-31 09:03 | DS ---
DISCHARGE SUMMARY ADMISSION DATE: August 30, 2020. DISCHARGE DATE: August 31, 2020. BRIEF HISTORY: This is a 75-year-old gentleman who underwent yesterday successful percutaneous intervention of the right SFA with good angiographic results and without any complication. The patient was seen this morning. The left groin is soft and nontender and without any bruises. The patient is going to be discharged home on dual anti-platelet therapy and high intensity statin and I will follow up with the patient next week in the office. MMPENELOPE / LESLEEN: [id number] /
[2020-08-31] MEDS: DOCUSATE 100 MG CAP PO SCH (09:09)
[2020-08-31] MEDS: METOPROLOL TARTRATE 25 MG TAB PO SCH (09:10)
[2020-08-31 10:33] LABS: Basophils % (A) 0 %; Eosinophils # (A) 0.1 k/uL (0-0.7); Eosinophils % (A) 1 %; HCT 39.3 % (39.0-53.0); HGB 12.7 gm/dL (13.0-17.5); Lymphocytes % (A) 13 %; MCH 30.3 pg (25.0-35.0); MCHC 32.3 g/dL (31.0-37.0); MCV 93.9 fL (80.0-100.0); Mean Platelet Volume 7.6; Monocytes # (A) 0.4 k/uL (0-1.0); Monocytes % (A) 6 %; Neutrophils # (A) 5.7 k/uL (1.3-7.7); Neutrophils % (A) 78 %; Platelet Count 138 k/uL (150-450); RBC 4.19 m/uL (4.30-5.90); RDW 13.9 % (11.5-15.5); WBC 7.3 k/uL (3.8-10.6)
[2020-08-31 10:57] LABS: Calcium 8.9 mg/dL (8.4-10.2); Potassium 4.5 mmol/L (3.5-5.1)
[2020-08-31 11:40] LABS: Glucose,Whole Blood 176 mg/dL (75-99)
[2020-08-31] MEDS: GLIMEPIRIDE 1 MG TAB PO SCH ×2 (12:05→12:50)
[2020-08-31 16:02] VITALS: BP 130/59; PULSE 68; TEMP 97.6
--- NOTE | 2020-08-31 17:19 | US ---
EXAMINATION TYPE: US lower ext pseudo artery LT DATE OF EXAM: 08/31/2020 COMPARISON: NONE CLINICAL HISTORY: r/o pseudoaneurysm. patient had right leg stenting done with entry site of left manisha in yesterday. Bruising. EXAM PERFORMED: Grayscale and color Doppler duplex imaging performed of the groin, post cardiac sg ter to assess for pseudoaneurysm. SIDE PERFORMED: Left Color and Waveform Doppler performed to assess for the presence of pseudoaneurysm; Is there ultrasound evidence of a pseudoaneurysm: no Is there evidence of AV shunting: no Is there a fluid collection present: no Limited visualization due to swelling and patient body habitus. No prominent PSA or fluid collect ion visualized in left groin. Circular flow is not clearly identified. Doppler arterial flow appears to be unidirectional. IMPRESSION: No pseudoaneurysm or hematoma formation. Follow-up can be performed as clinically indicated
--- NOTE | 2020-09-04 07:00 | CDI ---
Outpatient Documentation Clarification Form Date: 09/04/20 CDS/Boat Patcher Plastic Name: Valerie Hudson Phone: If any questions, call Vicky Esparza, Screen Printing Machine Operator Helper at [phone] Patient Name: Chris Borja Admit Date: 08/30/20 Discharge Date: 08/31/20 ATTENTION: The [facility] Coding Staff appreciate your assistance in clarifying documentation. Please respond to the clarification below the line at the bottom and electronically sign. The [facility] Coding staff will review the response and follow-up if needed. Please note: Queries are made a part of the Legal Heal Record. If you have any questions, please contact the Screen Printing Machine Operator Helper. Dear Dr. Wang, Please provide clarification as to the cause of the occlusive PAD. PAD/PVD is considered unspecified. Greatest specificity is required for medical necessity support. Is underlying cause of the Occlusive PAD one of the following? Arteriosclerotic disease of the arteries Arteritis Necrotic Due to embolism/thrombosis Other - please specify below Thank you for your kind consideration Arteriosclerotic disease of the arteries MTDD
[2020-09-13] MEDS ORDERED: ALIROCUMAB 75 MG/ML SQ SCH (09:00)
== END 2020-08-31 17:42 | disposition home or self-care (01) ==
LOC: CATHCVL 07:26 → 3SCARD 11:47 → CATHCVL 08-31 17:42
PROVIDERS: ATTEND Internal Medicine Interventional Cardiology
DX: I70.213 Atherosclerosis of native arteries of extremities with intermittent claudication, bilateral legs (principal); E11.51 Type 2 diabetes mellitus with diabetic peripheral angiopathy without gangrene; I10 Essential (primary) hypertension; E78.5 Hyperlipidemia, unspecified; Z95.5 Presence of coronary angioplasty implant and graft; Z82.49 Family history of ischemic heart disease and other diseases of the circulatory system; Z72.0 Tobacco use; Z88.6 Allergy status to analgesic agent; Z88.1 Allergy status to other antibiotic agents; Z88.2 Allergy status to sulfonamides; Z88.8 Allergy status to other drugs, medicaments and biological substances; I25.10 Atherosclerotic heart disease of native coronary artery without angina pectoris; Z79.84 Long term (current) use of oral hypoglycemic drugs; Z79.82 Long term (current) use of aspirin; Z79.899 Other long term (current) drug therapy
CPT/HCPCS: 37227; 37252; 80048 ×2; 85025 ×2; 93975; 93926; C1894 ×4; C1769 ×7; C1714; C1753; C2623; C1874; C1725; S0138; J2250; J2001; J3010; J1644; J1170 ×2; Q9966

== ENCOUNTER 2020-10-11 08:36 | Day surgery (SDC) | payer MEDICARE, OTHER ==
[2020-10-06 13:59] VITALS: BMI 42.7
[2020-10-11] MEDS ORDERED: ASPIRIN 81 MG ONE (08:55)
[2020-10-11 09:00] LABS: Glucose,Whole Blood 155 mg/dL (75-99)
[2020-10-11 09:16] LABS: Basophils % (A) 1 %; Eosinophils # (A) 0.2 k/uL (0-0.7); Eosinophils % (A) 3 %; HCT 39.2 % (39.0-53.0); HGB 13.4 gm/dL (13.0-17.5); Lymphocytes # (A) 1.2 k/uL (1.0-4.8); Lymphocytes % (A) 20 %; MCH 31.6 pg (25.0-35.0); MCHC 34.2 g/dL (31.0-37.0); MCV 92.3 fL (80.0-100.0); Mean Platelet Volume 7.5; Monocytes # (A) 0.3 k/uL (0-1.0); Monocytes % (A) 6 %; Neutrophils # (A) 4.1 k/uL (1.3-7.7); Neutrophils % (A) 70 %; Platelet Count 153 k/uL (150-450); RBC 4.24 m/uL (4.30-5.90); RDW 13.8 % (11.5-15.5); WBC 5.9 k/uL (3.8-10.6)
[2020-10-11] MEDS ORDERED: MIDAZOLAM 2 MG/2 ML VIAL IV ONE ×2 (10:18→11:12)
[2020-10-11] MEDS ORDERED: HYDROmorphone 0.5 MG/0.5 ML SYRINGE IVP ONE ×2 (10:26→11:12)
[2020-10-11] MEDS: fentaNYL (PF) 50 MCG/ML 2 ML AMP IV ONE ×2 (10:30→10:54)
[2020-10-11] MEDS ORDERED: IOPAMIDOL-250 100ML BTL INTRAARTER ONE (11:20)
[2020-10-11] MEDS ORDERED: niCARdipine Syringe (1,000 mcg/10 mL) INTRAARTER ONE (11:20)
[2020-10-11] MEDS ORDERED: CLOPIDOGREL 75 MG TAB PO ONE (11:24)
[2020-10-11] MEDS ORDERED: NITROGLYCERIN SL TABS 0.4 MG TAB SUBLINGUAL PRN (11:30)
[2020-10-11] MEDS ORDERED: SODIUM CHLORIDE 0.9% 1,000 ML in EMPTY BAG 1 BAG IV SCH (11:45)
--- NOTE | 2020-10-11 12:01 | IR ---
EXAMINATION TYPE: IR relief captain femoral popliteal DATE OF EXAM: 10/11/2020 CLINICAL HISTORY: Peripheral vascular disease, left leg pain TECHNIQUE: Fluoroscopy. COMPARISON: None. FINDINGS: Fluoroscopic guidance was provided during angiogram with angioplasty procedure performed contreras Wang. A total of 10.4 minutes of fluoroscopic time was utilized during the procedure and 198 s pot images was acquired. Please refer to procedure note for further details. IMPRESSION: As Above.
--- NOTE | 2020-10-11 12:40 | LTR ---
October 11, 2020 Re: Chris Middletonner Dear Dr. Harris: Mr. Chris Borja underwent today successful angioplasty of the left femoral artery with an excellent angiographic results and without any complication. I want to thank you for allowing me the opportunity to participate in his care and please do not hesitate to call for question or concern. Sincerely, MD ALBERT Mccracken / GISEL: [id number] /
[2020-10-11 15:14] LABS: Glucose,Whole Blood 122 mg/dL (75-99)
--- NOTE | 2020-10-11 16:43 | AN ---
ANGIOGRAPHY REPORT PERCUTANEOUS PERIPHERAL INTERVENTION: DATE OF SERVICE: October 11, 2020. PERFORMING PHYSICIAN: Zackery Wang MD. PROCEDURE PERFORMED: 1. Atherectomy of the left SFA using the HawkOne device with extraction of plaque. 2. Intravascular ultrasound (IVUS) of the left SFA. 3. Successful balloon angioplasty of the left SFA using 6.0 x 40 mm drug-coated balloon with an excellent angiographic result. 4. Left lower extremity angiogram. 5. Right common femoral artery angiogram. 6. Ultrasound guidance access of the right common femoral artery. INDICATION: This is a 75-year-old gentleman who was experiencing bilateral lower extremities intermittent claudication and underwent an angiogram and that revealed occluded right SFA and severe disease involving the left SFA. He underwent REFINERY OPERATOR GAS PLANT of the right SFA and he was brought today to undergo an intervention on the left SFA. APPROACH: Right common femoral artery. COMPLICATION: None. LEVEL OF SEDATION: Moderate with sedation length of 37 minutes. PROCEDURE DESCRIPTION: After obtaining an informed consent, the patient was brought to the cardiac cath lab technologist. Under ultrasound guidance, the right common femoral artery was cannulated using micropuncture technique and the micropuncture wire passed easily then I placed a 70 cm 6-Niuean sheath at the right common femoral artery. Subsequently, I did select the left SFA using 0.035 stiff Glidewire with the backup support of 5-Niuean RIM catheter. After that I advanced a 6-Niuean 70 cm Raabe sheath over the wire and catheter to the left common femoral artery. Left lower extremity angiogram was performed and revealed 3-vessel runoff below the knee with severe disease with ulcerated lesion involving the left SFA. Intravascular ultrasound was performed and confirmed the diameter of the SFA about 6-7 mm. After that I did atherectomy using the TurboHawk device with extraction of significant plaque and subsequently balloon angioplasty was performed using 6 x 40 mm IN.PACT drug coated balloon. The following angiogram showed great angiographic results and the procedure was completed without any complication. After that I did exchange my long sheath into short sheath over 0.035 stiff Glidewire before I did selective right common femoral artery angiogram. The procedure was completed without any complication. POSTPROCEDURE MANAGEMENT: 1. Dual anti-platelet therapy. 2. Risk factor modifications. 3. Follow up with the patient. MMODL / IJN: [id number] /
[2020-10-11 17:36] LABS: Glucose,Whole Blood 144 mg/dL (75-99)
[2020-10-11] MEDS ORDERED: TEMAZEPAM 15 MG CAP PO PRN (17:42)
[2020-10-11] MEDS: ACETAMINOPHEN TAB 325 MG TAB PO PRN ×2 (17:52→20:46)
[2020-10-11 19:31] LABS: Glucose,Whole Blood 162 mg/dL (75-99)
[2020-10-11] MEDS: GLIMEPIRIDE 1 MG TAB PO SCH (20:46)
[2020-10-11] MEDS: METOPROLOL TARTRATE 25 MG TAB PO SCH (20:46)
[2020-10-11] MEDS: DOCUSATE 100 MG CAP PO SCH (20:47)
[2020-10-11] MEDS ORDERED: LORATADINE 10 MG TAB PO SCH (21:00)
[2020-10-11] MEDS ORDERED: FLUTICASONE 50MCG/SPRAY NASAL 16GM EA NOSTRIL SCH (21:00)
[2020-10-11] MEDS ORDERED: FINASTERIDE 5 MG TAB PO SCH (21:00)
[2020-10-11] MEDS ORDERED: lisinopriL 10 MG TAB PO SCH (21:00)
[2020-10-11] MEDS ORDERED: DOXAZOSIN 4 MG TAB PO SCH (21:00)
[2020-10-12 06:00] LABS: Basophils % (A) 1 %; Eosinophils # (A) 0.2 k/uL (0-0.7); Eosinophils % (A) 3 %; HCT 36.3 % (39.0-53.0); HGB 12.1 gm/dL (13.0-17.5); Lymphocytes # (A) 1.1 k/uL (1.0-4.8); Lymphocytes % (A) 20 %; MCH 31.1 pg (25.0-35.0); MCHC 33.3 g/dL (31.0-37.0); MCV 93.2 fL (80.0-100.0); Mean Platelet Volume 7.6; Monocytes # (A) 0.3 k/uL (0-1.0); Monocytes % (A) 7 %; Neutrophils # (A) 3.6 k/uL (1.3-7.7); Neutrophils % (A) 68 %; Platelet Count 143 k/uL (150-450); RDW 13.8 % (11.5-15.5); WBC 5.2 k/uL (3.8-10.6)
[2020-10-12 06:37] LABS: African American GFR (CKD) >90 (>60 ml/min/1.73 sqM); Anion Gap 7 mmol/L; Blood Urea Nitrogen 23 mg/dL (9-20); Calcium 8.7 mg/dL (8.4-10.2); Carbon Dioxide 28 mmol/L (22-30); Chloride 100 mmol/L (98-107); Glucose 98 mg/dL (74-99); Non-African American GFR(CKD) 79 (>60 ml/min/1.73 sqM); Sodium 135 mmol/L (137-145)
[2020-10-12 07:03] LABS: Glucose,Whole Blood 96 mg/dL (75-99)
[2020-10-12] MEDS ORDERED: PANTOPRAZOLE 40 MG TABLET PO SCH (07:30)
[2020-10-12 07:48] VITALS: RESP 18; TEMP 97.4
[2020-10-12 08:16] VITALS: BP 169/73; PULSE 63
[2020-10-12] MEDS: DOCUSATE 100 MG CAP PO SCH (08:17)
[2020-10-12] MEDS: GLIMEPIRIDE 1 MG TAB PO SCH (08:18)
[2020-10-12] MEDS: METOPROLOL TARTRATE 25 MG TAB PO SCH (08:23)
[2020-10-12] MEDS ORDERED: LINAGLIPTIN 5 MG TABLET PO SCH (09:00)
[2020-10-12] MEDS ORDERED: CHOLECALCIFEROL 25 MCG (1000 IU) TABLET PO SCH (09:00)
[2020-10-12] MEDS ORDERED: CLOPIDOGREL 75 MG TAB PO SCH (09:00)
[2020-10-12] MEDS ORDERED: ESCITALOPRAM 5 MG TAB PO SCH (09:00)
--- NOTE | 2020-10-12 09:43 | DS ---
DISCHARGE SUMMARY ADMISSION DATE: October 11, 2020. DISCHARGE DATE: October 12, 2020. BRIEF HISTORY: This is a 75-year-old gentleman who underwent yesterday successful atherectomy and balloon angioplasty of the left SFA from right groin approach. The patient was seen and examined this morning. The right groin is soft and nontender and without any bruises. He is going to be discharged on dual anti-platelet therapy. He is not on any statin because he is intolerant to statin and currently he is on PCSK9 inhibitors. The patient will be seen in the office for a followup in a week. MMODL / IJN: [id number] /
[2020-10-12] MEDS ORDERED: ASPIRIN 81 MG PO SCH (11:30)
--- NOTE | 2020-10-17 06:25 | CDI ---
Outpatient Documentation Clarification Form Date: 10/17/20 CDS/Informatics Physician Liaison Name: Valerie Hudson Patient Name: Chris Borja Admit Date: 10/5020 Discharge Date: 10/12/20 ATTENTION: The [facility] Coding Staff appreciate your assistance in clarifying documentation. Please respond to the clarification below the line at the bottom and electronically sign. The [facility] Coding Staff will review the response and follow-up if needed. Please Note: Queries are made part of the Legal Health Record. If you have any questions, please contact the Machine Plate Stacker. Dear Dr. Wang, Please provide clarification as to the cause of the occlusive PAD. PAD/PVD is considered unspecified. Greatest specificity is required for medical necessity support. Is underlying cause of the Occlusive PAD one of the following? Arteriosclerotic disease of the arteries Arteritis Necrotic Due to embolism/thrombosis Other - please specify below MTDD
[2020-10-25] MEDS ORDERED: ALIROCUMAB 75 MG/ML SQ SCH (09:00)
== END 2020-10-12 10:29 | disposition home or self-care (01) ==
LOC: CATHCVL 08:36 → 6NMEDSUR 13:43 → CATHCVL 10-12 10:29
PROVIDERS: ATTEND Internal Medicine Interventional Cardiology
DX: I70.212 Atherosclerosis of native arteries of extremities with intermittent claudication, left leg (principal); I10 Essential (primary) hypertension; E78.5 Hyperlipidemia, unspecified; E11.9 Type 2 diabetes mellitus without complications; I25.10 Atherosclerotic heart disease of native coronary artery without angina pectoris; Z72.0 Tobacco use; Z95.5 Presence of coronary angioplasty implant and graft; G89.29 Other chronic pain; K58.9 Irritable bowel syndrome, unspecified; Z95.820 Peripheral vascular angioplasty status with implants and grafts; Z88.6 Allergy status to analgesic agent; Z88.1 Allergy status to other antibiotic agents; Z88.2 Allergy status to sulfonamides; Z88.8 Allergy status to other drugs, medicaments and biological substances; Z79.84 Long term (current) use of oral hypoglycemic drugs; Z79.02 Long term (current) use of antithrombotics/antiplatelets; Z79.82 Long term (current) use of aspirin; Z79.899 Other long term (current) drug therapy
CPT/HCPCS: 37225; 37252; 80048; 85025 ×2; 87635; C1894 ×2; C1769 ×5; C1714; C1753; C2623; S0138; J2250; J3010; J1644; J1170; Q9966

== ENCOUNTER 2023-12-27 11:55 | Inpatient (IN) | payer MEDICARE ==
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
[2023-12-27 12:58] LABS: Basophils % (A) 0 %; Eosinophils # (A) 0.1 k/uL (0-0.7); Eosinophils % (A) 2 %; HCT 40.1 % (39.0-53.0); HGB 13.4 gm/dL (13.0-17.5); Lymphocytes # (A) 0.9 k/uL (1.0-4.8); Lymphocytes % (A) 15 %; MCHC 33.3 g/dL (31.0-37.0); MCV 96.1 fL (80.0-100.0); Mean Platelet Volume 7.8; Monocytes # (A) 0.2 k/uL (0-1.0); Monocytes % (A) 4 %; Neutrophils # (A) 4.6 k/uL (1.3-7.7); Neutrophils % (A) 78 %; Platelet Count 169 k/uL (150-450); RBC 4.17 m/uL (4.30-5.90); RDW 12.9 % (11.5-15.5); WBC 5.9 k/uL (3.8-10.6)
[2023-12-27 13:16] LABS: Prothrombin Time 10.7 sec (10.0-12.5)
[2023-12-27] MEDS: KETOROLAC 15 MG/ML 1 ML VIAL IVP STA (13:44)
--- NOTE | 2023-12-27 14:02 | XR ---
EXAMINATION TYPE: XR chest 2V DATE OF EXAM: 12/27/2023 1:52 PM CLINICAL INDICATION:Male, 78 years old with history of Chest Pain; [facility] COMPARISON: Chest radiographs from 11/07/2019. TECHNIQUE: XR chest 2V Frontal view of the chest. FINDINGS: Lungs/Pleura: There is no evidence of pleural effusion, focal consolidation, or pneumothorax. Pulmonary vascularity: Unremarkable. Heart/mediastinum: Cardiomediastinal silhouette is unremarkable. Musculoskeletal: No acute osseous pathology. IMPRESSION: No acute cardiopulmonary disease/process.
[2023-12-27 14:09] LABS: ALT 20 U/L (4-49); AST 23 U/L (17-59); African American GFR (CKD) 77 (>60 ml/min/1.73 sqM); Albumin 3.9 g/dL (3.5-5.0); Alkaline Phosphatase 71 U/L (38-126); Anion Gap 7 mmol/L; Blood Urea Nitrogen 20 mg/dL (9-20); Carbon Dioxide 23 mmol/L (22-30); Chloride 105 mmol/L (98-107); Glucose 190 mg/dL (74-99); Lipase 84 U/L (23-300); Magnesium 1.6 mg/dL (1.6-2.3); Non-African American GFR(CKD) 67 (>60 ml/min/1.73 sqM); Potassium 4.3 mmol/L (3.5-5.1); Sodium 135 mmol/L (137-145); Total Bilirubin 0.6 mg/dL (0.2-1.3); Total Protein 6.2 g/dL (6.3-8.2)
[2023-12-27 14:18] LABS: NT-Pro-B-Type Natriuretic Pept 213 pg/mL
[2023-12-27] MEDS: methylPREDNISolone SOD SUCCI 125 MG/2 ML VIAL IV STA (14:55)
[2023-12-27] MEDS: FAMOTIDINE 20 MG/2 ML VIAL IV STA (14:56)
[2023-12-27] MEDS: diphenhydrAMINE 50 MG/ML 1 ML VIAL IVP STA (14:57)
--- NOTE | 2023-12-27 15:51 | CT ---
EXAMINATION TYPE: CT angio chest CT DLP: 978.3 mGycm, Automated exposure control for dose reduction was used. DATE OF EXAM: 12/27/2023 3:31 PM COMPARISON: CT 07/06/2018, chest radiograph same day. CLINICAL INDICATION:Male, 78 years old with history of PE suspected; chest pain TECHNIQUE/CONTRAST: CTA scan of the thorax is performed with IV Contrast, patient injected with 100 cc mL of Isovue 370, MIP images are created and reviewed these are created on a separate workstation.. FINDINGS: Pulmonary Artery: Motion artifact limits evaluation there is questionable filling defects within the left lower lobe subsegmental branches. No central pulmonary embolus. No evidence right heart strain. Pulmonary trunk is within normal limits for size. Lungs/Pleura: No evidence of focal consolidation, pleural effusion or pneumothorax. Airway: Large airways are patent. Heart: Is mildly enlarged for size. Coronary artery atherosclerosis present. Vasculature: No evidence of aortic aneurysm. Mediastinum: No gross evidence of adenopathy. Musculoskeletal: No acute osseous abnormalities Soft Tissues/lymph nodes: Unremarkable. Lower neck: No significant findings. Upper Abdomen: Partially visualized fat containing left lateral ventral wall hernia of the abdomen. S plenule is present. The gallbladder is not visualized may be surgically absent. Fat-containing ventra l wall hernia more midline in the upper abdomen at multiple areas IMPRESSION: Limited evaluation due to motion. Questionable left lower lobe pulmonary arterial filling defects in the subsegmental branches. No evidence right heart strain. a
[2023-12-27] MEDS ORDERED: NITROGLYCERIN SL TABS 0.4 MG TAB SUBLINGUAL PRN (18:50)
--- NOTE | 2023-12-27 18:55 | ED ---
Medical Decision Making - Medical Decision Making Critical care time was performed 31 minutes. - Lab Data Result diagrams: 12/27/23 12:27 12/27/23 12:27 Lab Results 12/27/23 12/27/23 12/27/23 Range/Units 12:27 12:27 12:27 WBC 5.9 (3.8-10.6) k/uL RBC 4.17 L (4.30-5.90) m/uL Hgb 13.4 (13.0-17.5) gm/dL Hct 40.1 (39.0-53.0) % MCV 96.1 (80.0-100.0) fL MCH 32.0 (25.0-35.0) pg MCHC 33.3 (31.0-37.0) g/dL RDW 12.9 (11.5-15.5) % Plt Count 169 (150-450) k/uL MPV 7.8 Neutrophils % 78 % Lymphocytes % 15 % Monocytes % 4 % Eosinophils % 2 % Basophils % 0 % Neutrophils # 4.6 (1.3-7.7) k/uL Lymphocytes # 0.9 L (1.0-4.8) k/uL Monocytes # 0.2 (0-1.0) k/uL Eosinophils # 0.1 (0-0.7) k/uL Basophils # 0.0 (0-0.2) k/uL PT 10.7 (10.0-12.5) sec INR 1.0 (<1.2) APTT 24.0 (22.0-30.0) sec D-Dimer 0.76 H (<0.60) mg/L FEU Sodium 135 L (137-145) mmol/L Potassium 4.3 (3.5-5.1) mmol/L Chloride 105 (98-107) mmol/L Carbon Dioxide 23 (22-30) mmol/L Anion Gap 7 mmol/L BUN 20 (9-20) mg/dL Creatinine 1.06 (0.66-1.25) mg/dL Est GFR (CKD-EPI)AfAm 77 (>60 ml/min/1.73 sqM) Est GFR (CKD-EPI)NonAf 67 (>60 ml/min/1.73 sqM) Glucose 190 H (74-99) mg/dL Calcium 9.0 (8.4-10.2) mg/dL Magnesium 1.6 (1.6-2.3) mg/dL Total Bilirubin 0.6 (0.2-1.3) mg/dL AST 23 (17-59) U/L ALT 20 (4-49) U/L Alkaline Phosphatase 71 (38-126) U/L Troponin I (0.000-0.034) ng/mL NT-Pro-B Natriuret Pep 213 pg/mL Total Protein 6.2 L (6.3-8.2) g/dL Albumin 3.9 (3.5-5.0) g/dL Lipase 84 (23-300) U/L 12/27/23 Range/Units 12:27 WBC (3.8-10.6) k/uL RBC (4.30-5.90) m/uL Hgb (13.0-17.5) gm/dL Hct (39.0-53.0) % MCV (80.0-100.0) fL MCH (25.0-35.0) pg MCHC (31.0-37.0) g/dL RDW (11.5-15.5) % Plt Count (150-450) k/uL MPV Neutrophils % % Lymphocytes % % Monocytes % % Eosinophils % % Basophils % % Neutrophils # (1.3-7.7) k/uL Lymphocytes # (1.0-4.8) k/uL Monocytes # (0-1.0) k/uL Eosinophils # (0-0.7) k/uL Basophils # (0-0.2) k/uL PT (10.0-12.5) sec INR (<1.2) APTT (22.0-30.0) sec D-Dimer (<0.60) mg/L FEU Sodium (137-145) mmol/L Potassium (3.5-5.1) mmol/L Chloride (98-107) mmol/L Carbon Dioxide (22-30) mmol/L Anion Gap mmol/L BUN (9-20) mg/dL Creatinine (0.66-1.25) mg/dL Est GFR (CKD-EPI)AfAm (>60 ml/min/1.73 sqM) Est GFR (CKD-EPI)NonAf (>60 ml/min/1.73 sqM) Glucose (74-99) mg/dL Calcium (8.4-10.2) mg/dL Magnesium (1.6-2.3) mg/dL Total Bilirubin (0.2-1.3) mg/dL AST (17-59) U/L ALT (4-49) U/L Alkaline Phosphatase (38-126) U/L Troponin I <0.012 (0.000-0.034) ng/mL NT-Pro-B Natriuret Pep pg/mL Total Protein (6.3-8.2) g/dL Albumin (3.5-5.0) g/dL Lipase (23-300) U/L Critical Care Time Critical Care Time: Yes Total Critical Care Time: 31 Disposition Clinical Impression: Chest pain, Pulmonary emboli, Elevated d-dimer Disposition: ADMITTED IP TO THIS [facility] Condition: Stable Referrals: Katey Harris MD [Primary Care Provider] - 1-2 days
[2023-12-27] MEDS ORDERED: cloNIDine HCL 0.2 MG TAB PO SCH (19:00)
[2023-12-27] MEDS ORDERED: HEPARIN SODIUM 1,000 UN/ML (10ML VL) IV PRN (19:09)
[2023-12-27] MEDS: HEPARIN SOD,PORK IN 0.45% NACL 25,000 UNIT in 0.45% NACL 1 250ML.BAG IV SCH (19:37)
[2023-12-27] MEDS: HEPARIN SODIUM 1,000 UN/ML (10ML VL) IV ONE (19:39)
[2023-12-27 21:00] LABS: Glucose,Whole Blood 279 mg/dL (70-110)
[2023-12-27] MEDS: hydrALAZINE HCL 50 MG TAB PO SCH (21:27)
[2023-12-27] MEDS: GLIMEPIRIDE 1 MG TAB PO SCH (21:27)
[2023-12-27] MEDS: FINASTERIDE 5 MG TAB PO SCH (21:27)
[2023-12-27] MEDS: METOPROLOL TARTRATE 25 MG TAB PO SCH (21:27)
[2023-12-27] MEDS: DOXAZOSIN 4 MG TAB PO SCH (21:27)
[2023-12-27] MEDS: SODIUM CHLORIDE 0.9% 1,000 ML IV SCH (21:29)
[2023-12-28] MEDS: ACETAMINOPHEN TAB 325 MG TAB PO PRN (01:04)
[2023-12-28] MEDS: MAG HYDROX/AL HYDROX/SIMETH 30 ML CUP PO PRN (01:05)
[2023-12-28 02:17] LABS: Basophils % (A) 0 %; Eosinophils % (A) 0 %; HCT 41.7 % (39.0-53.0); HGB 13.3 gm/dL (13.0-17.5); Hypochromasia Slight; Lymphocytes # (A) 0.6 k/uL (1.0-4.8); Lymphocytes % (A) 9 %; MCH 31.2 pg (25.0-35.0); MCV 97.6 fL (80.0-100.0); Mean Platelet Volume 8.2; Monocytes # (A) 0.1 k/uL (0-1.0); Monocytes % (A) 1 %; Neutrophils # (A) 5.8 k/uL (1.3-7.7); Neutrophils % (A) 90 %; Platelet Count 170 k/uL (150-450); RBC 4.27 m/uL (4.30-5.90); RDW 12.8 % (11.5-15.5); WBC 6.5 k/uL (3.8-10.6)
[2023-12-28 05:56] LABS: Glucose,Whole Blood 309 mg/dL (70-110)
--- NOTE | 2023-12-28 07:39 | US ---
EXAMINATION TYPE: US venous doppler duplex LE DATE OF EXAM: 12/28/2023 7:31 AM COMPARISON: CLINICAL INDICATION: Male, 78 years old with history of R/O DVT, ? PE; On IV heparin. Stents per pat ient. No redness or swelling. Portable exam SIDE PERFORMED: Bilateral TECHNIQUE: The lower extremity deep venous system is examined utilizing real time linear array sonog ashly with graded compression, doppler sonography and color-flow sonography. VESSELS IMAGED: Common Femoral Vein Deep Femoral Vein Greater Saphenous Vein * Femoral Vein Popliteal Vein Small Saphenous Vein * Proximal Calf Veins (* superficial vessels) Suboptimal due to arterial shadowing Right Leg: Negative for DVT Left Leg: Negative for DVT IMPRESSION: Grayscale, color doppler, spectral doppler imaging performed of the deep veins of the lo wer extremities. There is normal flow, compressibility, vascular waveforms.
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
[2023-12-28] MEDS ORDERED: DEXTROSE 50% SYRINGE 50 ML IVP PRN ×2 (08:59)
[2023-12-28] MEDS: CLOPIDOGREL 75 MG TAB PO SCH (09:30)
[2023-12-28] MEDS: LORATADINE 10 MG TAB PO SCH (09:30)
[2023-12-28] MEDS: CHOLECALCIFEROL 125 MCG (5000 IU) TABLET PO SCH (09:30)
[2023-12-28] MEDS: ASPIRIN 325 MG TAB PO SCH (09:30)
[2023-12-28] MEDS: LINAGLIPTIN 5 MG TABLET PO SCH (09:30)
[2023-12-28 09:44] LABS: Chol/HDL Ratio 4.05 Ratio; LDL Cholesterol,Calculated 102.3 mg/dL (0.0-131.0)
[2023-12-28] MEDS: lisinopriL 20 MG TAB PO SCH (09:44)
[2023-12-28] MEDS: carvediloL 12.5 MG TAB PO SCH (09:46)
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
[2023-12-28 11:26] LABS: Glucose,Whole Blood 234 mg/dL (70-110)
[2023-12-28] MEDS: INSULIN ASPART (NovoLOG) 100 UNIT/ML VIAL SQ SCH (12:48)
[2023-12-28] MEDS: VALSARTAN 160 MG TAB PO SCH (12:48)
[2023-12-28 16:37] LABS: Glucose,Whole Blood 183 mg/dL (70-110)
[2023-12-28] MEDS: PANTOPRAZOLE 40 MG TABLET PO SCH (17:57)
[2023-12-28] MEDS: FLUTICASONE NASAL 50MCG/SPRAY 16GM BTL EA NOSTRIL SCH (18:12)
[2023-12-28 19:51] LABS: Glucose,Whole Blood 156 mg/dL (70-110)
[2023-12-29 06:00] LABS: Glucose,Whole Blood 93 mg/dL (70-110)
[2023-12-29 08:14] LABS: Basophils % (A) 0 %; Eosinophils # (A) 0.1 k/uL (0-0.7); Eosinophils % (A) 1 %; HCT 39.6 % (39.0-53.0); HGB 12.6 gm/dL (13.0-17.5); Lymphocytes # (A) 1.4 k/uL (1.0-4.8); Lymphocytes % (A) 18 %; MCH 30.8 pg (25.0-35.0); MCHC 31.8 g/dL (31.0-37.0); MCV 96.7 fL (80.0-100.0); Mean Platelet Volume 7.8; Monocytes # (A) 0.4 k/uL (0-1.0); Monocytes % (A) 5 %; Neutrophils # (A) 5.6 k/uL (1.3-7.7); Neutrophils % (A) 74 %; Platelet Count 165 k/uL (150-450); RBC 4.09 m/uL (4.30-5.90); RDW 12.9 % (11.5-15.5); WBC 7.6 k/uL (3.8-10.6)
[2023-12-29 08:29] LABS: ALT 27 U/L (4-49); AST 44 U/L (17-59); African American GFR (CKD) 79 (>60 ml/min/1.73 sqM); Alkaline Phosphatase 53 U/L (38-126); Anion Gap 5 mmol/L; Blood Urea Nitrogen 24 mg/dL (9-20); Calcium 9.3 mg/dL (8.4-10.2); Carbon Dioxide 26 mmol/L (22-30); Chloride 105 mmol/L (98-107); Glucose 131 mg/dL (74-99); Non-African American GFR(CKD) 68 (>60 ml/min/1.73 sqM); Potassium 3.9 mmol/L (3.5-5.1); Sodium 136 mmol/L (137-145); Total Bilirubin 0.5 mg/dL (0.2-1.3); Total Protein 6.6 g/dL (6.3-8.2)
--- NOTE | 2023-12-29 08:36 | P.PN ---
Subjective Progress Note Date: 12/29/23 The patient is a pleasant 78-year-old gentleman who is known to our service from before with CAD as well as hypertension and dyslipidemia and multiple comorbid conditions who was admitted to the hospital with chest pain and shortness of breath and was found to have abnormal D-dimer and abnormal troponin and also elevated blood pressure. December 29, 2023 The patient was seen and evaluated this morning. Currently he is asymptomatic and hemodynamically stable. The echo still pending. I am going to obtain 1 more set of troponin. The pressure has been better on the current medical regimen. Examination is remarkable for regular rhythm with clear breathing sounds bilaterally and no edema was noted in the lower extremities Assessment Hypertension emergency Questionable pulmonary embolism Evidence of myocardial injury Multiple comorbid conditions including CAD Plan Continue the current medical regimen Obtain 1 more set of serial cardiac enzymes Obtain an echocardiogram with Doppler Further recommendation to follow Monitor the patient for additional 24 hours Objective - Vital Signs Vital signs: Vital Signs Temp 97.8 F 12/28/23 19:53 Pulse 77 12/29/23 03:03 Resp 18 12/29/23 03:03 BP 144/72 12/29/23 03:03 Pulse Ox 96 12/29/23 03:03 FiO2 Intake & Output 12/28/23 12/29/23 12/29/23 18:59 06:59 18:59 Intake Total 700.643 564.166 Balance 700.643 564.166 Weight 117.1 kg Intake: Intake, IV Titration 102.643 324.166 Amount Heparin Sod,Pork in 0.45% 102.643 324.166 NaCl 25,000 unit In 0.45 % NaCl 1 250ml.bag @ 18 UNITS/KG/HR 21.228 mls/hr IV .[id number] [facility] Rx#: [id number] Oral 598 240 Other: Voiding Method Toilet Toilet # Voids 2 2 - Labs CBC & Chem 7: 12/29/23 08:02 12/29/23 08:02 Labs: Abnormal Lab Results - Last 24 Hours (Table) 12/28/23 12/28/23 12/28/23 Range/Units 10:16 11:24 16:36 RBC (4.30-5.90) m/uL Hgb (13.0-17.5) gm/dL APTT 77.9 H (22.0-30.0) sec Sodium (137-145) mmol/L BUN (9-20) mg/dL Glucose (74-99) mg/dL POC Glucose (mg/dL) 234 H 183 H (70-110) mg/dL 12/28/23 12/29/23 12/29/23 Range/Units 19:49 08:02 08:02 RBC 4.09 L (4.30-5.90) m/uL Hgb 12.6 L (13.0-17.5) gm/dL APTT (22.0-30.0) sec Sodium 136 L (137-145) mmol/L BUN 24 H (9-20) mg/dL Glucose 131 H (74-99) mg/dL POC Glucose (mg/dL) 156 H (70-110) mg/dL
[2023-12-29] MEDS: ASPIRIN 81 MG PO SCH (09:15)
[2023-12-29 11:26] LABS: Glucose,Whole Blood 207 mg/dL (70-110)
--- NOTE | 2023-12-29 12:03 | P.PN ---
Subjective Progress Note Date: 12/29/23 Principal diagnosis: Chest pain. Pulmonary consult dated December 28, 2023. 78-year-old male with history of coronary disease, previous stent placement x 2, hypertension, diabetes, and gastroesophageal reflux disease. The patient presents to the emergency department on December 26, complaining of chest pain, and shortness of breath. The patient states he took some Maalox, and things seem to get better. He was evaluated in the emergency room, and admitted to the hospital. A CT angiogram may have shown a small clot to the left lower lobe. The patient developed the pain, which she described as a 10 out of 10. The patient apparently took 2 nitroglycerin as well as an aspirin, and stated that the pain improved. Currently, the patient is on room air. He is receiving IV heparin. The patient does have a history of tobacco use for 60 years. He states he never was a heavy smoker. Current laboratory data includes a white count 6.5, hemoglobin 13.3, hematocrit 41.7, and a normal platelet count. D- dimer was mildly elevated at 0.76. Sodium 135, potassium 4.3, chlorides 105, CO2 23, BUN 20, creatinine 1.06. Troponin was less than 0.012, 0.013, and 0.049. N-terminal proBNP was normal. Bilateral lower extremity Dopplers are negative for DVT. Chest x-ray is normal. CT angiogram was essentially unremarkable, save for a questionable left lower lobe pulmonary arterial filling defect. It is a subsegmental abnormality. Progress note dated December 29, 2023. The patient is seen today room 373. He continues on IV heparin. He is on room air. He is having an echocardiogram as we speak. The patient was seen yesterday evaluation for possible pulmonary embolism. The patient CT angiogram was possibly showing a small subsegmental pulmonary embolism, in the left lower lobe. There is no right heart strain. The patient was not short of breath or having any chest pain or chest discomfort. In my note, I mention the fact that the patient probably did not need IV heparin for a pulmonary embolism. Anyway, the patient is having an echocardiogram. He is not having any chest pain or shortness of breath at this time. Current labs include a white count 7.6, hemoglobin 12.6, hematocrit 39.6, and a normal platelet count. PTT is 94.5. Sodium 136, potassium 3.9, chlorides 105, CO2 26, BUN 24, creatinine 1.04. Glucose is 207. Calcium is 8.1. Troponin was 0.059. Objective - Vital Signs Vital signs: Vital Signs Temp 97.5 F L 12/29/23 08:30 Pulse 77 12/29/23 08:30 Resp 16 12/29/23 08:30 BP 164/67 12/29/23 08:30 Pulse Ox 95 12/29/23 08:30 FiO2 Intake & Output 12/28/23 12/29/23 12/29/23 18:59 06:59 18:59 Intake Total 700.643 564.166 180 Balance 700.643 564.166 180 Weight 117.1 kg Intake: Intake, IV Titration 102.643 324.166 Amount Heparin Sod,Pork in 0.45% 102.643 324.166 NaCl 25,000 unit In 0.45 % NaCl 1 250ml.bag @ 18 UNITS/KG/HR 21.228 mls/hr IV .[id number] [facility] Rx#: [id number] Oral 598 240 180 Other: Voiding Method Toilet Toilet Toilet # Voids 2 2 2 - Exam No acute distress, oriented 3. Room air saturation between 95 and 97%. HEENT examination is grossly unremarkable. Mucous membranes are moist. No oral lesions. Neck supple. Full range of motion. No adenopathy thyromegaly or neck vein distention. Cardiovascular examination reveals regular rhythm rate. S1-S2 normal. No S3 or S4. No discernible murmur noted. Heart rate 77 bpm. Lungs reveal clear breath sounds. Breath sounds are equal bilaterally. No adventitious lung sounds including wheezes rhonchi or crackles. Abdomen soft bowel sounds are heard. No masses or tenderness. Extremities are intact. No cyanosis clubbing or edema. Skin is without rash or lesion. Neurologic examination is brief but nonfocal. - Labs CBC & Chem 7: 12/29/23 08:02 12/29/23 08:02 Labs: Abnormal Lab Results - Last 24 Hours (Table) 12/28/23 12/28/23 12/29/23 Range/Units 16:36 19:49 08:02 RBC (4.30-5.90) m/uL Hgb (13.0-17.5) gm/dL APTT (22.0-30.0) sec Sodium (137-145) mmol/L BUN (9-20) mg/dL Glucose (74-99) mg/dL POC Glucose (mg/dL) 183 H 156 H (70-110) mg/dL Hemoglobin A1c 8.1 H (<=6.0) % Troponin I (0.000-0.034) ng/mL 12/29/23 12/29/23 12/29/23 Range/Units 08:02 08:02 08:02 RBC 4.09 L (4.30-5.90) m/uL Hgb 12.6 L (13.0-17.5) gm/dL APTT 94.5 H (22.0-30.0) sec Sodium 136 L (137-145) mmol/L BUN 24 H (9-20) mg/dL Glucose 131 H (74-99) mg/dL POC Glucose (mg/dL) (70-110) mg/dL Hemoglobin A1c (<=6.0) % Troponin I (0.000-0.034) ng/mL 12/29/23 12/29/23 Range/Units 08:02 11:25 RBC (4.30-5.90) m/uL Hgb (13.0-17.5) gm/dL APTT (22.0-30.0) sec Sodium (137-145) mmol/L BUN (9-20) mg/dL Glucose (74-99) mg/dL POC Glucose (mg/dL) 207 H (70-110) mg/dL Hemoglobin A1c (<=6.0) % Troponin I 0.059 H* (0.000-0.034) ng/mL Assessment and Plan Assessment: Shortness of breath, and chest pain, doubt pulmonary embolism on this patient. History of coronary artery disease, and stent placements x 2. 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 History of hypertension. History of diabetes mellitus. History of gastroesophageal reflux disease. Plan: Plan dated December 28, 2023. The patient is seen today in room 373. He is on room air. He is receiving IV heparin. The patient has a history of CAD with previous stent placement x 2, hypertension, diabetes, and gastroesophageal reflux disease. The patient came in primarily with chest pain, but also some shortness of breath. CT angiogram showed a possible left lower lobe segmental pulmonary embolism. There was no right heart strain. There was motion artifact. The patient is currently on IV heparin. Labs, x-rays, medications are reviewed. Doppler studies of the legs were negative. I would be in favor of stopping the IV heparin. The patient has been previously on aspirin and Plavix. Some data would suggest no need to treat a subsegmental pulmonary embolism, and patients who are stable hemodynamically, and have no evidence of right heart strain. Plan dated December 29, 2023. As I mentioned in my note and plan above, I do not feel the patient had a pulmonary embolism. I think of anything, this was more of a cardiac issue. The troponin was mildly elevated, the patient is currently having an echocardiogram. In addition, in the pulmonary literature, patients with small subsegmental pulmonary emboli, were not particularly symptomatic and do not have evidence of right heart strain, may not need to be treated. Anyway, we will wait and see what cardiology has to say and, and what the echocardiogram shows. Additional recommendations and suggestions are forthcoming. The patient is asymptomatic at this time, Dopplers of the lower extremities were negative. Time with Patient: Less than 30
--- NOTE | 2023-12-29 12:17 | CA ---
Transthoracic Echo Report Name: Chris Borja Age: 78 Gender: M : 1945 Exam Date: 12/29/2023 09:24 Exam Location: [facility] Ht (in): 66 Wt (lb): 257 Ordering Physician: Kym Arevalo Attending/Referring Phys: [id number], [employer] Associate Paulina Dan RDCS Procedure CPT: Indications: LV function, CP Cardiac Hx: Technical Quality: Technically difficult study Contrast 1: Definity Total Dose (mL): 2 Contrast 2: Total Dose (mL): MEASUREMENTS (Male / Female) Normal Values 2D ECHO LV Diastolic Volume MOD BP 118.4 cm??? 67 - 155 / 56 - 104 cm??? LV Systolic Volume MOD BP 45.0 cm??? 22 - 58 / 19 - 49 cm??? LV Ejection Fraction MOD BP 62.0 % >= 55 % LV Cardiac Index MOD BP 2303.8 cm???/min???m??? LV Diastolic Volume MOD 4C 98.9 cm??? LV Systolic Volume MOD 4C 42.1 cm??? LV Ejection Fraction MOD 4C 57.5 % LV Cardiac Index MOD 4C 1784.5 cm???/min???m??? LV Diastolic Length 4C 9.2 cm LV Systolic Length 4C 6.8 cm LV Diastolic Volume MOD 2C 131.9 cm??? LV Systolic Volume MOD 2C 48.4 cm??? LV Ejection Fraction MOD 2C 63.3 % LV Cardiac Index MOD 2C 2621.0 cm???/min???m??? LV Diastolic Length 2C 8.5 cm LV Systolic Length 2C 6.8 cm DOPPLER AV Peak Velocity 197.6 cm/s AV Peak Gradient 15.6 mmHg AV Mean Velocity 132.8 cm/s AV Mean Gradient 8.1 mmHg AV Velocity Time Integral 40.8 cm LVOT Peak Velocity 104.9 cm/s LVOT Peak Gradient 4.4 mmHg LVOT Velocity Time Integral 25.5 cm MV Peak Velocity 138.2 cm/s MV Peak Gradient 7.6 mmHg MV Mean Velocity 85.0 cm/s MV Mean Gradient 3.3 mmHg MV Velocity Time Integral 34.7 cm MV Area PHT 4.3 cm??? Mitral E Point Velocity 76.4 cm/s Mitral A Point Velocity 95.9 cm/s Mitral E to A Ratio 0.8 MV Deceleration Time 174.5 ms TR Peak Velocity 275.9 cm/s TR Peak Gradient 30.4 mmHg Right Atrial Pressure 5.0 mmHg Pulmonary Artery Systolic Pressu 35.4 mmHg Right Ventricular Systolic Press 35.4 mmHg FINDINGS Left Ventricle Left ventricular ejection fraction is estimated at 60-63 %. Left ventricular cavity size normal. No obvious regional wall motion abnormalities. Right Ventricle Normal right ventricular size and function. Right ventricular systolic pressure within normal limits. Right Atrium Normal right atrial size. Left Atrium Normal left atrial size. Mitral Valve Structurally normal mitral valve. No evidence for mitral valve prolapse. No mitral stenosis. Trace to mild mitral regurgitation. Aortic Valve Aortic valve not well visualized. No aortic valve stenosis or regurgitation. Tricuspid Valve Structurally normal tricuspid valve. No tricuspid stenosis. Trace tricuspid regurgitation. Pulmonic Valve Pulmonic valve not well visualized. Pericardium No pericardial effusion. Aorta Aortic annulus normal. Ascending aorta not well visualized. CONCLUSIONS Normal LV function Previewed by: Dr. Curt Tracy MD (Electronically Signed) Final Date: 29 December 2023 12:16
[2023-12-29 16:28] LABS: Glucose,Whole Blood 169 mg/dL (70-110)
--- NOTE | 2023-12-29 17:30 | P.PN ---
Subjective Progress Note Date: 12/29/23 Chris Borja, is a 78-year-old male who presented to [facility] emergency room with a chief complaint of chest pain He was evaluated in the emergency room vital examination on presentation revealed a temperature of 97.1 pulse 89 respirations 16 blood pressure 145/72 pulse ox 95% on room air Laboratory data revealed a white blood count of 5.9 hemoglobin 13.4 platelet count 169 D-dimer 0.76 sodium 135 potassium 4.3 chloride 105 CO2 23 BUN 20 creatinine 1.06 troponin level 0.012 BNP 213 Testing in the emergency room revealed chest x-ray done in the emergency room revealed no acute cardiopulmonary disease, CT angiogram of the chest revealed limited evaluation due to motion with questionable left lower lobe pulmonary arterial filling defect no evidence of right heart strain, EKG revealed sinus rhythm with low QRS voltage borderline EKG. patient was started on IV heparin per protocol in the emergency room. Patient was admitted to medical floor for further evaluation and treatment, cardiology consultation and pulmonary consultation were requested in the emergency room. Past medical history is significant for history of hypertension, history of hyperlipidemia, history of coronary artery disease with previous history of myocardial infarction, history of diabetes mellitus, history of diverticulosis with previous history of acute diverticulitis.. On 12/29/2023 patient was seen and examined on the medical floor he is alert and oriented x 3 in no apparent distress, there is no fever or chills no headache or dizziness no chest pain no shortness of breath no cough no nausea or vomiting no abdominal pain no diarrhea no urinary symptoms. Troponin is staying slightly elevated at 0.059, per cardiology continue to monitor for 1 more day will follow in a.m. Objective - Vital Signs Vital signs: Vital Signs Temp 97.5 F L 12/29/23 08:30 Pulse 81 12/29/23 11:40 Resp 16 12/29/23 11:40 BP 172/70 12/29/23 11:40 Pulse Ox 95 12/29/23 11:40 FiO2 Intake & Output 12/28/23 12/29/23 12/29/23 18:59 06:59 18:59 Intake Total 700.643 564.166 360 Balance 700.643 564.166 360 Weight 117.1 kg Intake: Intake, IV Titration 102.643 324.166 Amount Heparin Sod,Pork in 0.45% 102.643 324.166 NaCl 25,000 unit In 0.45 % NaCl 1 250ml.bag @ 18 UNITS/KG/HR 21.228 mls/hr IV .[id number] [facility] Rx#: [id number] Oral 598 240 360 Other: Voiding Method Toilet Toilet Toilet # Voids 2 2 2 - Exam In general patient is alert and oriented x 3 in no distress HEENT head normocephalic and atraumatic Neck is supple no JVD no goiter no lymphadenopathy no carotid bruit Chest examination is clear to auscultation no crackles no wheezing Cardiac exam reveals regular heart sounds S1 and S2 no gallops no murmurs Abdomen is soft nontender no organomegaly with normal bowel sounds Extremity exam reveals no edema no cyanosis or clubbing Neurological examination reveals no gross focal deficits - Labs CBC & Chem 7: 12/29/23 08:02 12/29/23 08:02 Labs: Abnormal Lab Results - Last 24 Hours (Table) 12/28/23 12/28/23 12/29/23 Range/Units 16:36 19:49 08:02 RBC (4.30-5.90) m/uL Hgb (13.0-17.5) gm/dL APTT (22.0-30.0) sec Sodium (137-145) mmol/L BUN (9-20) mg/dL Glucose (74-99) mg/dL POC Glucose (mg/dL) 183 H 156 H (70-110) mg/dL Hemoglobin A1c 8.1 H (<=6.0) % Troponin I (0.000-0.034) ng/mL 12/29/23 12/29/23 12/29/23 Range/Units 08:02 08:02 08:02 RBC 4.09 L (4.30-5.90) m/uL Hgb 12.6 L (13.0-17.5) gm/dL APTT 94.5 H (22.0-30.0) sec Sodium 136 L (137-145) mmol/L BUN 24 H (9-20) mg/dL Glucose 131 H (74-99) mg/dL POC Glucose (mg/dL) (70-110) mg/dL Hemoglobin A1c (<=6.0) % Troponin I (0.000-0.034) ng/mL 12/29/23 12/29/23 Range/Units 08:02 11:25 RBC (4.30-5.90) m/uL Hgb (13.0-17.5) gm/dL APTT (22.0-30.0) sec Sodium (137-145) mmol/L BUN (9-20) mg/dL Glucose (74-99) mg/dL POC Glucose (mg/dL) 207 H (70-110) mg/dL Hemoglobin A1c (<=6.0) % Troponin I 0.059 H* (0.000-0.034) ng/mL Assessment and Plan Plan: Episode of severe chest pain Elevated D-dimer, with questionable left lower lobe pulmonary arterial filling defect. Underlying history of coronary artery disease with previous history of myocardial infarction, and history of angioplasty and stent placement in the past. Underlying history of hypertension Underlying history of hyperlipidemia Underlying history of diabetes mellitus Underlying history of diverticulosis with previous history of diverticulitis requiring surgery. Underlying history of benign prostatic hypertrophy Underlying history of osteoarthritis Underlying history of gastroesophageal reflux disease At this time patient was admitted to telemetry floor He was started on IV heparin protocol in the emergency room Home medications reviewed and reordered Cardiology and pulmonary consultation requested Will follow closely
[2023-12-29 19:39] LABS: Glucose,Whole Blood 192 mg/dL (70-110)
[2023-12-30 05:51] LABS: Glucose,Whole Blood 81 mg/dL (70-110)
[2023-12-30 08:44] VITALS: BP 141/79
--- NOTE | 2023-12-30 11:35 | P.PN ---
Subjective Progress Note Date: 12/30/23 Principal diagnosis: Chest pain. Pulmonary consult dated December 28, 2023. 78-year-old male with history of coronary disease, previous stent placement x 2, hypertension, diabetes, and gastroesophageal reflux disease. The patient presents to the emergency department on December 26, complaining of chest pain, and shortness of breath. The patient states he took some Maalox, and things seem to get better. He was evaluated in the emergency room, and admitted to the hospital. A CT angiogram may have shown a small clot to the left lower lobe. The patient developed the pain, which she described as a 10 out of 10. The patient apparently took 2 nitroglycerin as well as an aspirin, and stated that the pain improved. Currently, the patient is on room air. He is receiving IV heparin. The patient does have a history of tobacco use for 60 years. He states he never was a heavy smoker. Current laboratory data includes a white count 6.5, hemoglobin 13.3, hematocrit 41.7, and a normal platelet count. D- dimer was mildly elevated at 0.76. Sodium 135, potassium 4.3, chlorides 105, CO2 23, BUN 20, creatinine 1.06. Troponin was less than 0.012, 0.013, and 0.049. N-terminal proBNP was normal. Bilateral lower extremity Dopplers are negative for DVT. Chest x-ray is normal. CT angiogram was essentially unremarkable, save for a questionable left lower lobe pulmonary arterial filling defect. It is a subsegmental abnormality. Progress note dated December 29, 2023. The patient is seen today room 373. He continues on IV heparin. He is on room air. He is having an echocardiogram as we speak. The patient was seen yesterday evaluation for possible pulmonary embolism. The patient CT angiogram was possibly showing a small subsegmental pulmonary embolism, in the left lower lobe. There is no right heart strain. The patient was not short of breath or having any chest pain or chest discomfort. In my note, I mention the fact that the patient probably did not need IV heparin for a pulmonary embolism. Anyway, the patient is having an echocardiogram. He is not having any chest pain or shortness of breath at this time. Current labs include a white count 7.6, hemoglobin 12.6, hematocrit 39.6, and a normal platelet count. PTT is 94.5. Sodium 136, potassium 3.9, chlorides 105, CO2 26, BUN 24, creatinine 1.04. Glucose is 207. Calcium is 8.1. Troponin was 0.059. Progress note dated December 30, 2023. Patient is seen today in room 373. He is currently not requiring any oxygen or IV fluids. He is hoping to be discharged home today. Labs, x-rays, and all medications have been reviewed. Clinically he is very stable. He denies any shortness of breath or chest pain. No New Labs Today Other Than a Glucose of 81. Echocardiogram shows an ejection fraction of between 60 and 63%. Left ventricular cavity size is normal. Right ventricle and right atrium are both normal. Objective - Vital Signs Vital signs: Vital Signs Temp 98.1 F 12/30/23 00:00 Pulse 74 12/30/23 08:44 Resp 20 12/30/23 08:44 BP 141/79 12/30/23 08:44 Pulse Ox 97 12/30/23 08:44 FiO2 Intake & Output 12/29/23 12/30/23 12/30/23 18:59 06:59 18:59 Intake Total 600 360 Balance 600 360 Weight 116.9 kg Intake: Oral 600 360 Other: Voiding Method Toilet Toilet Toilet # Voids 2 2 # Bowel Movements 1 - Exam No acute distress, oriented 3. Room air saturation is 97%. HEENT examination is grossly unremarkable. Mucous membranes are moist. No oral lesions. Neck supple. Full range of motion. No adenopathy thyromegaly or neck vein distention. Cardiovascular examination reveals regular rhythm rate. S1-S2 normal. No S3 or S4. No discernible murmur noted. Heart rate 74 bpm. Lungs reveal clear breath sounds. Breath sounds are equal bilaterally. No adventitious lung sounds including wheezes rhonchi or crackles. Abdomen soft bowel sounds are heard. No masses or tenderness. Extremities are intact. No cyanosis clubbing or edema. Skin is without rash or lesion. Neurologic examination is brief but nonfocal. - Labs CBC & Chem 7: 12/29/23 08:02 12/29/23 08:02 Labs: Abnormal Lab Results - Last 24 Hours (Table) 12/29/23 12/29/23 Range/Units 16:27 19:38 POC Glucose (mg/dL) 169 H 192 H (70-110) mg/dL Assessment and Plan Assessment: Shortness of breath, and chest pain, doubt pulmonary embolism on this patient. History of coronary artery disease, and stent placements x 2. 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 History of hypertension. History of diabetes mellitus. History of gastroesophageal reflux disease. Plan: Plan dated December 28, 2023. The patient is seen today in room 373. He is on room air. He is receiving IV heparin. The patient has a history of CAD with previous stent placement x 2, hypertension, diabetes, and gastroesophageal reflux disease. The patient came in primarily with chest pain, but also some shortness of breath. CT angiogram showed a possible left lower lobe segmental pulmonary embolism. There was no right heart strain. There was motion artifact. The patient is currently on IV heparin. Labs, x-rays, medications are reviewed. Doppler studies of the legs were negative. I would be in favor of stopping the IV heparin. The patient has been previously on aspirin and Plavix. Some data would suggest no need to treat a subsegmental pulmonary embolism, and patients who are stable hemodynamically, and have no evidence of right heart strain. Plan dated December 29, 2023. As I mentioned in my note and plan above, I do not feel the patient had a pulmonary embolism. I think of anything, this was more of a cardiac issue. The troponin was mildly elevated, the patient is currently having an echocardiogram. In addition, in the pulmonary literature, patients with small subsegmental pulmonary emboli, were not particularly symptomatic and do not have evidence of right heart strain, may not need to be treated. Anyway, we will wait and see what cardiology has to say and, and what the echocardiogram shows. Additional recommendations and suggestions are forthcoming. The patient is asymptomatic at this time, Dopplers of the lower extremities were negative. Plan dated December 30, 2023. The patient was seen in room 373. The patient is not on any supplemental oxygen or IV fluids. Echocardiogram was normal. He is back on his dual antiplatelet therapy with Plavix and aspirin. The patient will likely be discharged home later today. Follow-up is not necessary. Time with Patient: Less than 30
[2023-12-30 11:40] LABS: Glucose,Whole Blood 182 mg/dL (70-110)
--- NOTE | 2023-12-30 11:59 | P.PN ---
Subjective HISTORY OF PRESENT ILLNESS: This is a 78-year-old male with a past medical history significant for coronary artery disease with previous stenting, peripheral arterial disease, hypertension, hyperlipidemia, statin intolerance, diabetes, and morbid obesity. Patient follows in the office with Dr. Wang. We have been asked to see the patient in consultation for chest pain. Patient examined at the bedside. Patient presented to the hospital for chief complaint of chest pain and shortness of breath. Patient underwent CT scan with possibility of pulmonary embolism. He was evaluated by pulmonary medicine who does not feel that he has a PE. Patient was recently seen in the cardiology office on December 23 and his amlodipine dose was increased from 5 mg to 10 mg daily due to uncontrolled blood pressure. Patient states after starting his increased medication he began to have chest discomfort. He states the pain radiated into his neck. Patient's blood pressures have been elevated with a systolic ranging between 190920. DIAGNOSTICS: - EKG reveals sinus mechanism with no signs of acute ischemia. - Chest xray negative for acute process - Chest CTA: Questionable left lower lobe pulmonary arterial filling defect in subsegmental branches. No evidence of right heart strain. - Venous Doppler: Negative for DVT bilaterally - Laboratory data: WBC 6.5. Hemoglobin 13.3. Platelet count 170. D-dimer 0.76. Sodium 135. Potassium 4.3. BUN 20. Creatinine 1.06. Troponin 0.012. 0.013. 0.049. - Current home cardiac medications include hydralazine 50 mg 3 times a day, lisinopril 40 mg daily, Toprol tartrate 25 mg twice a day, amlodipine 10 mg daily, Plavix 75 mg daily, aspirin 81 mg daily. 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 Patient is sitting up in the chair. Patient denies any shortness of breath. He denies any further episodes of chest pain or pressure. He has been up ambulating in the hallway without difficulty. Blood pressures are significantly improved with a systolic in the 140s. Echocardiogram completed revealing ejection fraction 60% with trace TR and trace to mild MR PHYSICAL EXAM: VITAL SIGNS: Reviewed. GENERAL: Well-developed in no acute distress. HEENT: Head is normocephalic. Pupils are equal, round. Sclerae anicteric. Mucous membranes of the mouth are moist. Neck supple. No JVD or thyromegaly LUNGS: Respirations even and unlabored. Lungs essentially clear to auscultation bilaterally. HEART: Regular rate and rhythm. S1 and S2 heard. ABDOMEN: Soft. Nondistended. Nontender. EXTREMITIES: Normal range of motion. No clubbing or cyanosis. Peripheral pulses intact. No lower extremity edema NEUROLOGIC: Awake and alert. Oriented x 3. 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 Wang Nurse practitioner note has been reviewed by physician. Signing provider agrees with the documented findings, assessment, and plan of care documented by SUPERVISOR [employer]LE[employer]ERKS as a scribe. Objective - Vital Signs Vital signs: Vital Signs Temp 98.1 F 12/30/23 00:00 Pulse 74 12/30/23 08:44 Resp 20 12/30/23 08:44 BP 141/79 12/30/23 08:44 Pulse Ox 97 12/30/23 08:44 FiO2 Intake & Output 12/29/23 12/30/23 12/30/23 18:59 06:59 18:59 Intake Total 600 360 Balance 600 360 Weight 116.9 kg Intake: Oral 600 360 Other: Voiding Method Toilet Toilet Toilet # Voids 2 2 # Bowel Movements 1 - Labs CBC & Chem 7: 12/29/23 08:02 12/29/23 08:02 Labs: Abnormal Lab Results - Last 24 Hours (Table) 12/29/23 12/29/23 12/30/23 Range/Units 16:27 19:38 11:39 POC Glucose (mg/dL) 169 H 192 H 182 H (70-110) mg/dL
[2023-12-30 12:11] VITALS: PULSE 92; RESP 18; TEMP 98
--- NOTE | 2023-12-30 14:24 | P.DS ---
Providers Date of admission: 12/27/23 18:50 Expected date of discharge: 12/30/23 Attending physician: Nabeel Nieto Consults: 12/27/23 18:50 Consult Physician Routine Consulting Provider: Fred Ojeda Consult Reason/Comments: Evaluation for possible PE Do you want consulting provider notified?: Yes Consult Physician Urgent Consulting Provider: Zackery Wang Consult Reason/Comments: Chest pain Do you want consulting provider notified?: Yes Primary care physician: Katey Harris Hospital Course: Diagnosis on discharge: Episode of severe chest pain Elevated D-dimer, with questionable left lower lobe pulmonary arterial filling defect. Underlying history of coronary artery disease with previous history of myocardial infarction, and history of angioplasty and stent placement in the past. Underlying history of hypertension Underlying history of hyperlipidemia Underlying history of diabetes mellitus Underlying history of diverticulosis with previous history of diverticulitis requiring surgery. Underlying history of benign prostatic hypertrophy Underlying history of osteoarthritis Underlying history of gastroesophageal reflux disease Hospital course: Chris Borja, is a 78-year-old male who presented to [facility] emergency room with a chief complaint of chest pain He was evaluated in the emergency room vital examination on presentation revealed a temperature of 97.1 pulse 89 respirations 16 blood pressure 145/72 pulse ox 95% on room air Laboratory data revealed a white blood count of 5.9 hemoglobin 13.4 platelet count 169 D-dimer 0.76 sodium 135 potassium 4.3 chloride 105 CO2 23 BUN 20 creatinine 1.06 troponin level 0.012 BNP 213 Testing in the emergency room revealed chest x-ray done in the emergency room revealed no acute cardiopulmonary disease, CT angiogram of the chest revealed limited evaluation due to motion with questionable left lower lobe pulmonary arterial filling defect no evidence of right heart strain, EKG revealed sinus rhythm with low QRS voltage borderline EKG. patient was started on IV heparin per protocol in the emergency room. Patient was admitted to medical floor for further evaluation and treatment, cardiology consultation and pulmonary consultation were requested in the emergency room. Past medical history is significant for history of hypertension, history of hyperlipidemia, history of coronary artery disease with previous history of myocardial infarction, history of diabetes mellitus, history of diverticulosis with previous history of acute diverticulitis.. On 12/29/2023 patient was seen and examined on the medical floor he is alert and oriented x 3 in no apparent distress, there is no fever or chills no headache or dizziness no chest pain no shortness of breath no cough no nausea or vomiting no abdominal pain no diarrhea no urinary symptoms. Troponin is staying slightly elevated at 0.059, per cardiology continue to monitor for 1 more day will follow in a.m. On 12/30/2023 patient was seen and examined on the medical floor he is alert and oriented x 3 in no apparent distress he denies any new episodes of chest pain he was evaluated by cardiology and pulmonary and was cleared for discharge he will be discharged home today he will follow-up with his electrical engineering technologist Dr. Acosta within 1 week, changes to his blood pressure medication were done during this admission by cardiology new prescription for valsartan and Coreg were sent to his pharmacy Patient Condition at Discharge: Stable Plan - Discharge Summary Discharge Rx Participant: Yes New Discharge Prescriptions: New Valsartan [Diovan] 320 mg PO DAILY@1200 30 Days #30 tab carvediloL [Coreg*] 12.5 mg PO BID-W/MEALS 30 Days #60 tab Continue Finasteride [Proscar] 5 mg PO HS Aspirin 81 mg PO DAILY Cetirizine HCl 10 mg PO DAILY Fluticasone Nasal Norris [Flonase Nasal Norris] 2 spray EA NOSTRIL DAILY Nitroglycerin Sl Tabs [Nitrostat] 0.4 mg SUBLINGUAL Q5M PRN PRN Reason: Chest Pain Doxazosin Mesylate 8 mg PO HS Glimepiride [Amaryl] 1 mg PO TID Cholecalciferol (Vitamin D3) [Vitamin D3 (5000 Iu)] 125 mcg PO DAILY Clopidogrel [Plavix] 75 mg PO DAILY #90 tab Pantoprazole [Protonix] 40 mg PO AC-SUPPER hydrALAZINE HCL [Apresoline] 50 mg PO TID sitaGLIPtin [Januvia] 100 mg PO DAILY Discontinued Metoprolol Tartrate 25 mg PO BID hydrALAZINE HCL [Apresoline] 50 mg PO DAILY PRN PRN Reason: bp over 160 lisinopriL 40 mg PO DAILY amLODIPine [Norvasc] 10 mg PO DAILY Discharge Medication List Aspirin 81 mg PO DAILY 01/11/15 [History] Finasteride [Proscar] 5 mg PO HS 01/11/15 [History] Cetirizine HCl 10 mg PO DAILY 05/22/18 [History] Fluticasone Nasal Norris [Flonase Nasal Norris] 2 spray EA NOSTRIL DAILY 11/17/18 [History] Doxazosin Mesylate 8 mg PO HS 11/08/19 [History] Nitroglycerin Sl Tabs [Nitrostat] 0.4 mg SUBLINGUAL Q5M PRN 11/08/19 [History] Cholecalciferol (Vitamin D3) [Vitamin D3 (5000 Iu)] 125 mcg PO DAILY 07/21/20 [History] Glimepiride [Amaryl] 1 mg PO TID 07/21/20 [History] Clopidogrel [Plavix] 75 mg PO DAILY #90 tab 08/31/20 [Rx] Pantoprazole [Protonix] 40 mg PO AC-SUPPER 10/06/20 [History] hydrALAZINE HCL [Apresoline] 50 mg PO TID 12/27/23 [History] sitaGLIPtin [Januvia] 100 mg PO DAILY 12/27/23 [History] Valsartan [Diovan] 320 mg PO DAILY@1200 30 Days #30 tab 12/30/23 [Rx] carvediloL [Coreg*] 12.5 mg PO BID-W/MEALS 30 Days #60 tab 12/30/23 [Rx] Follow up Appointment(s)/Referral(s): Katey Harris MD [Primary Care Provider] - 1-2 days
--- NOTE | 2023-12-31 20:33 | CDI ---
Documentation Clarification Form Date: 12/31/2023 08:22:37 PM From: Jamila Hancock Phone: Admit Date: 12/27/2023 06:50:00 PM Patient Name: Chris Borja Visit Number: [id number] Discharge Date: 12/30/2023 03:15:00 PM ATTENTION: The Clinical Documentation Specialists (CDI) and [facility] Coding Staff appreciate your assistance in clarifying documentation. Please respond to the clarification below the line at the bottom and electronically sign. The CDI & [facility] Coding staff will review the response and follow-up if needed. Please note: Queries are made part of the Legal Health Record. If you have any questions, please contact the author of this message via ITS. Doctor/Provider: Nabeel Nieto Your patient has an abnormal lab value: A1C 8.1. Please clarify if there is an additional diagnosis and/or clinical significance related to this value. 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 [x ] Diabetes Mellitus type II with hyperglycemia [ ] No additional diagnosis/Not clinically significant [ ] Other, please specify [ ] Unable to determine (Template Last Revised: July 2020) MTDD
== END 2023-12-30 15:15 | disposition home health service (06) | DRG 315 ==
LOC: EC 11:55 → 3SCARD 18:50
PROVIDERS: ADMIT Internal Medicine; ATTEND Internal Medicine
DX: I5A Non-ischemic myocardial injury (non-traumatic) (principal); I16.1 Hypertensive emergency; Z68.41 Body mass index [BMI] 40.0-44.9, adult; E11.51 Type 2 diabetes mellitus with diabetic peripheral angiopathy without gangrene; E66.01 Morbid (severe) obesity due to excess calories; I70.203 Unspecified atherosclerosis of native arteries of extremities, bilateral legs; E11.65 Type 2 diabetes mellitus with hyperglycemia; I25.82 Chronic total occlusion of coronary artery; I25.10 Atherosclerotic heart disease of native coronary artery without angina pectoris; R35.0 Frequency of micturition; E78.5 Hyperlipidemia, unspecified; I10 Essential (primary) hypertension; M19.90 Unspecified osteoarthritis, unspecified site; K21.9 Gastro-esophageal reflux disease without esophagitis; N40.1 Benign prostatic hyperplasia with lower urinary tract symptoms; Z95.820 Peripheral vascular angioplasty status with implants and grafts; Z79.02 Long term (current) use of antithrombotics/antiplatelets; I25.2 Old myocardial infarction; Z95.5 Presence of coronary angioplasty implant and graft; Z87.19 Personal history of other diseases of the digestive system; Z87.891 Personal history of nicotine dependence; Z79.82 Long term (current) use of aspirin; Z79.84 Long term (current) use of oral hypoglycemic drugs; Z79.899 Other long term (current) drug therapy; Z82.49 Family history of ischemic heart disease and other diseases of the circulatory system; Z88.6 Allergy status to analgesic agent; Z91.041 Radiographic dye allergy status; Z88.8 Allergy status to other drugs, medicaments and biological substances; Z88.2 Allergy status to sulfonamides
CPT/HCPCS: 36415; 71046; 71275; 80053; 80061; 83036; 83690; 83735; 83880; 84484; 85025; 85379; 85610; 85730; 93005; 93306; 93970; 94760; 96365; 96375; 99285

== ENCOUNTER 2024-03-24 10:36 | Day surgery (SDC) | payer MEDICARE ==
[2024-03-24] MEDS: SODIUM CHLORIDE 0.9% 1,000 ML IV ONE (07:10)
[2024-03-24 07:29] LABS: Glucose,Whole Blood 129 mg/dL (70-110)
[2024-03-24 07:32] LABS: Basophils # (A) 0.1 k/uL (0-0.2); Basophils % (A) 1 %; Eosinophils # (A) 0.2 k/uL (0-0.7); Eosinophils % (A) 3 %; HCT 39.2 % (39.0-53.0); HGB 12.7 gm/dL (13.0-17.5); Lymphocytes % (A) 19 %; MCH 31.1 pg (25.0-35.0); MCHC 32.4 g/dL (31.0-37.0); MCV 96.1 fL (80.0-100.0); Mean Platelet Volume 7.5; Monocytes # (A) 0.3 k/uL (0-1.0); Monocytes % (A) 5 %; Neutrophils # (A) 3.6 k/uL (1.3-7.7); Neutrophils % (A) 69 %; Platelet Count 148 k/uL (150-450); RBC 4.08 m/uL (4.30-5.90); RDW 13.2 % (11.5-15.5); WBC 5.3 k/uL (3.8-10.6)
[2024-03-24 07:43] LABS: African American GFR (CKD) 82 (>60 ml/min/1.73 sqM); Anion Gap 9 mmol/L; Blood Urea Nitrogen 19 mg/dL (9-20); Calcium 9.4 mg/dL (8.4-10.2); Carbon Dioxide 27 mmol/L (22-30); Chloride 102 mmol/L (98-107); Glucose 144 mg/dL (74-99); Non-African American GFR(CKD) 71 (>60 ml/min/1.73 sqM); Potassium 4.3 mmol/L (3.5-5.1); Sodium 138 mmol/L (137-145)
[2024-03-24] MEDS: FAMOTIDINE 20 MG/2 ML VIAL IV STA (07:47)
[2024-03-24] MEDS: methylPREDNISolone SOD SUCCI 125 MG/2 ML VIAL IV STA (07:47)
[2024-03-24] MEDS: diphenhydrAMINE 50 MG/ML 1 ML VIAL IVP STA (07:47)
[2024-03-24] MEDS: TICAGRELOR 90 MG TAB PO STA (07:47)
[2024-03-24] MEDS: ASPIRIN 81 MG PO PRN (07:54)
[2024-03-24] MEDS: LIDOCAINE 1% INJ 10MG/ML (20 ML MDV) SQ ONE ×2 (08:46→09:15)
[2024-03-24] MEDS: HEPARIN SODIUM 1,000 UN/ML (10ML VL) IV ONE (08:55)
[2024-03-24] MEDS: ENALAPRILAT 1.25 MG/ML 1 ML VIAL IV ONE (09:03)
[2024-03-24] MEDS: hydrALAZINE HCL 20 MG/ML 1 ML VIAL IV ONE (09:06)
[2024-03-24] MEDS: IOPAMIDOL-370 200ML BTL INJ ONE (09:15)
[2024-03-24] MEDS: MIDAZOLAM 2 MG/2 ML VIAL IVP ONE (09:28)
[2024-03-24] MEDS: fentaNYL (PF) 50 MCG/ML 2 ML AMP IVP ONE (09:28)
[2024-03-24] MEDS: HEPARIN SODIUM,PORCINE (1 ML) 2,500 UNIT in SODIUM CHLORIDE 0.9% 250 ML IRRIGATION ONE (10:27)
[2024-03-24] MEDS: IOPAMIDOL-370 100ML BTL INJ ONE (10:27)
[2024-03-24] MEDS: HEPARIN SODIUM,PORCINE 10,000 UNIT in SODIUM CHLORIDE 0.9% 1,000 ML IRRIGATION ONE (10:28)
[~2024-03-24 10:36] MED LIST changes: +ALPRAZolam 0.5 MG TAB PO PRN; +CLOPIDOGREL 75 MG TAB PO PRN; +LIDOCAINE 1% (10MG/ML) FOR IV START INTRADERMA PRN; +NALOXONE 0.4 MG/ML 1 ML VIAL IVP PRN; -SODIUM CHLORIDE 0.9% 1,000 ML in EMPTY BAG 1 BAG IV ONE
[2024-03-24] MEDS ORDERED: NITROGLYCERIN SL TABS 0.4 MG TAB SUBLINGUAL PRN (10:37)
--- NOTE | 2024-03-24 10:44 | P.PCN ---
Date of Procedure: 03/24/24 Operative Findings: PERCUTANEOUS PERIPHERAL INTERVENTION Performing physician Zackery Wang M.D. Procedure performed 1. Successful balloon angioplasty of left SFA 2. Successful stenting of the left external iliac artery using 8.0 x 29 mm balloon expandable stent with an excellent angiographic result 3. Gradient measurement across the left SFA and left external iliac artery 4. Left lower extremity angiogram 5. Right common femoral artery angiogram 6. IVUS of the left SFA and atherectomy of the left SFA Indication Bilateral lower extremities intermittent claudication in this 79-year-old gentleman who underwent a duplex study which showed severe bilateral SFA disease and intermediate bilateral iliac disease Approach Right common femoral artery Complications None Level of sedation Moderate to sedation length of 80 minutes Procedure description Please refer to diagnostic arch angiogram and carotid angiogram for access description. After that we decided to pursue with an angiogram of the left lower extremity. At that point I did engage the left common iliac artery using 5 Senegalese rim catheter. Subsequently I did advance my 035 stiff Glidewire to the proximal left SFA and subsequently the rim catheter was advanced over the wire to the left common femoral artery left lower extremity angiogram was performed and showed intermediate to severe disease involving the left SFA with two-vessel runoff below the knee on the left side. After that I did a gradient measurement across the left SFA using a quick cross catheter and that came in to be around 40 mmHg. Also I did a gradient measurement across the left external iliac artery and that came to be initially at 20 mmHg and subsequently at 35 mmHg I decided to intervene on both. At that point I did exchange my 11 cm sheath into 7 cm 6 Seneg[place]e Rabi sheath using a 3 5 stiff Glidewire with the backup support of multipurpose catheter. The sheath was advanced all the way and parked at the left common femoral artery. I did across the lesion in the left SFA using the Viper wire. After that intravascular ultrasound was performed and showed a diameter around 6 mm with calcified vessel. I did atherectomy using the [employer] orbital atherectomy device. After that I did a balloon angioplasty using 6 mm Charisse balloon which showed good angiographic results and subsequently 6 mm drug- coated balloon with final excellent angiographic results. I did check the gradient again again across the left external iliac artery and that clinically significant at 35 mm kristen which I decided to stent. I deployed 8.0 x 29 mm stent where the stent was positioned under fluoroscopic guidance and deployed under fluoroscopy guidance. Final angiogram showed excellent angiographic results and the procedure was completed with no complication. Postprocedure management 1. Dual antiplatelet therapy 2. Aggressive cholesterol control 3. Risk factors modification 4. Follow-up with the patient
--- NOTE | 2024-03-24 10:48 | P.PCN ---
Date of Procedure: 03/24/24 Operative Findings: An aortic arch and carotid angiogram Performing physician Zackery Wang MD Procedure performed An aortic arch angiogram Selective left common and left internal carotid artery angiogram Indication The patient is a pleasant 79-year-old gentleman who underwent recently carotid CTA and that showed severe disease involving the right internal carotid artery Approach The right common femoral artery Complications None Level of sedation Moderate with sedation length about 40 minutes Procedure description After obtaining informed consent the patient was brought to the cardiac Ad Operations Intern and the right common femoral artery was cannulated using micropuncture technique and a micropuncture wire passed easily then I placed a 16 German 11 cm sheath at the right common femoral artery and subsequently sheath was exchanged into a 90 cm shuttle sheath repairing to stenting the right internal carotid artery. The sheath was advanced over a 035 stiff Glidewire and under fluoroscopy guidance. After that I did advance along the pigtail catheter all the way to the aortic root where we did an aortic arch angiogram and that showed type II aortic arch. I did engage the ostial of the innominate artery using JB2 catheter. Subsequently I did wired the Mindy right common carotid artery using a 035 stiff Glidewire under fluoroscopy guidance and subsequently the JB2 catheter was advanced over the wire to the proximal right common carotid artery. An angiogram was performed and showed only intermediate disease with hazy lesion involving the right internal carotid artery by the ostium. With that being said we decided to stop at that point. Subsequently the long sheath was exchanged over 035 stiff Glidewire into a short sheath and selective right common femoral artery angiogram was performed. Conclusion Type II aortic arch Only intermediate disease involving the ostial of the right internal carotid artery with discrepancy between the angiogram and the CTA Postprocedure management Medical treatment Follow-up with the patient
--- NOTE | 2024-03-24 10:58 | IR ---
EXAMINATION TYPE: IR stent intravas non coronary DATE OF EXAM: 03/24/2024 COMPARISON: NONE HISTORY: Fluoroscopy time. Fluoroscopy was provided to the referring clinician. [facility], , 03/24/2024 10:56 AM
[2024-03-24] MEDS: VALSARTAN 160 MG TAB PO SCH (11:18)
[2024-03-24] MEDS: carvediloL 12.5 MG TAB PO SCH (11:18)
[2024-03-24] MEDS: amLODIPine 10 MG TAB PO SCH (11:18)
[2024-03-24 11:21] LABS: Glucose,Whole Blood 178 mg/dL (70-110)
[2024-03-24 16:19] LABS: Glucose,Whole Blood 220 mg/dL (70-110)
[2024-03-24] MEDS: PANTOPRAZOLE 40 MG TABLET PO SCH (16:34)
[2024-03-24] MEDS ORDERED: carvediloL 12.5 MG TAB PO SCH (17:30)
[2024-03-24] MEDS: SODIUM CHLORIDE 0.9% 1,000 ML in EMPTY BAG 1 BAG IV ONE (18:50)
[2024-03-24] MEDS: SODIUM CHLORIDE 0.9% 1,000 ML in EMPTY BAG 1 BAG IV SCH (18:50)
[2024-03-24] MEDS: LACTATED RINGERS 1,000 ML IV SCH (18:50)
[2024-03-24 20:15] LABS: Glucose,Whole Blood 348 mg/dL (70-110)
[2024-03-24] MEDS: FINASTERIDE 5 MG TAB PO SCH (20:52)
[2024-03-25 06:20] LABS: Glucose,Whole Blood 236 mg/dL (70-110)
[2024-03-25 07:34] LABS: African American GFR (CKD) 75 (>60 ml/min/1.73 sqM); Non-African American GFR(CKD) 64 (>60 ml/min/1.73 sqM)
[2024-03-25] MEDS: CLOPIDOGREL 75 MG TAB PO SCH (08:36)
[2024-03-25] MEDS: PIOGLITAZONE 30 MG TAB PO SCH (08:36)
[2024-03-25] MEDS: EZETIMIBE 10 MG TAB PO SCH (08:36)
[2024-03-25] MEDS: ESCITALOPRAM 5 MG TAB PO SCH (08:36)
[2024-03-25] MEDS: GLIMEPIRIDE 4 MG TAB PO SCH (08:36)
[2024-03-25] MEDS: ASPIRIN 81 MG PO SCH (08:36)
[2024-03-25] MEDS: LORATADINE 10 MG TAB PO SCH (08:36)
[2024-03-25 08:42] VITALS: BP 156/66; PULSE 84; RESP 17; TEMP 97.6
[2024-03-25] MEDS ORDERED: amLODIPine 10 MG TAB PO SCH (09:00)
== END 2024-03-25 11:01 ==
LOC: EC 10:36 → 2ORMAIN 10:41 → 3SCARD 10:41 → UNDODISIN 03-25 11:01 → EC 03-25 11:01
PROVIDERS: ATTEND Internal Medicine Interventional Cardiology
DX: I65.23 Occlusion and stenosis of bilateral carotid arteries
CPT/HCPCS: 36222; 37221; 37227; 37252; 76937; 80048; 82565; 85025

== ENCOUNTER 2024-11-01 12:11 | Inpatient (IN) | payer MEDICARE ==
[2024-11-01 12:23] LABS: Glucose,Whole Blood 314 mg/dL (70-110)
[2024-11-01] MEDS: SODIUM CHLORIDE 0.9% 1,000 ML IV SCH (12:25)
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
[2024-11-01 12:31] LABS: Basophils # (A) 0.02 10*3/uL (0.00-0.10); Basophils % (A) 0.2 %; Eosinophils # (A) 0.01 10*3/uL (0.04-0.35); Eosinophils % (A) 0.1 %; HCT 37.2 % (39.6-50.0); HGB 12.2 g/dL (13.0-17.0); Lymphocytes # (A) 0.43 10*3/uL (0.90-5.00); Lymphocytes % (A) 4.8 %; MCH 31.4 pg (27.0-32.0); MCHC 32.8 g/dL (32.0-37.0); MCV 95.6 fL (80.0-97.0); Mean Platelet Volume 12.1 fL (9.5-12.2); Monocytes # (A) 0.27 10*3/uL (0.20-1.00); Neutrophils # (A) 7.97 10*3/uL (1.80-7.70); Neutrophils % (A) 89.3 %; RBC 3.89 10*6/uL (4.40-5.60); RDW 13.8 % (11.5-14.5); WBC 8.93 10*3/uL (4.50-10.00)
[2024-11-01 12:43] LABS: ALT 330 U/L (4-49); AST 175 U/L (17-59); African American GFR (CKD) 71 (>60 ml/min/1.73 sqM); Alkaline Phosphatase 137 U/L (38-126); Anion Gap 9 mmol/L; Blood Urea Nitrogen 64 mg/dL (9-20); Calcium 9.2 mg/dL (8.4-10.2); Carbon Dioxide 24 mmol/L (22-30); Chloride 101 mmol/L (98-107); Glucose 336 mg/dL (74-99); Magnesium 2.5 mg/dL (1.6-2.3); Non-African American GFR(CKD) 61 (>60 ml/min/1.73 sqM); Potassium 4.2 mmol/L (3.5-5.1); Sodium 134 mmol/L (137-145); Total Bilirubin 1.2 mg/dL (0.2-1.3)
[2024-11-01 12:52] LABS: INR 1.1 (<1.2)
[2024-11-01 12:59] LABS: Partial Thromboplastin Time 18.2 sec (22.0-30.0)
[2024-11-01 13:07] LABS: Platelet Count 43 10*3/uL (140-440)
[2024-11-01] MEDS: ACETAMINOPHEN IV (For NPO) 1,000 MG in EMPTY BAG 1 BAG IVPB STA (13:12)
--- NOTE | 2024-11-01 13:12 | CT ---
EXAMINATION TYPE: CT brain cspine wo con DATE OF EXAM: 11/01/2024 12:57 PM COMPARISON: 10/16/2024 CLINICAL INDICATION: Male, 79 years old with history of weakness, Weakness, recent falls, pain TECHNIQUE: CT of the brain is performed utilizing 3 mm thick sections through the posterior fossa and 3 mm thick sections through the remaining calvarium. Study is performed within 24 hours of arrival to the hospital. Contrast used: mL of , (none if empty) CT DLP: 1672.5 mGycm, Automated exposure control for dose reduction was used. FINDINGS: No abnormal hyperdensity is present to suggest an acute intracranial hemorrhage. No mass lesion is evident. No acute infarcts are evident. Ventricles and sulci are prominent for the patient age. Paranasal sinuses and mastoid air cells within the [id number] are clear. IMPRESSIONS: 1. No acute intracranial process. Follow-up MRI can be performed as clinically indicated. 2. Atrophy 3. Stable from the recent comparison CT cervical spine. COMPARISON: None TECHNIQUE: CT of the cervical spine is performed in the axial plane at 2 mm thick sections. Reconstr ucted images in the coronal, and sagittal plane are reviewed on the computer. FINDINGS: No acute fractures are evident. Vertebral body alignment is normal. Disc heights are preserved. Vertebral body heights are preserved. No spinal canal stenosis is evident. No neural foraminal stenosis is evident. IMPRESSION: 1. No acute osseous abnormality cervical spine [facility], , 11/01/2024 1:10 PM
--- NOTE | 2024-11-01 13:13 | XR ---
EXAMINATION TYPE: XR shoulder complete LT DATE OF EXAM: 11/01/2024 1:00 PM COMPARISON: 10/16/2024 CLINICAL INDICATION: Male, 79 years old with history of fall, Pain TECHNIQUE: XR shoulder complete LT view(s) obtained. FINDINGS: The humeral head articulates with the glenoid. Joint space is narrowed. There is some humeral head sp urring The acromio-clavicular junction is normal. No acute fractures or dislocations are evident. A follow up study can be performed 7-10 days from acute trauma for continued pain. MRI can be perfor med if soft tissue evaluation would be of benefit. IMPRESSION: 1. Degenerative joint changes glenohumeral junction. 2. No acute acute osseous abnormality [facility], , 11/01/2024 1:11 PM
--- NOTE | 2024-11-01 13:16 | XR ---
EXAMINATION TYPE: XR chest 2V DATE OF EXAM: 11/01/2024 1:00 PM COMPARISON: 10/15/2024 CLINICAL INDICATION: Male, 79 years old with history of Weakness, TECHNIQUE: XR chest 2V view(s) obtained. FINDINGS: The heart size is normal. The pulmonary vasculature is normal. Previous left lung infiltrate has largely resolved. Left hilar and mediastinal mass remains present. 2.5 cm density may be at the right lung base. IMPRESSION: 1. Prominence to the left hilar and mediastinal regions compatible with the patient's underlying mass . 2. A 2.5 cm density at the right lung base may be present. 3. Previous peripheral infiltrate has resolved. [facility], , 11/01/2024 1:13 PM
[2024-11-01 13:52] LABS: T4, Free (Free Thyroxine) 1.51 ng/dL (0.78-2.19)
[2024-11-01] MEDS: MORPHINE SULFATE 4 MG/ML SYRINGE IVP STA (13:57)
[2024-11-01 14:30] LABS: Appearance,Urine Cloudy (Clear); Bilirubin,Urine 1+ (Negative); Blood,Urine Large (Negative); Color,Urine Dark Brown; Glucose,Urine (UA) 4+ (Negative); Hyaline Casts,Urine 8 /lpf (0-2); Ketones,Urine 1+ (Negative); Leukocyte Esterase,Urine Moderate (Negative); Mucus,Urine Moderate /hpf; Nitrite,Urine Negative (Negative); PH, Urine 5.5 (5.0-8.0); Protein,Urine 1+ (Negative); RBC,Urine >182 /hpf (0-5); Specific Gravity,Urine 1.028 (1.001-1.035); WBC,Urine 62 /hpf (0-5)
[2024-11-01] MEDS ORDERED: PNEUMONIA PROTOCOL UTILIZED 1 EACH MISC PO PRN (15:07)
[2024-11-01] MEDS: diphenhydrAMINE 50 MG/ML 1 ML VIAL IVP STA (15:35)
[2024-11-01] MEDS: FAMOTIDINE 20 MG/2 ML VIAL IV STA (15:36)
[2024-11-01] MEDS: methylPREDNISolone SOD SUCCI 125 MG/2 ML VIAL IV STA (15:36)
[2024-11-01] MEDS: PIPERACILLIN-TAZOBACTAM 3.375 GM in SODIUM CHLORIDE 0.9% 100 ML IVPB STA (15:36)
--- NOTE | 2024-11-01 16:55 | CT ---
EXAMINATION TYPE: CT angio chest DATE OF EXAM: 11/01/2024 4:40 PM COMPARISON: 10/14/2024 CLINICAL INDICATION: Male, 79 years old with history of berny; BERNY, positive dimer TECHNIQUE/CONTRAST: CTA scan of the thorax is performed with IV Contrast, patient injected with 100ml mL of Isovue 370, M IP images are created and reviewed these are created on a separate workstation.. CT DLP: 1125.2 mGycm, Automated exposure control for dose reduction was used. FINDINGS: Lungs/Pleura: No evidence of focal consolidation, pleural effusion or pneumothorax. Airway: Large airways are patent. Heart: Size within normal limits. No significant coronary artery calcifications. Vasculature: There is large dominant mass/lymphadenopathy which narrows the left pulmonary artery lef t upper lobe pulmonary arterial vasculature. There is a slitlike appearance of the left pulmonary art gurpreet. Series 403 image 110. There is no evidence for a filling defect within the pulmonary vasculature to suggest acute pulmonary embolism. The pulmonary artery is of normal size. Mediastinum: Conglomerate mass in the mediastinum extending from the pulmonary hilum to the subcarina l lymph nodes measuring up to 23 mm, left neck lymph node measuring 22 x 51 mm. thoracic inlet measur ing up to 11.9 x 7.1 x 9.8 cm. Musculoskeletal: No acute osseous abnormalities. Lucent lesion measuring 10 mm in T5 vertebral body s eries 403 image 100 and T3 vertebral body measuring 9 mm. Soft Tissues/lymph nodes: Unremarkable. Lower neck: No significant findings. Upper Abdomen: Upper abdominal lymph nodes are enlarged in the jean hepatis measuring up to 25 mm, g astric hepatic ligament measuring up to 12 mm. Right adrenal nodule measuring 27 x 18 mm. IMPRESSION: 1. No evidence of pulmonary embolism. 2. Conglomerate mass which demonstrates mass effect on the left pulmonary artery which is a slitlike appearance. 3. Large left mediastinal mass with left lower neck lymph nodes as well as upper abdominal lymph node s concerning for malignancy with metastatic disease. 4. Indeterminate right adrenal nodule measuring up to 27 x 18 mm. Findings likely represent metastati c disease in the presence of malignancy. 5. Indeterminate small lucent areas in the T3 and T5 vertebral bodies. Possible metastatic disease [facility], , 11/01/2024 4:53 PM
[2024-11-01] MEDS: AZITHROMYCIN 500 MG in SODIUM CHLORIDE 0.9% 250 ML IVPB STA (17:23)
[2024-11-01] MEDS: DILTIAZEM 125 MG in DEXTROSE 5% IN WATER 100 ML IV SCH (18:04)
[2024-11-01] MEDS: ALBUTEROL NEBULIZED 2.5 MG/3 ML INHALATION SCH (19:25)
[2024-11-01 20:59] LABS: Glucose,Whole Blood 310 mg/dL (70-110)
[2024-11-01] MEDS ORDERED: DEXTROSE 50% SYRINGE 50 ML IVP PRN ×2 (21:22)
[2024-11-01] MEDS: DOXAZOSIN 4 MG TAB PO SCH (22:03)
[2024-11-01] MEDS: NIFEdipine XL 30 MG TAB.ER.24 PO SCH (22:04)
[2024-11-01] MEDS: FUROSEMIDE 40 MG TAB PO SCH (22:25)
[2024-11-01] MEDS: GLIMEPIRIDE 2 MG TAB PO SCH (22:25)
[2024-11-01] MEDS: INSULIN LISPRO (HumaLOG) 100 UNIT/ML 10 mL VL SQ SCH (22:31)
[2024-11-01] MEDS: PIPERACILLIN-TAZOBACTAM 3.375 GM in SODIUM CHLORIDE 0.9% 100 ML IVPB SCH (22:41)
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
[2024-11-02] MEDS: MORPHINE SULFATE 4 MG/ML SYRINGE IVP PRN (03:26)
[2024-11-02 04:21] LABS: Basophils # (A) 0.03 10*3/uL (0.00-0.10); Basophils % (A) 0.3 %; HCT 37.4 % (39.6-50.0); HGB 12.1 g/dL (13.0-17.0); Immature Platelet Fraction 6.7 % (1.1-6.1); Lymphocytes # (A) 0.34 10*3/uL (0.90-5.00); Lymphocytes % (A) 3.9 %; MCH 31.8 pg (27.0-32.0); MCHC 32.4 g/dL (32.0-37.0); MCV 98.2 fL (80.0-97.0); Mean Platelet Volume 12.7 fL (9.5-12.2); Monocytes # (A) 0.23 10*3/uL (0.20-1.00); Monocytes % (A) 2.7 %; Neutrophils % (A) 88.9 %; RBC 3.81 10*6/uL (4.40-5.60); RDW 14.1 % (11.5-14.5); WBC 8.66 10*3/uL (4.50-10.00)
[2024-11-02 04:39] LABS: ALT 448 U/L (4-49); AST 360 U/L (17-59); African American GFR (CKD) 65 (>60 ml/min/1.73 sqM); Albumin 2.9 g/dL (3.5-5.0); Alkaline Phosphatase 143 U/L (38-126); Anion Gap 7 mmol/L; Blood Urea Nitrogen 66 mg/dL (9-20); Calcium 9.3 mg/dL (8.4-10.2); Carbon Dioxide 29 mmol/L (22-30); Chloride 99 mmol/L (98-107); Glucose 285 mg/dL (74-99); Magnesium 2.6 mg/dL (1.6-2.3); Non-African American GFR(CKD) 56 (>60 ml/min/1.73 sqM); Sodium 135 mmol/L (137-145)
[2024-11-02 04:51] LABS: Platelet Count 43 10*3/uL (140-440)
[2024-11-02] MEDS: methylPREDNISolone SOD SUCCI 125 MG/2 ML VIAL IV SCH (06:13)
[2024-11-02] MEDS: SODIUM CHLORIDE 0.9% 1,000 ML IV SCH (06:18)
[2024-11-02] MEDS ORDERED: INSULIN LISPRO (HumaLOG) 100 UNIT/ML 10 mL VL SQ SCH (07:30)
[2024-11-02 07:54] LABS: Glucose,Whole Blood 263 mg/dL (70-110)
--- NOTE | 2024-11-02 08:29 | XR ---
EXAMINATION TYPE: XR chest 1V portable DATE OF EXAM: 11/02/2024 6:09 AM COMPARISON: 11/01/2024 CLINICAL INDICATION: Male, 79 years old with history of pneumonia, , FINDINGS: Heart remains moderately enlarged. Ongoing patchy left perihilar and left basilar opacity. Increased interstitial density similar to slightly worsened from prior. IMPRESSION: 1. Moderate cardiomegaly with on going left perihilar and left basilar opacity. Most of this probably corresponds to patient's suspected neoplasm. 2. Background interstitial densities similar to slightly worsened as well. [facility], , 11/02/2024 8:27 AM
[2024-11-02] MEDS ORDERED: hydrALAZINE HCL 50 MG TAB PO SCH (09:00)
[2024-11-02] MEDS ORDERED: FUROSEMIDE 40 MG TAB PO SCH (09:00)
[2024-11-02] MEDS: SYMBICORT 160-4.5 MCG INHALER INHALATION SCH (09:14)
[2024-11-02] MEDS: LORATADINE 10 MG TAB PO SCH (09:25)
[2024-11-02] MEDS: CHOLECALCIFEROL 125 MCG (5000 IU) TABLET PO SCH (09:25)
[2024-11-02] MEDS: PANTOPRAZOLE 40 MG TABLET PO SCH (09:25)
[2024-11-02] MEDS: ESCITALOPRAM 5 MG TAB PO SCH (09:26)
[2024-11-02] MEDS: METOPROLOL TARTRATE 50 MG TAB PO SCH (09:26)
[2024-11-02] MEDS: GLIMEPIRIDE 1 MG TAB PO SCH (09:27)
[2024-11-02] MEDS: VALSARTAN 160 MG TAB PO SCH (09:27)
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
[2024-11-02 11:34] LABS: Glucose,Whole Blood 255 mg/dL (70-110)
[2024-11-02] MEDS: methylPREDNISolone SOD SUCCI 125 MG/2 ML VIAL IV STA (15:34)
[2024-11-02] MEDS: FAMOTIDINE 20 MG/2 ML VIAL IV STA (15:35)
[2024-11-02] MEDS: diphenhydrAMINE 50 MG/ML 1 ML VIAL IVP STA (15:35)
--- NOTE | 2024-11-02 16:23 | CT ---
EXAMINATION TYPE: CT abdomen pelvis wo/w con DATE OF EXAM: 11/02/2024 COMPARISON: 07/21/2020 CLINICAL INDICATION: Male, 79 years old with history of metatstatic cancer, worsening transaminitis; PHH, metatstatic cancer, worsening transaminitis TECHNIQUE: Performed without Oral Contrast and without and with IV Contrast, patient injected with 80 ml mL of I sovue 370. CT DLP: 5736.[address] CTDI: mGy Automated exposure control for dose reduction was used. FINDINGS: There is marked cardiomegaly. There are small bilateral pleural effusions, left greater than right. T here is left lower lobe opacification consistent with compressive atelectasis or pneumonic infiltrate . There is surgical absence of the gallbladder. There is no biliary ductal dilatation. There is moderate hepatomegaly. There are no focal liver masses. There is no focal mass or enlargemen t of the pancreas or spleen. There is stable bilateral adrenal gland thickening. There is no solid renal mass or hydronephrosis and there is homogeneous contrast enhancement of the r enal parenchyma. The caliber the abdominal aorta is normal is no retroperitoneal adenopathy or hemorr andrea. The bowel loops are normal in caliber and there is no evidence of dilatation or obstruction. There is a left lower quadrant ostomy. There is a large anterior midline hernia containing colon and small abigail wel loops without obstruction or strangulation. There is ill-defined area of fluid density adjacent to the mid sigmoid colon which could represent ac flakito diverticulitis there is no discrete abscess. There is no free intraperitoneal air or fluid. No pelvic mass, free fluid, abscess or adenopathy. There is marked prostatic hypertrophy. There is a Lee catheter within the urinary bladder. There are no focal osseous lesions. IMPRESSION: 1. Bilateral pleural effusions and left lower lobe infiltrate consistent with compressive atelectasis or pneumonic infiltrate. 2. Moderate hepatomegaly without focal mass. 3. Stable thickening of the adrenal glands. 4. Fluid density in the mesentery adjacent to the mid sigmoid colon which could represent acute diver ticulitis. There is no discrete abscess. There is no free intraperitoneal air or fluid. 5. Marked prostatic hypertrophy. 6. Large anterior abdominal wall hernia containing bowel loops without obstruction or strangulation. Left lower quadrant ostomy. [facility], , 11/02/2024 4:21 PM
[2024-11-02] MEDS: AZITHROMYCIN 500 MG in SODIUM CHLORIDE 0.9% 250 ML IVPB SCH (16:54)
[2024-11-02 16:58] LABS: Glucose,Whole Blood 196 mg/dL (70-110)
[2024-11-02 20:10] LABS: Glucose,Whole Blood 227 mg/dL (70-110)
[2024-11-02] MEDS: FINASTERIDE 5 MG TAB PO SCH (21:24)
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
[2024-11-03] MEDS: DILTIAZEM 125 MG in DEXTROSE 5% IN WATER 100 ML IV SCH (00:20)
[2024-11-03 01:42] LABS: ABG Base Excess 1.3 mmol/L; ABG HCO3 27 mmol/L (21-25); ABG Oxygen Saturation 93.8 % (94-97); ABG PCO2 48 mmHg (35-45); ABG PH 7.36 (7.35-7.45); ABG PO2 70 mmHg (83-108); ABG TCO2 29 mmol/L (19-24); Allen Test Performed? Yes
--- NOTE | 2024-11-03 05:10 | CA ---
Transthoracic Echo Report Name: Chris Borja Age: 79 Gender: M : 1945 Exam Date: 11/02/2024 11:42 Exam Location: [facility] Ht (in): 66 Wt (lb): 236 Ordering Physician: Kym Arevalo Attending/Referring Phys: [id number], Mickey Guncotton Packer Demar Mendiola, RDWAYLON Procedure CPT: Indications: New onset A-fib with RVR, lung cancer Cardiac Hx: Technical Quality: Technically difficult study Contrast 1: Total Dose (mL): Contrast 2: Total Dose (mL): MEASUREMENTS (Male / Female) Normal Values 2D ECHO LV Diastolic Diameter PLAX 5.1 cm 4.2 - 5.9 / 3.9 - 5.3 cm LV Systolic Diameter PLAX 3.3 cm IVS Diastolic Thickness 1.0 cm 0.6 - 1.0 / 0.6 - 0.9 cm LVPW Diastolic Thickness 1.1 cm 0.6 - 1.0 / 0.6 - 0.9 cm LV Relative Wall Thickness 0.4 RV Internal Dim ED PLAX 3.6 cm LVOT Diameter 1.4 cm Aortic Root Diameter 2.2 cm LA Systolic Diameter LX 3.9 cm 3.0 - 4.0 / 2.7 - 3.8 cm LV Diastolic Volume MOD 4C 98.9 cm??? LV Systolic Volume MOD 4C 27.5 cm??? LV Ejection Fraction MOD 4C 72.2 % LV Diastolic Length 4C 8.8 cm LV Systolic Length 4C 6.6 cm DOPPLER Right Atrial Pressure 10.0 mmHg FINDINGS Left Ventricle Left ventricular ejection fraction is estimated at 60 %. Normal left ventricular wall motion. No obvious regional wall motion abnormalities. Left ventricular cavity size normal. Right Ventricle Right ventricle not well visualized. Reduced right ventricular global systolic function. Right Atrium Normal right atrial size. Left Atrium Normal left atrial size. Mitral Valve Mitral valve thickened. No mitral stenosis. Trace mitral regurgitation. Aortic Valve Trileaflet aortic valve. Diffuse thickening (sclerosis) of the aortic valve cusps without reduced excursion. No aortic stenosis. No aortic regurgitation. Tricuspid Valve Tricuspid valve not well visualized. No tricuspid stenosis. Trace tricuspid regurgitation. Pulmonic Valve Pulmonic valve not well visualized. No pulmonic stenosis. No pulmonic regurgitation. Pericardium Small pericardial effusion. Aorta Normal size aortic root and proximal ascending aorta. CONCLUSIONS Extremely difficult study for interpretation Normal LV systolic function Poorly visualized intracardiac valves Small pericardial effusion Previewed by: Dr. Zackery Wang MD (Electronically Signed) Final Date: 03 Nov 2024 05:09
[2024-11-03 05:56] LABS: Glucose,Whole Blood 316 mg/dL (70-110)
[2024-11-03 07:10] LABS: HCT 37.8 % (39.6-50.0); HGB 11.6 g/dL (13.0-17.0); MCH 30.4 pg (27.0-32.0); MCHC 30.7 g/dL (32.0-37.0); Mean Platelet Volume 12.4 fL (9.5-12.2); RBC 3.82 10*6/uL (4.40-5.60); RDW 14.3 % (11.5-14.5); WBC 5.94 10*3/uL (4.50-10.00)
[2024-11-03 07:15] LABS: ALT 392 U/L (4-49); AST 272 U/L (17-59); African American GFR (CKD) 47 (>60 ml/min/1.73 sqM); Albumin 2.9 g/dL (3.5-5.0); Alkaline Phosphatase 164 U/L (38-126); Anion Gap 9 mmol/L; Blood Urea Nitrogen 79 mg/dL (9-20); Carbon Dioxide 25 mmol/L (22-30); Chloride 105 mmol/L (98-107); Glucose 276 mg/dL (74-99); Non-African American GFR(CKD) 40 (>60 ml/min/1.73 sqM); Potassium 4.4 mmol/L (3.5-5.1); Sodium 139 mmol/L (137-145); Total Bilirubin 1.1 mg/dL (0.2-1.3)
[2024-11-03 08:00] LABS: Platelet Count 35 10*3/uL (140-440)
[2024-11-03 08:34] LABS: Lymphocytes # (M) 0.42 k/uL (1.0-4.8); Monocytes # (M) 0.12 k/uL (0-1.0); Neutrophils # (M) 5.41 k/uL (1.3-7.7); Neutrophils % (M) 91 %; Nucleated Red Blood Cells 0 /100 WBC (0-0); Total Cells Counted 100
[2024-11-03 08:35] LABS: Anisocytosis (M) Present; Poikilocytosis (M) Present
--- NOTE | 2024-11-03 09:52 | XR ---
EXAMINATION TYPE: XR chest 1V portable DATE OF EXAM: 11/03/2024 9:38 AM COMPARISON: 11/02/2024 CLINICAL INDICATION: Male, 79 years old with history of SOB, TECHNIQUE: XR chest 1V portable views of the chest are obtained. FINDINGS: Demonstrated are scattered senescent parenchymal change. Masslike infiltrate left perihilar region and left lung base. Overall no change. Suspect adenopathy w ithin the mediastinum. The heart is stable. Degenerative changes are seen of the dorsal spine. IMPRESSION: 1. Masslike infiltrate left perihilar region and left lung base. Overall no change. Suspect adenopat hy within the mediastinum. [facility], , 11/03/2024 9:49 AM
[2024-11-03] MEDS: FUROSEMIDE 10 MG/ML 2 ML VIAL IV ONE (11:01)
--- NOTE | 2024-11-03 11:16 | P.PN ---
Subjective HISTORY OF PRESENT ILLNESS: This is a 79-year-old male with a past medical history significant for coronary artery disease with previous stenting, peripheral vascular disease with previous angioplasty of bilateral SFA, hypertension, hyperlipidemia, carotid stenosis, diabetes, and recent diagnosis of metastatic small cell lung carcinoma. Patient follows in the office with Dr. Wang. We have been asked to see the patient in consultation for A-fib with RVR. Patient examined at the bedside in the emergency room. Patient presented to the hospital with a chief complaint of shortness of breath. Patient was recently diagnosed with metastatic small cell lung carcinoma. He has been followed by pulmonary medicine. Additionally, patient was found to be in A-fib with RVR. He was started on IV Cardizem. He remains in atrial fibrillation with a heart rate between [address]. He denies having any palpitations at the time of examination. DIAGNOSTICS: - EKG reveals A-fib with RVR. - Chest xray prominence to left hilar and mediastinal regions compatible with patient's underlying mass. 2.5 cm density at right lung base may be present. Previous peripheral infiltrate has resolved.. - Laboratory data: WBC 8.66. Hemoglobin 12.1. Platelet count 43. Sodium 135. Potassium 4.0. BUN 66. Creatinine 1.21. AST 360. ALT 448. - Current home cardiac medications include hydralazine 50 mg twice a day, carvedilol 12.5 mg twice a day, valsartan 160 mg daily, Procardia 30 mg daily, Lasix 40 mg daily, aspirin 81 mg daily. - Most recent echocardiogram obtained in December 2023 reveals ejection fraction 60% with trace TR and trace to mild MR. - Cardiac catheterization history: May 2021 revealing DISC JOCKEY of the RCA done at [facility] 11/03/2024 Patient examined this morning at the bedside. Patient currently denies any chest pain or pressure. He does report shortness of breath. Per nursing, he is n.p.o. and pending swallow screen as there is thought that he is aspirating. Telemetry reveals atrial fibrillation with heart rate between 100-115. Echocardiogram completed revealing ejection fraction 60%, no obvious regional wall motion abnormalities, trace MR, trace TR, small pericardial effusion PHYSICAL EXAM: VITAL SIGNS: Reviewed. GENERAL: Well-developed in no acute distress. HEENT: Head is normocephalic. Pupils are equal, round. Sclerae anicteric. Mucous membranes of the mouth are moist. Neck supple. No JVD or thyromegaly LUNGS: Respirations even and unlabored. Lungs with bilateral rhonchi noted HEART: Tachycardic. Irregular rate and rhythm. S1 and S2 heard. ABDOMEN: Soft. Nondistended. Nontender. EXTREMITIES: Normal range of motion. No clubbing or cyanosis. Peripheral pulses intact. 2+ bilateral lower extremity edema NEUROLOGIC: Awake and alert. ASSESSMENT: Shortness of breath Recently diagnosed metastatic small cell lung carcinoma New onset A-fib with RVR Thrombocytopenia, platelet count 43 Transaminitis Coronary artery disease with previous stenting of the LAD Known DISC JOCKEY of the RCA Peripheral arterial disease with previous angioplasty of bilateral SFA Hypertension Hyperlipidemia with statin intolerance Diabetes Obesity: BMI 38.1 Former nicotine dependence PLAN: Resume IV Cardizem at 2.5 mg/h as patient is currently unable to take oral medications per nursing Continue telemetry monitoring No anticoagulation secondary to metastatic lung cancer and thrombocytopenia Further recommendations pending patient course Nurse practitioner note has been reviewed by physician. Signing provider agrees with the documented findings, assessment, and plan of care documented by [employer] as a scribe. Objective - Vital Signs Vital signs: Vital Signs Temp 97.2 F L 11/03/24 11:09 Pulse 86 11/03/24 11:09 Resp 20 11/03/24 11:09 BP 108/62 11/03/24 11:09 Pulse Ox 95 11/03/24 11:09 FiO2 Intake & Output 11/02/24 11/03/24 11/03/24 18:59 06:59 18:59 Intake Total 900 74.500 20 Output Total 750 350 Balance 150 -275.500 20 Weight 113 kg Intake: IV 20 Invasive Line 2 10 Invasive Line 4 10 Intake, IV Titration 400 74.500 0 Amount Diltiazem 125 mg In 74.500 0 Dextrose 5% in Water 100 ml @ 5 MG/HR 5 mls/hr IV .Q24H [facility] Rx#:[id number] Sodium Chloride 0.9% 1, 400 000 ml @ 50 mls/hr IV . Q20H [facility] Rx#:[id number] Oral 500 Output: Urine 750 350 Uretheral (Lee) 750 Other: Voiding Method Indwelling Catheter Indwelling Catheter Indwelling Catheter # Bowel Movements 0 0 - Labs CBC & Chem 7: 11/03/24 06:08 11/03/24 06:08 Labs: Abnormal Lab Results - Last 24 Hours (Table) 11/02/24 11/02/24 11/02/24 Range/Units 11:32 16:56 20:04 RBC (4.40-5.60) 10*6/uL Hgb (13.0-17.0) g/dL Hct (39.6-50.0) % MCV (80.0-97.0) fL MCHC (32.0-37.0) g/dL Plt Count (140-440) 10*3/uL MPV (9.5-12.2) fL Immature Gran # (0.00-0.04) 10*3/uL Lymphocytes # (Manual) (1.0-4.8) k/uL ABG pCO2 (35-45) mmHg ABG pO2 (83-108) mmHg ABG HCO3 (21-25) mmol/L ABG Total CO2 (19-24) mmol/L ABG O2 Saturation (94-97) % BUN (9-20) mg/dL Creatinine (0.66-1.25) mg/dL Glucose (74-99) mg/dL POC Glucose (mg/dL) 255 H 196 H 227 H (70-110) mg/dL AST (17-59) U/L ALT (4-49) U/L Alkaline Phosphatase (38-126) U/L Total Protein (6.3-8.2) g/dL Albumin (3.5-5.0) g/dL 11/03/24 11/03/24 11/03/24 Range/Units 01:44 05:55 06:08 RBC 3.82 L (4.40-5.60) 10*6/uL Hgb 11.6 L (13.0-17.0) g/dL Hct 37.8 L (39.6-50.0) % MCV 99.0 H (80.0-97.0) fL MCHC 30.7 L (32.0-37.0) g/dL Plt Count 35 L (140-440) 10*3/uL MPV 12.4 H (9.5-12.2) fL Immature Gran # 0.37 H (0.00-0.04) 10*3/uL Lymphocytes # (Manual) 0.42 L (1.0-4.8) k/uL ABG pCO2 48 H (35-45) mmHg ABG pO2 70 L (83-108) mmHg ABG HCO3 27 H (21-25) mmol/L ABG Total CO2 29 H (19-24) mmol/L ABG O2 Saturation 93.8 L (94-97) % BUN (9-20) mg/dL Creatinine (0.66-1.25) mg/dL Glucose (74-99) mg/dL POC Glucose (mg/dL) 316 H (70-110) mg/dL AST (17-59) U/L ALT (4-49) U/L Alkaline Phosphatase (38-126) U/L Total Protein (6.3-8.2) g/dL Albumin (3.5-5.0) g/dL 11/03/24 Range/Units 06:08 RBC (4.40-5.60) 10*6/uL Hgb (13.0-17.0) g/dL Hct (39.6-50.0) % MCV (80.0-97.0) fL MCHC (32.0-37.0) g/dL Plt Count (140-440) 10*3/uL MPV (9.5-12.2) fL Immature Gran # (0.00-0.04) 10*3/uL Lymphocytes # (Manual) (1.0-4.8) k/uL ABG pCO2 (35-45) mmHg ABG pO2 (83-108) mmHg ABG HCO3 (21-25) mmol/L ABG Total CO2 (19-24) mmol/L ABG O2 Saturation (94-97) % BUN 79 H (9-20) mg/dL Creatinine 1.60 H (0.66-1.25) mg/dL Glucose 276 H (74-99) mg/dL POC Glucose (mg/dL) (70-110) mg/dL AST 272 H (17-59) U/L ALT 392 H (4-49) U/L Alkaline Phosphatase 164 H (38-126) U/L Total Protein 5.0 L (6.3-8.2) g/dL Albumin 2.9 L (3.5-5.0) g/dL Microbiology - Last 24 Hours (Table) 11/01/24 14:08 Urine Culture - Final Urine,Voided 11/01/24 15:38 Blood Culture Gram Stain - Preliminary Blood Blood Culture - Preliminary Molecular ID
[2024-11-03 11:35] LABS: Glucose,Whole Blood 227 mg/dL (70-110)
--- NOTE | 2024-11-03 13:24 | P.PN ---
Subjective Progress Note Date: 11/03/24 Principal diagnosis: Shortness of breath, weakness. Patient is a 79-year-old male with past medical history significant for hypertension, hyperlipidemia, diabetes mellitus, CAD, tobacco smoker, COPD, and recent diagnosis of lung cancer. Of note, patient recently hospitalized through 10/22/2024. Patient has a large left superior mediastinal mass and subcarinal adenopathy. Did undergo bronchoscopy with EBUS and transbronchial needle aspiration of the station 7 subcarinal lymph node. Pathology positive for small cell carcinoma. Patient has recently been establ ished with Dr. Ritter from medical oncology. Not started on treatment yet., Reportedly had a PET scan outpatient last Friday, following this became generally weak and nearly passed out. Also, increased work of breathing, chest congestion, cough. EMS was called and found the patient to be in atrial fibrillation with RVR. His blood pressure was taken and it was reportedly low. He was started on IV Cardizem. Workup in the emergency department including a CT of the head and C-spine which did not show any acute intracranial process. No acute osseous abnormality of the C-spine. Chest CT angiogram did not show any filling defects consistent with pulmonary embolism. There is a large left mediastinal conglomerate mass surrounding the left pulmonary artery and causing mass effect and slight appearance. Additional enlarged lymph nodes involving the left lower neck and upper abdomen. Indeterminate right adrenal nodule measuring 2.7 x 1.8 cm, possibly representing metastatic disease. Indeterminate lucent areas of T3 and T5 vertebral bodies, osseous metastasis is considered. No notable focal infiltrates, pleural effusions, pneumothoraces. Labs including a CBC with a WBC count of 8.9, hemoglobin 12.2, platelets 43,000. CMP: Sodium 134, potassium 4.2, chloride 101, serum bicarb 24, BUN 64, creatinine 1.13, glucose 336. Lactic 2.7 down to 1.6. LFTs mildly elevated with an AST of 170, ALT 330, ALP 137. Total bilirubin 1.2. Troponin 0.02. TSH 1.04. Patient currently being evaluated in the emergency department. He is on 5 L/min nasal cannula. He is dyspneic. Speaking in short phrases. Congested cough with rhonchi and wheezing. Denies sputum production. Denies hemoptysis. Denies fever/chills. Heart rate is tachycardic, ranging from 120 to 140 bpm, and appears to be A-fib RVR on bedside monitor. Cardizem recently increased to 10 mg/h. Anticoagulation deferred due to thrombocytopenia. Denies history of atrial fibrillation. Denies any chest pain. There is some lower extremity pitting edema. Normal saline infusing at 130 mL/h. Empirically started on antibiotics in the form of azithromycin and Zosyn in the ED. Also, loaded with IV Solu-Medrol. Progress note dated November 03, 2024. 79-year-old male well-known to our service. The patient was recently diagnosed with small cell lung cancer. The patient apparently did have an outpatient PET scan, done over at [facility]. The results are currently pending. The patient was admitted with respiratory distress and difficulty. He is seen today in room 379. His , and son are in the room. He is on 6 L nasal cannula, and getting saline at 50 cc an hour. He is also on a Cardizem drip at 2.5 mg an hour. At this point, the patient is in very poor shape, and not a candidate for chemotherapy. I explained that to the family, in detail, spending almost 30 minutes in the room. They are wanting to know the results of the PET scan, and we will attempt to retrieve it from [facility]. The patient is very lethargic and somnolent, poorly responsive. His respiratory status is poor. Current labs include a white count of 5.9, hemoglobin 11.6, hematocrit 37.8, and a platelet count of 35,000. Blood gases show PO2 of 70, pCO2 of 48, and a pH of 7.36. Sodium 139, potassium 4.4, chlorides 105, CO2 25, BUN 79, creatinine 1.60. AST is 272. ALT is 392. Albumin is 2.9. Glucose is 227. In addition, blood cultures are positive for Staph epidermidis. This may be a contaminant. Chest x-ray again shows a masslike infiltrate in the left perihilar region and left lung base. CT of the abdomen and pelvis shows bilateral pleural effusions, and left lower lobe infiltrate. There is moderate hepatomegaly without focal mass. Stable thickening of the adrenal glands, fluid density in the mesentery adjacent to the mid sigmoid colon which could represent acute diverticulitis. Marked prostatic hypertrophy, and large anterior abdominal wall hernia. PET scan from the [facility] shows a large mass centered at the left myrna with mediastinal and supraclavicular adenopathy with nodular consolidative changes along the left upper lobe with a small left-sided pleural effusion. Additionally, there are. Portal gastrohepatic pathologic lymph nodes with FDG avid liver nodules. Findings are consistent with malignancy and metastatic disease. Objective - Vital Signs Vital signs: Vital Signs Temp 97.2 F L 11/03/24 11:09 Pulse 109 H 11/03/24 12:25 Resp 20 11/03/24 11:09 BP 108/62 11/03/24 11:09 Pulse Ox 95 11/03/24 11:09 FiO2 Intake & Output 11/02/24 11/03/24 11/03/24 18:59 06:59 18:59 Intake Total 900 74.500 20 Output Total 750 350 Balance 150 -275.500 20 Weight 113 kg Intake: IV 20 Invasive Line 2 10 Invasive Line 4 10 Intake, IV Titration 400 74.500 0 Amount Diltiazem 125 mg In 74.500 0 Dextrose 5% in Water 100 ml @ 5 MG/HR 5 mls/hr IV .Q24H DOMINGUEZ Rx#:[id number] Sodium Chloride 0.9% 1, 400 000 ml @ 50 mls/hr IV . Q20H DOMINGUEZ Rx#:[id number] Oral 500 Output: Urine 750 350 Uretheral (Lee) 750 Other: Voiding Method Indwelling Catheter Indwelling Catheter Indwelling Catheter # Bowel Movements 0 0 - Exam Moderate respiratory distress, very somnolent and lethargic, currently on 6 L. HEENT examination is grossly unremarkable. Mucous membranes are dry. Neck supple. Full range of motion. No adenopathy thyromegaly or neck vein distention. Cardiovascular examination reveals an irregular rhythm and rate. S1-S2 normal. No S3 or S4. No discernible murmur noted. Heart sounds are distant. Heart rate greater than 100 bpm. Lungs reveal coarse bilateral rhonchi. No wheezes. No crackles. Breath sounds equal bilaterally but diminished throughout. Abdomen soft bowel sounds are heard. No masses or tenderness. Extremities are intact. No cyanosis or clubbing. Lower extremity edema is noted. Skin is without rash or lesion. Neurologic examination is brief but nonfocal. - Labs CBC & Chem 7: 11/03/24 06:08 11/03/24 06:08 Labs: Abnormal Lab Results - Last 24 Hours (Table) 11/02/24 11/02/24 11/03/24 Range/Units 16:56 20:04 01:44 RBC (4.40-5.60) 10*6/uL Hgb (13.0-17.0) g/dL Hct (39.6-50.0) % MCV (80.0-97.0) fL MCHC (32.0-37.0) g/dL Plt Count (140-440) 10*3/uL MPV (9.5-12.2) fL Immature Gran # (0.00-0.04) 10*3/uL Lymphocytes # (Manual) (1.0-4.8) k/uL ABG pCO2 48 H (35-45) mmHg ABG pO2 70 L (83-108) mmHg ABG HCO3 27 H (21-25) mmol/L ABG Total CO2 29 H (19-24) mmol/L ABG O2 Saturation 93.8 L (94-97) % BUN (9-20) mg/dL Creatinine (0.66-1.25) mg/dL Glucose (74-99) mg/dL POC Glucose (mg/dL) 196 H 227 H (70-110) mg/dL AST (17-59) U/L ALT (4-49) U/L Alkaline Phosphatase (38-126) U/L Total Protein (6.3-8.2) g/dL Albumin (3.5-5.0) g/dL 11/03/24 11/03/24 11/03/24 Range/Units 05:55 06:08 06:08 RBC 3.82 L (4.40-5.60) 10*6/uL Hgb 11.6 L (13.0-17.0) g/dL Hct 37.8 L (39.6-50.0) % MCV 99.0 H (80.0-97.0) fL MCHC 30.7 L (32.0-37.0) g/dL Plt Count 35 L (140-440) 10*3/uL MPV 12.4 H (9.5-12.2) fL Immature Gran # 0.37 H (0.00-0.04) 10*3/uL Lymphocytes # (Manual) 0.42 L (1.0-4.8) k/uL ABG pCO2 (35-45) mmHg ABG pO2 (83-108) mmHg ABG HCO3 (21-25) mmol/L ABG Total CO2 (19-24) mmol/L ABG O2 Saturation (94-97) % BUN 79 H (9-20) mg/dL Creatinine 1.60 H (0.66-1.25) mg/dL Glucose 276 H (74-99) mg/dL POC Glucose (mg/dL) 316 H (70-110) mg/dL AST 272 H (17-59) U/L ALT 392 H (4-49) U/L Alkaline Phosphatase 164 H (38-126) U/L Total Protein 5.0 L (6.3-8.2) g/dL Albumin 2.9 L (3.5-5.0) g/dL 11/03/24 Range/Units 11:34 RBC (4.40-5.60) 10*6/uL Hgb (13.0-17.0) g/dL Hct (39.6-50.0) % MCV (80.0-97.0) fL MCHC (32.0-37.0) g/dL Plt Count (140-440) 10*3/uL MPV (9.5-12.2) fL Immature Gran # (0.00-0.04) 10*3/uL Lymphocytes # (Manual) (1.0-4.8) k/uL ABG pCO2 (35-45) mmHg ABG pO2 (83-108) mmHg ABG HCO3 (21-25) mmol/L ABG Total CO2 (19-24) mmol/L ABG O2 Saturation (94-97) % BUN (9-20) mg/dL Creatinine (0.66-1.25) mg/dL Glucose (74-99) mg/dL POC Glucose (mg/dL) 227 H (70-110) mg/dL AST (17-59) U/L ALT (4-49) U/L Alkaline Phosphatase (38-126) U/L Total Protein (6.3-8.2) g/dL Albumin (3.5-5.0) g/dL Microbiology - Last 24 Hours (Table) 11/01/24 15:38 Blood Culture Gram Stain - Preliminary Blood Blood Culture - Preliminary Staphylococcus epidermidis Molecular ID 11/01/24 14:08 Urine Culture - Final Urine,Voided Assessment and Plan Assessment: Large left superior mediastinal mass measuring 11.9 x 7.1 x 9.8 cm, encompassing the left pulmonary artery with slitlike appearance, additional subcarinal lymph node, left lower neck lymph nodes, and upper abdominal lymph nodes concerning for metastatic disease. Indeterminate right adrenal nodule measuring 2.7 x 1.8 cm. Also, small lucent areas in T3 and T5 vertebral bodies, concerning for osseous metastasis. Bronchoscopy and transbronchial needle aspirate via endobronchial ultrasound was done and station 7 lymph node was biopsied on 10/20/2024. 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 Recent PET scan reveals metastatic disease to the liver. Acute COPD exacerbation. Atrial fibrillation with RVR, new onset. Acute hypoxemic respiratory failure. Chronic tobacco dependence of 60 years. Recent hospitalization at [facility] from September 05 to September 10, 2024 for fluid in the lungs and pneumonia treated with antibiotics. Possible supraclavicular adenopathy. Patient states he was scheduled for biopsy however his blood pressure was too high and has not been rescheduled. Hyponatremia, possible SIADH. Thrombocytopenia. Obesity with a BMI of 38.1 kg/m. History of coronary artery disease. History of hypertension. History of hyperlipidemia. History of diabetes mellitus type II. History of gastroesophageal reflux disease. History of BPH. Recent UTI. History of irritable bowel syndrome. History of anxiety. Plan: Plan dated November 03, 2024. Results of the recent PET scan, done at [facility], has been faxed over and placed on the patient's chart. The patient appears to have small cell lung cancer, which is metastatic to the liver, as well as other abdominal structures. Currently, the patient is in no shape to receive chemotherapy. He is on 6 L nasal cannula high flow. He is on saline at 50 cc an hour. He is also receiving Cardizem at 2.5 mg an hour, for his new onset atrial fibrillation with RVR. Labs, x-rays, medications are reviewed. I spent a great deal of time talking to the patient's , and son. They stated that the patient would not want any life support, but were waiting for the results of the PET scan. I think the patient would do poorly, if he ended up in the intensive care unit, on a mechanical ventilator. In addition, he would do poorly if he received any chemotherapy at this time. We will continue to follow and continue to talk to the family on an ongoing basis. Prognosis is certainly poor. Dictation was produced using DragonWave dictation software. Please excuse any grammatical, word or spelling errors. Time with Patient: Less than 30
--- NOTE | 2024-11-03 14:35 | FL ---
EXAMINATION TYPE: FL barium swallow w video DATE OF EXAM: 11/03/2024 2:03 PM COMPARISON: None. CLINICAL INDICATION: Male, 79 years old with history of dysphagia; A number of thin and thick substances were ingested under the care of the department of speech pathol ogy. There is silent aspiration upon thin barium. Vallecular\piriform sinus pooling\residuals. DAP are not provided. IMPRESSION: 1. See above. [facility], , 11/03/2024 2:33 PM
[2024-11-03] MEDS ORDERED: ALBUTEROL NEBULIZED 2.5 MG/3 ML INHALATION PRN (16:45)
[2024-11-03 16:55] LABS: Glucose,Whole Blood 259 mg/dL (70-110)
[2024-11-03] MEDS: LORazepam 1 MG/0.5 ML VIAL IV PRN (17:15)
--- NOTE | 2024-11-03 17:49 | P.PN ---
Subjective Progress Note Date: 11/03/24 Chris Borja is an 79-year-old male patient who presented to the ER with concerns of generalized weakness and falls. Patient was recently admitted on October 15 with complaints of shortness of breath and was found to have a large mediastinal mass patient underwent bronchoscopy which did come back positive for metastatic small cell lung cancer. Upon arrival patient was found to be in A-fib with RVR and was started on Cardizem drip. Testing the emergency room showed head and cervical spine CT showing no anterior acute cranial process atrophy. Chest x- ray completed showing prominence of the left hilar and mediastinal regions compatible with patient's underlying mass previous per peripheral infiltrate has resolved. Chest CTA showing no evidence for pulmonary embolism large left mediastinal mass anterior determinate small lucent areas in the area of T3 and T5 possible metastatic disease. Labwork completed showing white blood cell 8.66, hemoglobin 12.1, creatinine 1.21 bun 66 AST 360, ALT 448 and alkaline phosphatase 143. UA showing positive for urinary tract infection. Vital signs temp 97.2, heart rate 130, respiratory rate 18, blood pressure 106/78 with pulse ox of 97% on 4 L. Patient was started on IV Cardizem for A-fib RVR cardiology services consulted. Patient also started on IV antibiotics. Pulmonary services consulted. Oncology services also consulted for further evaluation. At this time patient is resting in emergency room patient does appear tachypneic. Pulmonary services are at bedside. On 11/03/2024 patient was seen and examined on the medical floor, he is alert re sponsive in no apparent distress he is complaining of cough and shortness of breath otherwise he denies any complaints there is no fever or chills no headache or dizziness no chest pain no nausea or vomiting no abdominal pain no diarrhea and no urinary symptoms. Family is asking for an informational visit with hospice, will make arrangement. Objective - Vital Signs Vital signs: Vital Signs Temp 97.2 F L 11/03/24 07:53 Pulse 96 11/03/24 09:19 Resp 20 11/03/24 07:53 BP 87/59 11/03/24 09:27 Pulse Ox 99 11/03/24 09:05 FiO2 Intake & Output 11/02/24 11/03/24 11/03/24 18:59 06:59 18:59 Intake Total 900 74.500 20 Output Total 750 350 Balance 150 -275.500 20 Weight 113 kg Intake: IV 20 Invasive Line 2 10 Invasive Line 4 10 Intake, IV Titration 400 74.500 0 Amount Diltiazem 125 mg In 74.500 0 Dextrose 5% in Water 100 ml @ 5 MG/HR 5 mls/hr IV .Q24H DOMINGUEZ Rx#:[id number] Sodium Chloride 0.9% 1, 400 000 ml @ 50 mls/hr IV . Q20H DOMINGUEZ Rx#:[id number] Oral 500 Output: Urine 750 350 Uretheral (Lee) 750 Other: Voiding Method Indwelling Catheter Indwelling Catheter Indwelling Catheter # Bowel Movements 0 - Exam Head normocephalic Neck supple Lungs diminished bilaterally with expiratory wheezing Heart irregular rate atrial fibrillation Abdomen is soft nontender nondistended positive bowel sounds no hepatosplenomegaly Extremities no edema Neuro alert and orientated to 3 - Labs CBC & Chem 7: 11/03/24 06:08 11/03/24 06:08 Labs: Abnormal Lab Results - Last 24 Hours (Table) 11/02/24 11/02/24 11/02/24 Range/Units 11:32 16:56 20:04 RBC (4.40-5.60) 10*6/uL Hgb (13.0-17.0) g/dL Hct (39.6-50.0) % MCV (80.0-97.0) fL MCHC (32.0-37.0) g/dL Plt Count (140-440) 10*3/uL MPV (9.5-12.2) fL Immature Gran # (0.00-0.04) 10*3/uL Lymphocytes # (Manual) (1.0-4.8) k/uL ABG pCO2 (35-45) mmHg ABG pO2 (83-108) mmHg ABG HCO3 (21-25) mmol/L ABG Total CO2 (19-24) mmol/L ABG O2 Saturation (94-97) % BUN (9-20) mg/dL Creatinine (0.66-1.25) mg/dL Glucose (74-99) mg/dL POC Glucose (mg/dL) 255 H 196 H 227 H (70-110) mg/dL AST (17-59) U/L ALT (4-49) U/L Alkaline Phosphatase (38-126) U/L Total Protein (6.3-8.2) g/dL Albumin (3.5-5.0) g/dL 11/03/24 11/03/24 11/03/24 Range/Units 01:44 05:55 06:08 RBC 3.82 L (4.40-5.60) 10*6/uL Hgb 11.6 L (13.0-17.0) g/dL Hct 37.8 L (39.6-50.0) % MCV 99.0 H (80.0-97.0) fL MCHC 30.7 L (32.0-37.0) g/dL Plt Count 35 L (140-440) 10*3/uL MPV 12.4 H (9.5-12.2) fL Immature Gran # 0.37 H (0.00-0.04) 10*3/uL Lymphocytes # (Manual) 0.42 L (1.0-4.8) k/uL ABG pCO2 48 H (35-45) mmHg ABG pO2 70 L (83-108) mmHg ABG HCO3 27 H (21-25) mmol/L ABG Total CO2 29 H (19-24) mmol/L ABG O2 Saturation 93.8 L (94-97) % BUN (9-20) mg/dL Creatinine (0.66-1.25) mg/dL Glucose (74-99) mg/dL POC Glucose (mg/dL) 316 H (70-110) mg/dL AST (17-59) U/L ALT (4-49) U/L Alkaline Phosphatase (38-126) U/L Total Protein (6.3-8.2) g/dL Albumin (3.5-5.0) g/dL 11/03/24 Range/Units 06:08 RBC (4.40-5.60) 10*6/uL Hgb (13.0-17.0) g/dL Hct (39.6-50.0) % MCV (80.0-97.0) fL MCHC (32.0-37.0) g/dL Plt Count (140-440) 10*3/uL MPV (9.5-12.2) fL Immature Gran # (0.00-0.04) 10*3/uL Lymphocytes # (Manual) (1.0-4.8) k/uL ABG pCO2 (35-45) mmHg ABG pO2 (83-108) mmHg ABG HCO3 (21-25) mmol/L ABG Total CO2 (19-24) mmol/L ABG O2 Saturation (94-97) % BUN 79 H (9-20) mg/dL Creatinine 1.60 H (0.66-1.25) mg/dL Glucose 276 H (74-99) mg/dL POC Glucose (mg/dL) (70-110) mg/dL AST 272 H (17-59) U/L ALT 392 H (4-49) U/L Alkaline Phosphatase 164 H (38-126) U/L Total Protein 5.0 L (6.3-8.2) g/dL Albumin 2.9 L (3.5-5.0) g/dL Microbiology - Last 24 Hours (Table) 11/01/24 14:08 Urine Culture - Final Urine,Voided 11/01/24 15:38 Blood Culture Gram Stain - Preliminary Blood Blood Culture - Preliminary Molecular ID Assessment and Plan Assessment: 1. Increase shortness of breath and weakness 2. Recent diagnosis of metastatic small cell lung carcinoma with large left superior mediastinal mass Rican recent bronchoscopy on 10/20/2024 3. Acute COPD exacerbation 4. Acute on chronic hypoxic respiratory failure 5. New onset A-fib with RVR. Patient started on Cardizem drip 6. Thrombocytopenia. Oncology services consulted 7. Urinary tract infection. Urine culture ordered patient is started on IV antibiotics 8. History of coronary artery disease 9. History of essential hypertension 10. History of hyperlipidemia 11. History of diabetes mellitus type 2 12. History of GERD 13. History of BPH 14. History of anxiety 15. History of IBS At this time patient will be admitted Pulmonary, cardiology and oncology services consulted Patient started on IV Cardizem for A-fib RVR Anticoagulation deferred to oncology at this time due to thrombocytopenia Patient started on IV antibiotics Blood and urine cultures ordered Repeat labs ordered
--- NOTE | 2024-11-03 18:56 | P.PN ---
Subjective Progress Note Date: 11/03/24 No acute changes overnight, pt remains short of breath and lethargic. Family at bedside. AST/ALT slowly improving. Creatinine 1.6 Objective - Vital Signs Vital signs: Vital Signs Temp 97.2 F L 11/03/24 11:09 Pulse 65 11/03/24 12:16 Resp 20 11/03/24 11:09 BP 108/62 11/03/24 11:09 Pulse Ox 95 11/03/24 11:09 FiO2 Intake & Output 11/02/24 11/03/24 11/03/24 18:59 06:59 18:59 Intake Total 900 74.500 20 Output Total 750 350 Balance 150 -275.500 20 Weight 113 kg Intake: IV 20 Invasive Line 2 10 Invasive Line 4 10 Intake, IV Titration 400 74.500 0 Amount Diltiazem 125 mg In 74.500 0 Dextrose 5% in Water 100 ml @ 5 MG/HR 5 mls/hr IV .Q24H DOMINGUEZ Rx#:[id number] Sodium Chloride 0.9% 1, 400 000 ml @ 50 mls/hr IV . Q20H DOMINGUEZ Rx#:[id number] Oral 500 Output: Urine 750 350 Uretheral (Lee) 750 Other: Voiding Method Indwelling Catheter Indwelling Catheter Indwelling Catheter # Bowel Movements 0 0 - Labs CBC & Chem 7: 11/03/24 06:08 11/03/24 06:08 Labs: Abnormal Lab Results - Last 24 Hours (Table) 11/02/24 11/02/24 11/03/24 Range/Units 16:56 20:04 01:44 RBC (4.40-5.60) 10*6/uL Hgb (13.0-17.0) g/dL Hct (39.6-50.0) % MCV (80.0-97.0) fL MCHC (32.0-37.0) g/dL Plt Count (140-440) 10*3/uL MPV (9.5-12.2) fL Immature Gran # (0.00-0.04) 10*3/uL Lymphocytes # (Manual) (1.0-4.8) k/uL ABG pCO2 48 H (35-45) mmHg ABG pO2 70 L (83-108) mmHg ABG HCO3 27 H (21-25) mmol/L ABG Total CO2 29 H (19-24) mmol/L ABG O2 Saturation 93.8 L (94-97) % BUN (9-20) mg/dL Creatinine (0.66-1.25) mg/dL Glucose (74-99) mg/dL POC Glucose (mg/dL) 196 H 227 H (70-110) mg/dL AST (17-59) U/L ALT (4-49) U/L Alkaline Phosphatase (38-126) U/L Total Protein (6.3-8.2) g/dL Albumin (3.5-5.0) g/dL 11/03/24 11/03/24 11/03/24 Range/Units 05:55 06:08 06:08 RBC 3.82 L (4.40-5.60) 10*6/uL Hgb 11.6 L (13.0-17.0) g/dL Hct 37.8 L (39.6-50.0) % MCV 99.0 H (80.0-97.0) fL MCHC 30.7 L (32.0-37.0) g/dL Plt Count 35 L (140-440) 10*3/uL MPV 12.4 H (9.5-12.2) fL Immature Gran # 0.37 H (0.00-0.04) 10*3/uL Lymphocytes # (Manual) 0.42 L (1.0-4.8) k/uL ABG pCO2 (35-45) mmHg ABG pO2 (83-108) mmHg ABG HCO3 (21-25) mmol/L ABG Total CO2 (19-24) mmol/L ABG O2 Saturation (94-97) % BUN 79 H (9-20) mg/dL Creatinine 1.60 H (0.66-1.25) mg/dL Glucose 276 H (74-99) mg/dL POC Glucose (mg/dL) 316 H (70-110) mg/dL AST 272 H (17-59) U/L ALT 392 H (4-49) U/L Alkaline Phosphatase 164 H (38-126) U/L Total Protein 5.0 L (6.3-8.2) g/dL Albumin 2.9 L (3.5-5.0) g/dL 11/03/24 Range/Units 11:34 RBC (4.40-5.60) 10*6/uL Hgb (13.0-17.0) g/dL Hct (39.6-50.0) % MCV (80.0-97.0) fL MCHC (32.0-37.0) g/dL Plt Count (140-440) 10*3/uL MPV (9.5-12.2) fL Immature Gran # (0.00-0.04) 10*3/uL Lymphocytes # (Manual) (1.0-4.8) k/uL ABG pCO2 (35-45) mmHg ABG pO2 (83-108) mmHg ABG HCO3 (21-25) mmol/L ABG Total CO2 (19-24) mmol/L ABG O2 Saturation (94-97) % BUN (9-20) mg/dL Creatinine (0.66-1.25) mg/dL Glucose (74-99) mg/dL POC Glucose (mg/dL) 227 H (70-110) mg/dL AST (17-59) U/L ALT (4-49) U/L Alkaline Phosphatase (38-126) U/L Total Protein (6.3-8.2) g/dL Albumin (3.5-5.0) g/dL Microbiology - Last 24 Hours (Table) 11/01/24 15:38 Blood Culture Gram Stain - Preliminary Blood Blood Culture - Preliminary Staphylococcus epidermidis Molecular ID 11/01/24 14:08 Urine Culture - Final Urine,Voided Assessment and Plan (1) Metastatic primary lung cancer Current Visit: Yes Status: Acute Code(s): C34.90 - MALIGNANT NEOPLASM OF UNSP PART OF UNSP BRONCHUS OR LUNG SNOMED Code(s): 84188341 (2) Pneumonia Current Visit: Yes Status: Acute Code(s): J18.9 - PNEUMONIA, UNSPECIFIED ORGANISM SNOMED Code(s): 102678784 Plan: Metastatic small cell lung cancer: Presented with progressing weakness and SOB -Oncology history as dictated in the HPI -Newly diagnosed lung cancer -Patient has not yet started treatment, unfortunately he was readmitted prior to clinic f/u to discuss treatment options, and his condition has continued to decline over the last cpl weeks Transaminitis, thrombocytopenia -LFTs elevated on admit, have shown some improvement -PET CT not showing significant disease burden within liver -Pt states he can not have MRIs. Spoke with CT dept, will obtain CT AP liver protocol to further evaluate. CT abdomen pelvis liver protocol showing bilateral pleural effusions and left lower lobe infiltrate. Moderate hepatomegaly without focal mass. No focal mass or enlargement of the pancreas or spleen. Fluid density in the mesentery adjacent to the mid sigmoid colon which could represent acute diverticulitis -DIC labs negative -Thrombocytopenia may be r/t to hepatic shunting vs hepatic congestion -Continue to monitor CBC. Had a detailed discussion with patient and family at today's visit. Unfortunately, patients condition has continued to decline. Discussed both treatment options and comfort care measures. At this time we could consider starting inpatient chemo as small cell carcinoma is typically very chemosensitive, however, due to patient's current condition comfort care measures would also be appropriate. Benefits versus risks were discussed in great detail. Family and patient stated they would like to proceed with inpt ch emotherapy. After today's visit we were messaged by nursing staff who stated family has decided against proceeding with chemotherapy which is very reasonable Will follow-up tomorrow to further discuss comfort care measures.
[2024-11-03 20:10] LABS: Glucose,Whole Blood 246 mg/dL (70-110)
[2024-11-03 20:22] VITALS: TEMP 96.9
[2024-11-04] MEDS: SODIUM CHLORIDE 0.9% 500 ML 500 ML IV ONE (01:04)
[2024-11-04] MEDS: HALOPERIDOL LACTATE 5 MG/ML 1 ML VIAL IVP PRN (01:12)
[2024-11-04] MEDS: AMIODARONE 360 MG in DEXTROSE 5% IN WATER 200 ML IV ONE (01:21)
[2024-11-04 04:16] VITALS: BP 89/55; PULSE 141; RESP 18
[2024-11-04 06:00] LABS: Glucose,Whole Blood 271 mg/dL (70-110)
[2024-11-04 06:14] LABS: HCT 24.7 % (39.6-50.0); MCHC 30.4 g/dL (32.0-37.0); MCV 102.1 fL (80.0-97.0); Mean Platelet Volume 12.2 fL (9.5-12.2); RBC 2.42 10*6/uL (4.40-5.60); RDW 14.6 % (11.5-14.5); WBC 4.09 10*3/uL (4.50-10.00)
[2024-11-04 06:22] LABS: HGB 7.5 g/dL (13.0-17.0)
[2024-11-04 06:23] LABS: Platelet Count 23 10*3/uL (140-440)
[2024-11-04 06:25] LABS: ALT 209 U/L (4-49); AST 143 U/L (17-59); African American GFR (CKD) 34 (>60 ml/min/1.73 sqM); Albumin 1.5 g/dL (3.5-5.0); Alkaline Phosphatase 85 U/L (38-126); Anion Gap 5 mmol/L; Blood Urea Nitrogen 97 mg/dL (9-20); Calcium 7.9 mg/dL (8.4-10.2); Carbon Dioxide 27 mmol/L (22-30); Chloride 107 mmol/L (98-107); Glucose 255 mg/dL (74-99); Non-African American GFR(CKD) 29 (>60 ml/min/1.73 sqM); Potassium 4.9 mmol/L (3.5-5.1); Sodium 139 mmol/L (137-145); Total Bilirubin 0.7 mg/dL (0.2-1.3); Total Protein 2.9 g/dL (6.3-8.2)
[2024-11-04] MEDS ORDERED: AMIODARONE 450 MG in DEXTROSE 5% IN WATER 250 ML IV SCH (07:00)
[2024-11-04 08:07] LABS: Lymphocytes # (M) 0.29 k/uL (1.0-4.8); Metamyelocytes # (M) 0.08 k/uL (0); Metamyelocytes % 2 %; Monocytes # (M) 0.04 k/uL (0-1.0); Myelocytes # (M) 0.04 k/uL (0); Myelocytes % 1 %; Neutrophils # (M) 3.64 k/uL (1.3-7.7); Neutrophils % (M) 89 %; Nucleated Red Blood Cells 0 /100 WBC (0-0); Total Cells Counted 200
[2024-11-04 08:08] LABS: Poikilocytosis (M) Present
--- NOTE | 2024-11-11 11:19 | CDI ---
Documentation Clarification Form Date: 11/11/2024 10:57:37 AM From: Mallory Ramirez RN, CCDS Email: [email or web address] Admit Date: 11/01/2024 03:12:00 PM Patient Name: Chris Borja Visit Number: [id number] Discharge Date: 11/04/2024 09:34:00 AM ATTENTION: The Clinical Documentation Specialists (CDI) and [facility] Coding Staff appreciate your assistance in clarifying documentation. Please respond to the clarification below the line at the bottom and electronically sign. The CDI & [facility] Coding staff will review the response and follow-up if needed. Please note: Queries are made part of the Legal Health Record. If you have any questions, please contact the author of this message via ITS. Doctor Nabeel Nieto The patient had elevated BUN/Cr/GFR levels. Additional clarification is requested. History/Risk factors: Recent diagnosis of metastatic small cell lung cancer not yet under treatment. Hx of obesity, COPD, smoker, DM and HTN. Presents with weakness, SOB and recent falls. Found to be in A fib with RVR. Clinical Indicators: Labs: 11/01 BUN/CR/GFR: 64/1.13/61 11/04 BUN/CR/GFR: 97/2.01/04 11/01 Urinalysis: dark brown, cloudy, large blood, moderate leukocyte esterase, RBC>182, WBC 62, hyaline casts 8, moderate mucus 11/02 BP 85/64 11/03 BP 89/58 11/04 BP 84/41-113/82-64/44-89/55 11/04 Nursing note: " paged to inform that pt heart rate remains elevated 140- 160, blood pressure is hypotensive again at 79/50, awaiting orders, Amio drip infusing and Zosyn." Treatment: 0.9 NS @130mL/hr 11/01; 500 mL 0.9 NS IV bolus x1 on 11/04; Monitor CMP daily Please clarify if there is an additional diagnosis: [ xxx ] Acute Renal Failure with Acute Tubular Necrosis due to hypotension [ ] Acute Renal Failure with other cause, please specify [ ] Unable to determine [ ] Other, please specify MTDD
--- NOTE | 2024-11-16 11:15 | P.DS ---
Providers Date of admission: 11/01/24 15:12 Expected date of discharge: 11/04/24 Attending physician: Nabeel Nieto Consults: 11/01/24 15:07 Consult Physician Routine Consulting Provider: Mulu Concepcion Consult Reason/Comments: luther Do you want consulting provider notified?: Yes 11/01/24 15:14 Consult Physician Routine Consulting Provider: Paul Ritter Consult Reason/Comments: thrombocytopenia Do you want consulting provider notified?: Yes 11/01/24 17:39 Consult Physician Urgent Consulting Provider: Zackery Wang Consult Reason/Comments: a fib Do you want consulting provider notified?: Yes Primary care physician: Katey Harris [facility] Course: Discharge diagnosis 1. Increase shortness of breath and weakness 2. Recent diagnosis of metastatic small cell lung carcinoma with large left superior mediastinal mass Rican recent bronchoscopy on 10/20/2024 3. Acute COPD exacerbation 4. Acute on chronic hypoxic respiratory failure 5. New onset A-fib with RVR. Patient started on Cardizem drip 6. Thrombocytopenia. Oncology services consulted 7. Urinary tract infection. Urine culture ordered patient is started on IV antibiotics 8. History of coronary artery disease 9. History of essential hypertension 10. History of hyperlipidemia 11. History of diabetes mellitus type 2 12. History of GERD 13. History of BPH 14. History of anxiety 15. History of IBS Patient 11/04/2024 Hospital course Chris Borja is an 79-year-old male patient who presented to the ER with concerns of generalized weakness and falls. Patient was recently admitted on October 15 with complaints of shortness of breath and was found to have a large mediastinal mass patient underwent bronchoscopy which did come back positive for metastatic small cell lung cancer. Upon arrival patient was found to be in A-fib with RVR and was started on Cardizem drip. Testing the emergency room showed head and cervical spine CT showing no anterior acute cranial process atrophy. Chest x- ray completed showing prominence of the left hilar and mediastinal regions compatible with patient's underlying mass previous per peripheral infiltrate has resolved. Chest CTA showing no evidence for pulmonary embolism large left mediastinal mass anterior determinate small lucent areas in the area of T3 and T5 possible metastatic disease. Labwork completed showing white blood cell 8.66, hemoglobin 12.1, creatinine 1.21 bun 66 AST 360, ALT 448 and alkaline phosphatase 143. UA showing positive for urinary tract infection. Vital signs temp 97.2, heart rate 130, respiratory rate 18, blood pressure 106/78 with pulse ox of 97% on 4 L. Patient was started on IV Cardizem for A-fib RVR cardiology services consulted. Patient also started on IV antibiotics. Pulmonary services consulted. Oncology services also consulted for further evaluation. At this time patient is resting in emergency room patient does appear tachypneic. Pulmonary services are at bedside. On 11/03/2024 patient was seen and examined on the medical floor, he is alert responsive in no apparent distress he is complaining of cough and shortness of breath otherwise he denies any complaints there is no fever or chills no headache or dizziness no chest pain no nausea or vomiting no abdominal pain no diarrhea and no urinary symptoms. Family is asking for an informational visit with hospice, will make arrangement. On 11/04/2024 according to records patient was made comfort care. Patient 11/04/2024 Plan - Discharge Summary Discharge Rx Participant: Yes New Discharge Prescriptions: No Action Finasteride [Proscar] 5 mg PO HS Aspirin 81 mg PO DAILY Cetirizine HCl 10 mg PO DAILY Glimepiride [Amaryl] 1 mg PO DAILY Valsartan [Diovan] 160 mg PO DAILY Escitalopram [Lexapro] 2.5 mg PO DAILY Glimepiride [Amaryl] 2 mg PO HS hydrALAZINE HCL [Apresoline] 50 mg PO BID Hydrocortisone Pr Cream [Proctosol-Hc 2.5%] 1 applic RECTAL BID PRN PRN Reason: Hemorrhoids sitaGLIPtin [Januvia] 100 mg PO DAILY Pantoprazole [Protonix] 40 mg PO DAILY carvediloL [Coreg*] 12.5 mg PO BID-W/MEALS 30 Days #60 tab Cholecalciferol [Vitamin D3 (125 Mcg = 5000 Iu)] 125 mcg PO DAILY Doxazosin Mesylate [Cardura] 8 mg PO HS Furosemide [Lasix] 40 mg PO DAILY NIFEdipine XL [Procardia XL] 30 mg PO DAILY Demeclocycline [Declomycin] 300 mg PO BID 7 Days #28 tab predniSONE See Taper PO DIRECTED Discharge Medication List Aspirin 81 mg PO DAILY 01/11/15 [History] Finasteride [Proscar] 5 mg PO HS 01/11/15 [History] Cetirizine HCl 10 mg PO DAILY 05/22/18 [History] Glimepiride [Amaryl] 1 mg PO DAILY 07/21/20 [History] Pantoprazole [Protonix] 40 mg PO DAILY 10/06/20 [History] carvediloL [Coreg*] 12.5 mg PO BID-W/MEALS 30 Days #60 tab 12/30/23 [Rx] Escitalopram [Lexapro] 2.5 mg PO DAILY 03/22/24 [History] Valsartan [Diovan] 160 mg PO DAILY 03/22/24 [History] Cholecalciferol [Vitamin D3 (125 Mcg = 5000 Iu)] 125 mcg PO DAILY 10/14/24 [History] Doxazosin Mesylate [Cardura] 8 mg PO HS 10/14/24 [History] Furosemide [Lasix] 40 mg PO DAILY 10/14/24 [History] Glimepiride [Amaryl] 2 mg PO HS 10/14/24 [History] Hydrocortisone Pr Cream [Proctosol-Hc 2.5%] 1 applic RECTAL BID PRN 10/14/24 [History] NIFEdipine XL [Procardia XL] 30 mg PO DAILY 10/14/24 [History] hydrALAZINE HCL [Apresoline] 50 mg PO BID 10/14/24 [History] sitaGLIPtin [Januvia] 100 mg PO DAILY 10/14/24 [History] Demeclocycline [Declomycin] 300 mg PO BID 7 Days #28 tab 10/22/24 [Rx] predniSONE See Taper PO DIRECTED 11/01/24 [History] Follow up Appointment(s)/Referral(s): Katey Harris MD [Primary Care Provider] - 1-2 days Discharge Disposition: - Preliminary Cause of Preliminary Cause of : metastic lung Cancer
== END 2024-11-04 09:34 | disposition expired | DRG 308 ==
LOC: EC 12:11 → 5NMEDONC 15:12 → 3SCARD 17:47
PROVIDERS: ADMIT Internal Medicine; ATTEND Internal Medicine
DX: I48.91 Unspecified atrial fibrillation (principal); J18.9 Pneumonia, unspecified organism; J96.21 Acute and chronic respiratory failure with hypoxia; N17.0 Acute kidney failure with tubular necrosis; C78.7 Secondary malignant neoplasm of liver and intrahepatic bile duct; C77.1 Secondary and unspecified malignant neoplasm of intrathoracic lymph nodes; Z66 Do not resuscitate; C34.90 Malignant neoplasm of unspecified part of unspecified bronchus or lung; J44.0 Chronic obstructive pulmonary disease with (acute) lower respiratory infection; E11.51 Type 2 diabetes mellitus with diabetic peripheral angiopathy without gangrene; K76.89 Other specified diseases of liver; E66.9 Obesity, unspecified; I10 Essential (primary) hypertension; J44.1 Chronic obstructive pulmonary disease with (acute) exacerbation; E87.1 Hypo-osmolality and hyponatremia; E27.8 Other specified disorders of adrenal gland; Z68.38 Body mass index [BMI] 38.0-38.9, adult; I25.82 Chronic total occlusion of coronary artery; K57.30 Diverticulosis of large intestine without perforation or abscess without bleeding; I25.2 Old myocardial infarction; K21.9 Gastro-esophageal reflux disease without esophagitis; R21 Rash and other nonspecific skin eruption; K58.9 Irritable bowel syndrome, unspecified; F41.9 Anxiety disorder, unspecified; E78.5 Hyperlipidemia, unspecified; F17.200 Nicotine dependence, unspecified, uncomplicated; H91.90 Unspecified hearing loss, unspecified ear; I25.10 Atherosclerotic heart disease of native coronary artery without angina pectoris; K43.9 Ventral hernia without obstruction or gangrene; N40.1 Benign prostatic hyperplasia with lower urinary tract symptoms; R35.0 Frequency of micturition; Z87.440 Personal history of urinary (tract) infections; Z79.82 Long term (current) use of aspirin; Z79.84 Long term (current) use of oral hypoglycemic drugs; Z79.899 Other long term (current) drug therapy; Z95.5 Presence of coronary angioplasty implant and graft
CPT/HCPCS: 36415; 36600; 70450; 71045; 71046; 71275; 72125; 74178; 74230; 80053; 81001; 82805; 83036; 83605; 83735; 84145; 84439; 84443; 84481; 84484; 85025; 85384; 85610; 85730; 86850; 86900; 86901; 87040; 87086; 87449; 93005; 93306; 94640; 94760; 96361; 96365; 96366; 96367; 96368; 96375; 96376; 99291